=== PATIENT | male | born 1935 | race Caucasian/White ===

== ENCOUNTER 2021-08-24 14:19 | Outpatient (CLI) | payer MEDICARE, BC, SELFPAY | END 2021-08-24 14:20 | disposition home or self-care (01) | PROVIDERS: PCP Surgery; Visit Provider Surgery | DX: L59.8 Other specified disorders of the skin and subcutaneous tissue related to radiation (principal); I87.2 Venous insufficiency (chronic) (peripheral); I89.0 Lymphedema, not elsewhere classified; I83.012 Varicose veins of right lower extremity with ulcer of calf; L97.222 Non-pressure chronic ulcer of left calf with fat layer exposed | CPT/HCPCS: 15271; C5271; Q4121 ==

== ENCOUNTER 2021-08-30 14:19 | Outpatient (CLI) | payer MEDICARE, BC, SELFPAY | END 2021-08-30 14:20 | disposition home or self-care (01) | LOC: WOUND 14:20 | PROVIDERS: PCP Surgery; Visit Provider Nurse Practitioner Family | DX: L59.8 Other specified disorders of the skin and subcutaneous tissue related to radiation (principal); L97.222 Non-pressure chronic ulcer of left calf with fat layer exposed; I87.2 Venous insufficiency (chronic) (peripheral); I89.0 Lymphedema, not elsewhere classified | CPT/HCPCS: 11042 ==

== ENCOUNTER 2021-09-13 14:22 | Outpatient (CLI) | payer MEDICARE, BC, SELFPAY | END 2021-09-13 14:23 | disposition home or self-care (01) | LOC: WOUND 14:22 | PROVIDERS: PCP Surgery; Visit Provider Nurse Practitioner Family | DX: L59.8 Other specified disorders of the skin and subcutaneous tissue related to radiation (principal); T81.31XA Disruption of external operation (surgical) wound, not elsewhere classified, initial encounter; I89.0 Lymphedema, not elsewhere classified; I87.2 Venous insufficiency (chronic) (peripheral) | CPT/HCPCS: 11042; 15271; Q4121 ==

== ENCOUNTER 2021-09-20 13:38 | Outpatient (CLI) | payer MEDICARE, BC, SELFPAY | END 2021-09-20 13:39 | disposition home or self-care (01) | LOC: WOUND 13:38 | PROVIDERS: PCP Surgery; Visit Provider Nurse Practitioner Family | DX: L59.8 Other specified disorders of the skin and subcutaneous tissue related to radiation (principal) | CPT/HCPCS: 99213 ==

== ENCOUNTER 2021-09-27 14:21 | Outpatient (CLI) | payer MEDICARE, BC, SELFPAY | END 2021-09-27 14:22 | disposition home or self-care (01) | LOC: WOUND 14:22 | PROVIDERS: PCP Surgery; Visit Provider Nurse Practitioner Family | DX: L59.8 Other specified disorders of the skin and subcutaneous tissue related to radiation (principal) | CPT/HCPCS: 97597 ==

== ENCOUNTER 2021-09-28 07:26 | Day surgery (SDC) | payer MEDICARE, BC, SELFPAY ==
[2021-09-28] MEDS: KETOROLAC OPHTH 0.5% 1 DROP EYE-RIGHT ×3 (07:45→08:18)
[2021-09-28] MEDS: TETRACAINE 0.5% OPHTH 1 DROP EYE-RIGHT ×2 (07:45→07:58)
[2021-09-28 07:50] VITALS: BP 133/69; PULSE 63; RESP 16; TEMP 36.5; O2SAT 97; BMI 25.1
[2021-09-28] MEDS: SODIUM CHLORIDE 0.9 % (FLUSH) 10 ML SYRINGE IVF (08:05)
--- NOTE | 2021-09-28 08:08 | SUR.PREOP ---
The eye drops brought by the patient (Ketorolac and Prednisolone) are examined and I have determined they are labeled by the patient's pharmacy for this patient as prescribed by the surgeon. The bottles are intact, recently obtained and appear to be correct.
[2021-09-28] MEDS: TETRACAINE 0.5% OPHTH 2 DROP EYE-RIGHT (08:47)
[2021-09-28] MEDS: BALANCED SALT IRRIG SOLN 15 ML EYE-RIGHT (08:51)
--- NOTE | 2021-09-28 08:57 | W.ANESCHARGE ---
Anesthesia Charges Start Date/Time Anesthesia Start Date: 09/28/21 Anesthesia Start Time: 08:44 Stop Date/Time Anesthesia Stop Date: 09/28/21 Anesthesia Stop Time: 09:17 Summary Emergency: No Extremes of Age: Over 71-CPT 76019
--- NOTE | 2021-09-28 09:08 | W.ANESCHARGE ---
Anesthesia Charges Start Date/Time Anesthesia Start Date: 09/28/21 Anesthesia Start Time: 08:44 Stop Date/Time Anesthesia Stop Date: 09/28/21 Summary Emergency: No Extremes of Age: Over 71-CPT 20811
[2021-09-28 09:20] VITALS: BP 140/69; PULSE 54; RESP 16; TEMP 36.5; O2SAT 98
--- NOTE | 2021-09-28 09:27 | W.ANESCHARGE ---
Anesthesia Charges Start Date/Time Anesthesia Start Date: 09/28/21 Anesthesia Start Time: 08:44 Stop Date/Time Anesthesia Stop Date: 09/28/21 Anesthesia Stop Time: 09:17 Summary Emergency: No Extremes of Age: Over 71-CPT 68370
--- NOTE | 2021-09-28 10:03 | PM.PROC ---
Procedure Note Date Seen: 09/28/21 Will [facility] bill your pro fee for this procedure?: Yes Procedure Description: SURGEON: Catrina Ramos MD PREOPERATIVE DIAGNOSIS: Nuclear sclerotic cataract, right eye. POSTOPERATIVE DIAGNOSIS: Nuclear sclerotic cataract, right eye. NAME OF OPERATION: Phacoemulsification of cataract with posterior chamber intraocular lens implantation in the right eye. ANESTHESIA: Topical. ESTIMATED BLOOD LOSS: Less than 2 cc. COMPLICATIONS: None. PATHOLOGY SPECIMEN: None. INDICATIONS: See consult note for details. The risks, benefits and alternatives of the procedure were explained to the patient, who elected to proceed and signed informed consent to do so. PROCEDURE: The patient was brought to the pre-holding area where the right eye was identified as the operative eye. I placed my initials above this eye. The patient received eye drops consisting of 0.5% tetracaine, 1% tropicamide, 10% phenylephrine, and 0.5% ketorolac. The patient was then brought to the operating room where the right eye was again identified as the operative eye. The eye was prepped with Betadine and draped in the usual sterile ophthalmic fashion. A #15 super-sharp blade was used to create a paracentesis site. 1% non-preserved intracameral lidocaine was injected into the anterior chamber. Endocoat was injected into the anterior chamber. A 2.4 mm keratome was used to create a three-plane self-sealing incision 1 mm anterior to the temporal limbus. A cystotome was used to create an anterior capsular leaflet. The Utrata forceps were used to extend this to form a continuous curvilinear capsulorrhexis. Hydrodissection was performed. The cataract was removed with phacoemulsification using the [id number] technique. The irrigation and aspiration tip was used to remove the remaining cortex. Healon was injected into the capsular bag. An MARSHALL ZCB00 intraocular lens of 20.5 diopters was injected into the capsular bag. The irrigation and aspiration tip was used to remove the remaining viscoelastic. Balanced salt solution on a cannula was used to hydrate the wound, and the wound was found to be watertight. The pupil was noted to be round. DISPOSITION: The patient was taken to the recovery room and discharged to home in stable condition. The patient was instructed to call me or go to the emergency department with any sudden change, including dramatic loss of vision, severe pain in the eye or eyebrow region, nausea, or vomiting. The patient will follow up in the clinic tomorrow morning. Surgeon: Catrina Ramos MD
== END 2021-09-28 09:46 | disposition home or self-care (01) ==
PROVIDERS: PCP Surgery; Visit Provider Ophthalmology
PROC: (CPT 66984; principal; 2021-09-28 07:30)
DX: H25.11 Age-related nuclear cataract, right eye (principal)
CPT/HCPCS: 66984; 00142; 99100; A9270; J2250; J3010; V2632

== ENCOUNTER 2021-10-11 14:22 | Outpatient (CLI) | payer MEDICARE, BC, SELFPAY | END 2021-10-11 14:23 | disposition home or self-care (01) | LOC: WOUND 14:23 | PROVIDERS: PCP Surgery; Visit Provider Nurse Practitioner Family | DX: L59.8 Other specified disorders of the skin and subcutaneous tissue related to radiation (principal); I89.0 Lymphedema, not elsewhere classified | CPT/HCPCS: 15271; Q4121 ==

== ENCOUNTER 2021-10-14 08:11 | Day surgery (SDC) | payer MEDICARE, BC, SELFPAY ==
[2021-10-14] MEDS: KETOROLAC OPHTH 0.5% 1 DROP EYE-LEFT ×3 (08:20→08:30)
[2021-10-14] MEDS: TETRACAINE 0.5% OPHTH 1 DROP EYE-LEFT ×2 (08:20→08:25)
[2021-10-14 08:40] VITALS: BP 152/65; PULSE 62; RESP 18; TEMP 37.3; O2SAT 100; BMI 24.7
[2021-10-14] MEDS: TETRACAINE 0.5% OPHTH 2 DROP EYE-LEFT (08:42)
[2021-10-14] MEDS: BALANCED SALT IRRIG SOLN 15 ML EYE-LEFT (08:42)
[2021-10-14] MEDS: SODIUM CHLORIDE 0.9 % (FLUSH) 10 ML SYRINGE IVF (08:45)
--- NOTE | 2021-10-14 08:51 | SUR.PREOP ---
The eye drops brought by the patient (Ketorolac and Prednisolone) are examined and I have determined they are labeled by the patient's pharmacy for this patient as prescribed by the surgeon. The bottles are intact, recently obtained and appear to be correct.[id number]
[2021-10-14 09:55] VITALS: BP 146/65; PULSE 55; RESP 16; TEMP 36.5; O2SAT 98
--- NOTE | 2021-10-14 09:56 | W.ANESCHARGE ---
Anesthesia Charges Start Date/Time Anesthesia Start Date: 10/14/21 Anesthesia Start Time: 09: Stop Date/Time Anesthesia Stop Date: 10/14/21 Anesthesia Stop Time: 09:55 Summary Emergency: No Extremes of Age: Over 71-CPT 37904
--- NOTE | 2021-10-14 11:00 | P.PCN_ITS ---
Procedure Note Date Seen: 10/14/21 Will [facility] bill your pro fee for this procedure?: Yes Procedure Description: SURGEON: Catrina Ramos MD PREOPERATIVE DIAGNOSIS: Nuclear sclerotic cataract, left eye. POSTOPERATIVE DIAGNOSIS: Nuclear sclerotic cataract, left eye. NAME OF OPERATION: Phacoemulsification of cataract with posterior chamber intraocular lens implantation in the left eye. ANESTHESIA: Topical. ESTIMATED BLOOD LOSS: Less than 2 cc. COMPLICATIONS: None. PATHOLOGY SPECIMEN: None. INDICATIONS: See consult note for details. The risks, benefits and alternatives of the procedure were explained to the patient, who elected to proceed and signed informed consent to do so. PROCEDURE: The patient was brought to the pre-holding area where the left eye was identified as the operative eye. I placed my initials above this eye. The patient received eye drops consisting of 0.5% tetracaine, 1% tropicamide, 10% phenylephrine, and 0.5% ketorolac. The patient was then brought to the operating room where the left eye was again identified as the operative eye. The eye was prepped with Betadine and draped in the usual sterile ophthalmic fashion. A #15 super-sharp blade was used to create a paracentesis site. 1% non-preserved intracameral lidocaine was injected into the anterior chamber. Endocoat was injected into the anterior chamber. A 2.4 mm keratome was used to create a three-plane self-sealing incision 1 mm anterior to the temporal limbus. A cystotome was used to create an anterior capsular leaflet. The Utrata forceps were used to extend this to form a continuous curvilinear capsulorrhexis. Hydrodissection was performed. The cataract was removed with phacoemulsification using the [id number] technique. The irrigation and aspiration tip was used to remove the remaining cortex. Healon was injected into the capsular bag. An MARSHALL ZCB00 intraocular lens of 20.5 diopters was injected into the capsular bag. The irrigation and aspiration tip was used to remove the remaining viscoelastic. Balanced salt solution on a cannula was used to hydrate the wound, and the wound was found to be watertight. The pupil was noted to be round. DISPOSITION: The patient was taken to the recovery room and discharged to home in stable condition. The patient was instructed to call me or go to the emergency department with any sudden change, including dramatic loss of vision, severe pain in the eye or eyebrow region, nausea, or vomiting. The patient will follow up in the clinic tomorrow morning. Surgeon: Catrina Ramos MD
== END 2021-10-14 10:31 | disposition home or self-care (01) ==
PROVIDERS: PCP Surgery; Visit Provider Ophthalmology
PROC: (CPT 66984; principal; 2021-10-14 08:15)
DX: H25.12 Age-related nuclear cataract, left eye (principal)
CPT/HCPCS: 66984; 00142; 99100; A9270; J2250; J3010; V2632

== ENCOUNTER 2021-10-18 12:48 | Outpatient (CLI) | payer MEDICARE, BC, SELFPAY | END 2021-10-18 12:49 | disposition home or self-care (01) | LOC: WOUND 12:48 | PROVIDERS: PCP Surgery; Visit Provider Nurse Practitioner Family | DX: L59.8 Other specified disorders of the skin and subcutaneous tissue related to radiation (principal); L97.222 Non-pressure chronic ulcer of left calf with fat layer exposed; I89.0 Lymphedema, not elsewhere classified; I87.2 Venous insufficiency (chronic) (peripheral) | CPT/HCPCS: 11042 ==

== ENCOUNTER 2021-10-25 14:22 | Outpatient (CLI) | payer MEDICARE, BC, SELFPAY | END 2021-10-25 14:23 | disposition home or self-care (01) | LOC: WOUND 14:22 | PROVIDERS: PCP Surgery; Visit Provider Nurse Practitioner Family | DX: L59.8 Other specified disorders of the skin and subcutaneous tissue related to radiation (principal); T81.31XA Disruption of external operation (surgical) wound, not elsewhere classified, initial encounter | CPT/HCPCS: 11042; 97597 ==

== ENCOUNTER 2021-11-01 14:18 | Outpatient (CLI) | payer MEDICARE, BC, SELFPAY | END 2021-11-01 14:19 | disposition home or self-care (01) | LOC: WOUND 14:19 | PROVIDERS: PCP Surgery; Visit Provider Nurse Practitioner Family | DX: L59.8 Other specified disorders of the skin and subcutaneous tissue related to radiation (principal); L97.222 Non-pressure chronic ulcer of left calf with fat layer exposed; I89.0 Lymphedema, not elsewhere classified | CPT/HCPCS: 15271; Q4121 ==

== ENCOUNTER 2021-11-03 23:13 | Outpatient (CLI) | payer MEDICARE, BC, SELFPAY | END 2021-11-03 23:14 | disposition home or self-care (01) | LOC: AMB 04-07 05:32 | PROVIDERS: PCP Surgery; Visit Provider Student in an Organized Health Care Education/Training Program | DX: R06.09 Other forms of dyspnea (principal) | CPT/HCPCS: A0425; A0427 ==

== ENCOUNTER 2021-11-03 23:50 | Observation (INO) | payer MEDICARE, BC, SELFPAY ==
[2021-11-03 23:52] VITALS: BP 150/80; PULSE 66; RESP 22; TEMP 36.5; O2SAT 100; BMI 26.2
[2021-11-04] VITALS (13 sets, daily range): BP systolic 110–157; BP diastolic 56–81; PULSE 49–57; RESP 15–20; TEMP 36.5–36.6; O2SAT 95–100; BMI 25.1
--- NOTE | 2021-11-04 00:08 | CRLHL7_ITS ---
For Patients: As a result of the Century Cures Act, medical imaging exams and procedure reports are released immediately into your electronic medical record. You may view this report before your referring provider. If you have questions, please contact your health care provider. INDICATION: Dyspnea, weakness. TECHNIQUE: Chest 1 views. COMPARISON: None. FINDINGS: Lungs: Low lung volumes. No consolidation. The tracheobronchial tree and hilar structures are unremarkable. Pleura: No pleural effusion or pneumothorax. Heart and Mediastinum: Normal heart size. Atherosclerotic aorta. Bones: Left humeral arthroplasty. IMPRESSION: No consolidation. Dictated by Darrel Silva MD @ 11/04/2021 1:58:28 AM (Electronically Signed)
[2021-11-04] MEDS: 0.9 % SODIUM CHLORIDE 250 ml 250 ML IV (00:24)
[2021-11-04 00:38] LABS: Lactate* 2.3 mmol/L (0.5-1.9)
[2021-11-04 00:41] LABS: Basophils Absolute Auto 0.04 K/uL (0.00-0.30); Basophils Percent Auto 0.7 % (0.0-3.0); Eosinophils Absolute Auto 0.15 K/uL (0.00-0.50); Eosinophils Percent Auto 2.7 % (0.0-7.0); Hematocrit 36.4 % (37.0-53.0); Hemoglobin* 12.6 gm/dL (13.5-17.5); Immature Granulocytes Abs Auto 0.05 K/uL (0.00-0.30); Lymphocytes Percent Auto 16.9 % (20-44); Mean Corpuscular HGB Conc 35 gm/dL (32-36); Mean Corpuscular Hemoglobin 32 pg (26-34); Mean Corpuscular Volume 93 fL (80-100); Monocytes Percent Auto 10.3 % (0.0-11.0); Neutrophils Absolute Auto 3.86 K/uL (1.7-7.0); Neutrophils Percent Auto 68.5 % (42.0-72.0); Platelet Count* 185 K/uL (140-440); RDW Coefficient of Variation % 13.1 % (11.5-15.5); White Blood Count* 5.63 K/uL (4.50-11.00)
[2021-11-04 00:45] LABS: Slide Review Reflex No
[2021-11-04 00:52] LABS: Troponin, Point-of-Care* 0.01 ng/ml (0.01-0.04)
[2021-11-04 00:59] LABS: Chloride* 103 mmol/L (96-114); Potassium* 3.4 mmol/L (3.6-5.1); Sodium* 137 mmol/L (135-149)
[2021-11-04 01:01] LABS: Est. Creatinine Clearance* 52.25; Estimated Glomerular Filt Rate 74 ml/min
[2021-11-04 01:02] LABS: Alanine Aminotransferase* 16 U/L (4-50); Alkaline Phosphatase* 93 U/L (40-150); Aspartate Amino Transferase* 23 U/L (12-35); Bilirubin Total* 0.8 mg/dL (0.1-1.5); Blood Urea Nitrogen* 29 mg/dL (7-30); Carbon Dioxide* 24 mmol/L (20-32); Glucose* 133 mg/dL (60-115); Total Protein* 6.6 g/dL (6.0-8.3)
[2021-11-04 01:08] LABS: Appearance Urine Clear (Clear); Bilirubin Urine Negative (Negative); Blood Urine Negative (Negative); Color Urine Yellow (Yellow); Glucose Urine Negative (Negative); Ketones Urine Negative (Negative); Leukocyte Esterase Urine Negative (Negative); Nitrite Urine Negative (Negative); Protein Urine Negative (Negative); Specific Gravity Urine 1.015 (1.000-1.030); Urobilinogen Urine 0.2 (0.2-1.0)
[2021-11-04 01:11] LABS: NT Pro B Type NatriureticPept* 132 PG/mL (0-450)
[2021-11-04 01:15] LABS: Troponin I* < 0.01 ng/mL (0.01-0.04)
[2021-11-04 02:03] LABS: SARS PCR* Negative SARS-CoV-2 (Negative)
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
[2021-11-04 02:16] LABS: Lactate* 1.6 mmol/L (0.5-1.9)
[2021-11-04 02:23] LABS: Troponin, Point-of-Care* 0.02 ng/ml (0.01-0.04)
--- NOTE | 2021-11-04 09:38 | ED.NURSE ---
has good appetite. ate brfst. has been resting. is on his phone. awaiting bed for admission.
[2021-11-04] MEDS: APIXABAN 5 MG TABLET PO ×2 (10:40→21:02)
[2021-11-04] MEDS: OMEPRAZOLE 20 MG CAPSULE DR 40 MG PO (10:40)
[2021-11-04] MEDS: CLOPIDOGREL 75 MG TABLET PO (10:40)
[2021-11-04] MEDS: hydroCHLOROthiazide 25 MG TABLET PO (10:42)
[2021-11-04] MEDS: METOPROLOL SUCCINATE (XL) 25 MG TAB PO (10:43)
[2021-11-04] MEDS: LOSARTAN POTASSIUM 50 MG TABLET PO ×2 (10:43→21:02)
[2021-11-04] MEDS: FUROSEMIDE 20 MG TABLET PO (10:44)
--- NOTE | 2021-11-04 15:29 | P.IMHP_ITS ---
Hospitalist- H&P: HPI History of Present Illness Date Seen: 11/04/21 Chief complaint: Chest pain, weakness of breath Narrative: Cristian Stevens is a 86 year old male who had a long day yesterday as his daughter had surgery and pt was at his daughter's side. He began feeling weak as the day went on and developed lightheadedness and worsening weakness last night at home. Pt states that he pushed he Medicallert and was brought to the [facility] ED. Workup was largely unremarkable with a negative troponin, stable CBC and electrolytes with the exception of a potassium of 3.4. Troponin was negative. Pt has paroxysmal a fib but EKG showed sinus rhythm with PACs. UA and COVID testing were negative. Lactate was initially 2.3 but fell to 1.6. Pt did not fall or harm himself. Pt had the persistance of generalized weakness with no focal complaints and was unable to safely ambulate in the ED. Chest x ray shows no acute abnormalities. Pt was subsequently admitted for further evaluation and safety. Review of Systems Status of ROS: Reports: 10 or more systems reviewed and unremarkable except as noted in History and below 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) Hx of appendectomy Hx of colonoscopy Hx of hernia repair Hx of inguinal hernia repair Social History Smoking Status: Never smoker Do you use any of these nicotine containing products: None How often do you have a drink containing alcohol: never How often do you have six or more drinks on one occasion: Never AUDIT-C Alcohol total score: 0 Non-prescribed substance use: denies use Caffeine: No service: Yes Meds Home Medications and Allergies Home Medications Medication Instructions Recorded Confirmed Type acetaminophen 500 mg tablet 500 mg PO Q6H PRN 09/28/21 11/04/21 History (Tylenol Extra Strength) apixaban 5 mg tablet 5 mg PO BID 09/28/21 11/04/21 History atorvastatin 20 mg tablet 10 mg PO HS 09/28/21 11/04/21 History clopidogrel 75 mg tablet 75 mg PO DAILY 09/28/21 11/04/21 History furosemide 20 mg tablet 20 mg PO DAILY 09/28/21 11/04/21 History gabapentin 300 mg capsule 300 mg PO HS 09/28/21 11/04/21 History hydrochlorothiazide 25 mg tablet 25 mg PO DAILY 09/28/21 11/04/21 History losartan 50 mg tablet (Cozaar) 50 mg PO BID 09/28/21 11/04/21 History omeprazole 40 mg capsule,delayed 40 mg PO DAILY 09/28/21 11/04/21 History release metoprolol succinate 25 mg 25 mg PO DAILY 11/04/21 11/04/21 History tablet,extended release 24 hr multivitamin with minerals-ferrous 1 tab PO DAILY 11/04/21 11/04/21 History sulfate 4.5 mg iron tablet (One Daily Multivitamins with Minerals) nitroglycerin 0.4 mg sublingual 0.4 mg sublingual Q5M PRN 11/04/21 11/04/21 History tablet Allergies Allergy/AdvReac Type Severity Reaction Status Date / Time atenolol AdvReac Verified 11/01/21 10:18 lisinopril AdvReac anemia Verified 11/01/21 10:18 Exam Narrative: Exam Narrative: EXAM GENERAL: Patient appears comfortable and well. EYES: No scleral icterus. THYROID: no thyroid nodules or thyromegaly. LYMPH: No supraclavicular or cervical lymphadenopathy. SKIN: Visible skin seen during exam normal or with benign process only with the exception of previous skin cancer sites on left lower extremity with mild chronic ulcerations. EXT: No dependent lower extremity pedal edema. HEART: Regular rate and rhythm with no murmurs, rubs, or gallops. LUNGS: Clear to auscultation bilaterally with no crackles or wheezes. ABD: Soft, non tender, non distended. PSYCH: Good eye contact, speech is not pressured. Neurological: CN 2-12 grossly intact no focal defects. Good strength and reflexes in all extremities. Cognitively pt is oriented times three and understands why he is here. Const: Vital Signs, click to edit/add: Vital Signs - 24 hr 11/03/21 23:52 11/04/21 00:30 11/04/21 01:36 Temperature 97.7 F Pulse Rate [Pulse Oximeter] 66 56 L 55 L Pulse Rate [Right Pulse Oximeter] Respiratory Rate 22 Blood Pressure [Le ft Arm] Blood Pressure [Le ft Upper Arm] 150/80 H 122/68 137/68 Pulse Oximetry 100 99 99 Oxygen Delivery Va thod Room Air Room Air Room Air 11/04/21 04:11 11/04/21 06:00 11/04/21 07:08 Temperature 97.7 F Pulse Rate [Pulse Oximeter] 54 L 56 L 55 L Pulse Rate [Right Pulse Oximeter] Respiratory Rate 18 Blood Pressure [Le ft Arm] Blood Pressure [Le ft Upper Arm] 114/56 L 130/59 L 144/69 H Pulse Oximetry 98 95 97 Oxygen Delivery Va thod Room Air Room Air 11/04/21 08:00 11/04/21 10:46 11/04/21 12:56 Temperature 97.7 F Pulse Rate [Pulse Oximeter] 54 L 55 L Pulse Rate [Right Pulse Oximeter] 57 L Respiratory Rate 18 18 20 Blood Pressure [Le ft Arm] 150/81 H Blood Pressure [Le ft Upper Arm] 132/62 129/64 Pulse Oximetry 98 99 97 Oxygen Delivery Va thod Room Air Room Air Room Air Hospitalist - H&P: Result Labs Labs: Short CBC 11/04/21 Range/Units 00:30 WBC 5.63 (4.50-11.00) K/uL Hgb 12.6 L (13.5-17.5) gm/dL Hct 36.4 L (37.0-53.0) % Plt Count 185 (140-440) K/uL BMP 11/04/21 00:30 Sodium 137 Potassium 3.4 L Chloride 103 Carbon Dioxide 24 BUN 29 Creatinine 1.0 Glucose 133 H Calcium 9.0 Cardiac Enzymes 11/04/21 Range/Units 00:30 Troponin I < 0.01 L (0.01-0.04) ng/mL Liver Function 11/04/21 Range/Units 00:30 Total Bilirubin 0.8 (0.1-1.5) mg/dL AST 23 (12-35) U/L ALT 16 (4-50) U/L Alkaline Phosphatase 93 (40-150) U/L Albumin 4.0 (3.3-5.0) g/dL Urine 11/04/21 Range/Units 01:00 Urine Color Yellow (Yellow) Urine Appearance Clear (Clear) Urine pH 7.0 (5.0-8.5) Ur Specific [place] 1.015 (1.000-1.030) Urine Protein Negative (Negative) Urine Glucose (UA) Negative (Negative) Imaging Chest x-ray: Radiologist's impression: No acute abnormalities Assessment and Plan Assessment and plan (1) Weakness: Status: Acute Assessment and Plan: Pt appears very stable. However, will repeat Troponin, CMP, CBC. If results negative will hold on am labs. Pt placed on Tele with oxymetry. CT of head without contrast ordered. PT/OT to see in am. (2) Hypokalemia: Status: Acute Assessment and Plan: Repeating labs now. (3) Paroxysmal A-fib: Status: Chronic Assessment and Plan: Continue anticoagulation. Rate is controlled. Will place on tele. (4) Coronary artery disease: Status: Chronic Assessment and Plan: Echo showed no major abnormalities. Repeat troponin pending. Will place on Tele. (5) GERD (gastroesophageal reflux disease): Status: Chronic Assessment and Plan: Continue omeprazole (6) Hypertension: Status: Chronic Assessment and Plan: Continue outpt regiment (7) DANIAL (obstructive sleep apnea): Status: Chronic Assessment and Plan: Pt does not use CPAP or dental appliance. Will watch on tele/oxymetry Plan Pt to be a full code.
--- NOTE | 2021-11-04 15:51 | CRLHL7_ITS ---
For Patients: As a result of the Century Cures Act, medical imaging exams and procedure reports are released immediately into your electronic medical record. You may view this report before your referring provider. If you have questions, please contact your health care provider. INDICATION: Weakness. COMPARISON: None. TECHNIQUE: Noncontrast CT head. FINDINGS: Mild generalized volume loss. Patchy low-attenuation change within the white matter consistent with chronic small vessel ischemic changes. No intracranial hemorrhage. No abnormal ventricular dilatation. Normal calvarium and skull base. Visualized paranasal sinuses and mastoid air cells are clear. Normal orbits bilaterally. IMPRESSION: 1. No acute intracranial abnormality. 2. Mild generalized cerebral volume loss. Chronic deep white matter small vessel ischemic changes Please note that all CT scans at this facility use dose modulation, iterative reconstruction, and/or weight-based dosing when appropriate to reduce radiation dose to as low as reasonably achievable. Dictated by Amor Patrick MD @ 11/04/2021 5:33:26 PM (Electronically Signed)
--- NOTE | 2021-11-04 17:45 | PC.NURSE ---
Shift Summary: patient pleasant and cooperative. Up with SBA and gait belt due to weakness and unstable gait. Vitals stable, tele shows bradycardic, o2 >90% on RA. Denies chest pain or SOB. Using call light appropriately.
[2021-11-04 18:10] LABS: Basophils Absolute Auto 0.04 K/uL (0.00-0.30); Basophils Percent Auto 0.5 % (0.0-3.0); Eosinophils Absolute Auto 0.19 K/uL (0.00-0.50); Eosinophils Percent Auto 2.5 % (0.0-7.0); Hematocrit 41.5 % (37.0-53.0); Immature Granulocytes Abs Auto 0.05 K/uL (0.00-0.30); Lymphocytes Percent Auto 18.5 % (20-44); Mean Corpuscular HGB Conc 34 gm/dL (32-36); Mean Corpuscular Hemoglobin 32 pg (26-34); Mean Corpuscular Volume 94 fL (80-100); Monocytes Percent Auto 10.4 % (0.0-11.0); Neutrophils Absolute Auto 5.21 K/uL (1.7-7.0); Neutrophils Percent Auto 67.5 % (42.0-72.0); Platelet Count* 196 K/uL (140-440); RDW Coefficient of Variation % 13.3 % (11.5-15.5); Slide Review Reflex No; White Blood Count* 7.72 K/uL (4.50-11.00)
[2021-11-04 18:21] LABS: Chloride* 100 mmol/L (96-114)
[2021-11-04 18:22] LABS: Sodium* 136 mmol/L (135-149)
[2021-11-04 18:24] LABS: Carbon Dioxide* 29 mmol/L (20-32); Creatinine* 0.8 mg/dL (0.5-1.5); Est. Creatinine Clearance* 52.25; Estimated Glomerular Filt Rate 87 ml/min
[2021-11-04 18:25] LABS: Blood Urea Nitrogen* 21 mg/dL (7-30); Calcium* 9.1 mg/dL (8.4-10.6); Glucose* 104 mg/dL (60-115)
[2021-11-04 18:45] LABS: Troponin I* < 0.01 ng/mL (0.01-0.04)
[2021-11-04] MEDS: ATORVASTATIN 10 MG TABLET PO (21:02)
[2021-11-04] MEDS: GABAPENTIN 300 MG CAPSULE PO (21:03)
[2021-11-05 03:00] VITALS: BP 117/60; PULSE 50; RESP 12; O2SAT 97
--- NOTE | 2021-11-05 05:48 | PC.NURSE ---
shift [id number] Pt this shift calm and cooperative with cares. Pleasant, independent in room. HS self-care done at sink, tolerated well. No c/o pain, SOB, or dizziness. Tele shows regular sinus-cher start of shift but every few minutes a PVC will be seen. P wave so small, looks non-existent and almost appears to be junctional rhythm. Mepilex to L anterior dotson x3, CDI. Compliant with fluid restriction 1500cc. Slept through majority of night, easily woken up during vital readings.
[2021-11-05 07:35] VITALS: BP 119/59; PULSE 56; RESP 18; TEMP 36.8; O2SAT 98
[2021-11-05 07:45] VITALS: PULSE 50
[2021-11-05] MEDS: APIXABAN 5 MG TABLET PO (09:18)
[2021-11-05] MEDS: FUROSEMIDE 20 MG TABLET PO (09:18)
[2021-11-05] MEDS: LOSARTAN POTASSIUM 50 MG TABLET PO (09:18)
[2021-11-05] MEDS: MULTIVITAMIN/MINERALS 1 TABLET 1 TAB PO (09:18)
[2021-11-05] MEDS: METOPROLOL SUCCINATE (XL) 25 MG TAB PO (09:19)
[2021-11-05] MEDS: hydroCHLOROthiazide 25 MG TABLET PO (09:19)
[2021-11-05] MEDS: CLOPIDOGREL 75 MG TABLET PO (09:19)
--- NOTE | 2021-11-05 10:23 | P.DS_ITS ---
DS: Providers Provider Date Seen: 11/05/21 Date of admission: 11/04/21 12:45 Primary care physician: Art Robbins MD Admitting Clinician: Katarzyna Echevarria MD Consults: 11/04/21 03:26 Consult to Physical Therapy [CONS] Urgent Comment: Reason(s) for PT Consult:: Weakness Any Restrictions?:: No Restrictions 11/04/21 13:13 Consult to Physical Therapy [CONS] Routine Comment: Reason(s) for PT Consult:: Weakness Any Restrictions?:: No Restrictions 11/04/21 15:49 Consult to Physical Therapy [CONS] Routine Comment: Reason(s) for PT Consult:: Evaluate Ambulation Any Restrictions?:: No Restrictions 11/04/21 15:50 Consult to Occupational Therapy [CONS] Routine Comment: Reason(s) for OT Consult:: Evaluate and Treat Any Restrictions?:: No Restrictions Attending Physician on discharge: Sukhwinder Mahoney MD Date of Discharge: 11/05/21 DS: Diagnosis Discharge Diagnosis (1) Dizziness: Status: Acute (2) Weakness: Status: Acute DS: Summary Hospital Course Hospital Course: CT HEAD IMPRESSION: 1. No acute intracranial abnormality. 2. Mild generalized cerebral volume loss. Chronic deep white matter small vessel ischemic changes Echo TTE 1. EF 71% 2. Mild to moderate aortic regurgitation 3. mild MR 4. 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 ascending aorta dilated maximal diamter 4.1 cm RODRÍGUEZ Stevens is a 86 year old male? who had a long day yesterday as his daughter had surgery and pt was at his daughter's side. He began feeling weak as the day went on and developed lightheadedness and worsening weakness last night at home. Pt states that he pushed he Medicallert and was brought to the [facility] ED. Workup was largely unremarkable with a negative troponin, stable CBC and electrolytes with the exception of a potassium of 3.4. Troponin was negative. Pt has paroxysmal a fib but EKG showed sinus rhythm with PACs. UA and COVID testing were negative. Lactate was initially 2.3 but fell to 1.6. Pt did not fall or harm himself. Pt had the persistance of generalized weakness with no focal complaints and was unable to safely ambulate in the ED. Chest x ray shows no acute abnormalities. Pt was subsequently admitted for further evaluation and safety. Hospital Course CT head with no acute finding, Echo with results noted above including normal Ef. Troponin WNL X2. He was noted to be Bradycardic this morning on telemetry which may have contributed to his dizziness. His metoprolol was decreased to 12.5 mg daily from 25 mg daily. This will need to be continued to be monitored by outpatient provider. Recommend follow up with PCP 3-5 days post discharge and follow up with Cardiology 1-2 weeks. He was able to ambulate independently. He denies chest pain, pressure, sob, dizziness, headache. Reviewed red flag symptoms with patient which should require return to ED (chest pain/tightness/pressure/dizziness, etc). Time Spent with Patient Time attestation: Total time spent providing and/or coordinating discharge services: Exam Narrative: Exam Narrative: Gen: No acute distress HEENT: NCAT EOMI MMM CV: Bradycardic normal s1 s2 Lungs: CTAB Abd: Soft, nt,nd Neuro: Alert, oriented, nonfocal screening exam MSK: age appropriate muscle mass Const: Vital Signs, click to edit/add: Vital Signs - 24 hr 11/04/21 10:46 11/04/21 12:56 11/04/21 16:32 Temperature 97.7 F 97.7 F Pulse Rate Pulse Rate [Pulse Oximeter] 55 L Pulse Rate [Right Pulse Oximeter] 57 L 52 L Respiratory Rate 18 20 18 Blood Pressure [Le ft Arm] 150/81 H 157/67 H Blood Pressure [Le ft Upper Arm] 129/64 Pulse Oximetry 99 97 100 Oxygen Delivery Me thod Room Air Room Air Room Air 11/04/21 16:51 11/04/21 16:51 11/04/21 19:00 Temperature 97.9 F Pulse Rate 51 L Pulse Rate [Pulse Oximeter] Pulse Rate [Right Pulse Oximeter] 57 L Respiratory Rate 15 Blood Pressure [Le ft Arm] 118/59 L Blood Pressure [Le ft Upper Arm] Pulse Oximetry 98 97 Oxygen Delivery Me thod Room Air 11/04/21 21:52 11/04/21 23:00 11/04/21 23:00 Temperature Pulse Rate 49 L Pulse Rate [Pulse Oximeter] Pulse Rate [Right Pulse Oximeter] 51 L Respiratory Rate 15 Blood Pressure [Le ft Arm] Blood Pressure [Le ft Upper Arm] Pulse Oximetry 97 Oxygen Delivery Me thod 11/04/21 23:00 11/05/21 03:00 11/05/21 07:45 Temperature Pulse Rate 50 L Pulse Rate [Pulse Oximeter] Pulse Rate [Right Pulse Oximeter] 51 L 50 L Respiratory Rate 15 12 Blood Pressure [Le ft Arm] 110/61 117/60 Blood Pressure [Le ft Upper Arm] Pulse Oximetry 97 97 Oxygen Delivery Az thod Room Air Room Air DS: Data Data Completed and Pending Labs on day of discharge: Labs from last 24 hours 11/04/21 11/04/21 17:55 17:55 WBC 7.72 RBC 4.40 Hgb 14.0 Hct 41.5 MCV 94 MCH 32 MCHC 34 RDW Coeff of Corine 13.3 Plt Count 196 Neut % (Auto) 67.5 Lymph % (Auto) 18.5 L Collin % (Auto) 10.4 Eos % (Auto) 2.5 Baso % (Auto) 0.5 Neut # (Auto) 5.21 Lymph # (Auto) 1.40 Collin # (Auto) 0.80 Eos # (Auto) 0.19 Baso # (Auto) 0.04 Abs Immat Gran (auto) 0.05 Sodium 136 Potassium 4.0 Chloride 100 Carbon Dioxide 29 BUN 21 Creatinine 0.8 Estimated Creat Clear 52.25 Estimated GFR 87 Glucose 104 Calcium 9.1 Troponin I < 0.01 L Preliminary micro results at discharge 11/04/21 00:30 Blood Culture - Preliminary Blood NO GROWTH AFTER 24 HOURS Discharge Plan Discharge Disposition: Home, Self-Care Date of Admission: 11/04/21 12:45 Attending Provider on Discharge: Sukhwinder Mahoney Primary Care Provider: Art Robbins Condition: Stable Anticipated Discharge Date/Time: 11/05/21 10:15 Discharge Medications: New metoprolol succinate 25 mg capsule,sprinkle,ER 24hr 25 mg PO DAILY Qty: 30 0RF Rx Instructions: Take half a tablet (12.5mg) daily with breakfast Continued acetaminophen [Tylenol Extra Strength] 500 mg tablet 500 mg PO Q6H PRN apixaban 5 mg tablet 5 mg PO BID atorvastatin 20 mg tablet 10 mg PO HS clopidogrel 75 mg tablet 75 mg PO DAILY furosemide 20 mg tablet 20 mg PO DAILY gabapentin 300 mg capsule 300 mg PO HS hydrochlorothiazide 25 mg tablet 25 mg PO DAILY losartan [Cozaar] 50 mg tablet 50 mg PO BID omeprazole 40 mg capsule,delayed release(DR/EC) 40 mg PO DAILY nitroglycerin 0.4 mg tablet, sublingual 0.4 mg sublingual Q5M PRN Rx Instructions: PRN CHEST PAIN One Daily Multi-Vit w-Mineral 4.5 mg iron tablet 1 tab PO DAILY Discontinued metoprolol succinate 25 mg tablet extended release 24 hr 25 mg PO DAILY Discharge Orders: Discharge Order (Routine); Ordered 11/05/21 Ordered By: Sukhwinder Mahoney Patient Education: Dizziness (GEN) Activity Level: Activity as Tolerated and Up with assist Discharge Diet: Other Diet Detail: Resume previous home diet Follow Up Appointments: Art Robbins MD [Primary Care Provider] - None (Please follow up with PCP 3-5 days for follow up for post hospital discharge. Please call your clinic to make appointment ) Forms: [email or web address] Info Instructions Discharge Comments: addendum: spoke with pharmacy; metoprolol XL dosing changed from capsule to tablet; 12.5 mg daily by mouth (will dispense 25 mg tablet, take 1/2 tablet 12.5mg daily with breakfast)
[2021-11-05 10:51] VITALS: PULSE 50; RESP 18; TEMP 36.8
--- NOTE | 2021-11-05 10:52 | REH.OT ---
Orders received for OT eval and treat. Patient up ad bruce in his room and I in self care. No OT intervention required. agrees. Patient will discharge home today.
--- NOTE | 2021-11-05 11:40 | PC.NURSE ---
Tele indicates sinus bradycardia w/BBB. No dysphagia with am meds. UAL in room and hallway. Pt evaluated by Dr. Sukhwinder Valadez. Pt verbalized understanding of d/c diagnosis, home meds, change in metoprolol dose, f/up appt and symptoms to report urgently to physician. Ambulatory d/c to home with his black wallet containing 31 dollars in [place] (amt verified with Alecia quiles RN)& all his personal belongings. Transportation provided by Katarzyna Yi friend of pt @ 11:30 am.
== END 2021-11-05 11:30 | disposition home or self-care (01) ==
LOC: ED 11-04 09:41 → MEDSURG 11-04 12:50
PROVIDERS: Internal Medicine; Admitting Provider Family Medicine; Emergency Provider Family Medicine; PCP Surgery; Visit Provider Family Medicine
DX: E87.6 Hypokalemia (principal); R00.1 Bradycardia, unspecified; I48.0 Paroxysmal atrial fibrillation; I25.10 Atherosclerotic heart disease of native coronary artery without angina pectoris; E86.0 Dehydration; G47.33 Obstructive sleep apnea (adult) (pediatric); K21.9 Gastro-esophageal reflux disease without esophagitis; R42 Dizziness and giddiness; I10 Essential (primary) hypertension; Z20.822 Contact with and (suspected) exposure to COVID-19; M62.81 Muscle weakness (generalized); Z79.84 Long term (current) use of oral hypoglycemic drugs; R07.9 Chest pain, unspecified; Z79.01 Long term (current) use of anticoagulants; Z90.49 Acquired absence of other specified parts of digestive tract; Z98.890 Other specified postprocedural states; E78.2 Mixed hyperlipidemia; I51.7 Cardiomegaly; Z72.0 Tobacco use
CPT/HCPCS: 36415; 70450; 71045; 80048; 80053; 81003; 83605; 83880; 84484; 85025; 87040; 87635; 93005; 93306; 94761; 97116; 97161; 99284; 99285; G0378; A9153; A9270; G0379; J7050

== ENCOUNTER 2021-11-15 14:24 | Outpatient (CLI) | payer MEDICARE, BC, SELFPAY | END 2021-11-15 14:25 | disposition home or self-care (01) | LOC: WOUND 14:24 | PROVIDERS: PCP Surgery; Visit Provider Nurse Practitioner Family | DX: L59.8 Other specified disorders of the skin and subcutaneous tissue related to radiation (principal); T81.31XA Disruption of external operation (surgical) wound, not elsewhere classified, initial encounter | CPT/HCPCS: 11042; 97597 ==

== ENCOUNTER 2021-11-22 14:20 | Outpatient (CLI) | payer MEDICARE, BC, SELFPAY | END 2021-11-22 14:21 | disposition home or self-care (01) | PROVIDERS: PCP Surgery; Visit Provider Nurse Practitioner Family | DX: L59.8 Other specified disorders of the skin and subcutaneous tissue related to radiation (principal); T81.31XA Disruption of external operation (surgical) wound, not elsewhere classified, initial encounter | CPT/HCPCS: 15271; Q4121 ==

== ENCOUNTER 2021-11-29 14:17 | Outpatient (CLI) | payer MEDICARE, BC, SELFPAY | END 2021-11-29 14:18 | disposition home or self-care (01) | LOC: WOUND 14:18 | PROVIDERS: PCP Surgery; Visit Provider Nurse Practitioner Family | DX: L59.8 Other specified disorders of the skin and subcutaneous tissue related to radiation (principal) | CPT/HCPCS: 97597 ==

== ENCOUNTER 2021-12-06 13:20 | Outpatient (CLI) | payer MEDICARE, BC, SELFPAY | END 2021-12-06 13:21 | disposition home or self-care (01) | LOC: WOUND 13:21 | PROVIDERS: PCP Surgery; Visit Provider Nurse Practitioner Family | DX: L59.8 Other specified disorders of the skin and subcutaneous tissue related to radiation (principal) | CPT/HCPCS: 97597 ==

== ENCOUNTER 2021-12-20 14:17 | Outpatient (CLI) | payer MEDICARE, BC, SELFPAY ==
--- OUTSIDE RECORDS SUMMARY | 2021-12-20 14:19 | XMS_ITS | Clinical Summary ---
:1935 Author Organization [facility] [place] [address] Care Team Providers Name Role Phone Catrina Ramos MD Unavailable Gail Jenkins MD Unavailable Art Robbins MD Primary Care Provider Allergies Active Allergy Reactions Severity Noted Date Comments Atenolol Intolerance-Can't Take 07/19/2006 decre ase in heart rate and near syncope Lisinopril Anemia 02/06/2011 Anemia responde d to discontinuation Lisinopril! Medications Medication Sig Dispensed Refills Start End Status Date Date GLUCOSAMINE-CHONDROITI 1 tab by mouth 0 11/14/19 Active N 250 MG-200 MG CAP once daily 07 multivitamin capsule Take 1 capsule 0 07/01/19 Active by mouth once 15 daily. apixaban (ELIQUIS) 5 TAKE ONE TABLET 0 03/30/19 Active mg tablet BY MOUTH EVERY 21 12 HOURS TO PREVENT STROKE DUE TO ATRIAL FIBRILLATION omeprazole (PRILOSEC) Take 1 Capsule 90 Capsule 3 03/09/19 Active 40 mg Delayed-Release (40 mg) by 22 capsuleIndications: mouth once Gastric reflux daily before a meal. diclofenac topical Apply topically 0 01/04/20 Active (VOLTAREN) 1 % gel to affected 21 area(s). acetaminophen (TYLENOL Every 6 Hours 0 05/26/19 Active EXTRA STRGTH) 500 mg as needed [address] 1 TABLET 25 Tablet 1 09/19/19 A ctive (NITROSTAT) 0.4 mg UNDER THE 22 sublingual TONGUE EVERY 5 tabletIndications: MINUTES IF Chest pain in adult NEEDED FOR UP TO 3 TIMES, IF NO RELIEF CALL 911 furosemide (LASIX) 20 Take 1 Tablet 90 Tablet 3 09/20/19 Active mg tabletIndications: (20 mg) by 22 Bilateral lower mouth every extremity edema morning. atorvastatin (LIPITOR) Take 0.5 45 Tablet 3 11/01/19 Active 20 mg Tablets (10 mg) 22 tabletIndications: by mouth once Mixed hyperlipidemia daily. clopidogreL (PLAVIX) Take 1 Tablet 90 Tablet 3 11/01/19 Active 75 mg (75 mg) by 22 tabletIndications: mouth once Coronary artery daily. disease involving [place] coronary artery without angina pectoris, unspecified whether [place] or transplanted heart gabapentin (NEURONTIN) Take 1 Capsule 90 Capsule 3 11/01/19 Active 300 mg (300 mg) by 22 capsuleIndications: mouth at Wound of left lower bedtime. extremity, subsequent encounter hydroCHLOROthiazide Take 1 Tablet 90 Tablet 3 11/01/19 Active (HCTZ) 25 mg (25 mg) by 22 tabletIndications: mouth once Essential hypertension daily. metoprolol succinate Take 0.5 90 Tablet 3 11/12/19 Active (Toprol XL) 25 mg Tablets (12.5 22 Sustained-Release mg) by mouth tabletIndications: once daily. Paroxysmal atrial fibrillation (HC) losartan (COZAAR) 50 Take 1 Tablet 90 Tablet 3 12/03/19 Active mg tabletIndications: (50 mg) by 22 Essential hypertension mouth two times daily. losartan (COZAAR) 50 Take 1 Tablet 90 Tablet 3 11/12/19/ / Discontinued mg tabletIndications: (50 mg) by 22 022 (*Medication Essential hypertension mouth once adjustment) daily. Active Problems Problem Noted Date Other ill-defined and unknown causes of morbidity and mortality 08/19/2021 Overview: Jun 04, 2012 Entered By: JOHN YEE [facility] Entered By: FRANCOIS HAMPTON Comment: PCP Dr. Robbins Tinnitus 08/19/2021 Problems of adjustment to life-cycle transitions 08/19 Insomnia 08/19/2021 Hearing loss 08/19/2021 Chronic ischemic heart disease 08/19/2021 Sanchez's cyst of knee 08/19/2021 Adjustment disorder with depressed mood 08/19/2021 Squamous cell carcinoma 08/17/2020 Glenohumeral arthritis, right 05/13/2018 Ascending aorta dilatation 04/29/2018 Lymphocytic colitis 12/25/2017 Overview: Colonoscopy 12/2017 colitis, no follow u p needed DANIAL 09/08/2017 AHI/RDI:8 09/24/2017 Atrial fibrillation 06/29/2017 Asymptomatic varicose veins 06/12/2012 Overview: Very large posterior left knee. Mixed hyperlipidemia 01/24/2012 Hypertension 01/15/2012 CAD (coronary artery disease) 01/15/2012 Overview: - 01/15/12- WILVER x1 to mLCX, diffuse dise ase, moderate, noted in LAD - angio 06/2017: ?? Calcified coronary arteries. ?? The left main artery has mild disease . ?? The LAD has moderate disease, unchang ed. ?? The circumflex artery has mild diseas e, patent stents. ?? The RCA is dominant with mild to mode rate disease, moderate to severe disease in RPLB. ?? No significant interval change in com paris to 2011. INTERVENTION ?? The iFR measured across all lesion in the RCA and RPLB was 0.94, post adenosine FFR was 0.84-0.86 (not hemodynamically significant). - 06/30/2020 NM Stress Test: 1. There is no evidence of significant m yocardial ischemia or infarction. 2. 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 Phonak Au сергей ELENA 09/22/2019 GERD (gastroesophageal reflux disease) 12/02/2009 Overview: Controlled with Ranitidine 12/02/2009 Health care directive on file 11/12/2009 Overview: on file 11/2009 Inguinal hernia 11/13/2006 Overview: Small and asymptomatic 12/02/2009 Right side; same 12/30/2012 Rosacea 07/19/2006 Tobacco user 02/20/1960 Personal history of peptic ulcer disease 02/20/1956 Resolved Problems Problem Noted Date Resolved Date Chest pain & SOB 08/17/2020 02/04/2021 Chest pain 05/24/2018 05/27/2018 Right shoulder pain 05/16/2018 05/27/2018 Pain 05/13/2018 05/27/2018 Tear of right supraspinatus tendon 05/13/201802/04 Arthritis of right acromioclavicular joint 05/13/2018 01/09/2019 Coronary artery disease of [place] artery of [place] heart 12/201802/04/2021 with stable angina pectoris Chest pain 01/15/2012 06/12/2012 Anemia, unspecified 12/12/2010 02/06/2011 Overview: Resolved with discontinuation of Lisinop ril. 02/06/2011 Skin cancer 12/02/2009 02/04/2021 Overview: Left Lower Leg: managed by Dr Shields 12/02 Spondylosis, cervical 12/28/2008 01/08/2017 Gout 11/26/2007 01/06/2016 Overview: Doing well off medications 12/30/2012 SVT (supraventricular tachycardia) 05/30/200706/12 Overview: -Holter monitor 05/30/2007 Routine general medical examination at [facility] 11/13/2006 01/08/2017 Overview: Colonoscopy 12/2006: polyps Recheck in 5 yrs Lumbago 07/19/2006 01/06/2016 Overview: Improved with daily exercises. 3 Unspecified essential hypertension 07/19/200601/14 Benign Neoplasm of Colon 07/19/2006 01/09/2019 Overview: Colonoscopy 12/2011 diverticulosis, no f ollow up needed Encounters Date Type Specialty Care Team Description 12/06/2021 Telephone Yinka Briscoe Lab MD Shanique 12/02/2021 Orders Only Lab, [facility] 12/02/2021 Office Visit Art Robbins Follow Up; MD [place] Immunization/In jection (COVID-19 vacci ne) 12/02/2021 Travel 11/25/2021 Orders Only Yinka Briscoe <No scans att ached> MD Shanique 11/24/2021 Nurse/Clinic Staff Testing ( EKG PER DR. Flakita BRISCOE ) 11/24/2021 Orders Only Lab, [facility] 11/24/2021 Telephone Yinka Briscoe Results (EKG) MD Shanique 11/24/2021 Travel 11/11/2021 Office Visit Art Robbins Follow Up ([facility] MD [facility]) 11/10/2021 Ancillary Procedure 11/10/2021 Travel 11/04/2021 Orders Only <No scans attac hed> 11/04/2021 Orders Only Scanner <No scans attac hed> 10/31/2021 Office Visit Art Robbins Follow Up (Nec k is MD Harley better and righ t and left shoulder b othering him.) 10/31/2021 Telephone Yinka Briscoe MD 10/31/2021 Travel 10/27/2021 Orders Only Scanner <No scans attac hed> 10/21/2021 Orders Only Lab, [facility] 10/20/2021 Travel 10/18/2021 Telephone Yinka Briscoe Need Meds; Re fill MD Shanique Request 10/11/2021 Refill Paulina Krishnan Refill Requ ROSELYN Galindo (Amiodarone) 10/10/2021 Nurse/Clinic Staff Testing ( Pre-procedure Only COVID test) 10/10/2021 Travel 09/26/2021 Nurse/Clinic Staff Testing ( Preop COVID-19) Only 09/26/2021 Travel 09/23/2021 Preop Visit Art Robbins Preoperative E josh Souza MD (Cataract surge ry on 09/28/[address] Ramos at [facility] 09/23/2021 Travel 09/20/2021 Telephone Art Robbins Appointment Re mekhi Souza MD (Pre-Op Exam & COVID-19 test) 09/19/2021 Office Visit Art Robbins Weight (Losing weight MD Harley for about the l ast month. ); Dizzi ness (Happens off an d on and been going on f or a while. ); eatin g disorder (Loss of appetite been g oing on for a couple mo nths/); Neck Pain/probl em (A month or more); Shoulder Pain/problem (S tarts at the left should er and goes up into th e neck and it's not co nstant. Been going on f or about a month) 09/19/2021 Travel from Last 3 Months Immunizations Name Administration Dates Next Due COVID-19 vaccine (EnWave 12/02/2021 30mcg/0.3mL) 12YO+ BIVALENT BOOSTER PF, MDV COVID-19 vaccine ([employer] 07/11/2021 30mcg/0.3mL) 12YO+ XANDER-SUCROSE PF, MDV COVID-19 vaccine (EnWave 11/18/2020, 04/24/2020, 30mcg/0.3mL) PF, MDV Influenza A (H1N1), Inactivated 02/11/2009 Influenza A (H1N1), Inactivated (Age 1202/11/2009 >=3 Years) Influenza Virus, Unspecified 11/08/2018, 11/05/2018, 018, 11/07/2016, 11/26/2015, 11/25/2014, 10/30/2013, 11/23/2012, 11/19/2011, 12/11/2010, 11/14/2008, 11/26/2007, 12/13/2004, 12/10/2003, 12/08/2002 Influenza, High-dose Inactivated 11/07/2016, 11/27/2015, 09/2014, 10/30/2013 Influenza, IIV3 (Age 6-35 mos) 12/11/2010, 11/14/2008 Influenza, IIV3 (Age >=3 years) 11/24/2012, 11/19/2011, 11/20, 11/19/2009, 11/13/2008, 11/26/2007, 10/25/2005, 12/13/2004, 12/10/2003, 12/08/2002, 12/06/2001, 12/05/2000, 12/14/1999, 01/04/1998, 12/17/1996, 12/31/1995, 01/03/1995 Influenza, Inactivated AIIV4 (Age 65+ 10/31/2021, 11/23/2020 , 12/03/2019 Years) Preserv Free Influenza, Inactivated IIV3 (Age 65+ 11/05/2018, 11/16/2017, 11/07/2016 Years) Preserv Free Pneumococcal Poly,23-Valent 02/06/2011, 12/08/1998, 12/08/18 98 (Pneumovax) Pneumococcal conj 13-Valent (Prevnar 01/04/2015 13) Pneumococcal, Unspecified 12/21/2011 Td (Age >=7 Years) 10/20/2004, 10/20/2004, 05/11/1994 Td, Preservative Free (age >= 7 10/20/2004 Years) Tdap 05/07/2012 Zoster (Shingrix-RZV, recombinant) 03/09/2021, 01/03/2021, 0 05/02/2018, 01/14/2018 Zoster (Zostavax-ZVL, live) 11/13/2006, 02/19/2002 Family History Medical History Relation Name Comments Other Brother 1 Darrel Probable has Emp hysema: smokes Cancer Father Santos Lung Heart Disease Mother Shantal Hypertension Mother Shantal Cancer Sister 1 Estrella Bone Diabetes Sister 2 Gabriella Anesthesia Problem No Family History Blood Disease No Family History Relation Name Status Comments Brother 1 Darrel Alive Brother 2 Irfelecia Alive Father Santos (Age 85) Right lobectom y secondary to CA, post-op complications Mother Shantal (Age 90) Old age?, hx o f heart problems Sister 1 Estrella (Age 76) Sister 2 Gabriella Alive Social History Tobacco Use Types Packs/Day Years Used Date Former Smoker Cigarettes 0.5 15 Quit: 02/19/18 62 Smokeless Tobacco: Never Used Tobacco Cessation: Counseling Given: Yes Alcohol Use Standard Drinks/Week Comments Not Currently 0 (1 standard drink = 0.6 oz pure alcoho l) Alcohol Habits Answer Date Recorded How often do you have a drink containing alcohol? Monthly or less 08/18/2019 How many drinks containing alcohol do you have on a 1 or 2 05/27/2018 typical day when you are drinking? How often do you have six or more drinks on one Never 05/27/2018 occasion? Comment: Not asked Sex Assigned at Date Recorded Not on file COVID-19 Exposure Response Date Recorded In the last 10 days, have you been in contact No / Unsure 12/02/2021 11:17 AM CDT with someone who was confirmed or suspected to have Coronavirus/COVID-19? Obstetrics History Last Filed Vital Signs Vital Sign Reading Time Taken Comments Blood Pressure 158/68 12/02/2021 11:32 AM CDT Pulse 52 12/02/2021 11:29 AM CDT Temperature 37.2 ??C (99 ??F) 09/14/2020 12:10 PM CDT Respiratory Rate 16 07/06/2021 2:40 PM CDT Oxygen Saturation 100% 12/02/2021 11:29 AM CDT Inhaled Oxygen Concentration - - Weight 78.9 kg (174 lb) 12/02/2021 11:29 AM CDT Height 175 cm (5' 8.9) 06/27/2021 2:04 PM CDT Body Mass Index 25.77 06/27/2021 2:04 PM CDT Plan of Treatment Upcoming Encounters Date Type Specialty Care Team Description 12/22/2021 Office Visit Yinka Briscoe MD [address] [facility] [address] [place] [address] (Wo rk) 02/06/2022 Office Visit Art Robbins MD [address] [facility] [place], [place] [address] (Wo rk) Health Maintenance Due Date Last Done Comments Depression screening for age 12+ 02/04/2022 02/04/2021, 12/2020, 08/27/2020, Additional history exists Medicare Wellness for age 65+ 02/04/2022 02/04/2021, 2019, 01/21/2019, Additional history exists Tetanus booster 05/07/2022 05/07/2012, 10/20/2004, 10/20/2004, Additional history exists BMI (ht and wt on same day) for 06/27/2022 06/27/2021, 05/2021, age 18+ 04/11/2021, Additional history exists Tdap Completed 05/07/2012 Pneumococcal series for age 65+ Completed 01/04/2015, 02/2011, 02/06/2011, Additional history exists Zoster (shingles) series for age Completed 03/09/2021, , 50+ 05/02/2018, Additional history exists Influenza for age 65+ Completed 10/31/2021, 11/23/2020, 12/03/2019, Additional history exists COVID-19 vaccine series Completed 12/02/2021, 07/11/2021, 11/18/2020, Additional history exists Procedures Procedure Name Priority Date/Time Associated Diagnosis Comme nts T4,FREE Routine 12/02/2021 12:17 Atrial fibrillation, Res ults for this PM CDT unspecified type procedure a re in (HC) the results section. TSH Routine 12/02/2021 12:17 Atrial fibrillation, Res ults for this PM CDT unspecified type procedure a re in (HC) the results section. EKG 12 LEAD Routine 11/25/2021 4:31 Paroxysmal atrial PM CDT fibrillation (HC) AMIODARONE (CORDARONE) Routine 11/24/2021 1:09 Paroxysmal atri al Results for this PM CDT fibrillation (HC) procedure are in the results section. MR SHOULDER RIGHT WO Routine 11/10/2021 10:06 Chronic right Re sults for this AM CDT shoulder pain procedure are in the results section. ECHO COMPLETE WO Routine 11/04/2021 2:36 Dizziness Results for this CONTRAST PM CDT Chest pain procedure are i n the results section. SCAN-CT INTERPRETATION 11/04/2021 12:00 AM CDT SCAN-OPERATIVE/PROCEDU 10/27/2021 12:00 R esults for this RE REPORT AM CDT procedure are i n the results section. T4,FREE Routine 10/21/2021 10:29 Paroxysmal atrial Result s for this AM CDT fibrillation (HC) procedure are in the results section. TSH Routine 10/21/2021 10:29 Paroxysmal atrial Result s for this AM CDT fibrillation (HC) procedure are in the results section. COVID 19 Routine 10/10/2021 2:25 Encounter for Results for this PM CDT pre-operative procedure are in laboratory testing the resul ts section. COVID 19 COLLECTION Routine 10/10/2021 2:25 Encounter for Resu lts for this PM CDT pre-operative procedure are in laboratory testing the resul ts section. COVID 19 Routine 09/26/2021 3:03 Encounter for Results for this PM CDT screening for procedure are in COVID-19 the results section. COVID 19 COLLECTION Routine 09/26/2021 3:03 Encounter for Resu lts for this PM CDT screening for procedure are in COVID-19 the results section. from Last 3 Months Results (ABNORMAL) TSH (12/02/2021 12:17 PM CDT)Only the most recent of2 resultswithin the time period is included. P athologist Signature TSH 5.26 (H) 0.35 - 4.94 12/03/2021 [facility] Bizible uIU/mL 9:21 PM CDT LABORATORY-[facility] Specimen Anatomical Collection Method / Collection Time Recei burton Time (Source) Location / Volume Laterality Blood BLOOD SPECIMEN / Venipuncture / 12/02/2021 12:17 12/02 Unknown Unknown PM CDT 12:21 PM CDT Narrative [facility] - 12/03/2021 9:21 PM CDT In Adults, TSH values between 5.00 and 10.00 uIU/ml do not necessarily indicate the presence of Hyp othyroidism. Correlation with clinical findings such as presence of goiter and/or Thyroperoxidase (TPO) Antibody ma y be helpful. For more information please refer to CATHERINE 20 ; 291: [phone]. Yinka Briscoe MD CHEMISTRY Performing Organization Address City/State/ZIP Code Phon e Number [facility] [id number] [place] [address] LABORATORY-[facility] LABORATORY T4,FREE (12/02/2021 12:17 PM CDT)Only the most recent of2 resultswithin the time period is included. P athologist Signature T4,FREE 0.93 0.70 - 1.80 12/03/2021 [facility] ng/dL 9:20 PM CDT LABORATORY[facility] Specimen Anatomical Collection Method / Collection Time Recei burton Time (Source) Location / Volume Laterality Blood BLOOD SPECIMEN / Venipuncture / 12/02/2021 12:17 12/02 Unknown Unknown PM CDT 12:21 PM CDT Yinka Briscoe MD CHEMISTRY Performing Organization Address City/State/ZIP Code Phon e Number [facility] [id number] [place] [address] LABORATORY-[facility] LABORATORY EKG 12 LEAD (11/25/2021 4:31 PM CDT) Narrative This result has an attachment that is no t available. Yinka Briscoe MD EKG ORD (ABNORMAL) AMIODARONE (CORDARONE) (11/24/2021 1:09 PM CDT) Patholo gist Method Time Signature AMIODARONE 414 (L) 1000 - 12/02/2021 [facility] 2500 4:27 PM CDT ng/mL DESETHYLAMIODARONE 462 ng/mL 12/02/2021 [facility] 4:27 PM CDT Comment: Note: ??To convert from ng/ml to ug/ml, divide the result by ? 1000. Reference range (amiodar one): 1.00-2.50 ug/mL. This test was developed and its performa nce characteristics determined by [facility]. It has not been c leared or approved by the Food and Drug Administration. Specimen Anatomical Collection Method / Collection Time Recei burton Time (Source) Location / Volume Laterality Blood BLOOD SPECIMEN / Venipuncture / 11/24/2021 1:09 2021 1:09 Unknown Unknown PM CDT PM CDT Yinka Briscoe MD SEND OUTS Performing Organization Address City/State/ZIP Code Phon e Number [facility] [address] [place] [address] MR SHOULDER RIGHT WO (11/10/2021 10:06 AM CDT) Anatomical Region Laterality Modality SHOULDER R Magnetic Resonance Specimen (Source) Anatomical Collection Method Collection Time Re ceived Time Location / / Volume Laterality 11/10/2021 2:58 PM CDT Impressions 11/10/2021 2:58 PM CDT 1. Progressively abnormal supraspinatus tendon with full-thickness tendon tearing and now severe muscle atrophy. 2. Infraspinatus tendinosis with partial thickness undersurface tendon tearing and fraying. No infraspinatus muscle atrophy. 3. Moderate distal subscapularis tendino sis with fraying and mild muscle atrophy. 4. 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 5. Advanced AC joint degenerative arthro sis. 6. Subacromial-subdeltoid and subcoracoi d bursal fluid is nonspecific in the setting of full-thickness rotator cuff tendon tearing. Dictated by Librado Macias MD @ 022 1:44:47 PM (Electronically Signed) Narrative 11/10/2021 2:58 PM CDT For Patients: ??As a result of the Cures Act, medical imaging exams and procedure report s are released immediately into your [facility] medical record. ??You may view this report before your referring provider. ??If you have questions, please contact your health care provider. HISTORY: Right shoulder pain. TECHNIQUE: Noncontrast MRI of the right shoulder. COMPARISON: MRI 05/06/2018. Radiographs 08/03/2021. FINDINGS: Rotator cuff: The supraspinatus tendon i s progressively abnormal with full- thickness tendon tearing which extends to junction with anterior infraspinatus tendon. At the superior humeral head level, the tear measures up to approximately 2.8 cm anterior/posterior extent as seen on sagittal oblique T2 image #12 of series #5. The medial/lateral extent of the tear is up to 5.7 cm. Note that the tearing inv olves the tendon both proximal to the fo otplate and also with propagation to the footplate. For example, on sagittal oblique T2 image #6 of series #5 there is both a tendon stump at the footplate anteri selin and a full-thickness tear that exte nds to the footplate. Progressive now severe supraspinatus muscle atrophy. There is distal infraspinatus tendinosis with partial thickness undersurface tendon tea ring. No full-thickness infraspinatus te ndon tear over its mid to more posterior aspect nor significant infraspinatus muscle atrophy. The distal teres minor tendon is intact. Teres minor muscle mass is maintained. Moderate tend inosis of the distal subscapularis tendon with fraying. Mild subscapularis muscle atrophy. - AC joint and coracoacromial arch: Severe AC joint degenerative arthrosis. The coracoclavicular ligament is intact. Type 2 acromial morphology. There is spurring of the anterior lateral acromion. No os a cromiale. The acromiohumeral interval me asures approximately 7 mm. Subacromial- subdeltoid bursal fluid is nonspecific in the setting of full-thickness rotator cuff tearing. The subcoracoid interval is p atent. There is fluid within the subcora coid bursa which is nonspecific in the setting of full-thickness rotator cuff tearing. - Biceps-labral complex: Extensive degener ative labral tearing and labral fraying both above and below level the equator. Degenerative labral changes extend to the biceps anchor. There is tendinosis of th e proximal long head of the biceps tendo n. No dislocation of tendon from bicipital groove. - Glenohumeral joint: Mild marginal osteop hyte formation. Mild humeral head cartilage wear (grade 1/2). Limited high-grade chondromalacia of the glenoid (grade 3). Mild synovitis. Quantity of joint fluid within normal limits. - Bones and soft tissues: No fracture or a vascular necrosis. No abnormality within the suprascapular or spinoglenoid notches nor within the quadrilateral space. Procedure Note Librado Macias MD - 2 For Patients: As a result of the ntury Cures Act, medical imaging exams and procedure reports are released immediately into your electronic medical record. You may view this report before your referring provider. If you have questions, please contact [facility] health care provider. HISTORY: Right shoulder pain. TECHNIQUE: Noncontrast MRI of the right shoulder. COMPARISON: MRI 05/06/2018. Radiographs 08/03/2021. FINDINGS: Rotator cuff: The supraspinatus tendon i s progressively abnormal with full- thickness tendon tearing which extends to junction with anterior infraspinatus tendon. At the superior humeral head level, the tear measures up to approximately 2.8 cm ante rior/posterior extent as seen on sagittal oblique T2 image #12 of series #5. The medial/lateral extent of the tear is up to 5.7 cm. Note that the tearing involves the tendon both proximal to the footplate and also with propagation to the footplate. For example, on sagittal oblique T2 image #6 of series #5 there is both a tendon stump at the footplate anteriorly and a full-thickness tear that extends to the footplate. Progressive no w severe supraspinatus muscle atrophy. There is distal infraspinatus tendinosis with partial thickness undersurface tendon tearing. No full-thickness infraspinatus tendon tear over its mid to more posterior aspect no r significant infraspinatus muscle atrophy. The distal teres minor tendon is intact. Teres minor muscle mass is maintained. Moderate tend inosis of the distal subscapularis tendon with fraying. Mild subscapularis muscle atrophy. - AC joint and coracoacromial arch: Severe AC joint degenerative arthrosis. The coracoclavicular ligament is intact. Type 2 acromial morphology. There is spurring of the anterior lateral acromion. No os acromiale. The acromiohumeral interval measures approxi mately 7 mm. Subacromial-subdeltoid bursal fluid is nonspecific in the setting of full-thickness rotator cuff tearing. The subcoracoid interval is patent. There is fluid within the subcoracoid bu rsa which is nonspecific in the setting of full-thickness rotator cuff tearing. - Biceps-labral complex: Extensive degener ative labral tearing and labral fraying both above and below level the equator. Degenerative labral changes extend to the biceps anchor. There is tendinosis of the proximal long head of the biceps tendon. No dislo cation of tendon from bicipital groove. - Glenohumeral joint: Mild marginal osteop hyte formation. Mild humeral head cartilage wear (grade 1/2). Limited high-grade chondromalacia of the glenoid (grade 3). Mild synovitis. Quantity of joint fluid within normal limits. - Bones and soft tissues: No fracture or a vascular necrosis. No abnormality within the suprascapular or spinoglenoid notches nor within the quadrilateral space. IMPRESSION: 1. Progressively abnormal supraspinatus tendon with full-thickness tendon tearing and now severe muscle atrophy. 2. Infraspinatus tendinosis with partial thickness undersurface tendon tearing and fraying. No infraspinatus muscle atrophy. 3. Moderate distal subscapularis tendino sis with fraying and mild muscle atrophy. 4. 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 5. Advanced AC joint degenerative arthro sis. 6. Subacromial-subdeltoid and subcoracoi d bursal fluid is nonspecific in the setting of full-thickness rotator cuff tendon tearing. Dictated by Librado Macias MD @ 022 1:44:47 PM (Electronically Signed) Art Robbins MD MR ECHO COMPLETE WO CONTRAST (11/04/2021 2:36 PM CDT) P athologist Signature AORTIC VALVE 3 mmHg MEAN PG EJECTION 71 % FRACTION PEAK TR 2.3 m/s VELOCITY LVEDD 4.9 cm Anatomical Region Laterality Modality HEART Ultrasound Specimen (Source) Anatomical Collection Method Collection Time Re ceived Time Location / / Volume Laterality 11/04/2021 1:39 PM CDT Narrative 11/04/2021 4:13 PM CDT ECHOCARDIOGRAM CRISTIAN STEVENS ? Accessi on#: ?? [id number] : ?1935 86 years Study Date: ?? 11/04/2021 1:39:43 PM Gender: M ?BP: ? 129/64 mmHg Height: 175.00 cm ?BSA: ?1.94 m? ?? Weight: 78.00 kg ? Tech: ? MJJ ? Referring MD: IRAM VILLARREAL Site: ? [facility] Reading Location: MOBILE=-[facility] Procedure: 2D, Color Doppler and Spectra l Doppler. Indication for study: Dizziness, Chest p ain Cardiac Rhythm: Regular.Study quality: F air. Final Impressions: 1. Normal left ventricular size, modera tely increased wall thickness, normal global systolic function, calculated EF of 71 %. 2. The aortic valve is sclerotic, no st enosis and mild to moderate regurgitation. 3. The mitral valve is normal, mild champ ral regurgitation. 4. 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 5. 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 6. Normal estimated pulmonary pressures by tricuspid regurgitation velocity and right atrial pressure (20 mmHg plus RAP). Comparison Compared to prior exam of 08/09/2021, the re has been no significant change. Chamber Sizes and Function Normal left ventricular size, moderately increased wall thickness, normal global systolic function, calculated EF of 71 %. Left atrial size is normal. Right ventricular cavity size is normal, global sys tolic RV function is normal. RV wall thi ckness is normal. The right atrium is normal. Right atrial volume index is 24 ml/m? ??. Right atrial area is 17 cm? ??. The pulmonary artery is of normal size and origin. The sinus of Valsalva is dilate d. The ascending aorta is dilated. Valves, RV Pressures and Diastolic Funct ion The aortic valve is sclerotic, no stenos is and mild to moderate regurgitation. The mitral valve is normal in structure, mild mitral regurgitation. Mitral annular calcification is present. Spectral Doppl er shows Grade 1 pattern of LV diastolic filling. The tricuspid valve is normal in structure. Tricuspid regurgitation is mild regurgitation. The tricuspid regurgitant velocity is 2.3 m/s, the estimated right ventricular systolic pressure is 2 0 mmHg plus right atrial pressure. There is normal estimated pulmonary pressure by tricuspid regurgitation velocity and right atrial pressure. The pulmonic valve is normal. Trace pulmonary regurgitation. Masses, Effusion, Shunts There is no pericardial effusion. The in ferior vena cava is normal sized, respiratory size variation greater than 50%. No left to right shunting was detected by limited color flow Doppler interrogation of the interatrial septum. MEASUREMENTS AND CALCULATIONS 2-D Measurements and LV Function: LVID (d) 4.9 cm Planimetered EF 71 % LVID (s) 2.8 cm LV FS% (2D) ? 42 % IVS (d) ??1.4 cm LVOT diameter ?? 2.0 cm LVPW (d) 1.4 cm HR ?4 7 bpm Ao Sinus 3.7 cm LA Vol index ?22 ml/ m2 Asc Ao ?? 4.1 cm RA Vol index ?24 ml /m2 LA ? 3.2 cm RA area ? 1 7 cm?RV Max 4C (d) ?? 3.0 cm Diastology: Mitral ?Tissue Doppler ?Pulmonary veins E Peak 0.5 m/s ??e', Septum ? 0.05 m /s Pulm s ?51.0 cm/s A Peak 0.7 m/s ??e', Lateral ?0.07 m /s Pulm d ?31.5 cm/s E/A ?0.7 ?E/e' Average ?? 8.5 0 ? Pulm s/d ratio ??1.62 DT ? 306 msec IVRT ?? 99 msec Aortic Valve: Vmax ? 1.2 m/s ??ASTER (V) ?? 3.23 cm? AI P 1/2 702 msec VTI ?0.28 m ?? ASTER (I) ?? 3.57 cm? AI Vol ?? 112 ml LVOT V max 1.2 m/s ??Max PG ?6 mmHg LVOT VTI ?? 0.31 m ?? Mean PG ?? 3 mmHg SV ? 99 ml ?Dim Index 1.12 SV index ?? 51 ml/m? ?? CO ?4.7 l/min ?CI ?2.4 l/min/m? ?? Mitral Valve: MVA ?2.5 cm? ?? MV P 1/2 89 msec Tricuspid Valve and estimated PA pressur es: TR Vmax 2.3 m/s TAPSE 2.5 cm TR maxG 20 mmHg Pulmonic Valve: PIEDV 0.9 m/s . This study was interpreted by an [facility] redited facility. CC: [facility], Med/ Surg - IP [facility]. ??Final ?? Procedure Note Drake Tucker MD - 11/04/2021Form atting of this note might be different from the original. ECHOCARDIOGRAM CRISTIAN STEVENS : 1935 86 years Study Date: 11/04 1:39:43 PM Gender: M BP: 129/64 mmHg Height: 175.00 cm BSA: 1.94 m? ?? Weight: 78.00 kg Tech: SOTO Referring MD: IRAM VILLARREAL Site: [facility] Reading Location: MOBILE=[facility] Procedure: 2D, Color Doppler and Spectra l Doppler. Indication for study: Dizziness, Chest p ain Cardiac Rhythm: Regular.Study quality: F air. Final Impressions: 1. Normal left ventricular size, modera tely increased wall thickness, normal global systolic function, calculated EF of 71 %. 2. The aortic valve is sclerotic, no st enosis and mild to moderate regurgitation. 3. The mitral valve is normal, mild champ ral regurgitation. 4. 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 5. 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 6. Normal estimated pulmonary pressures by tricuspid regurgitation velocity and right atrial pressure (20 mmHg plus RAP). Comparison Compared to prior exam of 08/09/2021, the re has been no significant change. Chamber Sizes and Function Normal left ventricular size, moderately increased wall thickness, normal global systolic function, calculated EF of 71 %. Left atrial size is normal. Right ventricular cavity size is normal, global systolic RV function is normal. RV wall thickness is normal. The right atrium is normal. Right atrial volume index is 24 ml/m? ??. Right atrial area is 17 cm? ??. The pulmonary artery is of normal size and origin. The sinus of Valsalva is dilated. The ascending aorta is dilated. Valves, RV Pressures and Diastolic Funct ion The aortic valve is sclerotic, no stenos is and mild to moderate regurgitation. The mitral valve is normal in structure, mild mitral regurgitation. Mitral annular calcification is present. Spectral Doppler shows Grade 1 pattern of LV diastolic fi lling. The tricuspid valve is normal in structure. Tricuspid regurgitation is mild regurgitation. The tricuspid regurgitant velocity is 2.3 m/s, the estimated right ventricular systolic pressure is 20 mmHg plus right atrial pressure. There is normal estimated pulmonary pressure by tricuspid regurgitation velocity and right atrial pressure. The pulmonic valve is normal. Trace pulmonary regurgitation. Masses, Effusion, Shunts There is no pericardial effusion. The in ferior vena cava is normal sized, respiratory size variation greater than 50%. No left to right shunting was detected by limited color flow Doppler interrogation of the interatrial septum. MEASUREMENTS AND CALCULATIONS 2-D Measurements and LV Function: LVID (d) 4.9 cm Planimetered EF 71 % LVID (s) 2.8 cm LV FS% (2D) 42 % IVS (d) 1.4 cm LVOT diameter 2.0 cm LVPW (d) 1.4 cm HR 47 bpm Ao Sinus 3.7 cm LA Vol index 22 ml/m2 Asc Ao 4.1 cm RA Vol index 24 ml/m2 LA 3.2 cm RA area 17 cm? ?? RV Max 4C (d) 3.0 cm Diastology: Mitral Tissue Doppler Pulmonary veins E Peak 0.5 m/s e', Septum 0.05 m/s Pulm s 51.0 cm/s A Peak 0.7 m/s e', Lateral 0.07 m/s Pulm d 31.5 cm/s E/A 0.7 E/e' Average 8.50 Pulm s/d ratio 1.62 DT 306 msec IVRT 99 msec Aortic Valve: Vmax 1.2 m/s ASTER (V) 3.23 cm? ?? AI P 1/2 702 msec VTI 0.28 m ASTER (I) 3.57 cm? ?? AI Vol 112 ml LVOT V max 1.2 m/s Max PG 6 mmHg LVOT VTI 0.31 m Mean PG 3 mmHg SV 99 ml Dim Index 1.12 SV index 51 ml/m? ?? CO 4.7 l/min CI 2.4 l/min/m? ?? Mitral Valve: MVA 2.5 cm? ?? MV P 1/2 89 msec Tricuspid Valve and estimated PA pressur es: TR Vmax 2.3 m/s TAPSE 2.5 cm TR maxG 20 mmHg Pulmonic Valve: PIEDV 0.9 m/s . This study was interpreted by an [facility] CC: [facility], Med/ Surg - IP [facility]. Final Iram Villarreal MD ECHO ORD SCAN-CT INTERPRETATION (11/04/2021 12:00 AM CDT) Narrative This result has an attachment that is no t available. Scanner OTHER SCAN-OPERATIVE/PROCEDURE REPORT (10/27/2021 12:00 AM CDT) Narrative This result has an attachment that is no t available. Scanner OTHER COVID 19 (10/10/2021 2:25 PM CDT) Analysis Performed At [facility] logist Time Signature COVID 19 Negative Negative 10/12/2021 [facility] 12:42 PM CDT LABORATORY-[facility] Comment: All PCR tests are subject to fa lse negative result due to variability in viral load and collection technique. A n egative result does not rule out a SARS-CoV-2 infection. Clinical correlation required . Specimen Anatomical Location / Collection Method Collection Roland e Received Time (Source) Laterality / Volume Other SPECIMEN FROM Non-Blood / 10/10/2021 2:25 10/11/2021 6:33 NASOPHARYNGEAL Unknown PM CDT AM CDT STRUCTURE / Unknown Narrative [facility] LABORATORY-CENTRAL LABORAT ORY - 10/12/2021 12:42 PM CDT This test has been authorized by FDA und er an Emergency Use Authorization (EUA). This test is only authorized for the duration of time the declaration that circumstances exist justifying the authorization of th e emergency use of in vitro diagnostic tests for detection of SARS-CoV-2 virus and/or diagnosis of COVID-19 infection under section 564(b)(1) of the Act, 21 U.S.C. 360bbb-3(b)(1), unless the authorization is terminated or revoked sooner. Art Robbins MD MICROBIOLOGY Performing Organization Address [facility] Phon e Number [facility] [address] [place] [address] [place] [address] LABORATORY-CENTRAL 2000 LABORATORY COVID 19 COLLECTION (10/10/2021 2:25 PM CDT)Only the most recent of2 results within the time period is included. [facility] gist Method Time Signature TESTING [facility] 10/11/2021 [facility] LABORATORY Laboratory 6:33 AM CDT LABORATORY-CE NTRAL LABORATORY Comment: Specimen submitted to [facility] Laboratory for testing. Specimen Anatomical Location / Collection Method Collection Roland e Received Time (Source) Laterality / Volume Other SPECIMEN FROM Non-Blood / 10/10/2021 2:25 10/10/2021 3:30 NASOPHARYNGEAL Unknown PM CDT PM CDT STRUCTURE / Unknown Art Robbins MD SEND OUTS Performing Organization Address [facility] e Number [facility] [address] [place] [address] [place] [address] LABORATORY-CENTRAL 2000 LABORATORY COVID 19 (09/26/2021 3:03 PM CDT) Analysis Performed At [facility] logist Time Signature COVID 19 Negative Negative 09/27/2021 [facility] 12:44 PM CDT LAB[facility]ATORY[facility] Specimen Anatomical Location / Collection Method Collection Roland e Received Time (Source) Laterality / Volume Other SPECIMEN FROM Non-Blood / 09/26/2021 3:03 09/26/2021 9:31 NASOPHARYNGEAL Unknown PM CDT PM CDT STRUCTURE / Unknown Narrative [facility] LABORATORY-CENTRAL LABORAT ORY - 09/27/2021 12:44 PM CDT All PCR tests are subject to false negative result due to variability in viral load and collection te chnique. A negative result does not rule out a SARS-CoV-2 infection. Clinical correlation required. This test has been authorized by FDA und er an Emergency Use Authorization (EUA). This test is only authorized for the duration of time the declaration that circumstances exist justifying the authorizati on of the emergency use of in vitro diag nostic tests for detection of SARS-CoV-2 virus and/or diagnosis of COVID-19 infection under section 564(b)(1) of the Act, 21 U.S.C. 360bbb-3(b) (1), unless the authorization is terminated or revoked sooner. Art Robbins MD MICROBIOLOGY Performing Organization Address City/State/ZIP Code Phon e Number [facility] [address] [place] [address] LABORATORY-CENTRAL 2000 LABORATORY from Last 3 Months Insurance Payer Benefit Plan / Subscriber ID Effective Phone Address T ype Group Dates WC WORKERS WC WORKERS [id number] Effective for [phone] COMP all dates 00 [id number] [place] [address] MEDICARE PART MEDICARE PART [id number] 2001-Prese ATT N: CLAIMS A - HB USE A HB ONLY nt [address] [place] [address] MEDICARE PART MEDICARE PART [id number] 2001-Prese ATT N: CLAIMS B - HB USE B HB ONLY nt [address] [place] [address] BLUE CROSS BLUE CROSS [id number] 2016-Prese [address] [place] [id number] BLUE CROSS MR BLUE CROSS [id number] 2016-Prese [address] [address] [place], [place] [id number] Cristian Stevens Workers Comp Self 1935 [address] [facility] (Home) [place] [phone] [place], [place] (Work) [phone] Advance Directives Documents on File Type Date Recorded Patient Residential Support Worker Explanati on Healthcare Directive 02/04/2021 INCOMPLETE AND RECEIVED, 02/04/2021 Healthcare Directive 11/12/2009 HEALTH CARE DIRECTIVE, 11/12/2009 Latest Code Status on File Code Status Date Activated Date Inactivated Comments Full Code 08/17/2020 11:17 AM 08/18/2020 5:17 PM Code Status Discussion: Discussed Full Code 05/24/2018 4:26 PM 05/25/2018 6:39 PM Code Status Discussion: Discussed Full Code 06/27/2017 7:48 AM 06/27/2017 5:34 PM Code Status Discussion: Discussed Full Code 01/15/2012 7:22 AM 01/16/2012 2:23 PM Care Teams Cash Office Worker Relationship Specialty Start Date End Date Art Robbins MD PCP - General Family Practice 09/06/13 [address] [place] [address] Catrina Ramos MD Ophthalmology Surgery 12/25/11 Gail Jenkins MD Cardiovascular Disease 12/30/[address] [place] [address] [facility] Physician 12/30/12
--- OUTSIDE RECORDS SUMMARY | 2021-12-20 14:20 | XMS_ITS | Encounter Summary ---
:1935 Author Organization Department [facility] Address [address] [place] [address] Support Name Relationship Address Phone AMBROSIO SLOAN Unavailable [address] [place] [address] [place] [address] LEEANN SLOAN Unavailable [address] [place], [place] Insurance Providers: All historical and current Section Date Range: From patient's date of to the date document was created.This section includes the names of all active insurance providers for the patient. Insurance Type of Plan Start of End of Group Member Insurance Policy P shaka's Provider Coverage Name Policy Policy Number ID Provider's Patel's Relationship Coverage Coverage Telephone Name to Policy Number Patel [place] MEDICARE MCR Feb 19, [id number] TATY SLOAN SHAKA [facility] (WNR) [facility] (WNR) 2016 [id number] [phone] 1 Selected Encounter This section includes the information on record at [place] for the Encounter. Date/Time Encounter Type Encounter Reason Provider Source Description Mar 08, 2021 PSYTX W PT 30 TELEPHONE ICD-10-CM TAMI ROBINS 11:00 AM MINUTES Z63.79 Other stressful life events affecting family and household with Provider Comments: Other Stressful Life Events Affecting Family and Household IHE Encounter Template Text not used by [facility] Assessments - Encounter Diagnoses This section includes the primary and secondary diagnoses documented for the Encounter. Date/Time Primary/Secondary Diagnosis Name Provider Source Diagnosis Mar 08, 2021 PRIMARY Other stressful TAMI ROBINS [place] 11:00 AM life events HCS affecting family and household Plan of Treatment: Future Appointments (+ 6 months) and Future Tests (+/- 45 days) The Plan of Treatment section includes future care activities for the patient from all [facility] treatmentfacilities. This section includes future appointments and future orders which are active, pending orscheduled.Future Appointments This section includes appointments that were scheduled to occur 6 months from the date of the Encounter, up to a maximum of 20 appointments. The data comes from all [place] treatment facilities. Appointment Date/Time Appointment Type Appointment Facili ty Name Mar 09, 2021 01:45 PM AMBULATORY - MEDICINE [facility] Apr 08, 2021 09:00 AM AMBULATORY - PSYCHIATRY [facility] May 06, 2021 09:00 AM AMBULATORY - PSYCHIATRY [facility] Jun 06, 2021 11:00 AM AMBULATORY - MEDICINE [facility] Jun 17, 2021 09:00 AM AMBULATORY - PSYCHIATRY [facility] July 13, 2021 11:00 AM AMBULATORY - NONE [facility] Social History: Smoking Status (Most current) and Tobacco Use (All prior to encounter date) This section includes the most current, and the historical, smoking and tobacco-related health factors from the [place] facility where the Encounter took place.Current Smoking Status This section includes the most current smoking, or tobacco-related health factor, from the [place] facility where the Encounter took place. Date/Time Current Smoking Status Comment Facility Jan 03, 2021 11:30 AM VA-TOBACCO FORMER USER [facility] Tobacco Use History This section includes a history of the smoking, or tobacco- related health factors, that were collected on or before the date of the Encounter. The data comes from the [place] facility where the Encounter took place. Date/Time Smoking Status/Tobacco Use Comment [facility] Jan 03, 2021 11:30 AM [place]-TOBACCO QUIT 15 YRS OR MORE [facility] June 20, 2018 11:30 AM VA-TOBACCO FORMER USER [facility] June 20, 2018 11:30 AM VA-TOBACCO QUIT 15 YRS OR MORE [facility] July 09, 2017 10:39 AM FORMER TOBACCO USER 7Y OR GREATER [facility] July 07, 2016 01:14 PM FORMER TOBACCO USER 7Y OR GREATER [facility] June 21, 2015 02:23 PM FORMER TOBACCO USER 7Y OR GREATER [facility] Jun 08, 2014 01:51 PM FORMER TOBACCO USER 7Y OR GREATER [facility] Jun 10, 2013 01:11 PM LIFETIME NON-TOBACCO USER [facility] Aug 03, 2011 07:59 AM FORMER TOBACCO USER 7Y OR GREATER [facility] Advance Directives: All historical and current Section Date Range: From patient's date of to the date document was created. This section includes ALL of a patient's completed or amended [place] Advance and Rescinded Directives. The entries below indicate that a directive exists for the patient, but an actual copy is not included with this document. The data comes from all [place] facilities. Date Advance Directives Provider Source June 19, 2013 ADVANCE DIRECTIVE DISCUSSION KENDALL SERRANO [facility] June 19, 2013 ADVANCE DIRECTIVE KENDALL SERRANO [facility] Encounter Notes: All associated encounter notes This section contains the clinical notes associated to the Encounter. Date/Time Encounter Note(s) Provider Source Mar 08, 2021 11:00 AM MENTAL HEALTH E & M INTERDISCIPLINARY NOTE: TAMI ROBINS [facility] LOCAL TITLE: PRIMARY CARE-MH INTEGRATION PROGRE SS NOTE STANDARD TITLE: MENTAL HEALTH E & M INTERDISCIPL INARY NOTE DATE OF NOTE: MAR 08, 2021@11:00 ENTRY DATE: MAR 08, 2021@11:26:37 AUTHOR: TAMI ROBINS EXP COSIGNER: URGENCY: STATUS: COMPLETED PRIMARY CARE-MENTAL HEALTH INTEGRATION (PCMHI) P ROGRESS NOTE This encounter was completed by telephone due to COVID-19 social distancing recommendations. The patient verbally consented to using telephone for their care. PROCEDURES: 30-minute behavioral health provider evaluation and treatment for grief and loss. PLAN: 1. He will continue to practice self-care, beha vioral activation, and use of supports. 2. RTC; four weeks, phone, or earlier if needed . SUBJECTIVE: This 85-year-old, , male lost his of 63-years in September 2020. He is grieving with much support. We continue to focus on self-care. We reviewed the materials I sent on grief and loss. He shared feeling like he has been addressing most of them and that he can see some improvement. He reported some improvement w ith sleep. He's continued to activate (volunteering, taking care of health, p hysical activity) and use supports. He shared benefit from our visits, but concern about using my time. Assured him that I have time for him in his grie f. MSE: Mood was fair with a normal range of congru ent affect. No evidence of SI/HI, intent, or plan. Otherwise, MSE was WNL. DIAGNOSTIC IMPRESSIONS: Bereavement RISK ASSESSMENT: low acute and chronic risk. Risk factors: of spouse, age (old age:65+) , race (Euro Lithuanian), gender (male), Protective factors: Strong social support system, No alcohol or substance abuse/ dependency issues, Compliance with treatment recommendations and m akin appointments, No history of suicide attempts or self-injurious b ehavior, No history of violence or aggression, No history of psychiatr ic hospitalizations, Goal oriented, Financially stable, /es/ BERET Anderson ROBINS Psy.D., MARIA ELENA CLINICAL PSYCHOLOGIST Signed: 03/08/2021 11:33
--- OUTSIDE RECORDS SUMMARY | 2021-12-20 14:20 | XMS_ITS | Encounter Summary ---
:1935 Author Organization [facility] Address [address] [place] [id number] Support Name Relationship Address Phone AMBROSIO SLOAN Unavailable [address] [place] [address] [place] [address] LEEANN SLOAN Unavailable [address] [place], [place] Insurance Providers: All historical and current [...] Patel [place] MEDICARE MCR Feb 19, [id number] [facility] (WNR) [facility] (WNR) 2016 [id number] [phone] Selected Encounter This section includes the information on record at [facility] for the Encounter. Date/Time Encounter Type Encounter Reason Provider Source Description Jan 24, 2021 PSYTX W PT 30 TELEPHONE ICD-10-CM Z71.1 TAMI ROBINS 10:00 AM MINUTES Person w feared hlth complaint in whom no diagnosis is made with Provider Comments: Person with Feared Health Complaint in whom no Diagnosis is Made IHE Encounter Template Text not used by [facility] Assessments - Encounter Diagnoses This section includes the primary and secondary diagnoses documented for the Encounter. Date/Time Primary/Secondary Diagnosis Name Provider Source Diagnosis Jan 24, 2021 PRIMARY Person w feared TAMI ROBINS [facility] 10:00 AM hlth complaint [facility] in whom no diagnosis is made Plan of Treatment: Future Appointments (+ 6 months) and Future Tests (+/- 45 days) The Plan of Treatment section includes future care activities for the patient from all [facility] treatmentfacilities. This section includes future appointments and future orders which are active, pending orscheduled.Future Appointments This section includes appointments that were scheduled to occur 6 months from the date of the Encounter, up to a maximum of 20 appointments. The data comes from all [facility] treatment facilities. Appointment Date/Time Appointment Type Appointment Facili ty Name Feb 07, 2021 09:00 AM AMBULATORY - PSYCHIATRY [facility] Mar 08, 2021 11:00 AM AMBULATORY PSYCHIATRY [facility] Mar 09, 2021 01:45 PM AMBULATORY - MEDICINE [facility] Apr 08, 2021 09:00 AM AMBULATORY PSYCHIATRY [facility] May 06, 2021 09:00 AM AMBULATORY PSYCHIATRY [facility] Jun 06, 2021 11:00 AM AMBULATORY - MEDICINE [facility] Jun 17, 2021 09:00 AM AMBULATORY PSYCHIATRY [facility] July 13, 2021 11:00 AM AMBULATORY - NONE [facility] Lab Results: +/- 30 days of the encounter This section includes the Chemistry and Hematology Lab Results on record with [facility] for the patient. Radiology Reports and Pathology Reports are provided separately, in subsequent sections.Lab Results This section contains the Chemistry/Hematology Results that were resulted 30 days before or 30 daysafter the date of the Encounter. Date/Time Source Result Type Result - Unit Interpretation Reference Range Comment Jan 03, 2021 10:54 [facility] BASIC METABOLIC Specimen Type: PLASMA AM PANEL+MG No comment enter ed. Ordering Provid er: DERRICK GEORGE Report Released Date/Time: Dec 24, 2019 02:11 PM Reporting Lab: [facility] [address] [facility] [id number] Performing Lab: [facility] [address] [facility] [id number] CREATININE 0.9 0.7-1.2 UREA NITROGEN 21 8-26 GLUCOSE 101 H 74-100 SODIUM 140 136-145 POTASSIUM 3.7 3.5-5.1 CHLORIDE 107 98-107 CO2 26 22-29 CALCIUM 9.4 8.4-10.2 MAGNESIUM 2.0 1.6-2.6 ANION GAP 7 5-15 ESTIMATED GFR(eGFR) 80 >60 Jan 03, 2021 10:54 AM [facility] CBC Specim en Type: BLOOD No comment enter ed. Ordering Provid er: DERRICK GEORGE Report Released Date/Time: Dec 24, 2019 02:11 PM Reporting Lab: [facility] [address] [facility] [id number] Performing Lab: [facility] [address] [facility] [id number] WBC 8.11 4.0-11.0 RBC 4.21 L 4.6-6.2 HGB 13.6 13.5-17.9 HCT 41.5 41-54 MCV 98.6 80-100 MCH 32.3 27-33 MCHC 32.8 32.0-37.5 PLT 204 150-400 MPV 9.3 7.4-10.4 RDW 13.1 11.5-14.5 Jan 03, 2021 [facility] LIPID PANEL,NON-FASTING Spec imen Type: PLASMA 10:54 AM No comment enter ed. Ordering Provid er: DERRICK GEORGE Report Released Date/Time: Dec 24, 2019 02:11 PM Reporting Lab: [facility] [address] [facility] [phone] Performing Lab: [facility] [address] [id number] CHOLESTEROL 121 <199 .HDL 46 >40 LDL CALCULATION 58 <99 VLDL CALCULATION 17 <29 NON HDL CHOLESTEROL 75 <129 TRIG(NON FASTING) 87 <149 Social History: Smoking Status (Most current) and Tobacco Use (All prior to encounter date) This section includes the most current, and the historical, smoking and tobacco-related health factors from the [facility] facility where the Encounter took place.Current Smoking Status This section includes the most current smoking, or tobacco-related health factor, from the [facility] facility where the Encounter took place. Date/Time Current Smoking Status Comment Facility Jan 03, 2021 11:30 AM VA-TOBACCO FORMER USER [facility] Tobacco Use History This section includes a history of the smoking, or tobacco- related health factors, that were collected on or before the date of the Encounter. The data comes from the [facility] facility where the Encounter took place. Date/Time Smoking Status/Tobacco Use Comment [facility] Jan 03, 2021 11:30 AM VA-TOBACCO QUIT 15 YRS OR MORE [facility] June 20, 2018 11:30 AM VA-TOBACCO FORMER USER [facility] June 20, 2018 11:30 AM UT-TOBACCO QUIT 15 YRS OR MORE [facility] July 09, 2017 10:39 AM FORMER TOBACCO USER 7Y OR GREATER [facility] July 07, 2016 01:14 PM FORMER TOBACCO USER 7Y OR GREATER [facility] June 21, 2015 02:23 PM FORMER TOBACCO USER 7Y OR GREATER [facility] Jun 08, 2014 01:51 PM FORMER TOBACCO USER 7Y OR GREATER [facility] Jun 10, 2013 01:11 PM LIFETIME NON-TOBACCO USER [facility] Aug 03, 2011 07:59 AM FORMER TOBACCO USER 7Y OR GREATER [facility] Advance Directives: All historical and current Section Date Range: From patient's date of to the date document was created. This section includes ALL of a patient's completed or amended [facility] Advance and Rescinded Directives. The entries below indicate that a directive exists for the patient, but an actual copy is not included with this document. The data comes from all [facility] facilities. Date Advance Directives Provider Source June 19, 2013 ADVANCE DIRECTIVE DISCUSSION KENDALL SERRANO [facility] June 19, 2013 ADVANCE DIRECTIVE KENDALL SERRAON [facility] Encounter Notes: All associated encounter notes This section contains the clinical notes associated to the Encounter. Date/Time Encounter Note(s) Provider Source Jan 24, 2021 10:00 AM MENTAL HEALTH [facility] INTERDISCIPLINARY NOTE: TAMI ROBINS [facility] LOCAL TITLE: PRIMARY CARE-MH INTEGRATION EVALUA TION STANDARD TITLE: MENTAL HEALTH E & M INTERDISCIPL INARY NOTE DATE OF NOTE: JAN 24, 2021@10:00 ENTRY DATE: JAN 24, 2021@10:00:22 AUTHOR: TAMI ROBINS EXP COSIGNER: URGENCY: STATUS: COMPLETED PRIMARY CARE-MENTAL HEALTH INTEGRATION (PCMHI) P ROGRESS NOTE This encounter was completed by telephone due to COVID-19 social distancing recommendations. The patient verbally consented to using telephone for their care. PROCEDURES: 30-minute behavioral health provider evaluation and treatment for grief and loss. SELF-REPORT/REASON FOR REFERRAL: o f TREATMENT PLAN: Brief behavioral/supportive kiran tment of grief and loss Treatment goals negotiated with patient include: 1. He will continue to practice self-care, beha vioral activation, and use of supports. 2. RTC; two weeks, phone, or earlier if needed. INTEGRATED SUMMARY: This 85-year-old, , C aucasian male lost his of 63-years in September 2020. He is grieving with much support. He is functioning well in all areas of his life, but he anne s a hard time being emotional in front of other people. He is motivated to work with th is provider on the emotional parts of his grief. DIAGNOSTIC IMPRESSIONS: Bereavement Presenting Problem History (Duration/Frequency/I ntensity): He lost his in September after 63-years years of marriage. The nights are the most difficult because it's quiet and he anne s time to think. He is very active during the days. He denied symptoms of depression, anxiety, SI/HI , intent, or plan. He allows himself to grieve and he accepts help from other s, but he doesn't like to be emotional in front of people. Treatment History of Presenting Problem: None IMPACT OF PRESENTING PROBLEM ON FUNCTIONING/LEON Y LIFE Sleep: 5-7 hours with naps, feels rested Physical/Nutrition/Exercise: exercises regularly , eats well Work: He lives independently and get his daily t asks done. Relationships/Social Functionin years, new each other since elementary school. They did everything together. He has two adult kids who are very supportive. He lives in a condo and the people a re amazing. He also has support from protestant. Recreation: He exercises regularly and is active with his [facility] and his protestant. He volunteers. Alcohol: none Tobacco: none Drugs: none Caffeine: one soda/daily RISK ASSESSMENT: Risk factors: of spouse, age (old age:65+), race (Euro [place]riot), gender (male), Protective factors: Strong social support system, No alcohol or substance abuse/ dependency issues, Compliance with treatment recommendations and m akin appointments, No history of suicide attempts or self-injurious b ehavior, No history of violence or aggression, No history of psychiatr ic hospitalizations, Goal oriented, Financially stable, Low acute risk: no current suicidal intent, no s pecific and current suicidal plan, no preparatory behavior, and high confiden ce in the patient's ability to independently maintain safety. Low chronic risk: absence of self-directed viole nce, absence of chronic suicidal ideation, absence of impulsivity or ris ky behaviors, good psychosocial functioning. Informed Consent: Information was reviewed with the patient regarding the role and services of the behavioral health provi michael, documentation procedures, and confidentiality and limits to co nfidentiality of patient data. Patient willingly agreed to evaluation. In addition to the assessors' contact informatio n, the following emergent mental health resources were discussed. Mental h [facility] [place] [facility] [phone] or extension [phone] during business ho urs and [facility] emergency department [phone] after business hours and weekends. National suicide prevention hotline: . [facility] emergency: 911. /es/ TAMI ROBINS Psy.D., CLINICAL PSYCHOLOGIST Signed: 01/24/2021 11:53
--- OUTSIDE RECORDS SUMMARY | 2021-12-20 14:20 | XMS_ITS ---
:1935 Author Organization Department of [facility] rs Address [address] [place] [id number] Support Name Relationship Address Phone AMBROSIO SLOAN Unavailable [address] [place] [address] [place] [address] LAW SLOAN Unavailable [address] [place], [place] Insurance Providers: All historical and current Section Date Range: From patient's date of to the date document was created.This section includes the names of all active insurance providers for the patient. Insurance Type of Plan Start of End of Group Member Insurance Policy P atient's Provider Coverage Name Policy Policy Number ID Provider's Patel's Relationship Coverage Coverage Telephone Name to Policy Number Patel [place] MEDICARE MCR Feb 19, [id number] TATY SLOANMANNY [facility] (WNR) ADVANTAGE (WNR) 2016 [id number] [phone] CE 1 Selected Encounter This section includes the information on record at [place] for the Encounter. Date/Time Encounter Type Encounter Reason Provider Source Description Jan 03, 2021 OFFICE O/P EST PRIMARY ICD-10-CM I10 DERRICK GEORGE 11:30 AM MOD 30-39 MIN CARE/MEDICINE Essential L (primary) hypertension with Provider Comments: Hypertension (SCT [id number]) IHE Encounter Template Text not used by [place] Assessments - Encounter Diagnoses This section includes the primary and secondary diagnoses documented for the Encounter. Date/Time Primary/Secondary Diagnosis Name Provider Source Diagnosis Jan 06, 2021 PRIMARY Essential (primary) DORISDERRICK LEGER [place] 11:32 AM hypertension L [facility] Jan 06, 2021 SECONDARY Encounter for ROMANAADRIANABLAS BABBITT [place] 11:32 AM immunization M [facility] Jan 06, 2021 SECONDARY Gastro-esophageal TRADERRICK ERNST [place] 11:32 AM reflux disease L [facility] without esophagitis Jan 06, 2021 SECONDARY Mixed TRAUT,DERRICK [place]LE [place] 11:32 AM hyperlipidemia L [facility] Jan 06, 2021 SECONDARY Pain in left TRAUT,DERRICK [place]LE [place] 11:32 AM shoulder L [facility] Jan 06, 2021 SECONDARY Unspecified atrial TRAUT,DERRICK [place] 11:32 AM fibrillation L [facility] Plan of Treatment: Future Appointments (+ 6 months) and Future Tests (+/- 45 days) The Plan of Treatment section includes future care activities for the patient [facility] [place] [facility] This section includes future appointments and future orders which are active, pending orscheduled.Future Appointments This section includes appointments that were scheduled to occur 6 months from the date of the Encounter, up to a maximum of 20 appointments. The data comes from all [place] treatment facilities. Appointment Date/Time Appointment Type Appointment Facili ty Name Jan 24, 2021 10:00 AM [facility] Feb 07, 2021 09:00 AM [facility] Mar 08, 2021 11:00 AM [facility] Mar 09, 2021 01:45 PM [facility] [place] Apr 08, 2021 09:00 AM [facility] May 06, 2021 09:00 AM [facility] Jun 06, 2021 11:[address] [facility] Jun 17, 2021 09:00 AM [facility] Lab Results: +/- 30 days of the encounter This section includes the Chemistry and Hematology Lab Results on record with [place] for the patient. Radiology Reports and Pathology Reports are provided separately, in subsequent sections.Lab Results This section contains the Chemistry/Hematology Results that were resulted 30 days before or 30 daysafter the date of the Encounter. Date/Time Source Result Type Result - Unit Interpretation Reference Range Comment Jan 03, 2021 10:54 [facility] BASIC METABOLIC Specimen Type: PLASMA AM PANEL+MG No comment enter ed. Ordering Provid er: DERRICK GEORGE Report Released Date/Time: Dec 24, 2019 02:11 PM Reporting Lab: [facility] [id number] Performing Lab: [facility] [id number] CREATININE 0.9 0.7-1.2 UREA NITROGEN 21 8-26 GLUCOSE 101 H 74-100 SODIUM 140 136-145 POTASSIUM 3.7 3.5-5.1 CHLORIDE 107 98-107 CO2 26 22-29 CALCIUM 9.4 8.4-10.2 MAGNESIUM 2.0 1.6-2.6 ANION GAP 7 5-15 ESTIMATED GFR(eGFR) 80 >60 Jan 03, 2021 [facility] LIPID PANEL,NON-FASTING Spec imen Type: PLASMA 10:54 AM No comment enter ed. Ordering Provid er: DERRICK GEORGE Report Released Date/Time: Dec 24, 2019 02:11 PM Reporting Lab: [facility] [address] [facility] [address] Performing Lab: [facility] [id number] CHOLESTEROL 121 <199 .HDL 46 >40 LDL CALCULATION 58 <99 VLDL CALCULATION 17 <29 NON HDL CHOLESTEROL 75 <129 TRIG(NON FASTING) 87 <149 Jan 03, 2021 10:54 AM [facility] CBC Specim en Type: BLOOD No comment enter ed. Ordering Provid er: DERRICK GEORGE Report Released Date/Time: Dec 24, 2019 02:11 PM Reporting Lab: [facility] [address] [facility] [address] Performing Lab: [facility] [id number] WBC 8.11 4.0-11.0 RBC 4.21 L 4.6-6.2 HGB 13.6 13.5-17.9 HCT 41.5 41-54 MCV 98.6 80-100 MCH 32.3 27-33 MCHC 32.8 32.0-37.5 PLT 204 150-400 MPV 9.3 7.4-10.4 RDW 13.1 11.5-14.5 Vital Signs: All taken on the encounter date This section contains inpatient and outpatient Vital Signs collected on the date of the Encounter. Date/Time Temperature Pulse Blood Respiratory SP02 Pain Height Weight Keegan dy Source Pressure Rate Mass Index Jan 03, 97.2 F 63 168/69 18 /min 97 % 4 175.8 26 [place] 2020 10:34 /min mm[Hg] lb [place] AM [facility] Immunizations: All administered on the encounter date This section contains immunizations associated to the Encounter. Immunization Series Date Issued Reaction Comments ZOSTER RECOMBINANT 1 Jan 03, 2021 Social History: Smoking Status (Most current) and Tobacco Use (All prior to encounter date) This section includes the most current, and the historical, smoking and tobacco-related health factors from the [place] facility where the Encounter took place.Current Smoking Status This section includes the most current smoking, or tobacco-related health factor, from the [facility] where the Encounter took place. Date/Time Current Smoking Status Comment Facility Jan 03, 2021 11:30 AM [place]-TOBACCO FORMER USER [facility] Tobacco Use History This section includes a history of the smoking, or tobacco- related health factors, that were collected on or before the date of the Encounter. The data comes from the [facility] where the Encounter took place. Date/Time Smoking Status/Tobacco Use Comment [facility] it Jan 03, 2021 11:30 AM [place]-TOBAC[place] QUIT 15 YRS OR MORE [facility] June 20, 2018 11:30 AM [place]-TOBACCO FORMER USER [place] [facility] June 20, 2018 11:30 AM [place]-TO[place]AC[place] QUIT 15 YRS OR MORE [facility] July 09, 2017 10:39 AM FORMER TOBACCO USER 7Y OR GREATER [facility] July 07, 2016 01:14 PM FORMER TOBACCO USER 7Y OR GREATER [facility] June 21, 2015 02:23 PM FORMER TOBACCO USER 7Y OR GREATER [facility] Jun 08, 2014 01:51 PM FORMER TOBACCO USER 7Y OR GREATER [facility] Jun 10, 2013 01:11 PM LIFETIME NON-TOBACCO USER [facility] Aug 03, 2011 07:59 AM FORMER TOBACCO USER 7Y OR GREATER [facility] Advance Directives: All historical and current Section Date Range: From patient's date of to the date document was created. This section includes ALL of a patient's completed or amended [place] Advance and Rescinded Directives. The entries below indicate that a directive exists for the patient, but an actual copy is not included with this document. The data comes from all [facility]. Date Advance Directives Provider Source June 19, 2013 ADVANCE DIRECTIVE DISCUSSION KENDALL SERRANO [facility] June 19, 2013 ADVANCE DIRECTIVE KENDALL SERRANO [facility] Encounter Notes: All associated encounter notes This section contains the clinical notes associated to the Encounter. Date/Time Encounter Note(s) Provider Source Jan 03, 2021 01:58 REPORT OF CONTACT: CHATO MARTIN [facility] PM LOCAL TITLE: APPOINTMENT SCHEDULING NOTE STANDARD TITLE: REPORT OF CONTACT DATE OF NOTE: JAN 03, 2021@13:58 ENTRY DATE: JAN 03, 2021@13:58:33 AUTHOR: CHATO MARTIN EXP COSIGNER: URGENCY: STATUS: COMPLETED Attempt to schedule return to clinic 1st Contact: Called [place] at: No v Left message Phone number left for to call back: [phone] 2nd Contact: Sent letter by regular [place] mail to address on [place] [address] [place] [address] If [place] calls back, schedule appointment for: Return to [facility] PACT 4F IMMUNIZATION on or around ( Mar 09, 2021 ) for a total of 1 appointment(s) Schedule shingrix x 2 / 2 months from 01/03/21 Is the RTC marked as no later than? Jade /hari/ CHATO MARTIN [facility] Signed: 01/03/2021 14:11 Jan 03, 2021 12:31 INTERNAL MEDICINE NOTE: DERRICK GEORGE [facility] LOCAL TITLE: MEDICINE CLINIC NOTE STANDARD TITLE: INTERNAL MEDICINE NOTE DATE OF NOTE: JAN 03, 2021@12:31 ENTRY DATE: JAN 03, 2021@12:31:44 AUTHOR: DERRICK GEORGE EXP COSIGNER: URGENCY: STATUS: COMPLETED MEDICINE CLINIC NOTE Has ADDENDA The patient is a 85 year old MALE Presents routine care. Comanaged. #Left shoulder: engaged with PT via outside [facility]. #Cardiology/Stents: New stent in September, placed at [facility] Promus stent (WILVER). Has a-fib and has been on Amiodarone. #HTN: checks at home and it is fine. Up today in clinic. Walks a couple miles/day. Free weights, squats, and stretches a t home. #HLD: using statin, tolerating well. #GERD: ok with just omeprazole #Loss: in September. He endorses g ood support from family and friends. #Derm: skin cancer spots on the left leg. Treate d with outside derm. Had to get IV meds and hyperbaric treatment; now with a wound clinic in [place]. Currently wrapped. --- PMHx: Active problems - Computerized Problem List is t he source for the followin. Hypertension (SNOMED CT 64352675) 2. Gastroesophageal reflux disease (SNOMED CT 2 04519027) 3. Hearing Loss, Partial * 4. Tinnitus * 5. 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 Personal History of Peptic Ulcer Disease 8. CO-MANAGE - Dr. Law Lawson, [facility] [place] - PCP Dr. Robbins 9. Tobacco Use Disorder, Remission 10. Hyperlipidemia (SNOMED CT 18470982) 11. Atrial fibrillation 12. Insomnia Active Outpatient Medications (including Supplie s): Active Outpatient Medications Status 1) APIXABAN 5MG TAB TAKE ONE TABLET BY MOUTH DESTINEE RY 12 ACTIVE HOURS TO PREVENT STROKE DUE TO ATRIAL FIBRILLAT ION Active Non-VA Medications Status 1) Non-VA AMIODARONE HCL (PACERONE) 200MG TAB 20 0MG ACTIVE MOUTH EVERY DAY 2) Non-VA AMLODIPINE BESYLATE 10MG TAB 5MG MOUTH EVERY ACTIVE DAY 3) Non-VA ATORVASTATIN CALCIUM 20MG TAB 10MG OLINDA TH AT ACTIVE BEDTIME 4) Non-VA CHONDROITIN/GLUCOSAMINE CAP/TAB MOUTH EVERY ACTIVE DAY 5) Non-VA HYDROCHLOROTHIAZIDE 25MG TAB 25MG MOUT H EVERY ACTIVE DAY 6) Non-VA IBUPROFEN 400MG TAB 400MG MOUTH THREE TIMES A ACTIVE DAY NEEDED 7) Non-VA LOSARTAN 50MG TAB 50MG MOUTH EVERY DAY ACTIVE 8) Non-VA MULTIVITAMIN CAP/TAB 1 TABLET MOUTH EV JIAN DAY ACTIVE 9) Non-VA NITROGLYCERIN 0.4MG SL TAB 0.4 MG UNDE R THE ACTIVE TONGUE NEEDED 10) Non-VA OMEPRAZOLE 20MG EC CAP 40MG MOUTH DESTINEE RY DAY ACTIVE 11 Total Medications Vitals: Temperature: 97.2 F [36.2 C] (01/03/2021 10:34) Blood Pressure: 168/69 (01/03/2021 10:34) Pulse: 63 (01/03/2021 10:34) Respiration: 18 (01/03/2021 10:34) Pain: 4 (01/03/2021 10:34) Height: 68.5 in [174.0 cm] (07/09/2017 10:38) Weight: 175.8 lb [79.9 kg] (01/03/2021 10:34) BMI: 26.4 EXAM: Left leg has a wrap dressing from outside derm. Alert and oriented, pleasant. Heart: Regular rate and rhythym. No mumurs, gall ops, or rubs. Lungs: Clear to auscultation in all robins bilat erally. Labs: WBC: 8.11 RBC: 4.21 L HGB: 13.6 HCT: 41.5 MCV: 98.6 MCH: 32.3 MCHC: 32.8 RDW: 13.1 PLT: 204 MPV: 9.3 GLUCOSE: 101 H UREA NITROGEN: 21 CREATININE: 0.9 SODIUM: 140 POTASSIUM: 3.7 CHLORIDE: 107 CO2: 26 CALCIUM: 9.4 CHOLESTEROL: 121 MAGNESIUM: 2.0 HDL: 46 ANION GAP: 7 LDL CHOL: 58 VLDL CHOL: 17 NON HDL CHOLESTEROL: 75 EGFR (09/22): 80 TRIG(NON FASTING): 87 A/P: Reconciled outside care with what we are provid ing. Happy with current care overall, but wo uld like to offer him a chance to talk with [facility] about support for the loss of his spo use. NOTE: All resulted lab, imaging, and other studi es ordered by me today (or recently) were communicated to patient john soares this visit MEDICATION RECONCILIATION Outpatient At this visit I have reviewed the medication li st, and discussed relevant medications with the patient/surrogate . Return to clinic: yearly and as needed /hari/ DERRICK GEORGE APRN, MANDY Nurse Practitioner Signed: 01/06/2021 11:32 01/06/2021 ADDENDUM STATUS: COMPLETED Open to discussing [facility] supports; lost in September. /hari/ DERRICK GEORGE APRN, CNP Nurse Practitioner Signed: 01/06/2021 11:33 Receipt Acknowledged By: 01/06/2021 14:50 /hari/ Alecia Jimenez, PhD, L P Staff Psychologist [facility] 01/06/2021 ADDENDUM STATUS: COMPLETED First available [facility] provider will reach out to Vet to schedule. /adan Jimenez, PhD, LP Staff Psychologist [facility] Signed: 01/06/2021 14:50 01/18/2021 ADDENDUM STATUS: COMPLETED Contacted and scheduled appt for 01/24/21. No urgency. Provided contact information and answered questions. /hari/ TAMI ROBINS Psy.D., LP CLINICAL PSYCHOLOGIST Signed: 01/18/2021 16:27 Jan 03, 2021 10:38 INTERNAL MEDICINE OUTPATIENT NOTE: [facility] LOCAL TITLE: MEDICINE CLINIC NURSING NOTE STANDARD TITLE: INTERNAL MEDICINE OUTPATIENT NOT E DATE OF NOTE: JAN 03, 2021@10:38 ENTRY DATE: JAN 03, 2021@10:38:18 AUTHOR: BLAS JOHNSON EXP COSIGNER: URGENCY: STATUS: COMPLETED TYPE OF VISIT: Appointment Check In Type of appointment: In-person appointment REASON FOR VISIT: Annual ALLERGIES: ATENOLOL (Jan 03, 2021) LISINOPRIL (Jan 03, 2021) VITAL SIGNS: Blood Pressure: 168/69 (01/03/2021 10:34) Pulse: 63 (01/03/2021 10:34) Respiration: 18 (01/03/2021 10:34) Temperature: 97.2 F [36.2 C] (01/03/2021 10:34) Weight: 175.8 lb [79.9 kg] (01/03/2021 10:34) Height: 68.5 in [174.0 cm] (07/09/2017 10:38) BMI: 26.4 O2 Sat: 97 (01/03/2021 10:34) Pain: 4 (01/03/2021 10:34) PAIN SCREEN: Patient is not having significant pain that the y wish to discuss with their provider today. MEDICATION Over the Counter/Herbal Medications: The patient denies taking any outside medicatio ns or herbals. Suicide Screen: C-SSRS Screening [place] Suicide Severity Rating Scale (C-SSRS) screener 1. Over the past month, have you wished you wer e or wished you could go to sleep and not wake up? No 2. Over the past month, have you had any actual thoughts of killing yourself? No 3. Over the past month, have you been thinking about how you might do this? Response not required due to responses to other questions. 4. Over the past month, have you had these thou ghts and had some intention of acting on them? Response not required due to responses to other questions. 5. Over the past month, have you started to wor k out or worked out the details of how to kill yourself? Response not required due to responses to other questions. 6. If yes, at any time in the past month did yo u intend to carry out this plan? Response not required due to responses to other questions. 7. In your lifetime, have you ever done anythin g, started to do anything, or prepared to do anything to end you r life (for example, collected pills, obtained a gun, gave away valu irma, went to the roof but didn't jump)? No 8. If YES, was this within the past 3 months? Response not required due to responses to other questions. Depression Screening: Perform PHQ-2 A PHQ-2 screen was performed. The score was 2 w hich is a negative screen for depression. Over the past two weeks, how often have you bee n bothered by the following problems? 1. Little interest or pleasure in doing things Several days 2. Feeling down, depressed, or hopeless Several days Alcohol Use Screen (AUDIT-C): Alcohol Screen: SCREEN FOR ALCOHOL (AUDIT-C) An alcohol screening test (AUDIT-C) was negativ e (score=0). 1. How often did you have a drink containing al cohol in the past year? Never 2. How many drinks containing alcohol did you h ave on a typical day when you were drinking in the past year? Response not required due to responses to other questions. 3. How often did you have six or more drinks on one occasion in the past year? Response not required due to responses to other questions. Nursing Annual Screening: Fall History Screen During the past 12 months, have you had any fal ls? Patient does not report any falls in the past 1 2 months. MEDICATIONS: Patient is on one of the following medication c lasses: Antihypertensives, Antidepressants, Antipsychot ics, Diuretics, or Controlled substance medication used for pain. FALL RISK ADVICE: Fall Risk Advice provided. Handout entitled Fa ll Prevention At Home reviewed and given to patient and/or significan t other. Script Talk Screen Are you able to read your prescription bottles with your glasses, magnifiers or other aids? Yes or patient not taking any prescriptions. Skin Screen Patient reports any current pressure ulcers, a history of pressure ulcers, or a wound from a medical technologist microbiology or Patient is bed-confined or a wheelchair-user or Patient requires assistance to transfer/change position No, Skin Screen is Negative Home Abuse/Violence Screen Is your home free of abuse and violence? Yes Outpatient Nutrition Screen Body Mass Index (BMI)= 26.4 [place]: Collection DT Specimen Test Name Result Units R ef Range 06/04/2012 18:09 BLOOD HEMOGLOBIN A1C 5.3 % 4.0 - 6.0 [place] Hgb A1C: No data available [place] Hgb A1C: No data available Point of Care Hgb A1C: POC HGB A1C____ Is patient's BMI less than 18.5? No Does patient have swallowing, coughing, or chew ing problems affecting oral intake? No Has patient experienced unplanned weight loss o r gain greater than 10 pounds over the last 2 months? No Is patient's Hgb A1C (Glycosylated Hemoglobin) greater than 9.5? No Is patient receiving Total Parenteral Nutrition (TPN) or Tube Feedings? No Patient Health Education Screen BARRIERS/SPECIAL NEEDS: Physical limitations Hearing limitations Visual limitations PREFERRED STYLE OF LEARNING: Watching something Listening Client Assistive Service (SLIM) Screen Does the patient require assistance with outpat ient visit? No Tobacco Use Screening: The patient is a former tobacco user. The patient quit fifteen or more years ago. Homelessness/Food Insecurity Screen: In the past 2 months, have you been living in s table housing that you own, rent, or stay in as part of a household? Y es - Living in stable housing. Are you worried or concerned that in the next 2 months you may NOT have stable housing that you own, rent, or stay in a s part of a household? No - Not worried about housing near future The reports the following: Within the past 12 months, you worried whether your food would run out before you got money to buy more. Never true Within the past 12 months, the food you bought just didn't last and you didn't have money to get more. Never true Influenza Immunization: The patient has received the seasonal influenza vaccine for the current season at another location. Date: November 23, 2020 Location: [facility] Herpes Zoster (Shingles) Vaccine: The patient received recombinant zoster vaccine (RZV) 0.5 ml IM in Left deltoid. Paper [employer] Grader: [employer] Lot#s and Expiration Date: [id number] Exp. 03/24/22 [id number] Exp. 03/24/22 Administered by protocol/policy Complications: None The VIS for the recombinant zoster vaccine (RZV ) dated Nov was given to the patient. /hari/ BLAS JOHNSON LPN LPN Signed: 01/03/2021 10:52
--- OUTSIDE RECORDS SUMMARY | 2021-12-20 14:20 | XMS_ITS | Encounter Summary ---
:1935 Author Organization Department [facility] Address [address] [place] [address] Support Name Relationship Address Phone AMBROSIO SLOAN Unavailable [address] [place] [address] [place] [address] LEEANN SLOAN Unavailable [address] [place], [place] Insurance Providers: All historical and current [...] Patel [place] MEDICARE MCR Feb 19, [id number] TATY SLOAN SHAKA MCR (WNR) ADVANTAGE (WNR) 2016 8 [id number] [phone] CE 1 Selected Encounter This section includes the information on record at ID for the Encounter. Date/Time Encounter Type Encounter Reason Provider Source Description Mar 09, 2021 IMMUNIZATION PRIMARY ICD-10-CM Z23 CINDA MCCORMICK 01:45 PM ADMIN CARE/MEDICINE Encounter for ARTHUR L immunization with Provider Comments: Encounter for any immunization IHE Encounter Template Text not used by ID Assessments - Encounter Diagnoses This section includes the primary and secondary diagnoses documented for the Encounter. Date/Time Primary/Secondary Diagnosis Name Provider Source Diagnosis Mar 09, 2021 PRIMARY Encounter for CINDA MCCORMICK [facility] 01:39 PM immunization ARTHUR L [facility] Plan of Treatment: Future Appointments (+ [...] 20 appointments. The data comes from all ID treatment facilities. Appointment Date/Time Appointment Type Appointment Facili ty Name Apr 08, 2021 09:00 AM AMBULATORY - PSYCHIATRY [facility] May 06, 2021 09:00 AM AMBULATORY - PSYCHIATRY [facility] Jun 06, 2021 11:00 AM AM[facility]ULATORY - MEDICINE [facility] Jun 17, 2021 09:00 AM AMBULATORY - PSYCHIATRY [facility] July 13, 2021 11:00 AM AMBULATORY - NONE [facility] Immunizations: All administered on the encounter date This section contains immunizations associated to the Encounter. Immunization Series Date Issued Reaction Comments ZOSTER RECOMBINANT 2 Mar 09, 2021 Social History: Smoking Status (Most current) and Tobacco Use (All prior to encounter date) This section includes the most current, and the historical, smoking and tobacco-related health factors from the ID facility where the Encounter took place.Current Smoking Status This section includes the most current smoking, or tobacco-related health factor, from the ID facility where the Encounter took place. Date/Time Current Smoking Status Comment Facility Jan 03, 2021 11:30 AM VA-TOBACCO FORMER USER [facility] Tobacco Use History This section includes a history of the smoking, or tobacco- related health factors, that were collected on or before the date of the Encounter. The data comes from the ID facility where the Encounter took place. Date/Time Smoking Status/Tobacco Use Comment [facility] Jan 03, 2021 11:30 AM VA-TOBACCO QUIT 15 YRS OR MORE [facility] June 20, 2018 11:30 AM VA-TOBACCO FORMER USER [facility] June 20, 2018 11:30 AM VA-TOBACCO QUIT 15 YRS OR MORE [facility] July 09, 2017 10:39 AM FORMER TOBACCO USER 7Y OR GREATER [facility] July 07, 2016 01:14 PM FORMER TOBACCO USER 7Y OR GREATER [facility] June 21, 2015 02:23 PM FORMER TOBACCO USER 7Y OR GREATER [facility] Jun 08, 2014 01:51 PM FORMER TOBACCO USER 7Y OR GREATER [facility] Jun 10, 2013 01:11 PM LIFETIME NON-TOBACCO USER [facility] Aug 03, 2011 07:59 AM FORMER TOBACCO USER 7Y OR GREATER [facility] Advance Directives: All historical and current Section Date Range: From patient's date of to the date document was created. This section includes ALL of a patient's completed or amended ID Advance and Rescinded Directives. The entries below indicate that a directive exists for the patient, but an actual copy is not included with this document. The data comes from all [facility]. Date Advance Directives Provider Source June 19, 2013 ADVANCE DIRECTIVE DISCUSSION KENDALL SERRANO [facility] June 19, 2013 ADVANCE DIRECTIVE KENDALL SERRANO [facility] Encounter Notes: All associated encounter notes This section contains the clinical notes associated to the Encounter. Date/Time Encounter Note(s) Provider Source Mar 09, 2021 01:35 PM INTERNAL MEDICINE OUTPATIENT NOTE: CINDA MCCORMICK [facility] LOCAL TITLE: MEDICINE CLINIC NURSING NOTE STANDARD TITLE: INTERNAL MEDICINE OUTPATIENT NOT E DATE OF NOTE: MAR 09, 2021@13:35 ENTRY DATE: MAR 09, 2021@13:35:35 AUTHOR: CINDA MCCORMICK EXP COSIGNER: URGENCY: STATUS: COMPLETED TYPE OF VISIT: Nurse Clinic REASON FOR VISIT: 2nd shingle shot ALLERGIES: FACILITY ALLERGY/ADR -------- No Remote Allergy/ADR Data available for this pa tient [facility] ATENOLOL [facility] LISINOPRIL Herpes Zoster (Shingles) Vaccine: The patient received recombinant zoster vaccine (RZV) 0.5 ml IM in Left deltoid. Environmental Safety Specialist: [email or web address] Lot#s and Expiration Date: [id number] 06/08/22, [id number] 06/08/22 Administered by protocol/policy Complications: None /es/ CINDA MCCORMICK LPN LICENSED PRACTICAL NURSE Signed: 03/09/2021 13:39
--- OUTSIDE RECORDS SUMMARY | 2021-12-20 14:20 | XMS_ITS | Encounter Summary ---
:1935 Author Organization [facility] Address [address] [place] [id number] Support Name Relationship Address Phone AMBROSIO SLOAN Unavailable [address] [place] [address] [place] [address] LEEANN SLOAN Unavailable [address] [place], [place] Insurance Providers: All historical and current Section Date Range: From patient's date of to the date document was created.This section includes the names of all active insurance providers for the patient. Insurance Type of Plan Start of End of Group Member Insurance Policy P tito's Provider Coverage Name Policy Policy Number ID Provider's Patel's Relationship Coverage Coverage Telephone Name to Policy Number Patel [place] MEDICARE MCR Feb 19, [id number] TATY SLOAN [facility] ([facility]NR) 2016 8 [id number] [phone] CE 1 Selected Encounter This section includes the information on record at NH for the Encounter. Date/Time Encounter Type Encounter Reason Provider Source Description Feb 07, 2021 PSYTX W PT 30 TELEPHONE ICD-10-CM Z60.0 TAMI ROBINS 09:00 AM MINUTES Problems of adjustment to life-cycle transitions with Provider Comments: Problems of Adjustment to Life-Cycle Transitions IHE Encounter Template Text not used by [place] Assessments - Encounter Diagnoses This section includes the primary and secondary diagnoses documented for the Encounter. Date/Time Primary/Secondary Diagnosis Name Provider Source Diagnosis Feb 07, 2021 PRIMARY Problems of TAMI ROBINS A 09:00 AM adjustment to [facility] life-cycle transitions Plan of Treatment: Future Appointments (+ 6 [...] 20 appointments. The data comes from all [place] treatment facilities. Appointment Date/Time Appointment Type Appointment Facili ty Name Mar 08, 2021 11:00 AM AMBULATORY - PSYCHIATRY [facility] Mar 09, 2021 01:45 PM AMBULATORY - MEDICINE [facility] Apr 08, 2021 09:00 AM AMBULATORY - PSYCHIATRY [facility] May 06, 2021 09:00 AM AMBULATORY - PSYCHIATRY [facility] Jun 06, 2021 11:00 AM AMBULATORY - MEDICINE [facility] Jun 17, 2021 09:00 AM AMBULATORY - PSYCHIATRY [facility] July 13, 2021 11:00 AM AMBULATORY - NONE [facility] Social History: Smoking Status (Most current) and Tobacco Use (All prior to encounter date) This section includes the most current, and the historical, smoking and tobacco-related health factors from the NH facility where the Encounter took place.Current Smoking Status This section includes the most current smoking, or tobacco-related health factor, from the NH facility where the Encounter took place. Date/Time Current Smoking Status Comment Facility Jan 03, 2021 11:30 AM NH-TOBACCO QUIT 15 YRS OR MORE [facility] Tobacco Use History This section includes a history of the smoking, or tobacco- related health factors, that were collected on or before the date of the Encounter. The data comes from the NH facility where the Encounter took place. Date/Time Smoking Status/Tobacco Use Comment [facility] Jan 03, 2021 11:30 AM VA-TOBACCO QUIT 15 YRS OR MORE [facility] June 20, 2018 11:30 AM VA-TOBACCO FORMER USER [facility] June 20, 2018 11:30 AM NH-TOBACCO QUIT 15 YRS OR MORE [facility] July 09, 2017 10:39 AM FORMER TOBACCO USER 7Y OR GREATER [facility] July 07, 2016 01:14 PM FORMER TOBACCO USER 7Y OR GREATER [facility] June 21, 2015 02:23 PM FORMER TOBACCO USER 7Y OR GREATER [facility] Jun 08, 2014 01:51 PM FORMER TOBACCO USER 7Y OR GREATER [facility] Jun 10, 2013 01:11 PM LIFETIME NON-TOBACCO USER [facility] Aug 03, 2011 07:59 AM FORMER TOBACCO USER 7Y OR GREATER [facility] Advance Directives: All historical and current Section Date Range: From patient's date of to the date document was created. This section includes ALL of a patient's completed or amended [place] Advance and Rescinded Directives. The entries below indicate that a directive exists for the patient, but an actual copy is not included with this document. The data comes from all [place] facilities. Date Advance Directives Provider Source June 19, 2013 ADVANCE DIRECTIVE DISCUSSION [facility] June 19, 2013 ADVANCE DIRECTIVE KENDALL SERRANO [facility] Encounter Notes: All associated encounter notes This section contains the clinical notes associated to the Encounter. Date/Time Encounter Note(s) Provider Source Feb 07, 2021 09:00 AM [facility] NOTE: TAMI ROBINS [facility] LOCAL TITLE: PRIMARY CARE-[facility] INTEGRATION PROGRE SS NOTE STANDARD TITLE: MENTAL HEALTH [facility] INTERDISCIPL INARY NOTE DATE OF NOTE: FEB 07, 2021@09:00 ENTRY DATE: FEB 07, 2021@09:34:47 AUTHOR: TAMI ROBINS EXP COSIGNER: URGENCY: STATUS: [...] activation, and use of supports. 2. RTC; three weeks, phone, or earlier if neede d. SUBJECTIVE: This 85-year-old, , male lost his of 63-years in September 2020. He is grieving with much support. We focused on self-care around sleep (creating a comforting en vironment, managing the anxious mind, relaxation), behavioral activation (volunteering, taking care of health, physical activity), and use of suppor ts. He indicated that he feels like he is okay. MSE: Mood was fair with a normal range of congru ent affect. No evidence of SI/HI, intent, or plan. Otherwise, MSE was WNL. DIAGNOSTIC IMPRESSIONS: Bereavement RISK ASSESSMENT: low acute and chronic risk. Risk factors: of spouse, age (old age:65+) , race (Euro [place]), gender (male), Protective factors: Strong social support system, No alcohol or substance abuse/ dependency issues, Compliance with treatment recommendations and m aking appointments, No history of suicide attempts or self-injurious b ehavior, No history of violence or aggression, No history of psychiatr ic hospitalizations, Goal oriented, Financially stable, /hari/ TAMI ROBINS Psy.D., LP CLINICAL PSYCHOLOGIST Signed: 02/07/2021 09:41
--- OUTSIDE RECORDS SUMMARY | 2021-12-20 14:20 | XMS_ITS | Continuity of Care Document ---
:1935 Author Organization [facility] Care Team Providers Name Role Phone [facility] Unavailable Unavailable Problems Combined list of problems from Department of Defense and [facility] Affairs facilities. It does not include entries that were removed or entered in error. 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 Law Lawson, [facility] Jun 10, 2013 Entered By: FRANCOIS HAMPTON Comment: PCP Dr. Robbins Coronary Artery Active Condition [place] Disease [facility] Gastroesophageal Active Condition [place] reflux disease [facility] S (SNOMED CT 182439274) Hearing Loss, Active Condition [place] Partial * (ICD-9-CM [facility] 389.9) Hyperlipidemia Active Condition [place] (SNOMED CT [facility] [id number]) Hypertension Active Condition [place] (SNOMED CT [facility] [id number]) Insomnia Active [place] [facility] Tinnitus * Active Condition [place] IS (ICD-9-CM 388.30) [facility] Diagnosis: Active Diagnosis [place] ICD-10-CM I48.91 [facility] Unspecified atrial fibrillationwith Provider Comments: Atrial fibrillation (SCT [id number]) Diagnosis: Active Diagnosis [place] ICD-10-CM F43.20 [facility] Adjustment disorder, unspecifiedwith Provider Comments: Adjustment Disorder, unspecified Diagnosis: Active Diagnosis [place] ICD-10-CM F43.21 [facility] Adjustment disorder with depressed moodwith Provider Comments: Adjustment Disorder with depressed mood Diagnosis: Active Diagnosis [place] ICD-10-CM F51.01 [facility] Primary insomniawith Provider Comments: Insomnia (SCT [id number]) Diagnosis: Active Diagnosis [place] ICD-10-CM Z23 [facility] Encounter for immunizationwith Provider Comments: Encounter for any immunization Diagnosis: Active Diagnosis [place] IS ICD-10-CM Z63.79 [facility] Other stressful life events affecting family and householdwith Provider Comments: Other Stressful Life Events Affecting Family and Household Diagnosis: Active Diagnosis [place] [facility] ICD-10[facility] Z60.0 [facility] Problems of adjustment to life-cycle transitionswith Provider Comments: Problems of Adjustment to Life-Cycle Transitions Diagnosis: Active Diagnosis [place] ICD-10-CM Z71.1 [facility] Person w feared hlth complaint in whom no diagnosis is madewith Provider Comments: Person with Feared Health Complaint in whom no Diagnosis is Made Diagnosis: Active Diagnosis [place] IS ICD-10-CM I10 [facility] Essential (primary) hypertensionwith Provider Comments: Hypertension ([facility] [id number]) Medications Combined list of outpatient medications from Department of 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 Medications provided include 1) outpatient medications from the last 15 months, and 2) patient-reported medications. Medication Details Route Status Patient Prescription Prescription Last Ordering Order Source Instructions Expires Number Dispense Provider Date Date APIXABAN TAKE ONE ORALLY ACTIVE 05/07/2022 [id number] RID GEWELL 05/09/ [place] 5MG TAB TABLET 2 ,LEYDA L 2021 [facility] [facility] EVERY 12 HOURS TO PREVENT STROKE DUE TO ATRIAL FIBRILLA TION APIXABAN TAKE ONE ORALLY DISCONT 03/31/2021 [id number] RI DGEWELL 03/30/ [place] 5MG TAB TABLET INUED 1 ,LEYDA L 2020 [place] [facility] EVERY 12 HOURS TO PREVENT STROKE DUE TO ATRIAL FIBRILLA TION ATORVASTATI TAKE ORALLY ACTIVE DJIBOUTIAN,FRANCOIS 06/08/ M [place] 20MG ONE-HALF C 2014 [place] [facility] TAB TABLET [facility]CS BY MOUTH AT BEDTIME CHONDROITIN TAKE BY ORALLY ACTIVE ELLA YEE 06/04/ [place] /GLUCOSAMIN MOUTH C J 2012 [place] [facility] E CAP/TAB EVERY HCS DAY CLOPIDOGREL TAKE ONE ORALLY ACTIVE TRAUT,ELENA 01/03 / [place] BISULFATE TABLET HARD L 2020 [place] [facility] 75MG TAB BY MOUTH HCS DICLOFENAC APPLY 2 TOPICA ACTIVE TRAUT,ELENA 01/03/ [place] NA 1% GRAMS LLY HARD L 2020 [place] [facility] GEL,TOP TOPICALL HCS Y PRN DRONEDARONE TAKE ONE ORALLY DISCONT 06/07/2022 [id number] GLAUSER,N 06/08/ [place] 400MG TAB TABLET INUED 2 ORA N 2021 [place] [facility] TWICE A DAY FUROSEMIDE TAKE ONE ORALLY ACTIVE GLAUSER,N 12/05/ [place] 20MG TAB TABLET ORA N 2021 [place] [facility] EVERY DAY GABAPENTIN TAKE 1 ORALLY ACTIVE GLAUSER,N [place] 300MG CAP CAPSULE ORA N 2021 [place] [facility] EVERY DAY HYDROCHLORO TAKE ONE ORALLY ACTIVE DJIBOUTIAN,FRANCOIS 06/08 / [place] THIAZIDE TABLET C 2014 [place] [facility] 25MG TAB BY MOUTH HCS EVERY DAY IBUPROFEN TAKE ONE ORALLY ACTIVE YEE,ELLA 06/04/ [place] 400MG TAB TABLET C J 2012 [facility] THREE TIMES A DAY NEEDED LOSARTAN TAKE ONE ORALLY ACTIVE GLAUSER,N [place] 50MG TAB TABLET ORA N 2021 [place] [facility] TWICE A DAY METOPROLOL TAKE ORALLY ACTIVE GLAUSER,N 12/05/ [place] SUCCINATE ONE-HALF ORA N 2021 [place] [facility] 25MG TAB,SA TABLET HCS BY MOUTH EVERY DAY MULTIVITAMI TAKE ONE ORALLY ACTIVE YEE,ELLA 06/04 / [place] NS CAP/TAB TABLET C J 2012 [facility] EVERY DAY NITROGLYCER DISSOLVE SUBLIN ACTIVE YEE,ELLA 06/04 / [place] IN 0.4MG ONE GUAL C J 2012 [place] [facility] TAB,SUBLING TABLET HCS UAL UNDER THE TONGUE PRN OMEPRAZOLE TAKE 2 ORALLY ACTIVE DJIBOUTIAN,FRANCOIS M [place] 20MG CAP,EC CAPSULES C 2017 [place] [facility] EVERY DAY TRIAMCINOLO APPLY TOPICA ACTIVE TRAUT,ELENA [place] 0.5% TOPICALL LLY HARD L 2020 [place] [facility] CREAM,TOP Y HCS Allergies, Adverse Reactions, Alerts Combined list of allergies from Department of 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 It does not include entries that were removed or entered in error. Substance Category Reaction Severity Reaction Status Date Comments S ource type Reported ATENOLOL Propensity Abdominal Propensity active [place] to adverse pain to adverse 1 [facility] reactions reactions [facility] to drug to drug (finding) (finding) LISINOPRIL Propensity Dizziness Propensity active [place] to adverse to adverse 1 [facility] reactions reactions [facility] to drug to drug (finding) (finding) Immunizations Combined list of available immunizations from the Department of 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 Immunization Series Date Administered Site Reaction Lot CVX Drug St atus Comments Source Given By Number Code Sports Medicine Specialist ZOSTER 2 complet [place] RECOMBINANT 2021 [facility] 1 complet [place] RECOMBINANT 2020 [facility] INFLUENZA, complet [place] UNSPECIFIED 2020 ed [facility] FORMULATION [facility] COVID-19 2 complet [place] (Bioapter), 2020 ed [place] [facility] MRNA, LNP-S, H CS PF, 30 MCG/0.3 ML DOSE COVID-19 1 complet [place] (Bioapter), 2020 ed [place] [facility] MRNA, LNP-S, H CS PF, 30 MCG/0.3 ML DOSE INFLUENZA, complet [place] SEASONAL, 2018 ed [facility] [facility] INJECTABLE [facility] INFLUENZA, complet [place] HIGH DOSE 2016 ed [facility] [facility] SE[facility]ON[facility] INFLUENZA, complet [place] SEASONAL, 2014 ed [place] [facility] INJECT[facility] PNEUMOCOCCAL complet [facility] 2013 ed HEALTH 13 INFLUENZA, complet privat e [place] UNSPECIFIED 2012 ed [facility] TDAP complet [place] 2012 ed [facility] [facility] PNEUMOCOCCAL, complet saenz ster [place] UNSPECIFIED 2011 ed [facility] INFLUENZA, complet [place] UNSPECIFIED 2011 ed [facility] ZOSTER LIVE complet [place] 2002 ed [place] [facility] Results Combined list of recent chemistry, hematology and other laboratory results from Department of Defense and Veterans Affairs, ranging from 15 months to all on record, depending upon the facility. Order Results Value Reference Date Interpretation Specimen Commen ts Source Name Range CREATININ CREATININE 0.9 0.7 - 1.2 07/13 Specimen Type: PLASMA [place] E(INCLUDE [ No comment entered. IS [facility] S EGFR) E] IN SERUM Ordering Pr ovider: LEYDA COHEN OR PLASMA Report Releas ed Date/Time: July 06, 2021 09:39 AM Reporting Lab: [facility] [place] [address] Performing Lab: [facility] [place] [address] CREATININ CREAT 84 60 07/13 Specimen Type: PLASMA [place] E(INCLUDE EGFR(CKD-EP /2021 No comment entered. IS [facility] S EGFR) I) Ordering Provid er: LEYDA COHEN Report Released Date/Time: July 06, 2021 09:39 AM Reporting Lab: [facility] [address] [facility] [address] Performing Lab: [facility] [address] [facility] [address] AST/SGOT ASPARTATE 16 <34 - 34 07/13 Specimen Typ e: PLASMA [place] AMINOTRANSF /2021 No comment e ntered. IS [facility] ERASE Ordering Provid er: LEYDA COHEN [ENZYMATIC Report Relea sed Date/Time: July 06, 2021 09:39 AM ACTIVITY/VO Reporting L ab: [facility] LUME] IN [address] [place] [address] SERUM OR Performing Lab : [facility] PLASMA [address] [facility] [address] CBC LEUKOCYTES 6.21 4.0 - 11.0 07/13 Specimen T ype: BLOOD [place] [#/VOLUME] /2021 No comment en tered. IS [facility] IN BLOOD BY Ordering Pr ovider: LEYDA COHEN AUTOMATED Report Releas ed Date/Time: July 06, 2021 09:39 AM COUNT Reporting Lab: [facility] [address] [facility] [address] Performing Lab: [facility] [address] [facility] [address] CBC ERYTHROCYTE 4.06 4.6 - 6.2 07/13 L Specimen T ype: BLOOD [place] S /2021 No comment enter ed. IS [facility] [#/VOLUME] Ordering Pro vider: LEYDA COHEN IN BLOOD BY Report Rele ased Date/Time: July 06, 2021 09:39 AM AUTOMATED Reporting Lab : [facility] COUNT [address] [place] [facility] [address] Performing Lab: [facility] [address] [facility] [address] CBC HEMOGLOBIN 12.9 13.5 - 0525 L Specimen Type : BLOOD [place] [MASS/VOLUM 17.9 /2021 No comment e ntered. IS [facility] E] IN BLOOD Ordering Pr ovider: LEYDA COHEN Report Released Date/Time: July 06, 2021 09:39 AM Reporting Lab: [facility] [address] [facility] [address] Performing Lab: [facility] [address] [facility] [address] CBC HEMATOCRIT 39.0 41 - 54 / L Specimen Type : BLOOD [place] [VOLUME /2021 No comment enter ed. [place] [facility] FRACTION] Ordering Prov ider: LEYDA COHEN OF BLOOD BY Report Rele ased Date/Time: July 06, 2021 09:39 AM AUTOMATED Reporting Lab : [facility] COUNT [address] [facility] [address] Performing Lab: [facility] [address] [facility] [address] CBC MCV 96.1 80 - 100 07/13 Specimen Type: BLOOD [place] [ENTITIC /2021 No comment ente red. IS [facility] VOLUME] BY Ordering Pro vider: LEYDA COHEN AUTOMATED Report Releas ed Date/Time: July 06, 2021 09:39 AM COUNT Reporting Lab: [facility] [address] [facility] [address] Performing Lab: [facility] [place] [address] CBC MCH 31.8 27 - 33 07/13 Specimen Type: B LOOD [place] [ENTITIC /2021 No comment ente red. [place] [facility] MASS] BY Ordering Provi michael: LEYDA COHEN AUTOMATED Report Releas ed Date/Time: July 06, 2021 09:39 AM COUNT Reporting Lab: [facility] [address] [facility] [address] Performing Lab: [facility] [address] [facility] [address] CBC MCHC 33.1 32.0 - 07/13 Specimen Type: B LOOD [place] [MASS/VOLUM 37.5 /2021 No comment e ntered. IS [facility] E] BY Ordering Provid er: LEYDA COHEN AUTOMATED Report Releas ed Date/Time: July 06, 2021 09:39 AM COUNT Reporting Lab: [facility] [place] [address] Performing Lab: [facility] [address] [place] [address] CBC PLATELETS 238 150 - 400 07/13 Specimen Typ e: BLOOD [place] [#/VOLUME] /2021 No comment en tered. IS [facility] IN BLOOD BY Ordering Pr ovider: LEYDA COHNE AUTOMATED Report Releas ed Date/Time: July 06, 2021 09:39 AM COUNT Reporting Lab: [facility] [place] [address] Performing Lab: [facility] [place] [address] CBC PLATELET 9.2 7.4 - 10.4 07/13 Specimen Typ e: BLOOD [place] MEAN VOLUME /2021 No comment e ntered. IS [facility] [ENTITIC Ordering Provi michael: LEYDA COHEN VOLUME] IN Report Relea sed Date/Time: July 06, 2021 09:39 AM BLOOD BY Reporting Lab: [facility] AUTOMATED [address] [facility] [address] COUNT Performing Lab: [facility] [place] [address] CBC ERYTHROCYTE 12.9 11.5 - 07/13 Specimen Typ e: BLOOD [place] DISTRIBUTIO 14.5 /2021 No comment e ntered. IS [facility] N WIDTH Ordering Provid er: LEYDA COHEN [RATIO] BY Report Relea sed Date/Time: July 06, 2021 09:39 AM AUTOMATED Reporting Lab : [facility] [place] [address] Performing Lab: [facility] [address] [facility] [address] ALT/SGPT ALANINE 12 <55 - 55 07/13 Specimen Type: PLASMA [place] AMINOTRANSF /2021 No comment e ntered. IS [facility] ERASE Ordering Provid er: LEYDA COHEN [ENZYMATIC Report Relea sed Date/Time: July 06, 2021 09:39 AM ACTIVITY/VO Reporting L ab: [facility] LUME] IN [address] [place] [facility] [address] SERUM OR Performing Lab : [facility] PLASMA [place] [address] BASIC CREATININE 0.9 0.7 - 1.2 01/03 Specimen Ty pe: PLASMA [place] METABOLIC [MASS/VOLUM /2020 No comment entered. IS [facility] PANEL+MG E] IN SERUM Ordering P rovider: DERRICK GEORGE OR PLASMA Report Releas ed Date/Time: Dec 24, 2019 02:11 PM Reporting Lab: [facility] [address] [place] [address] Performing Lab: [facility] [address] [place] [address] BASIC UREA 21 8 - 26 01/03 Specimen Type: P LASMA [place] METABOLIC NITROGEN /2020 No comment en tered. IS [facility] PANEL+MG [MASS/VOLUM Ordering P rovider: DERRICK GEORGE E] IN SERUM Report Rele ased Date/Time: Dec 24, 2019 02:11 PM OR PLASMA Reporting Lab : [facility] [place] [address] Performing Lab: [facility] [address] BASIC GLUCOSE 101 74 - 100 01/03 H Specimen Type: PLASMA [place] METABOLIC [MASS/VOLUM /2020 No comment entered. IS [facility] PANEL+MG E] IN SERUM Ordering P rovider: DERRICK GEORGE OR PLASMA Report Releas ed Date/Time: Dec 24, 2019 02:11 PM Reporting Lab: [facility] [address] Performing Lab: [facility] [address] BASIC SODIUM 140 136 - 145 01/03 Specimen Type: PLASMA [place] METABOLIC [MOLES/VOLU /2020 No comment entered. IS [facility] PANEL+MG ME] IN Ordering Provi michael: DERRICK GEORGE SERUM OR Report Release d Date/Time: Dec 24, 2019 02:11 PM PLASMA Reporting Lab: [facility] [place] [address] Performing Lab: [facility] [address] BASIC POTASSIUM 3.7 3.5 - 5.1 01/03 Specimen Typ e: PLASMA [place] METABOLIC [MOLES/VOLU /2020 No comment entered. IS [facility] PANEL+MG ME] IN Ordering Provi michael: DERRICK GEORGE SERUM OR Report Release d Date/Time: Dec 24, 2019 02:11 PM PLASMA Reporting Lab: [facility] [address] [place] [address] Performing Lab: [facility] [address] [place] [address] BASIC CHLORIDE 107 98 - 107 01/03 Specimen Type: PLASMA [place] METABOLIC [MOLES/VOLU /2020 No comment entered. IS [facility] PANEL+MG ME] IN Ordering Provi michael: DERRICK GEORGE SERUM OR Report Release d Date/Time: Dec 24, 2019 02:11 PM PLASMA Reporting Lab: [facility] [address] [place] [address] Performing Lab: [facility] [address] [place] [address] BASIC CARBON 26 22 - 29 01/03 Specimen Type: P LASMA [place] METABOLIC DIOXIDE, No comment en tered. IS [facility] PANEL+MG TOTAL Ordering Provi michael: DERRICK GEORGE [MOLES/VOLU Report Rele ased Date/Time: Dec 24, 2019 02:11 PM ME] IN Reporting Lab: [facility] SERUM OR [address] [facility] [address] PLASMA Performing Lab: [facility] [place] [address] BASIC CALCIUM 9.4 8.4 - 10.2 01/03 Specimen Type : PLASMA [place] METABOLIC [MASS/VOLUM No comment entered. IS [facility] PANEL+MG E] IN SERUM Ordering P rovider: DERRICK GEORGE OR PLASMA Report Releas ed Date/Time: Dec 24, 2019 02:11 PM Reporting Lab: [facility] [place] [address] Performing Lab: [facility] [place] [address] BASIC MAGNESIUM 2.0 1.6 - 2.6 01/03 Specimen Typ e: PLASMA [place] METABOLIC [MASS/VOLUM No comment entered. IS [facility] PANEL+MG E] IN SERUM Ordering P rovider: DERRICK GEORGE OR PLASMA Report Releas ed Date/Time: Dec 24, 2019 02:11 PM Reporting Lab: [facility] [place] [address] Performing Lab: [facility] [address] [place] [address] BASIC ANION GAP 7 5 - 15 01/03 Specimen Type: PLASMA [place] METABOLIC IN SERUM OR No comment entered. IS [facility] PANEL+MG PLASMA Ordering Provi michael: TRAUT,DERRICK L Report Released Date/Time: Dec 24, 2019 02:11 PM Reporting Lab: [facility] [place] [address] Performing Lab: [facility] [address] [place] [address] BASIC GLOMERULAR 80 60 01/03 Specimen Type : PLASMA [place] METABOLIC FILTRATION /2020 No comment entered. IS [facility] PANEL+MG RATE/1.73 Ordering Pro vider: DERRICK GEORGE SQ Report Released Date/Time: Dec 24, 2019 02:11 PM M.PREDICTED Reporting L ab: [facility] [VOLUME [place] [address] RATE/AREA] Performing L ab: [facility] IN SERUM, [address] [facility] [address] PLASMA OR BLOOD BY CREATININE- BASED FORMULA (CKD-EPI) CBC LEUKOCYTES 8.11 4.0 - 11.0 01/03 Specimen T ype: BLOOD [place] [#/VOLUME] /2020 No comment en tered. IS [facility] IN BLOOD BY Ordering Pr ovider: DERRICK GEORGE AUTOMATED Report Releas ed Date/Time: Dec 24, 2019 02:11 PM COUNT Reporting Lab: [facility] [place] [address] Performing Lab: [facility] [place] [address] CBC ERYTHROCYTE 4.21 4.6 - 6.2 01/03 L Specimen T ype: BLOOD [place] S /2020 No comment enter ed. [place] [facility] [#/VOLUME] Ordering Pro vider: DERRICK GEORGE IN BLOOD BY Report Rele ased Date/Time: Dec 24, 2019 02:11 PM AUTOMATED Reporting Lab : [facility] COUNT [place] [address] Performing Lab: [facility] [place] [address] CBC HEMOGLOBIN 13.6 13.5 - 01/03 Specimen Type : BLOOD [place] [MASS/VOLUM 17.9 /2020 No comment e ntered. [place] [facility] E] IN BLOOD Ordering Pr ovider: DERRICK GEORGE Report Released Date/Time: Dec 24, 2019 02:11 PM Reporting Lab: [facility] [place] [address] Performing Lab: [facility] [address] [place] [facility] [address] CBC HEMATOCRIT 41.5 41 - 54 01/03 Specimen Type : BLOOD [place] [VOLUME /2020 No comment enter ed. [facility] FRACTION] Ordering Prov ider: DERRICK GEORGE OF BLOOD BY Report Rele ased Date/Time: Dec 24, 2019 02:11 PM AUTOMATED Reporting Lab : [facility] [place] [address] Performing Lab: [facility] [place] [address] CBC MCV 98.6 80 - 100 01/03 Specimen Type: BLOOD [place] [ENTITIC /2020 No comment ente red. [facility] VOLUME] BY Ordering Pro vider: DERRICK GEORGE AUTOMATED Report Releas ed Date/Time: Dec 24, 2019 02:11 PM COUNT Reporting Lab: [facility] [place] [address] Performing Lab: [facility] [place] [address] CBC MCH 32.3 27 - 33 01/03 Specimen Type: B LOOD [place] [ENTITIC /2020 No comment ente red. [facility] MASS] BY Ordering Provi michael: DERRICK GEORGE AUTOMATED Report Releas ed Date/Time: Dec 24, 2019 02:11 PM COUNT Reporting Lab: [facility] [place] [address] Performing Lab: [facility] [place] [address] CBC MCHC 32.8 32.0 - 01/03 Specimen Type: B LOOD [place] [MASS/VOLUM 37.5 /2020 No comment e ntered. [facility] E] BY Ordering Provid er: DERRICK GEORGE AUTOMATED Report Releas ed Date/Time: Dec 24, 2019 02:11 PM COUNT Reporting Lab: [facility] [place] [address] Performing Lab: [facility] [address] [facility] [address] CBC PLATELETS 204 150 - 400 01/03 Specimen Typ e: BLOOD [place] [#/VOLUME] /2020 No comment en tered. [place] [facility] IN BLOOD BY Ordering Pr ovider: DERRICK GEORGE AUTOMATED Report Releas ed Date/Time: Dec 24, 2019 02:11 PM COUNT Reporting Lab: [facility] [address] [facility] [address] Performing Lab: [facility] [place] [address] CBC PLATELET 9.3 7.4 - 10.4 01/03 Specimen Typ e: BLOOD [place] MEAN VOLUME /2020 No comment e ntered. IS [facility] [ENTITIC Ordering Provi michael: DERRICK GEORGE L VOLUME] IN Report Relea sed Date/Time: Dec 24, 2019 02:11 PM BLOOD BY Reporting Lab: [facility] AUTOMATED [address] [facility] [address] COUNT Performing Lab: [facility] [address] [facility] [address] CBC ERYTHROCYTE 13.1 11.5 - 01/03 Specimen Typ e: BLOOD [place] DISTRIBUTIO 14.5 No comment e ntered. IS [facility] N WIDTH Ordering Provid er: DERRICK GEORGE L [RATIO] BY Report Relea sed Date/Time: Dec 24, 2019 02:11 PM AUTOMATED Reporting Lab : [facility] COUNT [address] [facility] [address] Performing Lab: [facility] [address] [facility] [address] LIPID CHOLESTEROL 121 <199 - 199 01/03 Specimen Type: PLASMA [place] PANEL,NON [MASS/VOLUM /2020 No comment entered. IS [facility]] IN SERUM Ordering P rovider: DORISDERRICK L OR PLASMA Report Releas ed Date/Time: Dec 24, 2019 02:11 PM Reporting Lab: [facility] [place] [address] Performing Lab: [facility] [place] [address] LIPID CHOLESTEROL 46 40 01/03 Specimen Typ e: PLASMA [place] PANEL,NON IN HDL /2020 No comment ent ered. IS [facility] [MASS/VOLUM Ordering P rovider: DORISDERRICK L E] IN SERUM Report Rele ased Date/Time: Dec 24, 2019 02:11 PM OR PLASMA Reporting Lab : [facility] [facility] [address] [facility] [address] Performing Lab: [facility] [address] [facility] [address] LIPID CHOLESTEROL 58 <99 - 99 01/03 Specimen Ty pe: PLASMA [place] PANEL,NON IN LDL /2020 No comment ent ered. IS [facility] [MASS/VOLUM Ordering P rovider: TRAUTDERRICK L E] IN SERUM Report Rele ased Date/Time: Dec 24, 2019 02:11 PM OR PLASMA Reporting Lab : [facility] BY [address] [place] [address] CALCULATION Performing Lab: [facility] [address] [place] [address] LIPID CHOLESTEROL 17 <29 - 29 01/03 Specimen Ty pe: PLASMA [place] PANEL,NON IN VLDL /2020 No comment ent ered. IS [facility] [MASS/VOLUM Ordering P rovider: DERRICK GEORGE] IN SERUM Report Rele ased Date/Time: Dec 24, 2019 02:11 PM OR PLASMA Reporting Lab : [facility] [address] [place] [address] CALCULATION Performing Lab: [facility] [address] [place] [address] LIPID CHOLESTEROL 75 <129 - 129 01/03 Specimen Type: PLASMA [place] PANEL,NON NON HDL /2020 No comment ent ered. IS [facility] [MASS/VOLUM Ordering P rovider: DERRICK GEORGE E] IN SERUM Report Rele ased Date/Time: Dec 24, 2019 02:11 PM OR PLASMA Reporting Lab : [facility] [address] [place] [address] Performing Lab: [facility] [address] [place] [address] LIPID TRIGLYCERID 87 <149 - 149 01/03 Specimen Type: PLASMA [place] PANEL,NON E /2020 No comment ent ered. IS [facility] [MASS/VOLUM Ordering P rovider: DERRICK GEORGE E] IN SERUM Report Rele ased Date/Time: Dec 24, 2019 02:11 PM OR PLASMA Reporting Lab : [facility] [address] [place] [address] Performing Lab: [facility] [address] [place] [address] Vital Signs Combined list of inpatient and outpatient Vital Signs from Department of Defense and Veterans Affairs, ranging from 12 months to all on record, depending upon the facility. Vital Sign Value Date Comments Source SYSTOLIC BLOOD PRESSURE 168 01/03/2021 10:34:11 [facility] DIASTOLIC BLOOD PRESSURE 69 01/03/2021 10:34:11 [facility] PULSE OXIMETRY 97% 01/03/2021 10:34:11 [facility] WEIGHT 175.8 01/03/2021 10:34:11 [facility] BMI 26kg/m2 01/03/2021 10:34:11 [facility] PAIN 4 01/03/2021 10:34:11 [facility] TEMPERATURE 97.2 01/03/2021 10:34:11 [facility] PULSE 63 01/03/2021 10:34:11 [facility] RESPIRATION 18 01/03/2021 10:34:11 [place] [facility] Encounters Combined list of: 1) Encounters from Department of Veterans Affairs facilities going back up to the last 18 months. 2) Encounters from the Department of Defense facilities going back up to 280 months. Location Location Encounter Encounter Reason Attending ADM [place] Stat us Disposition Source Details Type Number For Provider Date Date Visit Outpatient [id number] 06/ [place] En[place] [id number] /2020 [facility] Outpatient 80081-4.61 08/18 [place] Encounter [id number] /2020 [facility] Outpatient 98765-2.61 09/14 [place] Encounter [id number] /2020 [facility] Outpatient 04991-5.61 10/ [place] Encounter [id number] /2020 [facility] Outpatient 24856-9.61 10/ [place] Encounter [id number] /2020 [facility] OFFICE O/P 34320-9.61 Diagnos TRAKLEVERRICH 01/03 [place] EST MOD [id number] is: DEMETRIO L /2020 [facility] [place] 30-39 MIN ICD-10- HCS CM I10 Essenti al (primar y) hyperte nsion<b r/>with Provide r Comment s: Hyperte nsion (SCT 8916953 3) [place] [address]-2.61 Diagnos SKROCH,ALLISON 01/24 [place] 30 MINUTES [id number] is: ET A /2020 [facility] [place] ICD-10- HCS CM Z71.1 Person w feared hlth complai nt in whom no diagnos is is made
with Provide r Comment s: Person with Feared Health Complai nt in whom [place] [address]-0.61 Diagnos SKROCH,ALLISON 02/07 [place] 30 MINUTES [id number] is: ET A [facility] ICD-10- HCS CM Z60.0 Problem s of adjustm ent to life-cy radha transit ions
with Provide r Comment s: Problem s of Adjustm ent to Life-[place] [address]-0.61 Diagnos [facility],03/08 [place] 30 MINUTES [id number] is: ET A [facility] ICD-10- HCS CM Z63.79 Other stressf ul life events affecti ng family and househo ld
with Provide r Comment s: Other Stressf ul Life Events Affecti ng Family and Househo ld IMMUNIZATI 23153-2.61 Zenobia MCCORMICK MA 03/09 [place] ADMIN [id number] is: RY ARTHUR L NIKOLAY S [place] ICD-10- HCS CM Z23 Encount er for immuniz ation<b r/>with Provide r Comment s: [place]count [place] [address]-4.61 Diagnos [facility],04/08 [place] 30 MINUTES [id number] is: ET A [facility] ICD-10- HCS CM F51.01 Primary insomni a
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
with Provide r Comment s: Adjustm ent Disorde r with depress ed mood Outpatient 85152-205/13 [place] Encounter [id number] /2022 [facility] 20585-9.05/16 [place] En[place] [id number] /2022 [facility] 24021-805/19 [place] Encounter [id number] /2022 [facility] 05889-3 Diagnos ALEXANDRIA JAMIL 06/06 [place] Encounter [id number] is: RA N /2021 [facility] ICD-10- HCS CM I48.91 Unspeci fied atrial fibrill ation<b r/>with Provide r Comment s: Atrial fibrill ation (SCT 0715276 4) Outpatient [id number] 06/06 [place] Encounter [id number] /2021 [facility] [place] [address]-0.61 Diagnos EVA, 06/06 [place] DIG [id number] is: SABINE K /2021 [facility] ASSMT&MGMT ICD-10- HCS 5-10 CM I48.91 Unspeci fied atrial fibrill ation<b r/>with Provide r Comment s: Atrial fibrill ation (SCT 0227012 4) [place] [address]-5.61 Diagnos SKROCH,ALLISON 06/17 [place] 30 MINUTES [id number] is: ET A /2021 [facility] ICD-10- HCS CM F43.20 Adjustm ent disorde r, unspeci fied
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 Social History Type Response Date Comment Source Tobacco smoking status VA-TOBACCO FORMER USER 01/03/2021 [facility] History of tobacco use VA-TOBACCO QUIT 15 YRS 01/03/2021 [facility] OR MORE History of tobacco use VA-TOBACCO QUIT 15 YRS 06/20/2018 [facility] OR MORE History of tobacco use FORMER TOBACCO USER 7Y 07/09/2017 [facility] OR GREATER History of tobacco use FORMER TOBACCO USER 7Y 07/07/2016 [facility] OR GREATER History of tobacco use FORMER TOBACCO USER 7Y 06/21/2015 [facility] OR GREATER History of tobacco use FORMER TOBACCO USER 7Y 06/08/2014 [facility] OR GREATER History of tobacco use LIFETIME NON-TOBACCO 06/10/2013 [facility] USER History of tobacco use FORMER TOBACCO USER 7Y 08/03/2011 [facility] OR GREATER Plan of Care List of future care activities from Department [facility] facilities. Additional future care activities may be listed in the Assessment and Plan section. Date/Time Care Activity Care Activity Detail Facility 01/05/2022 AMBULATORY - MEDICINE [facility] Advance Directives List of completed, amended, or rescinded Advance Directives on record at Department [facility] facilities. An actual copy of the Directive is not included. Date Advance Directive Provider Source 06/19/2013 ADVANCE DIRECTIVE DISCUSSION KENDALL SERRANO [facility]
--- OUTSIDE RECORDS SUMMARY | 2021-12-20 14:21 | XMS_ITS | Encounter Summary ---
:1935 Author Organization [facility] Address [address] [place] [address] Support Name Relationship Address Phone AMBROSIO SLOAN Unavailable [address] [place] [address] [place] [address] LEEANN SLOAN Unavailable [address] [place], [place] Insurance Providers: All historical and current [...] Patel [place] MEDICARE MCR Feb 19, [id number] SLOAN [facility] (WNR) 2016 8 [id number] [phone] 1 Selected Encounter This section includes the information on record at [place] for the Encounter. Date/Time Encounter Type Encounter Description Reason Provider Source Jun 06, 2021 01:27 Outpatient Encounter TELEPHONE/MEDICINE PM IHE Encounter Template Text not used by [place] Plan of Treatment: Future Appointments (+ 6 months) and Future Tests (+/- 45 days) The Plan of Treatment section includes future care activities for the patient from all [place] treatmentfacilities. This section includes future appointments and future orders which are active, pending orscheduled.Future Appointments This section includes appointments that were scheduled to occur 6 months from the date of the Encounter, up to a maximum of 20 appointments. The data comes from all [place] treatment facilities. Appointment Date/Time Appointment Type Appointment Facili ty Name Jun 17, 2021 09:00 AM AMBULATORY - PSYCHIATRY [facility] July 13, 2021 11:00 AM AMBULATORY - NONE [facility] Dec 05, 2021 09:30 AM AMBULATORY - MEDICINE [facility] CS Social History: Smoking Status (Most current) and Tobacco Use (All prior to encounter date) This section includes the most current, and the historical, smoking and tobacco-related health factors from the [facility] where the Encounter took place.Current Smoking Status This section includes the most current smoking, or tobacco-related health factor, from the [place] facility where the Encounter took place. Date/Time Current Smoking Status Comment Facility Jan 03, 2021 11:30 AM VA-TOBACCO FORMER USER [facility] Tobacco Use History This section includes a history of the smoking, or tobacco- related health factors, that were collected on or before the date of the Encounter. The data comes from the [facility] where the Encounter took place. Date/Time Smoking Status/Tobacco Use Comment Facil it Jan 03, 2021 11:30 AM [place]-TOBACCO QUIT 15 YRS OR MORE [facility] June 20, 2018 11:30 AM [place]-TOBACCO FORMER USER [facility] June 20, 2018 11:30 AM [place]-TOBACCO QUIT 15 YRS OR MORE [facility] July 09, 2017 10:39 AM FORMER TOBACCO USER 7Y OR GREATER [facility] July 07, 2016 01:14 PM FORMER TOBACCO USER 7Y OR GREATER [facility] June 21, 2015 02:23 PM FORMER TOBACCO USER 7Y OR GREATER [facility] Jun 08, 2014 01:51 PM FORMER TOBACCO USER 7Y OR GREATER [facility] Jun 10, 2013 01:11 PM LIFETIME NON-TOBACCO USER [facility] Aug 03, 2011 07:59 AM FORMER TOBACCO USER 7Y OR GREATER [facility] Advance Directives: All historical and current Section Date Range: From patient's date of to the date document was created. This section includes ALL of a patient's completed or amended [place] Advance and Rescinded Directives. The entries below indicate that a directive exists for the patient, but an actual copy is not included with this document. The data comes from all [facility]. Date Advance Directives Provider Source June 19, 2013 ADVANCE DIRECTIVE DISCUSSION KENDALL SERRANO [facility] June 19, 2013 ADVANCE DIRECTIVE KENDALL SERRANO [facility] Encounter Notes: All associated encounter notes This section contains the clinical notes associated to the Encounter. Date/Time Encounter Note(s) Provider Source Jun 06, 2021 01:27 PM [facility] LOC[facility] TITLE: PATIENT CONTACT NOTE STANDARD TITLE: REPORT OF CONTACT DATE OF NOTE: JUN 06, 2021@13:27 ENTRY DATE: JUN 06, 2021@13:27:53 AUTHOR: ASTRID BUSH EXP COSIGNER: URGENCY: STATUS: COMPLETED Patient contact Name of Redford: ASIA SLOAN Name/Relationship of Contact if other than Veter an: Date & Time of Contact: May@13:28 Type of Contact: Reason for Contact: Redford called and stated that he wanted to leave a message for provider about medication change. Please reach out to . /hari/ ASTRID BUSH [facility] Signed: 06/06/2021 13:29 Receipt Acknowledged By: * AWAITING SIGNATURE * COURTNEY JAMIL
--- OUTSIDE RECORDS SUMMARY | 2021-12-20 14:21 | XMS_ITS | Encounter Summary ---
:1935 Author Organization [facility] Address [address] [place] [address] Support Name Relationship Address Phone AMBROSIO SLOAN Unavailable [address] [place] [address] [place] [address] LEEANN SLOAN Unavailable [address] [place], [place] Insurance Providers: All historical and current [...] Patel [place] MCR Feb 19, [id number] [facility] (WNR) 2016 [id number] [phone] 1 Selected Encounter This section includes the information on record at [place] for the Encounter. Date/Time Encounter Type Encounter Reason Provider Source Description Apr 08, 2021 PSYTX W PT 30 TELEPHONE ICD-10-CM TAMI ROBINS 09:00 AM MINUTES F51.01 Primary insomnia with Provider Comments: Insomnia (SCT [id number]) IHE Encounter Template Text not used by [place] Assessments - Encounter Diagnoses This section includes the primary and secondary diagnoses documented for the Encounter. 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. This section includes future appointments and future orders which are active, pending orscheduled.Future Appointments This section includes appointments that were scheduled to occur 6 months from the date of the Encounter, up to a maximum of 20 appointments. The data comes from all [place] treatment facilities. Appointment Date/Time Appointment Type Appointment Facili ty Name May 06, 2021 09:00 AM AMBULATORY - PSYCHIATRY [facility] Jun 06, 2021 11:00 AM AMBULATORY - MEDICINE [facility] Jun 17, 2021 09:00 AM AMBULATORY - PSYCHIATRY [facility] July 13, 2021 11:00 AM AMBULATORY - NONE [facility] Social History: Smoking Status (Most current) and Tobacco Use (All prior to encounter date) This section includes the most current, and the historical, smoking and tobacco-related health factors from the [place] facility where the Encounter took place.Current Smoking Status This section includes the most current smoking, or tobacco-related health factor, from the [place] facility where the Encounter took place. Date/Time Current Smoking Status Comment Facility Jan 03, 2021 11:30 AM VA-TOBACCO FORMER USER [place] [facility] Tobacco Use History This section includes a history of the smoking, or tobacco- related health factors, that were collected on or before the date of the Encounter. The data comes from the [place] facility where the Encounter took place. Date/Time Smoking Status/Tobacco Use Comment [facility] Jan 03, 2021 11:30 AM VA-TOBACCO QUIT 15 YRS OR MORE [facility] June 20, 2018 11:30 AM VA-TOBACCO FORMER USER [place] [facility] June 20, 2018 11:30 AM VA-TOBACCO QUIT 15 YRS OR MORE [facility] July 09, 2017 10:39 AM FORMER TOBACCO USER 7Y OR GREATER [facility] July 07, 2016 01:14 PM FORMER TOBACCO USER 7Y OR GREATER [facility] June 21, 2015 02:23 PM FORMER TOBACCO USER 7Y OR GREATER [facility] Jun 08, 2014 01:51 PM FORMER TOBACCO USER 7Y OR GREATER [facility] Jun 10, 2013 01:11 PM LIFETIME NON-TOBACCO USER [facility] Aug 03, 2011 07:59 AM FORMER TOBACCO USER 7Y OR GREATER [facility] Advance Directives: All historical and current Section Date Range: From patient's date of to the date document was created. This section includes ALL of a patient's completed or amended [place] Advance and Rescinded Directives. The entries below indicate that a directive exists for the patient, but an actual copy is not included with this document. The data comes from all [place] facilities. Date Advance Directives Provider Source June 19, 2013 ADVANCE DIRECTIVE DISCUSSION KENDALL SERRANO [facility] June 19, 2013 ADVANCE DIRECTIVE KENDALL SERRANO [facility] Encounter Notes: All associated encounter notes This section contains the clinical notes associated to the Encounter. Date/Time Encounter Note(s) Provider Source Apr 08, 2021 09:00 AM MENTAL HEALTH E [facility] M INTERDISCIPLINARY NOTE: TAMI ROBINS [facility] LOCAL TITLE: PRIMARY CARE-MH INTEGRATION PROGRE SS NOTE STANDARD TITLE: MENTAL HEALTH E & M INTERDISCIPL INARY NOTE DATE OF NOTE: APR 08, 2021@09:00 ENTRY DATE: APR 08, 2021@09:03:40 AUTHOR: TAMI ROBINS EXP COSIGNER: URGENCY: STATUS: COMPLETED PRIMARY CARE-MENTAL HEALTH INTEGRATION (PCMHI) P ROGRESS NOTE The patient is located in their home at the time of service as described at 410.78 (b)(3)(xiv); The distant site [facility] has the technical capability at the time of the service t o use an interactive telecommunications system that includes video. The patient is not capable of or does not consent to the use of video technology for the ser vice. The patient verbally consented to using phone for their care. Location/emergency number confir med. PROCEDURES: 25-minute behavioral health provider evaluation and treatment for grief and loss. PLAN: 1. He will continue to practice self-care, beha vioral activation, and use of supports. 2. RTC; four weeks, phone, or earlier if needed . SUBJECTIVE: This 85-year-old, , male lost his of 63-years in September 2020. He is grieving with much support. We continue to focus on self-care. He share d feeling better overall (mood and sleep). He's been active daily, engaging with his community. He's also been caring for his own health. He finds these visits helpful. Focused o n grief, self-care, and behavioral activation toward values. MSE: Mood was fair with a normal range of congru ent affect. No evidence of SI/HI, intent, or plan. Otherwise, MSE was WNL. DIAGNOSTIC IMPRESSIONS: Bereavement, improving RISK ASSESSMENT: low acute and chronic risk. Risk factors: of spouse, age (old age:65+) , race (Euro Belgian), gender (male), Protective factors: Strong social support system, No alcohol or substance abuse/ dependency issues, Compliance with treatment recommendations and m aking appointments, No history of suicide attempts or self-injurious b ehavior, No history of violence or aggression, No history of psychiatr ic hospitalizations, Goal oriented, Financially stable, [facility] Treatment Plan Update: Patient had [facility] Treatment Plan updated at this encounter. /hari/ TAMI ROBINS Psy.D., MARIA ELENA CLINICAL PSYCHOLOGIST Signed: 04/08/2021 09:32
--- OUTSIDE RECORDS SUMMARY | 2021-12-20 14:21 | XMS_ITS | Encounter Summary ---
:1935 Author Organization [facility] Address [address] [place] [address] Support Name Relationship Address Phone AMBROSIO SLOAN Unavailable [address] [place] [address] [place] [address] LAW SLOAN Unavailable [address] [place], [place] Insurance Providers: All historical and current [...] Patel [place] MED[place] MCR Feb 19, [id number] TATY SLOAN SH[facility] (WNR) [facility] (WNR) 2016 8 [id number] [phone] CE 1 Selected Encounter This section includes the information on record at OR for the Encounter. Date/Time Encounter Type Encounter Reason Provider Source Description Jun 06, 2021 Outpatient TELEPHONE/MEDICIN ICD-10-CM I48.91 GLAUSER,NO RA 11:00 AM Encounter E Unspecified N atrial fibrillation with Provider Comments: Atrial fibrillation ([facility] [id number]) IHE Encounter Template Text not used by OR Assessments - Encounter Diagnoses This section includes the primary and secondary diagnoses documented for the Encounter. Date/Time Primary/Secondary Diagnosis Name Provider Source Diagnosis Jun 06, 2021 PRIMARY Unspecified atrial COURTNEY JAMIL [facility] 11:00 AM fibrillation N [facility] Plan of Treatment: Future Appointments (+ 6 [...] 20 appointments. The data comes from all OR treatment facilities. Appointment Date/Time Appointment Type Appointment Facili ty Name Jun 17, 2021 09:00 AM AMBULATORY - PSYCHIATRY [facility] July 13, 2021 11:00 AM AMBULATORY - NONE [facility] Dec 05, 2021 09:30 AM AMBULATORY - MEDICINE [facility] CS Social History: Smoking Status (Most current) and Tobacco Use (All prior to encounter date) This section includes the most current, and the historical, smoking and tobacco-related health factors from the OR facility where the Encounter took place.Current Smoking Status This section includes the most current smoking, or tobacco-related health factor, from the OR facility where the Encounter took place. Date/Time Current Smoking Status Comment Facility Jan 03, 2021 11:30 AM OR-TOBACCO FORMER USER [facility] Tobacco Use History This section includes a history of the smoking, or tobacco- related health factors, that were collected on or before the date of the Encounter. The data comes from the [facility] where the Encounter took place. Date/Time Smoking Status/Tobacco Use Comment [facility] it Jan 03, 2021 11:30 AM OR-TOBACCO QUIT 15 YRS OR MORE [facility] June 20, 2018 11:30 AM VA-TOBACCO FORMER USER [facility] June 20, 2018 11:30 AM OR-TOBACCO QUIT 15 YRS OR MORE [facility] July 09, 2017 10:39 AM FORMER TOBACCO USER 7Y OR GREATER [facility] July 07, 2016 01:14 PM FORMER TOBACCO USER 7Y OR GREATER [facility] June 21, 2015 02:23 PM FORMER TOBACCO USER 7Y OR GREATER [facility] Jun 08, 2014 01:51 PM FORMER TOBACCO USER 7Y OR GREATER [facility] Jun 10, 2013 01:11 PM LIFETIME NON-TOBACCO USER [facility] Aug 03, 2011 07:59 AM FORMER TOBACCO USER 7Y OR GREATER [facility] Advance Directives: All historical and current Section Date Range: From patient's date of to the date document was created. This section includes ALL of a patient's completed or amended [place] Advance and Rescinded Directives. The entries below indicate that a directive exists for the patient, but an actual copy is not included with this document. The data comes from all [facility] facilities. Date Advance Directives Provider Source June 19, 2013 ADVANCE DIRECTIVE DISCUSSION KENDALL SERRANO [facility] June 19, 2013 ADVANCE DIRECTIVE KENDALL SERRANO [facility] Encounter Notes: All associated encounter notes This section contains the clinical notes associated to the Encounter. Date/Time Encounter Note(s) Provider Source Jun 06, 2021 10:25 AM CARDIOLOGY DIAGNOSTIC STUDY CONSULT: COURTNEY DAWKINS [facility] LOCAL TITLE: CARDIAC ELECTROPHYSIOLOGY CONSULT STANDARD TITLE: CARDIOLOGY DIAGNOSTIC STUDY CONS ULT DATE OF NOTE: JUN 06, 2021@10:25 ENTRY DATE: JUN 06, 2021@10:25:25 AUTHOR: COURTNEY JAMIL EXP COSIGNER: URGENCY: STATUS: COMPLETED CARDIAC ELECTROPHYSIOLOGY TELEPHONE CONSULT NOTE This is a phone consult. Information obtained via chart review +/- phone conversation with patient. Requesting Provider: DERRICK GEORGE Reason for Request: Outside providers have suggested that he start Dronedarone and have a cardiology referral. HPI: 85 year old male with a history of CAD (s/p PCI LCx 2011), A.fib, HTN, HLD, and GERD. He has been on ami odarone for rhythm control since 05/2018 when he was hospitalized for atrial fib. He has been on this ever since with no known recurrence of atrial fibrillation. He sees an el ectrophysiologist through [facility] (Dr Briscoe) a nd they have discussed the possibility of switching to dronedarone for fewer potential side effects. There was EP consultation completed on February 14 (see please consult note from this date for further details) an d long discussion was had with patient about options including switching to dronedarone, dropping dos e to 100 mg daily, or washing out amiodarone for 3 months and starting class I II agent. Patient opted to continue amiodarone as reviewing the options. I discussed this again with patient in December 2019, but he preferred greg nuing amiodarone. EP reconsulted to discuss this again, as his outside EP continues to recommend he switch to dronedarone. I called the t o discuss further and again reviewed the options previously discussed with bandar im in detail. At first he reported he would like to continue amiodarone, b ut later decided he is interested in a trial of switching to dronedaron e after discussing with Dr. Briscoe further. He denies current palpitations, d yspnea on exertion, chest pain/pressure, lightheadedne ss, dizziness, presyncope, syncope, orthopnea, PND, or LE edema. ROS: 12 point review of systems negative for acu te issues except as noted in HPI. PAST MEDICAL HISTORY: Active problems - Computerized Problem List is t he source for the followin. Hypertension (SNOMED CT 34032510) 2. Gastroesophageal reflux disease (SNOMED CT 2 [id number]) 3. Hearing Loss, Partial * 4. Tinnitus * 5. 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 Personal History of Peptic Ulcer Disease 8. CO-MANAGE - Dr. Law Lawson, [facility] - PCP Dr. Robbins 9. Tobacco Use Disorder, Remission 10. Hyperlipidemia (SNOMED CT [id number]) 11. Atrial fibrillation 12. Insomnia PAST SOCIAL HISTORY: *Tobacco: former smoker *ETOH: denies *Illicits: denies FAMILY HISTORY: non-contributory -----PRIOR CARDIAC TESTING----- -Echo (01/2019): Summary: 1. Normal left ventricular size with hyperdynami c systolic function (visual EF 65-70%). 2. Mild concentric left ventricular hypertrophy. 3. Mild aortic valve sclerosis without stenosis. 4. Normal right ventricular size and function. 5. The estimated systolic pulmonary artery press ure is 24.4 mmHg above right atrial pressure. -Latest EKG (2018): Sinus cher 58 with single PVC ALLERGIES ATENOLOL (Jan 03, 2021) LISINOPRIL (Jan 03, 2021) FACILITY ALLERGY/ADR -------- No Remote Allergy/ADR Data available for this marycarmen willson [facility] ATENOLOL [facility] LISINOPRIL MEDICATIONS Active and Recently Outpatient Medicatio ns (excluding Supplies): Active Outpatient Medications Status 1) APIXABAN 5MG TAB TAKE ONE TABLET BY MOUTH DESTINEE RY 12 ACTIVE HOURS TO PREVENT STROKE DUE TO ATRIAL FIBRILLAT ION Active Non-VA Medications Status 1) Non-VA AMLODIPINE BESYLATE 10MG TAB 5MG MOUTH EVERY ACTIVE DAY 2) Non-VA ATORVASTATIN CALCIUM 20MG TAB 10MG OLINDA TH AT ACTIVE BEDTIME 3) Non-VA CHONDROITIN/GLUCOSAMINE CAP/TAB MOUTH EVERY ACTIVE DAY 4) Non-VA CLOPIDOGREL BISULFATE 75MG TAB 75MG MO UTH ACTIVE 5) Non-VA DICLOFENAC NA 1% TOP GEL 2 GRAMS TOPIC ALLY ACTIVE NEEDED 6) Non-VA HYDROCHLOROTHIAZIDE 25MG TAB 25MG MOUT H EVERY ACTIVE DAY 7) Non-VA IBUPROFEN 400MG TAB 400MG MOUTH THREE TIMES A ACTIVE DAY NEEDED 8) Non-VA LOSARTAN 50MG TAB 50MG MOUTH EVERY DAY ACTIVE 9) Non-VA MULTIVITAMIN CAP/TAB 1 TABLET MOUTH EV JIAN DAY ACTIVE 10) Non-VA NITROGLYCERIN 0.4MG SL TAB 0.4 MG UND ER THE ACTIVE TONGUE NEEDED 11) Non-VA OMEPRAZOLE 20MG EC CAP 40MG MOUTH DESTINEE RY DAY ACTIVE 12) Non-VA TRIAMCINOLONE 0.5% CREAM,TOP TOPICALL Y ACTIVE 13 Total Medications No Active Remote Medications for this patient LABS SODIUM 140 (01/03/21) POTASSIUM 3.7 (01/03/21) MAGNESIUM 2.0 (01/03/21) UREA NITROGEN 21 (01/03/21) CREATININE 0.9 (01/03/21) GLUCOSE 101 H (01/03/21) WBC 8.11 (01/03/21) HGB 13.6 (01/03/21) PLT 204 (01/03/21) Collection DT Specimen Test Name Result Units Re f Range 06/04/2012 18:09 PLASMA TSH 1.56 uIU/mL 0.30 - 5 .00 Collection DT Specimen Test Name Result Units Re f Range 07/02/2019 09:42 PLASMA BILIRUBIN, TOTAL 1.5 H m g/dL 0.2 - 1.2 07/02/2019 09:42 PLASMA ALKALINE PHOSPHAT 90 U/L 40 - 150 07/02/2019 09:42 PLASMA AST/SGOT 19 U/L 5 - 34 07/02/2019 09:42 PLASMA ALT/SGPT 20 U/L Ref: <=5 5 ASSESSMENT & PLAN: 1. H/O paroxysmal atrial fibrillation: 4% burden on Holter monitoring 2017. Started on amiodarone in May when hospitalized for AFib w/ RVR. Converted to SR on amiodarone and has had no further known recurrences since then, has been maintained on 200 mg daily, with no identif ied side effects from amiodarone. He follows with Dr. Briscoe, J[facility] at [facility] , and has been recommended to make a switch from amiodaron e to dronedarone for better side effect profile. 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 We will be happy to prescribe this for h im through the OR for cost reasons. He is working with Dr. Briscoe's office and she has instructed him to stop amiodarone for several days, then begin dronedarone and get an EKG a few days later, and monitor LFTs q 6 months. I h flaquitoe given him our fax number to fax these results to as well. -He is on apixaban for anticoagulation and denie s any bleeding concerns. CHADSVASC score is at least 4 (age++, CAD, HTN) -We discussed risk factor modification for AFib including weight management, regular exercise, moderation of alcohol intake, control of blood pressure and treatment of any underlying DANIAL. Plan: -Rx for dronedarone 400 mg bid written -Transition off amiodarone to dronedarone as ins tructed per OSH EP -F/U 6 months or sooner as needed Time spent: 60 minutes /hari/ COURTNEY JAMIL PA-C PHYSICIAN BINDERY MACHINE FEEDER OFFBEARER Signed: 06/06/2021 15:55
--- OUTSIDE RECORDS SUMMARY | 2021-12-20 14:21 | XMS_ITS | Encounter Summary ---
:1935 Author Organization [facility] Address [address] [place] [address] Support Name Relationship Address Phone AMBROSIO SLOAN Unavailable [address] [place] [address] [place] [address] LEEANN SLOAN Unavailable [address] [place], [place] Insurance Providers: All historical and current [...] Patel [place] M[place] Feb 19, [id number] TATY SLOAN [facility] (WNR[facility] 2016 8 [id number] [phone] CE 1 Selected Encounter This section includes the information on record at [place] for the Encounter. Date/Time Encounter Type Encounter Description Reason Provider Source May 13, 2021 04:45 Outpatient Encounter TELEPHONE TRIAGE PM IHE Encounter Template Text not used by [place] Plan of Treatment: Future Appointments (+ 6 months) and Future Tests (+/- 45 days) The Plan of Treatment section includes future care activities for the patient from all [place] treatmentfacilities. This section includes future appointments and future orders which are active, pending orscheduled.Future Appointments This section includes appointments that were scheduled to occur 6 months from the date of the Encounter, up to a maximum of 20 appointments. The data comes from all [place] treatment facilities. Appointment Date/Time Appointment Type Appointment Facili ty Name Jun 06, 2021 11:00 AM AMBULATORY - MEDICINE [facility] Jun 17, 2021 09:00 AM AMBULATORY - PSYCHIATRY [facility] July 13, 2021 11:00 AM AMBULATORY - NONE [facility] Social History: Smoking Status (Most current) and Tobacco Use (All prior to encounter date) This section includes the most current, and the historical, smoking and tobacco-related health factors from the [facility] where the Encounter took place.Current Smoking Status This section includes the most current smoking, or tobacco-related health factor, from the [place] facility where the Encounter took place. Date/Time Current Smoking Status Comment Facility Jan 03, 2021 11:30 AM VA-TOBACCO FORMER USER [facility] Tobacco Use History This section includes a history of the smoking, or tobacco- related health factors, that were collected on or before the date of the Encounter. The data comes from the [facility] where the Encounter took place. Date/Time Smoking Status/Tobacco Use Comment [facility] it Jan 03, 2021 11:30 AM [place]-TOBACCO QUIT [address] [facility] June 20, 2018 11:30 AM VA-TOBACCO FORMER USER [facility] June 20, 2018 11:30 AM [place]-TOBACCO QUIT [address] [facility] July 09, 2017 10:39 AM FORMER TOBACCO USER 7Y OR GREATER [facility] July 07, 2016 01:14 PM FORMER TOBACCO USER 7Y OR GRE[address] [facility] June 21, 2015 02:23 PM FORMER TOBACCO USER 7Y OR GRE[address] [facility] Jun 08, 2014 01:51 PM FORMER TOBACCO USER 7Y OR GRE[address] [facility] Jun 10, 2013 01:11 PM LIFETIME NON-TOBACCO USER [facility] Aug 03, 2011 07:59 AM FORMER TOBACCO USER 7Y OR [facility] [facility] Advance Directives: All historical and current Section Date Range: From patient's date of to the date document was created. This section includes ALL of a patient's completed or amended [place] Advance and Rescinded Directives. The entries below indicate that a directive exists for the patient, but an actual copy is not included with this document. The data comes from all [facility]. Date Advance Directives Provider Source June 19, 2013 ADVANCE DIRECTIVE DISCUSSION KENDALL SERRANO [facility] June 19, 2013 ADVANCE DIRECTIVE KENDALL SERRANO [facility] Encounter Notes: All associated encounter notes This section contains the clinical notes associated to the Encounter. Date/Time Encounter Note(s) Provider Source May 13, 2021 04:45 REPORT OF CONTACT: [facility] PM LOCAL TITLE: PATIENT CONTACT NOTE NEW SAWYER STANDARD TITLE: REPORT OF CONTACT DATE OF NOTE: MAY 13, 2021@16:45 ENTRY DATE: MAY 13, 2021@16:45:54 AUTHOR: ARMAND HAYWARD COSIGNER: URGENCY: STATUS: COMPLETED PATIENT CONTACT NOTE Has [facility] Call [facility] Phone number verified as correct. [phone] Eliane from the [facility] faxed over the requested office visit notes, Prescription and the reason why they want ed to start prescribing the medication, Sunday05/13/2021. Eliane requested a return call, Please ask for e electrophysiology nurses. /hari/ AFTAB SAWYER [id number] [facility] Signed: 05/13/2021 16:54 Receipt Acknowledged By: 05/16/2021 09:49 /hari/ GEORGIE MERCEDES RN RN Pact Tablet Machine Operator 05/16/2021 ADDENDUM STATUS: COMPLETED Request clinic OMID mobley in locating fax from [facility] and alert Provider. Thank you. /hari/ GEORGIE MERCEDES RN RN Pact Tablet Machine Operator Signed: 05/16/2021 09:51 Receipt Acknowledged By: * AWAITING SIGNATURE * CHATO MARTIN
--- OUTSIDE RECORDS SUMMARY | 2021-12-20 14:21 | XMS_ITS | Encounter Summary ---
:1935 Author Organization [facility] Address [address] [place] [address] Support Name Relationship Address Phone AMBROSIO SLOAN Unavailable [address] [place] [address] [place] [address] LEEANN SLOAN Unavailable [address] [place], [place] Insurance Providers: All historical and current [...] Patel [place] M[place] Feb 19, [id number] [facility] (WNR) 2016 8 [id number] [phone] 1 Selected Encounter This section includes the information on record at CT for the Encounter. Date/Time Encounter Type Encounter Reason Provider Source Description May 06, 2021 PSYTX W PT 30 TELEPHONE ICD-10-CM F43.21 TAMI ROBINS 09:00 AM MINUTES Adjustment disorder with depressed mood with Provider Comments: Adjustment Disorder with depressed mood IHE Encounter Template Text not used by CT Assessments - Encounter Diagnoses This section includes the primary and secondary diagnoses documented for the Encounter. Date/Time Primary/Secondary Diagnosis Name Provider Source Diagnosis May 06, 2021 PRIMARY Adjustment TAMI ROBINS A 09:00 AM disorder with HCS depressed mood Plan of Treatment: Future Appointments (+ 6 months) and Future Tests (+/- 45 days) The Plan of Treatment section includes future care activities for the patient from all [place] treatmentfacilities. This section includes future appointments and future orders which are active, pending orscheduled.Future Appointments This section includes appointments that were scheduled to occur 6 months from the date of the Encounter, up to a maximum of 20 appointments. The data comes from all [place] treatment facilities. Appointment Date/Time Appointment Type Appointment Facili ty Name Jun 06, 2021 11:00 AM AMBULATORY - MEDICINE [facility] Jun 17, 2021 09:00 AM AMBULATORY - PSYCHIATRY [facility] July 13, 2021 11:00 AM AMBULATORY - NONE [facility] Social History: Smoking Status (Most current) and Tobacco Use (All prior to encounter date) This section includes the most current, and the historical, smoking and tobacco-related health factors from the CT facility where the Encounter took place.Current Smoking Status This section includes the most current smoking, or tobacco-related health factor, from the [place] facility where the Encounter took place. Date/Time Current Smoking Status Comment Facility Jan 03, 2021 11:30 AM VA-TOBACCO FORMER USER [facility] Tobacco Use History This section includes a history of the smoking, or tobacco- related health factors, that were collected on or before the date of the Encounter. The data comes from the CT facility where the Encounter took place. Date/Time Smoking Status/Tobacco Use Comment Facil it Jan 03, 2021 11:[address]-TOBACCO QUIT 15 YRS OR MORE [facility] June 20, 2018 11:30 AM VA-TOBACCO FORMER USER [facility] June 20, 2018 11:[address]-TOBACCO QUIT 15 YRS OR MORE [facility] [...] ALL of a patient's completed or amended CT Advance and Rescinded Directives. The entries below indicate that a directive exists for the patient, but an actual copy is not included with this document. The data comes from all [facility] facilities. Date Advance Directives Provider Source June 19, 2013 ADVANCE DIRECTIVE DISCUSSION KENDALL SERRANO [facility] June 19, 2013 ADVANCE DIRECTIVE KENDALL SERRANO [facility] Encounter Notes: All associated encounter notes This section contains the clinical notes associated to the Encounter. Date/Time Encounter Note(s) Provider Source May 06, 2021 09:00 AM MENTAL HEALTH E & M INTERDISCIPLINARY NOTE: TAMI ROBINS [facility] LOCAL TITLE: PRIMARY CARE-MH INTEGRATION PROGRE SS NOTE STANDARD TITLE: MENTAL HEALTH E & M INTERDISCIPL INARY NOTE DATE OF NOTE: MAY 06, 2021@09:00 ENTRY DATE: MAY 06, 2021@09:03:39 AUTHOR: TAMI ROBINS EXP COSIGNER: URGENCY: STATUS: COMPLETED PRIMARY CARE-MENTAL HEALTH INTEGRATION (PCMHI) P ROGRESS NOTE The patient is located in their home at the time of service as described at 410.78 (b)(3)(xiv); The distant site [facility] has the technical capability at the time [...] beha vioral activation, and use of supports. He will plan and engage in enjo yable activities. 2. RTC; six weeks, phone, or earlier if needed. SUBJECTIVE: This 85-year-old, , male lost his of 63-years in September 2020. He is grieving with much support. He is preparing for shoulder surgery in early May 2021. He's h opeful that it will help with pain management and sleep. He's been practicing good self care (exercise, nutrition, sleep) and behavioral activat ion toward values. We talked about the grieving process and building relationships, erika ing, and communication about needs. He has some enjoyable activities planned. MSE: Mood was fair with a normal range of congru ent affect. No evidence of SI/HI, intent, or plan. Otherwise, MSE was WNL. DIAGNOSTIC IMPRESSIONS: Bereavement, improving RISK ASSESSMENT: low acute and chronic risk. Risk factors: of spouse, age (old age:65+) , race (Euro Gabonese), gender (male), Protective factors: Strong social support system, No alcohol or substance abuse/ dependency issues, Compliance with treatment recommendations and m akin appointments, No history of suicide attempts or self-injurious b ehavior, No history of violence or aggression, No history of psychiatr ic hospitalizations, Goal oriented, Financially stable, /es/ BERET Anderson ROBINS Psy.D., CLINICAL PSYCHOLOGIST Signed: 05/06/2021 09:35
--- OUTSIDE RECORDS SUMMARY | 2021-12-20 14:21 | XMS_ITS | Encounter Summary ---
:1935 Author Organization [facility] Address [address] [place] [address] Support Name Relationship Address Phone AMBROSIO SLOAN Unavailable [address] [place] [address] [place] [address] LEEANN SLOAN Unavailable [address] [place], [place] Insurance Providers: All historical and current [...] Coverage Telephone Name to Policy Number Patel [facility] Feb 19, [id number] T[address] SLOAN [facility] ([facility]NR[facility] 2016 8 [id number] [phone] 1 Selected Encounter This section includes the information on record at [place] for the Encounter. Date/Time Encounter Type Encounter Description Reason Provider Source May 19, 2021 11:33 Outpatient Encounter TELEPHONE TRIAGE AM IHE Encounter Template Text not used by [place] Plan of Treatment: Future Appointments (+ 6 months) and Future Tests (+/- 45 days) The Plan of Treatment section includes future care activities for the patient from all [place] treatmentfacilities. This section includes future appointments and future orders which are active, pending orscheduled.Future Appointments This section includes appointments that were scheduled to occur 6 months from the date of the Encounter, up to a maximum of 20 appointments. The data comes from all [place] treatment facilities. Appointment Date/Time Appointment Type Appointment Facili ty Name Jun 06, 2021 11:00 AM AMBULATORY - MEDICINE [facility] Jun 17, 2021 09:00 AM AMBULATORY - PSYCHIATRY [facility] July 13, 2021 11:00 AM AMBULATORY - NONE [facility] Social History: Smoking Status (Most current) and Tobacco Use (All prior to encounter date) This section includes the most current, and the historical, smoking and tobacco-related health factors from the [facility] where the Encounter took place.Current Smoking Status This section includes the most current smoking, or tobacco-related health factor, from the [place] facility where the Encounter took place. Date/Time Current Smoking Status Comment Facility Jan 03, 2021 11:30 AM VA-TOBACCO FORMER USER [facility] Tobacco Use History This section includes a history of the smoking, or tobacco- related health factors, that were collected on or before the date of the Encounter. The data comes from the [facility] where the Encounter took place. Date/Time Smoking Status/Tobacco Use Comment [facility] it Jan 03, 2021 11:30 AM [place]-TOBACCO QUIT 15 YRS OR MORE [facility] June 20, 2018 11:30 AM VA-TOBACCO FORMER USER [facility] June 20, 2018 11:30 AM [place]-TOBACCO QUIT 15 YRS OR MORE [facility] July 09, 2017 10:39 AM FORMER TOBACCO USER 7Y OR GREATER [facility] July 07, 2016 01:14 PM FORMER TOBACCO USER 7Y OR GREATER [facility] June 21, 2015 02:23 PM FORMER TOBACCO USER 7Y OR GREATER [facility] Jun 08, 2014 01:51 PM FORMER TOBACCO USER 7Y OR GREATER [facility] Jun 10, 2013 01:11 PM LIFETIME NON-TOBACCO USER [facility] Aug 03, 2011 07:59 AM FORMER TOBACCO USER 7Y OR GREATER [facility] Advance Directives: All historical and current Section Date Range: From patient's date of to the date document was created. This section includes ALL of a patient's completed or amended [place] Advance and Rescinded Directives. The entries below indicate that a directive exists for the patient, but an actual copy is not included with this document. The data comes from all [facility]. Date Advance Directives Provider Source June 19, 2013 ADVANCE DIRECTIVE DISCUSSION KENDALL SERARNO [facility] June 19, 2013 ADVANCE DIRECTIVE KENDALL SERRANO [facility] Encounter Notes: All associated encounter notes This section contains the clinical notes associated to the Encounter. Date/Time Encounter Note(s) Provider Source May 19, 2021 11:34 AM REPORT OF CONTACT: RICARDO ALAN [facility] LOCAL TITLE: PATIENT CONTACT NOTE STANDARD TITLE: REPORT OF CONTACT DATE OF NOTE: MAY 19, 2021@11:34 ENTRY DATE: MAY 19, 2021@11:34:12 AUTHOR: RICARDO ALAN COSIGNER: URGENCY: STATUS: COMPLETED PATIENT CONTACT NOTE Has ADDENDA Patient contact Name of Wilson: ASIA SLOAN Name/Relationship of Contact if other than Veter an: (Eliane) Heart inst Date & Time of Contact: Apr@11:34 Type of Contact: Reason for Contact: (Eliane) is requesting a call back today from pact team in regards to C0-Manged care medication. (Eliane) states I sent a fax o n 04/18/2021 and 04/27/2021 and 05/16/2021 and Pt still hasn't recieved medi cation can a nurse call me. /adan ALAN Advanced Medical Support Assistance Signed: 05/19/2021 11:36 Receipt Acknowledged By: 05/20/2021 15:27 /hari/ GEORGIE MERCEDES RN RN Pact Ticket Printer 05/27/2021 16:35 /hari/ DERRICK GEORGE APRN, CNP Nurse Practitioner 05/20/2021 ADDENDUM STATUS: COMPLETED Returned phone call to Dahiana sotelo, , and message was taken to pass on to SHE[place]ON [place] to fax requested information/orders to clinic fax [phone] identifying assigned Provider's name on cover sh eet. Provided display card writer's direct phone number. /adan MERCEDES RN RN Pact Ticket Printer Signed: 05/20/2021 15:32 05/27/2021 ADDENDUM STATUS: COMPLETED I placed an EP consult to help with this. /hari/ DERRICK GEORGE APRN, DIRECTOR BUSINESS DEVELOPMENT Nurse Practitioner Signed: 05/27/2021 16:36
--- OUTSIDE RECORDS SUMMARY | 2021-12-20 14:21 | XMS_ITS | Encounter Summary ---
:1935 Author Organization [facility] Address [address] [place] [address] Support Name Relationship Address Phone AMBROSIO SLOAN Unavailable [address] [place] [address] [place] [address] LEEANN SLOAN Unavailable [address] [place], [place] Insurance Providers: All historical and current [...] Patel [place] MED[place]ARE MCR Feb 19, [id number] [facility] [facility] (WNR) 2016 8 [id number] [phone] CE 1 Selected Encounter This section includes the information on record at [place] for the Encounter. Date/Time Encounter Type Encounter Description Reason Provider Source May 16, 2021 11:23 Outpatient Encounter TELEPHONE PRIMARY CARE IHE Encounter Template Text not used by [place] Plan of Treatment: Future Appointments (+ 6 months) and Future Tests (+/- 45 days) The Plan of Treatment section includes future care activities for the patient from all [place] treatmentfacilities. This section includes future appointments and future orders which are active, pending orscheduled.Future Appointments This section includes appointments that were scheduled to occur 6 months from the date of the Encounter, up to a maximum of 20 appointments. The data comes from all [place] treatment facilities. Appointment Date/Time Appointment Type Appointment Facili ty Name Jun 06, 2021 11:00 AM AMBULATORY - MEDICINE [facility] Jun 17, 2021 09:00 AM AMBULATORY - PSYCHIATRY [facility] July 13, 2021 11:00 AM AMBULATORY - NONE [facility] Social History: Smoking Status (Most current) and Tobacco Use (All prior to encounter date) This section includes the most current, and the historical, smoking and tobacco-related health factors from the [facility] where the Encounter took place.Current Smoking Status This section includes the most current smoking, or tobacco-related health factor, from the [place] facility where the Encounter took place. Date/Time Current Smoking Status Comment Facility Jan 03, 2021 11:30 AM VA-TOBACCO FORMER USER [facility] Tobacco Use History This section includes a history of the smoking, or tobacco- related health factors, that were collected on or before the date of the Encounter. The data comes from the [facility] where the Encounter took place. Date/Time Smoking Status/Tobacco Use Comment Facil it Jan 03, 2021 11:30 AM NE-TOBACCO QUIT 15 YRS OR MORE [facility] June 20, 2018 11:30 AM NE-TOBACCO FORMER USER [facility] June 20, 2018 11:30 AM NE-TOBACCO QUIT 15 YRS OR MORE [facility] July 09, 2017 10:39 AM FORMER TOBACCO USER 7Y OR GREATER [facility] July 07, 2016 01:14 PM FORMER TOBACCO USER 7Y OR GREATER [facility] June 21, 2015 02:23 PM FORMER TOBACCO USER 7Y OR GREATER [facility] Jun 08, 2014 01:51 PM FORMER TOBACCO USER 7Y OR GREATER [facility] Jun 10, 2013 01:11 PM LIFETIME NON-TOBACCO USER [facility] Aug 03, 2011 07:59 AM FORMER TOBACCO USER 7Y OR GREATER [facility] Advance Directives: All historical and current Section Date Range: From patient's date of to the date document was created. This section includes ALL of a patient's completed or amended [place] Advance and Rescinded Directives. The entries below indicate that a directive exists for the patient, but an actual copy is not included with this document. The data comes from all [facility]. Date Advance Directives Provider Source June 19, 2013 ADVANCE DIRECTIVE DISCUSSION KENDALL SERRANO [facility] June 19, 2013 ADVANCE DIRECTIVE KENDALL SERRANO [facility] Encounter Notes: All associated encounter notes This section contains the clinical notes associated to the Encounter. Date/Time Encounter Note(s) Provider Source May 16, 2021 11:23 AM PRIMARY CARE [facility] TITLE: CO-MANAGED CARE NOTE STANDARD TITLE: PRIMARY CARE NONVA NOTE DATE OF NOTE: MAY 16, 2021@11:23 ENTRY DATE: MAY 16, 2021@11:23:35 AUTHOR: KARMA CERDA EXP COSIGNER: URGENCY: STATUS: COMPLETED Received a request for: 1. Dronedarone 400 mg tablet; Take 1 tablet by mouth Twice a day with meals. 2. Please place [place] Cardiology consult. Med is re stricted to them placing PA. Scanned note indicates local office wants pt to discuss this with [facility]. Records scanned and available for review in [facility]. Rx written by: MD Yinka Mejia Facility:[facility] Local provider phone # Local provider fax #[phone] Please alert me if med isn't approved or additio nal information is requested. If med is denied let me know what alternatives w ould be approved so I can communicate that information back to the local diane yu. /hari/ KARMA CERDA LPN [employer] Signed: 05/16/2021 11:31 Receipt Acknowledged By: * AWAITING SIGNATURE * DERRICK GEORGE * AWAITING SIGNATURE * GEORGIE MERCEDES
--- OUTSIDE RECORDS SUMMARY | 2021-12-20 14:22 | XMS_ITS | Encounter Summary ---
:1935 Author Organization [facility] Address [address] [place] [address] Support Name Relationship Address Phone AMBROSIO SLOAN Unavailable [address] [place] [address] [place] [address] LAW SLOAN Unavailable [address] [place], [place] Insurance Providers: All historical and current [...] Patel [place] Feb 19, [id number] TATY SLOAN [facility] (WNR) [facility] (WNR) 2016 8 [id number] [phone] CE 1 Selected Encounter This section includes the information on record at [place] for the Encounter. Date/Time Encounter Type Encounter Reason Provider Source Description Dec 05, 2021 Outpatient TELEPHONE/MEDICIN ICD-10-CM I48.91 GLAUSER,NO RA 09:30 AM Encounter E Unspecified N atrial fibrillation with Provider Comments: Atrial fibrillation ([facility] [id number]) IHE Encounter Template Text not used by [place] Assessments - Encounter Diagnoses This section includes the primary and secondary diagnoses documented for the Encounter. Date/Time Primary/Secondary Diagnosis Name Provider Source Diagnosis Dec 05, 2021 PRIMARY Unspecified atrial COURTNEY JAMIL IS [place] 09:30 AM fibrillation N [facility] Plan of Treatment: Future Appointments (+ [...] 20 appointments. The data comes from all [facility]. Appointment Date/Time Appointment Type Appointment Facili ty Name Jan 05, 2022 10:30 AM AMBULATORY - MEDICINE [facility] Jan 05, 2022 11:30 AM AMBULATORY - MEDICINE [facility] Active, Pending, and Scheduled Orders This section includes a listing of several types of active, pending, and scheduled orders, including clinic medications orders, diagnostic test orders, procedure orders and consult orders; where the start date of the order is 45 days before the date of the Encounter or 45 days after the date of the Encounter. The data comes from all [facility]. Test Date/Time Test Type Test Details Facility Name Jan 06, 2022 12:00 AM Laboratory - Chemistry BASIC METABOLIC [facility] Order PANEL+MG PLASMA SP Jan 06, 2022 12:00 AM Laboratory - Chemistry CBC BLOOD SP [facility] Order Jan 06, 2022 12:00 AM Laboratory - Chemistry LIPID [facility] Order PANEL,NON-FASTING PLASMA SP Social History: Smoking Status (Most current) and Tobacco Use (All prior to encounter date) This section includes the most current, and the historical, smoking and tobacco-related health factors from the [facility] where the Encounter took place.Current Smoking Status This section includes the most current smoking, or tobacco-related health factor, from the [facility] where the Encounter took place. Date/Time Current Smoking Status Comment Facility Jan 03, 2021 11:30 AM VA-TOBACCO FORMER USER [facility] Tobacco Use History This section includes a history of the smoking, or tobacco- related health factors, that were collected on or before the date of the Encounter. The data comes from the [place] facility where the Encounter took place. Date/Time Smoking Status/Tobacco Use Comment [facility] Jan 03, 2021 11:30 AM VA-TOBACCO QUIT [address] [facility] June 20, 2018 11:30 AM VA-TOBACCO FORMER USER [facility] June 20, 2018 11:30 AM [place]-TOBACCO QUIT [address] [facility] July 09, 2017 10:39 AM FORMER TOBACCO USER 7Y OR GREATER [facility] July 07, 2016 01:14 PM FORMER TOBACCO USER 7Y OR GRE[address] [facility] June 21, 2015 02:23 PM FORMER TOBACCO USER 7Y OR [address] [facility] Jun 08, 2014 01:51 PM FORMER TOBACCO USER 7Y OR GRE[address] [facility] Jun 10, 2013 01:11 PM LIFETIME NON-TOBACCO USER [facility] Aug 03, 2011 07:59 AM FORMER TOBACCO USER 7Y OR [address] [facility] Advance Directives: All historical and current Section Date Range: From patient's date of to the date document was created. This section includes ALL of a patient's completed or amended [place] Advance and Rescinded Directives. The entries below indicate that a directive exists for the patient, but an actual copy is not included with this document. The data comes from all [place] facilities. Date Advance Directives Provider Source June 19, 2013 ADVANCE DIRECTIVE DISCUSSION KENDALL SERRANO [facility] June 19, 2013 ADVANCE DIRECTIVE KENDALL SERRANO [facility] Encounter Notes: All associated encounter notes This section contains the clinical notes associated to the Encounter. Date/Time Encounter Note(s) Provider Source Dec 05, 2021 09:26 AM CARDIOLOGY DIAGNOSTIC STUDY NOTE: COURTNEY JAMIL [facility] LOCAL TITLE: CARDIOLOGY ELECTROPHYSIOLOGY NOTE STANDARD TITLE: CARDIOLOGY DIAGNOSTIC STUDY NOTE DATE OF NOTE: DEC 05, 2021@09:26 ENTRY DATE: DEC 05, 2021@09:26:36 AUTHOR: COURTNEY JAMIL EXP COSIGNER: URGENCY: STATUS: COMPLETED CARDIAC ELECTROPHYSIOLOGY TELEPHONE CLINIC NOTE This visit was completed via telephone CC: F/U dronedarone HPI: Mr. Sloan is an 86 year old male with a history of CAD (s/p PCI LCx 2011), A.fib, HTN, HLD, and GERD. He had been on amioda monet for rhythm control since 05/2018 when he was hospitalized for atrial fibri llation at OSH, with no known recurrences. He is co-managed and sees an electr ophysiologist through [facility] (Dr Briscoe). Due to side effect profile decision was made to switch to dronedarone and this was done in May 2021, after short washout. Patient has requested [facility] as sistance with prescribing dronedarone due to cost, but is managed by Dr. Alen de león. Patient was contacted over t he phone today for routine f/u. He reports he is no longer taking dronedarone. He believes he talked with his doctor about potentially starting a drug called sotalol, but has not yet done so. He had a recent EKG and was told he w as in sinus rhythm. He denies current palpitations, dyspnea on exertion, chest pain/pressure, lighth eadedness, dizziness, presyncope, syncope, orthopnea, PND, or LE edema . PAST MEDICAL HISTORY Active problems - Computerized Problem List is t he source for the followin. Hypertension (SNOMED CT 25282651) 2. Gastroesophageal reflux disease (SNOMED CT 2 25118456) 3. Hearing Loss, Partial * 4. Tinnitus * 5. 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 Personal History of Peptic Ulcer Disease 8. CO-MANAGE - Dr. Law Lawson, [facility] - PCP Dr. Robbins 9. Tobacco Use Disorder, Remission 10. Hyperlipidemia (SNOMED CT 06283342) 11. Atrial fibrillation 12. Insomnia -----PRIOR CARDIAC TESTING----- -- Echo (01/2019): Summary: 1. Normal left ventricular size with hyperdynami c systolic function (visual EF 65-70%). 2. Mild concentric left ventricular hypertrophy. 3. Mild aortic valve sclerosis without stenosis. 4. Normal right ventricular size and function. 5. The estimated systolic pulmonary artery press ure is 24.4 mmHg above right atrial pressure. -- Latest EKG (11/24/21) - OSH: Sinus bradycardia ALLERGIES ATENOLOL (Jan 03, 2021) LISINOPRIL (Jan 03, 2021) FACILITY ALLERGY/ADR -------- No Remote Allergy/ADR Data available for this pa anamika [facility] ATENOLOL [facility] LISINOPRIL MEDICATIONS Active and Recently Outpatient Medicatio ns (excluding Supplies): Active Outpatient Medications Status 1) APIXABAN 5MG TAB TAKE ONE TABLET BY MOUTH DESTINEE RY 12 ACTIVE HOURS TO PREVENT STROKE DUE TO ATRIAL FIBRILLAT ION 2) DRONEDARONE 400MG TAB TAKE ONE TABLET BY MOUT H TWICE ACTIVE A DAY Active Non-VA Medications Status 1) Non-VA AMLODIPINE [...] Non-VA TRIAMCINOLONE 0.5% CREAM,TOP TOPICALL Y ACTIVE 14 Total Medications No Active Remote Medications for this patient LABS SODIUM 140 (01/03/21) POTASSIUM 3.7 (01/03/21) MAGNESIUM 2.0 (01/03/21) UREA NITROGEN 21 (01/03/21) CREATININE 0.9 (07/13/21) GLUCOSE 101 H (01/03/21) WBC 6.21 (07/13/21) HGB 12.9 L (07/13/21) PLT 238 (07/13/21) Collection DT Specimen Test Name Result Units Re f Range 06/04/2012 18:09 PLASMA TSH 1.56 uIU/mL 0.30 - 5 .00 Collection DT Specimen Test Name Result Units Re f Range 07/02/2019 09:42 PLASMA BILIRUBIN, TOTAL 1.5 H m g/dL 0.2 - 1.2 07/02/2019 09:42 PLASMA ALKALINE PHOSPHAT 90 U/L 40 - 150 07/13/2021 10:49 PLASMA AST/SGOT 16 U/L Ref: <=3 4 07/13/2021 10:49 PLASMA ALT/SGPT 12 U/L Ref: <=5 5 07/02/2019 09:42 PLASMA GAMMA GTP 24 U/L 4 - 64 07/02/2019 09:42 PLASMA DIR. BILIRUBIN 0.6 H mg/ dL Ref: <=0.5 ASSESSMENT/PLAN 1. H/O paroxysmal atrial fibrillation: 4% burden on Holter monitoring 2017. Started on amiodarone in May 2018 when hospitalized for AFib w/ RVR. Stopped in May 2021 and switched t o dronedarone d/t concern for amiodarone s/e profile by his EP MD Dr. Briscoe at [facility] itute -- I can not find recent cardiology records in [facility] stating the plan for AADs, but patient confirms he is no longer taking dron edarone - unsure why -- He believes someone talke d with him about trying sotalol but has not yet been started -- I reviewed his entire medication list and upd ated in CPRS -- He is on apixaban for anticoagulation and den ies any bleeding concerns. CHADSVASC score is at least 4 (age++, CAD, HTN) -- We discussed risk factor modification for AFib including weight management, regular exercise, moderation of alcohol intake, control of blood pressure and treatment of any underlying DANIAL. Follow up: Patient was given fax number for our clinic and asked to have his spice blender fax latest saima rds to us. He will contact us when he knows further plans and if he will need alternate [facility]. Patient was given my contact information and encouraged to contact me if he has questions or concerns that arise. Time spent: 35 minutes /hari/ COURTNEY JAMIL PA-C PHYSICIAN REFRESH TECHNICIAN Signed: 12/05/2021 11:54
--- OUTSIDE RECORDS SUMMARY | 2021-12-20 14:22 | XMS_ITS | Encounter Summary ---
:1935 Author Organization [facility] Address [address] [place] [address] Support Name Relationship Address Phone AMBROSIO SLOAN Unavailable [address] [address] [place] [address] LEEANN SLOAN Unavailable [address] [place], [place] Insurance Providers: All historical and current [...] Patel [place] MCR Feb 19, [id number] T[address] SLOAN [facility] (WNR) 2016 8 [id number] [phone] CE 1 Selected Encounter This section includes the information on record at [place] for the Encounter. Date/Time Encounter Type Encounter Description Reason Provider Source Oct 18, 2021 08:10 Outpatient Encounter TELEPHONE TRIAGE AM IHE Encounter [...] Date/Time Appointment Type Appointment Facili ty Name Dec 05, 2021 09:30 AM AMBULATORY - MEDICINE [facility] Jan 05, 2022 10:30 AM AMBULATORY - MEDICINE [facility] Jan 05, 2022 11:30 AM AMBULATORY - MEDICINE [facility] Social History: Smoking Status (Most current) and Tobacco Use (All prior to encounter date) This section includes the most current, and the historical, smoking and tobacco-related health factors from the [facility] where the Encounter took place.Current Smoking Status This section includes the most current smoking, or tobacco-related health factor, from the [place] facility where the Encounter took place. Date/Time Current Smoking Status Comment Facility Jan 03, 2021 11:30 AM VA-TOBACCO FORMER USER [facility] Tobacco Use History This section includes a history of the smoking, or tobacco- related health factors, that were collected on or before the date of the Encounter. The data comes from the [facility] where the Encounter took place. Date/Time Smoking Status/Tobacco Use Comment [facility] it Jan 03, 2021 11:30 AM NE-TOBACCO QUIT 15 YRS OR MORE [facility] June 20, 2018 11:30 AM NE-TOBACCO FORMER USER [facility] June 20, 2018 11:30 AM NE-TOBACCO QUIT 15 YRS OR MORE [facility] July 09, 2017 10:39 AM FORMER TOBACCO USER 7Y OR GREATER [facility] July 07, 2016 01:14 PM FORMER TOBACCO USER 7Y OR GREATER [facility] June 21, 2015 02:23 PM FORMER TOBACCO USER 7Y OR GREATER [facility] Jun 08, 2014 01:51 PM FORMER TOBACCO USER 7Y OR GREATER [facility] Jun 10, 2013 01:11 PM LIFETIME NON-TOBACCO USER [facility] Aug 03, 2011 07:59 AM FORMER TOBACCO USER 7Y OR GREATER [facility] Advance Directives: All historical and current Section Date Range: From patient's date of to the date document was created. This section includes ALL of a patient's completed or amended [place] Advance and Rescinded Directives. The entries below indicate that a directive exists for the patient, but an actual copy is not included with this document. The data comes from all [facility]. Date Advance Directives Provider Source June 19, 2013 ADVANCE DIRECTIVE DISCUSSION KENDALL SERRANO [facility] June 19, 2013 ADVANCE DIRECTIVE KENDALL SERRANO [facility] Encounter Notes: All associated encounter notes This section contains the clinical notes associated to the Encounter. Date/Time Encounter Note(s) Provider Source Oct 18, 2021 08:10 AM [facility] LOCAL TITLE: PATIENT CONTACT NOTE STANDARD TITLE: REPORT OF CONTACT DATE OF NOTE: OCT 18, 2021@08:10 ENTRY DATE: OCT 18, 2021@08:10:49 AUTHOR: RADHA PELAYO COSIGNER: URGENCY: STATUS: COMPLETED PATIENT CONTACT NOTE Has [facility] Phone number verified as correct. [place] called stating that his right he aring aid is not working. Phone number verified. /hari/ RADHA PELAYO VISN23 [facility] Signed: 10/18/2021 08:12 Receipt Acknowledged By: 10/19/2021 11:29 /hari/ [facility] AUDIO VISUAL ARTS DIRECTOR 10/19/2021 ADDENDUM STATUS: COMPLETED MAILING A REPAIR BOX TO THE ADDRESS ON FILE /hari/ [facility] AUDIO VISUAL ARTS DIRECTOR Signed: 10/19/2021 11:29
--- OUTSIDE RECORDS SUMMARY | 2021-12-20 14:22 | XMS_ITS | Encounter Summary ---
:[address] [facility] Address [address] [place] [address] Support Name Relationship Address Phone AMBROSIO SLOAN Unavailable [address] [place] [address] [place] [address] LEEANN SLOAN Unavailable [address] [place], [place] Insurance Providers: All historical and current [...] Patel [place] Feb 19, [id number] SLOAN [facility] (WNR) [facility] (WNR) 2016 8 [id number] [phone] 1 Selected Encounter This section includes the information on record at [place] for the Encounter. Date/Time Encounter Type Encounter Reason Provider Source Description Jun 17, 2021 PSYTX W PT 30 TELEPHONE ICD-10-CM F43.20 TAMI ROBINS 09:00 AM MINUTES Adjustment disorder, unspecified with Provider Comments: Adjustment Disorder, unspecified IHE Encounter Template Text not used by [place] Assessments - Encounter Diagnoses This section includes the primary and secondary diagnoses documented for the Encounter. Date/Time Primary/Secondary Diagnosis Name Provider Source Diagnosis Jun 17, 2021 PRIMARY Adjustment TAMI ROBINS A 09:00 AM disorder, HCS unspecified Plan of Treatment: Future Appointments (+ 6 months) and Future Tests (+/- 45 days) The Plan of Treatment section includes future care activities for the patient from all [place] treatmentfacilities. This section includes future appointments and future orders which are active, pending orscheduled.Future Appointments This section includes appointments that were scheduled to occur 6 months from the date of the Encounter, up to a maximum of 20 appointments. The data comes from all [place] treatment facilities. Appointment Date/Time Appointment Type Appointment Facili ty Name July 13, 2021 11:00 AM AMBULATORY - NONE [facility] Dec 05, 2021 09:30 AM AMBULATORY - MEDICINE [facility] CS Lab Results: +/- 30 days of the encounter This section includes the Chemistry and Hematology Lab Results on record with [place] for the patient. Radiology Reports and Pathology Reports are provided separately, in subsequent sections.Lab Results This section contains the Chemistry/Hematology Results that were resulted 30 days before or 30 daysafter the date of the Encounter. Date/Time Source Result Type Result - Unit Interpretation Reference Range Comment July 13, 2021 [facility] CREATININE(INCLUDES EGFR) Sp ecimen Type: PLASMA 10:49 AM No comment enter ed. Ordering Provid er: LEYDA COHEN Report Released Date/Time: July 06, 2021 09:39 AM Reporting Lab: [facility] [employer] [id number] Performing Lab: [facility] [id number] CREATININE 0.9 0.7-1.2 CREAT EGFR(CKD-EPI) 84 >60 July 13, 2021 10:49 AM [facility] CBC Specim en Type: BLOOD No comment enter ed. Ordering Provid er: LEYDA COHEN Report Released Date/Time: July 06, 2021 09:39 AM Reporting Lab: [facility] [id number] Performing Lab: [facility] [address] WBC 6.21 4.0-11.0 RBC 4.06 L 4.6-6.2 HGB 12.9 L 13.5-17.9 HCT 39.0 L 41-54 MCV 96.1 80-100 MCH 31.8 27-33 MCHC 33.1 32.0-37.5 PLT 238 150-400 MPV 9.2 7.4-10.4 RDW 12.9 11.5-14.5 July 13, 2021 10:49 AM [facility] AST/SGOT Specim en Type: PLASMA No comment enter ed. Ordering Provid er: LEYDA COHEN Report Released Date/Time: July 06, 2021 09:39 AM Reporting Lab: [facility] [address] [facility] [id number] Performing Lab: [facility] [address] [facility] [address] AST/SGOT 16 <34 July 13, 2021 10:49 AM [facility] ALT/SGPT Specim en Type: PLASMA No comment enter ed. Ordering Provid er: LEYDA COHEN Report Released Date/Time: July 06, 2021 09:39 AM Reporting Lab: [facility] [address] [facility] [address] Performing Lab: [facility] [address] [facility] [address] ALT/SGPT 12 <55 Social History: Smoking Status (Most current) and Tobacco Use (All prior to encounter date) This section includes the most current, and the historical, smoking and tobacco-related health factors from the [place] facility where the Encounter took place.Current Smoking Status This section includes the most current smoking, or tobacco-related health factor, from the [place] facility where the Encounter took place. Date/Time Current Smoking Status Comment Facility Jan 03, 2021 11:30 AM VA-TOBACCO FORMER USER [facility] Tobacco Use History This section includes a history of the smoking, or tobacco- related health factors, that were collected on or before the date of the Encounter. The data comes from the [place] facility where the Encounter took place. Date/Time Smoking Status/Tobacco Use Comment [facility] Jan 03, 2021 11:30 AM VA-TOBACCO QUIT 15 YRS OR MORE [facility] June 20, 2018 11:30 AM VA-TOBACCO FORMER USER [facility] June 20, 2018 11:30 AM VA-TOBACCO QUIT 15 YRS OR MORE [facility] July 09, 2017 10:39 AM FORMER TOBACCO USER 7Y OR GREATER [facility] July 07, 2016 01:14 PM FORMER TOBACCO USER 7Y OR GREATER [facility] June 21, 2015 02:23 PM FORMER TOBACCO USER 7Y OR GREATER [facility] Jun 08, 2014 01:51 PM FORMER TOBACCO USER 7Y OR GREATER [facility] Jun 10, 2013 01:11 PM LIFETIME NON-TOBACCO USER [facility] Aug 03, 2011 07:59 AM FORMER TOBACCO USER 7Y OR GREATER [facility] Advance Directives: All historical and current Section Date Range: From patient's date of to the date document was created. This section includes ALL of a patient's completed or amended [place] Advance and Rescinded Directives. The entries below indicate that a directive exists for the patient, but an actual copy is not included with this document. The data comes from all [place] facilities. Date Advance Directives Provider Source June 19, 2013 ADVANCE DIRECTIVE DISCUSSION KENDALL SERRANO [facility] June 19, 2013 ADVANCE DIRECTIVE KENDALL SERRANO [facility] Encounter Notes: All associated encounter notes This section contains the clinical notes associated to the Encounter. Date/Time Encounter Note(s) Provider Source Jun 17, 2021 09:00 AM MENTAL HEALTH E & M INTERDISCIPLINARY NOTE: TAMI ROBINS [facility] LOCAL TITLE: PRIMARY CARE-MH INTEGRATION PROGRE SS NOTE STANDARD TITLE: MENTAL HEALTH E & M INTERDISCIPL INARY NOTE DATE OF NOTE: JUN 17, 2021@09:00 ENTRY DATE: JUN 17, 2021@09:07:54 AUTHOR: TAMI ROBINS EXP COSIGNER: URGENCY: STATUS: COMPLETED PRIMARY CARE-MENTAL HEALTH INTEGRATION (PCMHI) P ROGRESS NOTE The patient is located in their home at the time of service as described at 410.78 (b)(3)(xiv); The distant site [facility] has the technical capability at the time of the service to use an interactive telecommunications system that includes video. T he patient is not capable of or does not consent to the use of video technolo gy for the service. The patient verbally consented to using phone for eir care. Location/emergency number confirmed. PROCEDURES: 20-minute behavioral health provider evaluation and treatment for grief and loss. PLAN: 1. He will continue to practice self-care, beha vioral activation, and use of supports. He will plan and engage in enjo yable activities. 2. RTC; PRN SUBJECTIVE: This 85-year-old, , male lost his of 63-years in September 2020. He is grieving with much support. He had shoulder surgery and is healing with hope. He's been prac ticing good self care, using his supports, and activating toward values. He i s feeling ready to clean out his 's clothing with help and make some puckett ges in his home. Normalized feelings. Provided reinforcement and encouragmen t. He feels ready to follow- up PRN. MSE: Mood was positive with a normal range of co ngruent affect. No evidence of SI/HI, intent, or plan. Otherwise, MSE was WN L. DIAGNOSTIC IMPRESSIONS: Bereavement, improving RISK ASSESSMENT: low acute and chronic risk. Risk factors: of spouse, age (old age:65+) , race (Euro Albanian), gender (male), Protective factors: Strong social support system, No alcohol or substance abuse/ dependency issues, Compliance with treatment recommendations and m aking appointments, No history of suicide attempts or self-injurious b ehavior, No history of violence or aggression, No history of psychiatr ic hospitalizations, Goal oriented, Financially stable, /es/ BERET Anderson ROBINS Psy.D., CLINICAL PSYCHOLOGIST Signed: 06/17/2021 09:28
--- OUTSIDE RECORDS SUMMARY | 2021-12-20 14:22 | XMS_ITS | Encounter Summary ---
:1935 Author Organization [facility] Address [address] [place] [address] Support Name Relationship Address Phone AMBROSIO SLOAN Unavailable [address] [place] [address] [place] [address] LEEANN SLOAN Unavailable [address] [place], [place] Insurance Providers: All historical and current [...] Patel [place] Feb 19, [id number] S[address] [facility] (WNR) 2016 09 [id number] [phone] CE 1 Selected Encounter This section includes the information on record at [place] for the Encounter. Date/Time Encounter Type Encounter Reason Provider Source Description Jun 06, 2021 [facility] ICD-10-CM I48.91 SERGE VELASQUEZ 02:05 PM ASSMT&MGMT 5-10 Unspecified atrial IE K fibrillation with Provider Comments: Atrial [facility] [id number] IHE Encounter Template Text not used by [place] Assessments - Encounter Diagnoses This section includes the primary and secondary diagnoses documented for the Encounter. Date/Time Primary/Secondary Diagnosis Name Provider Source Diagnosis Jun 06, 2021 PRIMARY Unspecified atrial SERGE VELASQUEZ [facility] 02:11 PM fibrillation IE K HCS Plan of Treatment: Future Appointments (+ 6 months) and Future Tests (+/- 45 days) The Plan of Treatment section includes future care activities for the patient from all [place] treatmentfacilities. This section includes future appointments and future orders which are active, pending orscheduled.Future Appointments This section includes appointments that were scheduled to occur 6 months from the date of the Encounter, up to a maximum of 20 appointments. The data comes from all [place] treatment facilities. Appointment Date/Time Appointment Type Appointment Facili ty Name Jun 17, 2021 09:00 AM AMBULATORY - PSYCHIATRY [facility] July 13, 2021 11:00 AM AMBULATORY - NONE [facility] Dec 05, 2021 09:30 AM AMBULATORY - MEDICINE [facility] CS Social History: Smoking Status (Most current) and Tobacco Use (All prior to encounter date) This section includes the most current, and the historical, smoking and tobacco-related health factors from the [place] facility where the Encounter took place.Current Smoking Status This section includes the most current smoking, or tobacco-related health factor, from the [place] facility where the Encounter took place. Date/Time Current Smoking Status Comment Facility Jan 03, 2021 11:30 AM VA-TOBACCO FORMER USER [facility] Tobacco Use History This section includes a history of the smoking, or tobacco- related health factors, that were collected on or before the date of the Encounter. The data comes from the [place] facility where the Encounter took place. Date/Time Smoking Status/Tobacco Use Comment [facility] Jan 03, 2021 11:30 AM VA-TOBACCO QUIT 15 YRS OR MORE [facility] June 20, 2018 11:30 AM VA-TOBACCO FORMER USER [facility] June 20, 2018 11:30 AM MS-TOBACCO QUIT 15 YRS OR MORE [facility] July 09, 2017 10:39 AM FORMER TOBACCO USER 7Y OR GREATER [facility] July 07, 2016 01:14 PM FORMER TOBACCO USER 7Y OR GREATER [facility] June 21, 2015 02:23 PM FORMER TOBACCO USER 7Y OR GREATER [facility] Jun 08, 2014 01:51 PM FORMER TOBACCO USER 7Y OR GREATER [facility] Jun 10, 2013 01:11 PM LIFETIME NON-TOBACCO USER [facility] Aug 03, 2011 07:59 AM FORMER TOBACCO USER 7Y OR GREATER [facility] Advance Directives: All historical and current Section Date Range: From patient's date of to the date document was created. This section includes ALL of a patient's completed or amended [place] Advance and Rescinded Directives. The entries below indicate that a directive exists for the patient, but an actual copy is not included with this document. The data comes from all [place] facilities. Date Advance Directives Provider Source June 19, 2013 ADVANCE DIRECTIVE DISCUSSION KENDALL SERRANO [facility] June 19, 2013 ADVANCE DIRECTIVE KENDALL SERRANO [facility] Encounter Notes: All associated encounter notes This section contains the clinical notes associated to the Encounter. Date/Time Encounter Note(s) Provider Source Jun 06, 2021 02:05 PHARMACY CONSULT: SABINE VELASQUEZ [facility] PM LOCAL TITLE: PHARMACY PRIOR AUTHORIZATION APPRO SHANDA CONSULT STANDARD TITLE: PHARMACY CONSULT DATE OF NOTE: JUN 06, 2021@14:05 ENTRY DATE: JUN 06, 2021@14:05:48 AUTHOR: SABINE VELASQUEZ EXP COSIGNER: URGENCY: STATUS: COMPLETED The medical record has been reviewed with regard to this prior authorization drug request. Medication requested: DRONEDARONE 400MG TAB Medication indication: ATRIAL FIBRILLATION Medical history relevant to this request: Previous: Amiodarone Rationale: better side effect profile Managed by Cardiology The request is approved - A documented therapeutic failure of the prefer red formulary alternative(s) exists Active Outpatient Medications (including Supplie s): APIXABAN 5MG TAB TAKE ONE TABLET BY MOUTH EVERY 12 HOURS ACTIVE TO PREVENT STROKE DUE TO ATRIAL FIBRILLATION DRONEDARONE 400MG TAB TAKE ONE TABLET BY MOUTH T WICE A DAY PENDING Non-VA AMLODIPINE BESYLATE 10MG TAB 5MG MOUTH EV JIAN DAY ACTIVE Non-VA ATORVASTATIN CALCIUM 20MG TAB 10MG MOUTH AT BEDTIME ACTIVE Non-VA CHONDROITIN/GLUCOSAMINE CAP/TAB MOUTH DESTINEE RY DAY ACTIVE Non-VA CLOPIDOGREL BISULFATE 75MG TAB 75MG MOUTH ACTIVE Non-VA DICLOFENAC NA 1% TOP GEL 2 GRAMS TOPICALL Y ACTIVE NEEDED Non-VA HYDROCHLOROTHIAZIDE 25MG TAB 25MG MOUTH E VERY DAY ACTIVE Non-VA IBUPROFEN 400MG TAB 400MG MOUTH THREE VENITA ES A DAY ACTIVE NEEDED Non-VA LOSARTAN 50MG TAB 50MG MOUTH EVERY DAY AC TIVE Non-VA MULTIVITAMIN CAP/TAB 1 TABLET MOUTH EVERY DAY ACTIVE Non-VA NITROGLYCERIN 0.4MG SL TAB 0.4 MG UNDER T HE TONGUE ACTIVE NEEDED Non-VA OMEPRAZOLE 20MG EC CAP 40MG MOUTH EVERY D AY ACTIVE Non-VA TRIAMCINOLONE 0.5% CREAM,TOP TOPICALLY AC TIVE /es/ SABINE VELASQUEZ Pharm.D. Signed: 06/06/2021 14:11
--- OUTSIDE RECORDS SUMMARY | 2021-12-20 14:22 | XMS_ITS | Encounter Summary ---
:1935 Author Organization [facility] Address [address] [place] [id number] Support Name Relationship Address Phone AMBROSIO SLOAN Unavailable [address] [place] [address] [place] [address] LEEANN SLOAN Unavailable [address] [place], [place] Insurance Providers: All historical and current [...] Patel [place] MEDICARE MCR Feb 19, [id number] TATY SLOAN [facility] (WNR) [facility] (WNR) 2016 8 [id number] [phone] Selected Encounter This section includes the information on record at [place] for the Encounter. Date/Time Encounter Type Encounter Description Reason Provider Source July 06, 2021 09:10 Outpatient Encounter CLINICAL PHARMACY AM [facility] Encounter Template Text not used by [place] Plan of Treatment: Future Appointments (+ 6 months) and Future Tests (+/- 45 days) The Plan of Treatment section includes future care activities for the patient from all [place] treatmentfacilities. This section includes future appointments and future orders which are active, pending orscheduled.Future Appointments This section includes appointments that were scheduled to occur 6 months from the date of the Encounter, up to a maximum of 20 appointments. The data comes from all [place] treatment facilities. Appointment Date/Time Appointment Type Appointment Facili ty Name July 13, 2021 11:00 AM AMBULATORY - NONE [facility] Dec 05, 2021 09:30 AM AMBULATORY - MEDICINE [facility] Jan 05, 2022 10:30 AM AMBULATORY - MEDICINE [facility] Jan 05, 2022 11:30 AM AMBULATORY - MEDICINE [facility] Lab Results: +/- 30 days of the encounter This section includes the Chemistry and Hematology Lab Results on record with [place] for the patient. Radiology Reports and Pathology Reports are provided separately, in subsequent sections.Lab Results This section contains the Chemistry/Hematology Results that were resulted 30 days before or 30 daysafter the date of the Encounter. Date/Time Source Result Type Result - Unit Interpretation Reference Range Comment July 13, 2021 [facility] CREATININE(INCLUDES EGFR) Sp ecimen Type: PLASMA 10:49 AM No comment enter ed. Ordering Provid er: LEYDA COHEN Report Released Date/Time: July 06, 2021 09:39 AM Reporting [facility] [id number] Performing Lab: [facility] [id number] CREATININE 0.9 0.7-1.2 CREAT EGFR(CKD-EPI) 84 >60 July 13, 2021 10:49 AM [facility] CBC Specim en Type: BLOOD No comment enter ed. Ordering Provid er: LEYDA COHEN Report Released Date/Time: July 06, 2021 09:39 AM Reporting Lab: [facility] [address] [facility] [id number] Performing Lab: [facility] [id number] WBC 6.21 4.0-11.0 RBC 4.06 L 4.6-6.2 HGB 12.9 L 13.5-17.9 HCT 39.0 L 41-54 MCV 96.1 80-100 MCH 31.8 27-33 MCHC 33.1 32.0-37.5 PLT 238 150-400 MPV 9.2 7.4-10.4 RDW 12.9 11.5-14.5 July 13, 2021 10:49 AM [facility] AST/SGOT Specim en Type: PLASMA No comment enter ed. Ordering Provid er: LEYDA COHEN Report Released Date/Time: July 06, 2021 09:39 AM Reporting Lab: [facility] [address] [facility] [id number] Performing Lab: [facility] [id number] AST/SGOT 16 <34 July 13, 2021 10:49 AM [facility] ALT/SGPT Specim en Type: PLASMA No comment enter ed. Ordering Provid er: LEYDA COHEN Report Released Date/Time: July 06, 2021 09:39 AM Reporting Lab: [facility] [address] [facility] [id number] Performing Lab: [facility] [address] [facility] [id number] ALT/SGPT 12 <55 Social History: Smoking Status (Most current) and Tobacco Use (All prior to encounter date) This section includes the most current, and the historical, smoking and tobacco-related health factors from the [place] facility where the Encounter took place.Current Smoking Status This section includes the most current smoking, or tobacco-related health factor, from the [place] facility where the Encounter took place. Date/Time Current Smoking Status Comment Facility Jan 03, 2021 11:30 AM [place]-TOBACCO FORMER USER [facility] Tobacco Use History This section includes a history of the smoking, or tobacco- related health factors, that were collected on or before the date of the Encounter. The data comes from the [facility] where the Encounter took place. Date/Time Smoking Status/Tobacco Use Comment [facility] it Jan 03, 2021 11:30 AM IA-TOBACCO QUIT 15 YRS OR MORE [facility] June 20, 2018 11:30 AM [place]-TOBACCO FORMER USER [facility] June 20, 2018 11:30 AM [place]-TOBACCO QUIT 15 YRS OR MORE [facility] July 09, 2017 10:39 AM FORMER TOBACCO USER 7Y OR GREATER [facility] July 07, 2016 01:14 PM FORMER TOBACCO USER 7Y OR GREATER [facility] June 21, 2015 02:23 PM FORMER TOBACCO USER 7Y OR GREATER [facility] Jun 08, 2014 01:51 PM FORMER TOBACCO USER 7Y OR GREATER [facility] Jun 10, 2013 01:11 PM LIFETIME NON-TOBACCO USER [facility] Aug 03, 2011 07:59 AM FORMER TOBACCO USER 7Y OR GREATER [facility] Advance Directives: All historical and current Section Date Range: From patient's date of to the date document was created. This section includes ALL of a patient's completed or amended [place] Advance and Rescinded Directives. The entries below indicate that a directive exists for the patient, but an actual copy is not included with this document. The data comes from all [facility] facilities. Date Advance Directives Provider Source June 19, 2013 ADVANCE DIRECTIVE DISCUSSION KENDALL SERRANO [facility] June 19, 2013 ADVANCE DIRECTIVE KENDALL SERRANO [facility] Encounter Notes: All associated encounter notes This section contains the clinical notes associated to the Encounter. Date/Time Encounter Note(s) Provider Source July 06, 2021 09:10 AM LETTERS: SUNDAY CHU [facility] LOCAL TITLE: FOLLOW UP RESULTS LETTER STANDARD TITLE: LETTERS DATE OF NOTE: JULY 06, 2021@09:10 ENTRY DATE: JULY 06, 2021@09:10:28 AUTHOR: SUNDAY CHU EXP COSIGNER: URGENCY: STATUS: COMPLETED SUBJECT: PHARMACY ANTICOAGULATION LETTER [facility] [address] [place] [address] June ASIA SLOAN [address] [facility] [address] Dear : We are writing to follow up with you on your ant icoagulant (blood thinning) medication, Apixaban. Due to the importance of preventing blood clots and stroke, along with the bleeding risk associated with the medica tion, we check in periodically to make sure things are going well for you. We are sendi ng you this letter as a courtesy follow up. We periodically (usually once yearly or every si x months) require [place] lab monitoring to assure your blood thinner medicati on is safe to continue. We check your complete blood count, creatinine and liver function. The complete blood count measures hemoglobin and platelets, w hich can be used to alert us if there may be a potential problem with bleedin g. The creatinine tests kidney function, to verify that your body elimin ates the medication at a good rate. The liver function tests verify that your liver is working well. You are Due for some non-fasting labs. W e had your pharmacist place lab orders for you to [facility] We did NOT schedule a lab appointment yet, so please call our clinic at , option 1 to get those scheduled at your convenience within the N ext Few weeks. If you ever have any questions or problems, incl uding any signs of bleeding, medication changes, or surgeries or procedures c oming up, you can always give our office a call. We hope you are doing well. Thank you for your s ervice. Sincerely, [facility] Team --------- Phone number: [phone] -option 1 to schedule or reschedule an appointm ent -option 2 to refill medications or call the codie ne number on the bottle -option 3 for all other communication Fax number: [phone] Clinic Hours: Sunday-Sunday, 8:00am to 4:00pm (e xcluding holidays) Sunday Chu, Cert. User Experience Architect Cert. User Experience Architect
== END 2021-12-20 14:18 | disposition home or self-care (01) ==
LOC: WOUND 14:17
PROVIDERS: PCP Surgery; Visit Provider Nurse Practitioner Family
DX: L59.8 Other specified disorders of the skin and subcutaneous tissue related to radiation (principal); L97.222 Non-pressure chronic ulcer of left calf with fat layer exposed; I89.0 Lymphedema, not elsewhere classified; I87.2 Venous insufficiency (chronic) (peripheral)
CPT/HCPCS: 97597

== ENCOUNTER 2022-01-02 12:44 | Emergency (ER) | payer MEDICARE, BC, SELFPAY ==
[2022-01-02] VITALS (26 sets, daily range): BP systolic 108–150; BP diastolic 61–87; PULSE 60–74; RESP 14–16; TEMP 36.4–36.6; O2SAT 94–100; BMI 25.5
--- NOTE | 2022-01-02 13:21 | ED_ITS ---
HPI - Chest Pain General Chief Complaint: Chest Pain Stated Complaint: Chest pain, needs imaging Time Seen by Provider: 01/02/22 12:48 History of Present Illness HPI narrative: This 86-year-old male head age dual chamber pacemaker placed 4 days ago. Since then he is reporting some episodes of chest pain that occur with exertion and is relieved with rest. He contacted the [facility] in this regard and was instructed to come here for evaluation. I received a phone call from Valerie stating the importance of ruling out a pericardial effusion after this procedure. He denies having any nausea, vomiting, shortness of breath, or diaphoresis. He did feel some lightheadedness. He states that he has had 2 stents placed in the past in the discomfort he is feeling this time is different. Related Data Home Medications Medication Instructions Recorded Confirmed acetaminophen 500 mg tablet 500 mg PO Q6H PRN 09/28/21 01/02/22 (Tylenol Extra Strength) apixaban 5 mg tablet 5 mg PO BID 09/28/21 01/02/22 atorvastatin 20 mg tablet 10 mg PO HS 09/28/21 01/02/22 clopidogrel 75 mg tablet 75 mg PO DAILY 09/28/21 01/02/22 furosemide 20 mg tablet 20 mg PO DAILY 09/28/21 01/02/22 gabapentin 300 mg capsule 300 mg PO HS 09/28/21 01/02/22 hydrochlorothiazide 25 mg tablet 25 mg PO DAILY 09/28/21 01/02/22 losartan 50 mg tablet (Cozaar) 50 mg PO BID 09/28/21 01/02/22 omeprazole 40 mg capsule,delayed 40 mg PO DAILY 09/28/21 01/02/22 release multivitamin with minerals-ferrous 1 tab PO DAILY 11/04/21 01/02/22 sulfate 4.5 mg iron tablet (One Daily Multivitamins with Minerals) nitroglycerin 0.4 mg sublingual 0.4 mg sublingual Q5M PRN 11/04/21 01/02/22 tablet sotalol .ROUTE 01/02/22 Previous Rx's Medication Instructions Recorded metoprolol succinate 25 mg capsule 25 mg PO DAILY #30 ea 11/05/21 sprinkle, ext. release 24 hr Allergies Allergy/AdvReac Type Severity Reaction Status Date / Time atenolol AdvReac Verified 11/18/21 09:17 lisinopril AdvReac anemia Verified 11/18/21 09:17 Review of Systems Status of ROS Reports: 10 or more systems reviewed and unremarkable except as noted in History and below Narrative Constitutional: No fevers, no weight gain or loss. Eyes: No discharge. No vision changes. HENT: No congestion, no sore throat, no ear pain. Cardiovascular: No palpitations. Chest pain as described above. Respiratory: No shortness of breath, no wheezes, no cough. Gastrointestinal: No abdominal pain, no vomiting, no diarrhea. Genitourinary: No dysuria, no hematuria. Musculoskeletal: Normal range of motion. Skin: No rashes, no pruritis. Neurological: No dizziness, weakness, sensory change, speech change. Endo/Heme/Allergies: No bruising or bleeding. No polydipsia. Pysch: no suicidality, no anxiety, no insomnia. All other systems reviewed and are negative. 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) Hx of appendectomy Hx of colonoscopy Hx of hernia repair Hx of inguinal hernia repair Social History (Updated 11/18/21 @ 09:15 by Kaitlin Scott CMA) Smoking Status: Former smoker What tobacco products do you use: cigarettes Smoking quit date/years: >15 years ago Do you use any of these nicotine containing products: None Second hand tobacco smoke exposure: No How often do you have a drink containing alcohol: never How often do you have six or more drinks on one occasion: Never AUDIT-C Alcohol total score: 0 Non-prescribed substance use: denies use Caffeine: No service: Yes Exam Narrative Exam Narrative: Constitutional: Well-developed, well-nourished, no acute distress. HEENT: Normocephalic, atraumatic. Neck: Normal range of motion. Nontender. Supple. Heart: Regular. No murmurs. Normal rate. Intact distal pulses. Lungs: Clear to auscultation. No chest discomfort. No wheezes, rhonchi, or rales. Abdomen: Normal bowel sounds. Nontender. No rebound tenderness. Genitalia: Deferred. Back: No midline tenderness. Normal range of motion. Extremities: Normal range of motion. No injury. Skin: Intact. No rash. Warm. No erythema or pallor. Neurologic: No altered sensation. No weakness. Alert and oriented. Psychiatric: No suicidality. No anxiety or depression. No insomnia. Nursing notes and vitals signs are reviewed. Const Vital Signs, click to edit/add: Vital Signs - 24 hr 01/02/22 12:56 Temperature 97.5 F L Pulse Rate [Left Pulse Oximeter] 74 Respiratory Rate 14 Blood Pressure [Right Upper Arm] 146/70 H Pulse Oximetry 100 Oxygen Delivery Method Room Air Course Vital Signs Vital signs: Initial Vital Signs Temperature 97.5 F L 01/02/22 12:56 Temperature Source Temporal Artery Scan 01/02/22 12:56 Pulse Rate 74 01/02/22 12:56 Pulse Rhythm 01/02/22 12:56 Pulse Strength 3+ Normal 01/02/22 12:56 Respiratory Rate 14 01/02/22 12:56 Blood Pressure 146/70 H 01/02/22 12:56 Blood Pressure Mean 95 01/02/22 12:56 Blood Pressure Position Sitting 01/02/22 12:56 Pulse Oximetry 100 01/02/22 12:56 Oxygen Delivery Method 01/02/22 12:56 Vital Signs Temperature 97.5 F L 01/02/22 12:56 Pulse Rate 74 01/02/22 12:56 Respiratory Rate 14 01/02/22 12:56 Blood Pressure 146/70 H 01/02/22 12:56 Pulse Oximetry 100 01/02/22 12:56 Oxygen Delivery Method 01/02/22 12:56 Temperature 97.5 F L 01/02/22 12:56 Pulse Rate 74 01/02/22 12:56 Respiratory Rate 14 01/02/22 12:56 Blood Pressure 146/70 H 01/02/22 12:56 Pulse Oximetry 100 01/02/22 12:56 Oxygen Delivery Method 01/02/22 12:56 MDM - Chest Pain MDM Narrative Medical decision making narrative: This patient comes in at the request of [facility][Note 3] because of exertional chest pain over the past couple days. There was a request for me to rule out a pericardial effusion after having a dual-chamber pacemaker placed 4 days ago. I did look with bedside ultrasound and saw no evidence of such pericardial effusion. EKG does show a functional pacemaker a with no specific ST or T-wave abnormalities. Additionally his troponin returns at 0. While at rest the patient is feeling normal but he states that walking into the clinic he began to have chest pain that was relieved after resting. I spoke with Dr. Briscoe, his painter set with [facility][Note 3], who wants to have him admitted to [facility] for angiogram. I did speak with Dr. Daniel, the hospitalist on-call there, who agreed to this transfer. Lab Data Labs: Lab Results 01/02/22 01/02/22 01/02/22 Range/Units 01:30 01:30 13:30 WBC 6.40 (4.50-11.00) K/uL RBC 3.94 L (4.30-5.90) m/uL Hgb 12.9 L (13.5-17.5) gm/dL Hct 38.1 (37.0-53.0) % MCV 97 (80-100) fL MCH 33 (26-34) pg MCHC 34 (32-36) gm/dL RDW Coeff of Corine 13.0 (11.5-15.5) % Plt Count 177 (140-440) K/uL Neut % (Auto) 57.1 (42.0-72.0) % Lymph % (Auto) 21.4 (20-44) % Chase % (Auto) 12.5 H (0.0-11.0) % Eos % (Auto) 7.2 H (0.0-7.0) % Baso % (Auto) 0.9 (0.0-3.0) % Neut # (Auto) 3.65 (1.7-7.0) K/uL Lymph # (Auto) 1.37 (0.90-2.90) K/uL Chase # (Auto) 0.80 (0.00-0.90) K/UL Eos # (Auto) 0.50 (0.00-0.50) K/uL Baso # (Auto) 0.06 (0.00-0.30) K/uL Abs Immat Gran (auto) 0.06 (0.00-0.30) K/uL Imm/Tot Granulo (auto) 0.9 % Sodium 138 (135-149) mmol/L Potassium 4.2 (3.6-5.1) mmol/L Chloride 101 (96-114) mmol/L Carbon Dioxide 28 (20-32) mmol/L BUN 29 (7-30) mg/dL Creatinine 1.0 (0.5-1.5) mg/dL Estimated Creat Clear 54.01 Estimated GFR 74 ml/min Glucose 98 (60-115) mg/dL Calcium 9.1 (8.4-10.6) mg/dL POC Troponin I 0.00 L (0.01-0.04) ng/ml ECG Data Attestation: I personally reviewed and interpreted this ECG as follows: Interpretation: Atrial paced rhythm with prolonged AV conduction. There are no ST or T-wave abnormalities. Heart rate is 70 beats per minute. Discharge Plan Discharge Clinical Impression: Stable angina, ACS (acute coronary syndrome) Patient Disposition: [facility] Condition: Unchanged Prescriptions: No Action acetaminophen [Tylenol Extra Strength] 500 mg tablet 500 mg PO Q6H PRN apixaban 5 mg tablet 5 mg PO BID atorvastatin 20 mg tablet 10 mg PO HS clopidogrel 75 mg tablet 75 mg PO DAILY furosemide 20 mg tablet 20 mg PO DAILY gabapentin 300 mg capsule 300 mg PO HS hydrochlorothiazide 25 mg tablet 25 mg PO DAILY losartan [Cozaar] 50 mg tablet 50 mg PO BID omeprazole 40 mg capsule,delayed release(DR/EC) 40 mg PO DAILY nitroglycerin 0.4 mg tablet, sublingual 0.4 mg sublingual Q5M PRN Rx Instructions: PRN CHEST PAIN One Daily Multi-Vit w-Mineral 4.5 mg iron tablet 1 tab PO DAILY metoprolol succinate 25 mg capsule,sprinkle,ER 24hr 25 mg PO DAILY Qty: 30 0RF Rx Instructions: Take half a tablet (12.5mg) daily with breakfast sotalol .ROUTE Follow Up/Referrals: Art Robbins MD [Primary Care Provider] - Stand Alone Forms: MyHealth Info Instructions Procedures Ultrasound Cardiac exam #1: Anatomical areas examined: parasternal long and parasternal short Indications: chest pain Impression: negative exam
--- OUTSIDE RECORDS SUMMARY | 2022-01-02 13:39 | XMS_ITS | Clinical Summary ---
:1935 Author Organization [facility] [place] [address] Care Team Providers Name Role Phone Catrina Ramos MD Unavailable Gail Jenkins MD Unavailable Helio Hayden MD Primary Care Provider Allergies Active Allergy [...] tabletIndications: by mouth once Mixed hyperlipidemia daily. gabapentin (NEURONTIN) Take 1 Capsule 90 Capsule [...] 22 Essential hypertension mouth two times daily. sotaloL (BETAPACE) 80 Take 1 Tablet 60 Tablet 0 12/31/19 Active mg tabletIndications: (80 mg) by 22 Persistent atrial mouth two times fibrillation (HC) daily before meals. clopidogreL (PLAVIX) Take 1 Tablet 90 Tablet 3 11/01/1912/22 Discontinued 75 mg (75 mg) by 022 (*Med tabletIndications: mouth once complete/Regim Coronary artery daily. en disease involving co mplete/Level [place] coronary artery of care without angina clark e) pectoris, unspecified whether [place] or transplanted heart sotaloL (BETAPACE) 80 Take 1 Tablet 180 Tablet 0 01/01/2012/21 Discontinued mg tabletIndications: (80 mg) by 022 (Reorder Persistent atrial mouth two times (E-cancel not fibrillation (HC) daily before sent)) meals. sotaloL (BETAPACE) 80 Take 1 Tablet 60 Tablet 0 01/01/2012/20 Discontinued mg tabletIndications: (80 mg) by 022 (Reorder Persistent atrial mouth two times (E-cancel not fibrillation (HC) daily before sent)) meals. Active Problems Problem Noted Date Other ill-defined and unknown causes of morbidity and mortality 08/19/2021 Overview: Jun 04, 2012 Entered By: JOHN YEE mment: Dr. Law Lawson, [facility] 2013 Entered By: FRANCOIS HAMPTON Comment: PCP Dr. Hayden Tinnitus 08/19/2021 Problems of adjustment to life-cycle [...] RPLB. ?? No significant interval change in to 2011. INTERVENTION ?? 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 02/06/2011 Skin cancer 12/02/2009 02/04/2021 Overview: Left Lower Leg: managed by Dr Shields 12/02 Spondylosis, cervical 12/28/2008 01/08/2017 Gout 11/26/2007 01/06/2016 Overview: Doing well off medications 12/30/2012 SVT (supraventricular tachycardia) 05/30/200706/12 Overview: -Holter monitor 05/30/2007 Routine general medical examination at [facility] 11/13/2006 01/08/2017 Overview: Colonoscopy 12/2006: polyps Recheck in 5 yrs Lumbago 07/19/2006 01/06/2016 Overview: Improved with daily exercises. 3 Unspecified essential hypertension 07/19/200601/14 Benign Neoplasm of Colon 07/19/2006 01/09/2019 Overview: Colonoscopy 12/2011 diverticulosis, no f ollow up needed Encounters Date Type Specialty Care Team Description 01/02/2022 Nurse/Clinic Staff Cardiovas cular Diagnostic Only Testing (EKG s/ p dual chamber pacemak er placement 12/29/) 01/02/2022 Telephone Yinka Briscoe Device Check (Pacemaker MD Shanique Remote ) 01/02/2022 Travel 12/30/2021 Telephone Yinka Briscoe Medication Ma fernando [place] MD 12/29/2021 Anesthesia Event Zoraida Bowling MD Pickering, Jordan L, CRNA 12/29/2021 Hospital Encounter Yinka Briscoe Persist ent atrial MD Shanique fibrillation (HC) Zoraida Bowling (Primary D x) MD Blanca Yan Jean J, CRNA Discharge Summary - Swati Hackett PA - 12/29/2021 4:01 PM CST [facility] Cardiology Discharge Summary DOA: 12/29/2021 DOD: 12/29/2021 PRIMARY CARE PROVIDER Helio Hayden MD HOSPITAL COURSE Cristian Stevens is a 86 y.o. m amy with a history of sinus node dysfunction, persistent atrial fibrillation, CAD, HTN, HLD, GERD. He has persistent atrial fibrillation and had been controlled on amiodarone from May 2018 to November 2021. Dronedarone was tried in 06/2021 but discontinued due to whole body swelling. Sinus bradycardia was limiting medical therapy for management of atrial fibrillation. He un derwent dual chamber pacemak er placement on 12/29/21 with plan to start sotalol. He denies any incisional reji n, chest discomfort/pressure, or dyspnea. EXAM BP 155/73 Pulse 61 Temp 97.9 ??F (36.6 ??C) Resp 18 Ht 1.753 m (5' 9) Wt 78.5 kg (173 lb) SpO2 99% BMI 25.55 kg/m?? Patient Vitals for the past 72 hrs: Weight 12/29/21 0900 78.5 kg (173 l b) General: Pleasant and well a ppearing male. Alert and interactive. No distress HEENT: NCAT. Sclera clear. Respiratory: Normal work of breathing on room air. Lungs clear to auscultation bilaterally without wheezes, rhonchi, or rales. Cardiovascular: Regular rate and rhythm, normal S1 and S2, no murmurs. Abdomen: flat Skin: Warm and dry to touch. No ecchymoses or lesions. Left infraclavicular incision with pressure dressing and Silverlon dressing. Flat and soft to palpation. No hematomas. Musculoskeletal: Normal musc le mass. Neuro: Alert and oriented x4 . Psych: Mood and affect are a ppropriate. DIAGNOSTICS EKG (personally reviewed): 12/29/21: SB, VR 54, LA 194, QRS 122, QT/QTc 450 Echocardiogram 11/04/21 1. Normal left ventricular size, moderately increased wall thickness, normal global systolic function, calculated EF of 71 %. 2. The aortic valve is scle rotic, no stenosis and mild to moderate regurgitation. 3. The mitral valve is norm al, mild mitral regurgitation. 4. The aortic sinus is dila panda with a maximal diameter of 3.7 cm. 5. The ascending aorta is d ilated with a maximal diameter of 4.1 cm. 6. Normal estimated pulmona ry pressures by tricuspid regurgitation velocity and right atrial pressure (20 mmHg plus RAP). Chest X-ray (personally purnima huynh) 12/29/21 Left-sided dual chamber pace maker with generator and leads in appropriate location. No pneumothorax. Labs: Recent Labs 12/29/21 0939 WBC 6.7 RBC 3.97 L HGB 13.1 L HCT 38.0 MCV 96 MCH 33.0 MCHC 34.5 PLT 204 MPV 9.4 Recent Labs 12/29/21 0939 SODIUM 136 POTASSIUM 3.6 CHLORIDE 102 [id number] 28 BUN 26 H CREATININE 1.04 CALCIUM 9.4 GLUCOSE 99 Recent Labs 12/29/21 0939 PLT 204 DISCHARGE MEDICATIONS Your Home Medicines START taking these medicines Instructions sotaloL 80 mg tablet For diagnoses: Persistent at rial fibrillation (HC) Start taking on: December Commonly known as: BETAPACE Take 1 Tablet (80 mg) by mo ut two times daily before meals. CONTINUE taking these medici gege Instructions acetaminophen 500 mg tablet Commonly known as: TYLENOL E XTRA STRGTH Every 6 Hours as needed apixaban 5 mg tablet Commonly known as: ELIQUIS TAKE ONE TABLET BY MOUTH EV JIAN 12 HOURS TO PREVENT STROKE DUE TO ATRIAL FIBRILLATION atorvastatin 20 mg tablet For diagnoses: Mixed hyperli pidemia Commonly known as: LIPITOR Take 0.5 Tablets (10 mg) by mouth once daily. diclofenac topical 1 % gel Commonly known as: VOLTAREN Apply topically to affected area(s). furosemide 20 mg tablet For diagnoses: Bilateral low er extremity edema Commonly known as: LASIX Take 1 Tablet (20 mg) by mo ut every morning. gabapentin 300 mg capsule For diagnoses: Wound of left lower extremity, subsequent encounter Commonly known as: NEURONTIN Take 1 Capsule (300 mg) by mouth at bedtime. glucosamine-chondroitin (250 -200 mg) 250-200 mg capsule 1 tab by mouth once daily hydroCHLOROthiazide 25 mg ta blet For diagnoses: Essential hyp ertension Commonly known as: HCTZ Take 1 Tablet (25 mg) by mo ut once daily. losartan 50 mg tablet For diagnoses: Essential hyp ertension Commonly known as: COZAAR Take 1 Tablet (50 mg) by mo ut two times daily. metoprolol succinate 25 mg S ustained-Release tablet For diagnoses: Paroxysmal at rial fibrillation (HC) Commonly known as: Toprol XL Take 0.5 Tablets (12.5 mg) by mouth once daily. multivitamin capsule Take 1 capsule by mouth onc e daily. nitroglycerin 0.4 mg subling ual tablet For diagnoses: Chest pain in adult Commonly known as: NITROSTAT PLACE 1 TABLET UNDER THE TO NGUE EVERY 5 MINUTES IF NEEDED FOR UP TO 3 TIMES, IF NO RELIEF CALL 911 omeprazole 40 mg Delayed-Rel ease capsule For diagnoses: Gastric reflu x Commonly known as: PRILOSEC Take 1 Capsule (40 mg) by m outh once daily before a meal. Where to get your medicines These medications were sent to [facility] [address] [facility] [address], [facility] [id number] Hours: Open 24 Hours ?? 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 Persistent atrial fibrillati on - controlled on amiodarone f rom 05/2018-11/2021 - intolerance to dronedarone in 06/2021 with whole body swelling - [id number] VASC score 4 (HTN, age 86, CAD) on Eliquis Coronary artery disease - s/p PCI with WILVER to pRCA i n 2020 Hypertension Hyperlipidemia PLAN - Device interrogation/teach - Medications changes: - start sotalol 80 mg BID o n 12/31/21 - EKG on 01/02/22 - Continue all other prior t o admission medications - Eliquis 5 mg BID for cardi o-embolic prevention -[id number] VASC score 4 (HTN, age 86, CAD) - Follow up with primary car e provider on (or near) 01/05/22 for silverlon dressing removal and incision site check - Follow up with device clin ic in 3-4 months as scheduled. Ph. [phone] - Follow up with general car diology in [place] in 3 months - Follow up with EP as direc panda by general cardiology EL Mcfadden [facility] Cardiac Electrophysiology Future Appointments Date Time [facility] [place] 01/05/2022 12:00 AM [facility] REM OTE TRANSMISSION [facility] 02/06/2022 7:00 AM Helio Hayden MD NFLDFP NF 04/04/2022 10:30 AM [facility] LYLE Martel [facility] PLANT TECHNICIAN 12/29/2021 Travel 12/23/2021 Orders Only Yinka Briscoe <No scans att ached> MD Shanique 12/22/2021 Office Visit Yinka Briscoe CV Electrophy siology Est (F/U MD Shanique with medication transition. States that the y are doing well, no specif ic complaints. ) 12/22/2021 Telephone Yinka Briscoe Concerns (/) MD Shanique 12/22/2021 Travel 12/06/2021 Telephone Yinka Briscoe Lab MD Shanique 12/02/2021 Orders Only Lab, [place] [facility] 12/02/2021 Office Visit Helio Hayden, Follow Up; Immunization/In jection (COVID-19 vacci ne) 12/02/2021 Travel 11/25/2021 Orders Only Yinka Briscoe <No scans att ached> MD Shanique 11/24/2021 Nurse/Clinic Staff Testing ( EKG PER DR. BRISCOE ) Only 11/24/2021 Orders Only Lab, [place] 11/24/2021 Telephone Yinka Briscoe Results (EKG) MD Shanique 11/24/2021 Travel 11/11/2021 Office Visit Helio Hayden, Follow Up ([facility] for dehydration ) 11/10/2021 Ancillary Procedure 11/10/2021 Travel 11/04/2021 Orders Only <No scans attac hed> 11/04/2021 Orders Only Scanner <No scans attac hed> 10/31/2021 Office Visit Helio Hayden, Follow Up (Neck is better and MD right and left shoulder bothering him.) 10/31/2021 Telephone Yinka Briscoe MD 10/31/2021 Travel 10/27/2021 Orders Only Scanner <No scans attac hed> 10/21/2021 Orders Only Lab, [facility] 10/20/2021 Travel 10/18/2021 Telephone Yinka Briscoe Need Meds; Re fill Request MD Shanique 10/11/2021 Refill Paulina Krishnan Refill Requ est (Amiodarone) EL Pena 10/10/2021 Nurse/Clinic Staff Testing ( Pre-procedure COVID Only test) 10/10/2021 Travel from Last 3 Months Immunizations Name Administration Dates Next Due COVID-19 vaccine ([employer] 12/02/2021 30mcg/0.3mL) 12YO+ BIVALENT BOOSTER PF, MDV COVID-19 vaccine ([employer] 07/11/2021 30mcg/0.3mL) 12YO+ XANDER-SUCROSE PF, MDV COVID-19 vaccine ([employer] 11/18/2020, 04/24/2020, 30mcg/0.3mL) PF, MDV Influenza A [...] Comments Brother 1 Darrel Alive Brother 2 Santos Alive Father Santos (Age 85) Right lobectom [...] you been in contact No / Unsure 01/02/2022 10:33 AM GAS PLANT TECHNICIAN with someone who was confirmed or suspected to have Coronavirus/COVID-19? Obstetrics History Last Filed Vital Signs Vital Sign Reading Time Taken Comments Blood Pressure 146/70 01/02/2022 11:25 AM GAS PLANT TECHNICIAN Pulse 62 01/02/2022 11:25 AM GAS PLANT TECHNICIAN Temperature 36.6 ??C (97.9 ??F) 12/29/2021 2:00 PM GAS PLANT TECHNICIAN Respiratory Rate 18 12/29/2021 12:30 PM GAS PLANT TECHNICIAN Oxygen Saturation 100% 01/02/2022 11:25 AM GAS PLANT TECHNICIAN Inhaled Oxygen Concentration - - Weight 78.5 kg (173 lb) 12/29/2021 9:00 AM GAS PLANT TECHNICIAN Height 175.3 cm (5' 9) 12/29/2021 9:00 AM GAS PLANT TECHNICIAN Body Mass Index 25.55 12/29/2021 9:00 AM GAS PLANT TECHNICIAN Plan of Treatment Upcoming Encounters Date Type Specialty Care Team Description 01/04/2022 Office Visit Melina Maza PA [address] [place], [place] [address] (Wo rk) 01/05/2022 Cardiac Device Check 02/06/2022 Office Visit Helio Hayden MD [address] [place], [place] [address] (Wo rk) 04/04/2022 Cardiac Device Check Health Maintenance Due Date Last Done Comments Depression screening for age 12+ 02/04/2022 02/04/2021, 12/2020, 08/27/2020, Additional history exists Medicare Wellness for age 65+ 02/04/2022 02/04/2021, 2019, 01/21/2019, Additional history exists Tetanus booster 05/07/2022 05/07/2012, 10/20/2004, 10/20/2004, Additional history exists BMI (ht and wt on same day) for 12/22/2022 12/22/2021, 10/2021, age 18+ 06/22/2021, Additional history exists Tdap Completed 05/07/2012 Pneumococcal series for age 65+ Completed 01/04/2015, 02/2011, 02/06/2011, Additional history exists Zoster (shingles) series for age Completed 03/09/2021, , 50+ 05/02/2018, Additional history exists Influenza for age 65+ Completed 10/31/2021, 11/23/2020, 12/03/2019, Additional history exists COVID-19 vaccine series Completed 12/02/2021, 07/11/2021, 11/18/2020, Additional history exists Procedures Procedure Name Priority Date/Time Associated Diagnosis Comme nts XR CHEST 2 VIEWS PA Routine 12/29/2021 3:31 Resul ts for this AND LATERAL PM GAS PLANT TECHNICIAN procedure are i n the results section. PACER LICHA DUAL Routine 12/29/2021 3:19 Results for this CHAMBER WO REPROG PM GAS PLANT TECHNICIAN procedure are in the results section. CV PROCEDURE TO BE Routine 12/29/2021 12:07 Resul ts for this PERFORMED PM GAS PLANT TECHNICIAN procedure are i n the results section. EP PPM Routine 12/29/2021 11:04 Results for this AM GAS PLANT TECHNICIAN procedure are i n the results section. EKG 12 LEAD Preop 12/29/2021 9:54 Results for this AM GAS PLANT TECHNICIAN procedure are i n the results section. BASIC METABOLIC PANEL Preop 12/29/2021 9:39 Res ults for this AM GAS PLANT TECHNICIAN procedure are i n the results section. CBC W PLT NO DIFF Preop 12/29/2021 9:39 Results for this AM GAS PLANT TECHNICIAN procedure are i n the results section. EKG 12 LEAD Routine 12/22/2021 10:14 Sinus node Results for this AM CDT dysfunction (HC) procedure a re in the results section. T4,FREE Routine 12/02/2021 12:17 Atrial fibrillation, Res [...] pre-operative procedure are in laboratory testing the [facility] ts section. from Last 3 Months Results XR Chest PA and lateral (12/29/2021 3:31 PM GAS PLANT TECHNICIAN) Anatomical Region Laterality Modality CHEST, THORAX, Lung, HEART Digital Radio graphy Specimen (Source) Anatomical Collection Method Collection Time Re ceived Time Location / / Volume Laterality 12/29/2021 3:51 PM GAS PLANT TECHNICIAN Impressions 12/29/2021 3:51 PM GAS PLANT TECHNICIAN Left pacer body and right heart transvenous wires. No mediastinal widening or pneumothorax. Ectatic aorta. No acute cardiopulmonary disease. Left reversed shoulder arthroplasty. Dictated by Temo Gonzalez MD @ Dec 29 ??3:51PM (Electronically Signed) ?? Narrative 12/29/2021 3:51 PM GAS PLANT TECHNICIAN For Patients: ??As a result of the Cures Act, medical imaging exams and procedure report s are released immediately into your [facility] medical record. ??You may view this report before your referring provider. ??If you have questions, please contact your health care provider. INDICATION: Follow up pacer placement. TECHNIQUE: Two views. Procedure Note Temo Gonzalez MD - 12/29/2021Fo rmatting of this note might be different from the original. For Patients: As a result of the Cures Act, medical imaging exams and procedure reports are released immediately into your electronic medical record. You may view this report before your referring provider. If you have questions, please contact [facility] health care provider. INDICATION: Follow up pacer placement. TECHNIQUE: Two views. IMPRESSION: Left pacer body and right heart transven ous wires. No mediastinal widening or pneumothorax. Ectatic aorta. No acute cardiopulmonary disease. Left reversed shoulder arthroplasty. Dictated by Temo Gonzalez MD @ Dec 29 3:51PM (Electronically Signed) Yinka Briscoe MD GENERAL IMAGING PACER LICHA DUAL CHAMBER WO REPROG (12/29/2021 3:19 PM GAS PLANT TECHNICIAN) Narrative Yinka Briscoe MD - 12/29/2021 3: 19 PM GAS PLANT TECHNICIAN Evon Call RN ? 12/29/2021 ??4:22 PM PACEMAKER EVALUATION REPORT December 29, 2021 Indication for Pacemaker: Sinus Node Dys function Primary MD: Helio Hayden MD Primary Assistant At Surgery: Gabriella Lopez PA Primary EP: Yinka Briscoe MD Implanting MD: Yinka Briscoe MD DEVICE DATA Biometry Teacher Medtronic: Model Libertad XT D R MRI SureScan [id number] Implant Date 12/29/2021 LEAD DATA Atrial Lead: Biometry Teacher Medtronic: Mod el 5076-52 cm Implant Date 12/29/2021 RV Lead: Biometry Teacher Medtronic: Model 3 830-69 cm Implant Date 12/29/2021 Visit location: [place] [address] Reason For Evaluation: Same day discharg e - Pacemaker education Patient education post-device implant co mplete. Discussed incision care, signs and symptoms of inf ection, including redness, drainage, swelling, fever, and chills, & activity restrictions including driving. Also dis cussed indication for implant and device mechanics. Education folder containing device booklet, ID card and incision care sheet was reviewed and given to patient to take home at discharge. El willson verbalized understanding the above and is agreeable with plan of care as described. Patient was given [facility] s card and encouraged to call if he has any concerns or questions in the future. Enrolled in [facility]. Follow up: 1 Week Post-Op [facility] ed for 01/05/2022 then 3 month post-op in [place] on 04/04/2022 Routine follow up: Q 3-4 month [facility] with annual clinic in [place] each Mar. Evon Call RN Nurse Clinician II [facility] Pacemaker/ICD Clinic ?? Yinka Briscoe MD CARDIAC SERVICES ORD EP Procedure to be Performed (12/29/2021 12:07 PM GAS PLANT TECHNICIAN) Narrative Yinka Briscoe MD - 12/29/2021 12 :07 PM GAS PLANT TECHNICIAN Yinka Briscoe MD ? 12/29/2021 12:08 PM Cardiac Electrophysiology Immediate Post Procedure Note Preoperative Diagnosis: ??Sinus node dys function Procedure: ??Dual-chamber pacemaker impl ant Findings/Conclusions: ??Same as above Postoperative Diagnosis: ??Same as preop erative diagnosis Complications: ??NA Personally monitored patient with consci ous sedation during procedure: No Estimated Blood Loss: ??minimal Specimen: ??N/A Plan: 1) CXR and device check later today 2) Incision check in 1-2 weeks with [facility] physician. 3) Device clinic check in 3-4 months. 4) Medication changes: start sotalol 80 mg po bid on Sunday with an EKG on Sunday Surgeon: Yinka Briscoe MD Yinka Briscoe MD SYSTEMS SPEC ORD EP PPM (12/29/2021 11:04 AM GAS PLANT TECHNICIAN) Anatomical Region Laterality Modality X-Ray Angiography, X -Ray Angiography Specimen (Source) Anatomical Collection Method Collection Time Re ceived Time Location / / Volume Laterality 12/29/2021 11:04 AM GAS PLANT TECHNICIAN Narrative This result has an attachment that is no t available. Transcriptions Yinka Briscoe MD - 12/30/2021 5: 03 AM CST [facility] Electrophysiology Implant Report Name: CRISTIAN STEVENS Event Date: 12/30/19 Excellian ID #: [id number] Date: Gender: Male Age: 86 [place] #: [id number] Procedure Performed By: YINKA BRISCOE [facility] Primary Occ Therapist: THIERRY BRISCOE Referring Physician: Primary Care Physician: HELIO HAYDEN Implant Procedure Type Dual Chamber Permanent Pacemaker EP Impl ant Summary / Conclusions PACEMAKER * Dual chamber pacemaker system successf ully implanted. * Procedure completed without incident. * Appropriate device functionality obser burton at end of case. Recommendations / Plan 1) CXR and device check later today 2) Incision check in 1-2 weeks with [facility] physician. 3) Device clinic check in 3-4 months. 4) Medication changes: start sotalol 80 mg po bid on Sunday with an EKG on Sunday Pre-Operative Diagnosis ? Sinus node dysfunction Post-Operative Diagnosis ? Same as Pre-operative diagnosis Indications ? Same as Pre-operative diagnosis Brief Patient History In summary, Mr. Stevens is a truly delight ful 86-year-old gentleman with past medical history of coronary artery disease status post PCI, dilated ascending aorta, hypertension, and persistent atrial fibrillation who has sinus node dysfunction limiting medical therapy. He presents for a dual-chamber pacemaker implant. Consent & Fanrock Protocol Fanrock protocol was followed. TIME OU T conducted just prior to starting procedure confirmed patient identity, site/side, procedure, patient position, and availability of correct equipment and implants (if applicable). The risks, benefits, and alternatives of the procedure were discussed with the patient and written informed consent was obtained. Procedure Description The patient arrived at the Cardiac Elect rophysiology Laboratory in the fasting, non-sedated state. Informed consent was previously obtained from patient, who understood indications, risks, and benefits of the procedure. The patient was prepped and draped in a sterile fashion. After a time out, the left pectoral region was anesthetized. An incision was made in the anesthetized region, and using a combination of blunt and electrocautery dissection, the pocket for the generator was created. Under direct fluoroscopy, the Axillary Vein was punctured and wires were inserted. Ventricular and atr ial leads were implanted using fluoroscopic guidance. A his sheath with a 4F lead was used to place the RV lead in a mid-septal position. After satisfactory sensing and pacing th resholds were confirmed, the sheaths were split and the leads were secured in the pocket using Ethibond sutures. The pocket was rinsed with antibiotic solution and the generator was introduced into the field. The leads were connected to the pacemaker generator. After meticulous attention to hemostasis, the generator was inserted into the pocket. A fluoroscopic system check revealed stable device placement an no retained objects. The incision was closed in 3 layers using Vicryl sutures. Skin closure was reinforced with Steristrips and the entire area was covered with a silverlon dressing. The patient tolerated the procedure well without complications and left the electrophysiology laboratory in stable condition. Implantable Device Specifications Pulse Generator Detail Implanted Status Pocket Location Manufac turer Model Serial Number 12/29/2021 Implanted Left Pectoral Medtr [employer] Libertad XT DR MRI [id number] Lead Detail Implanted Status Chamber Location Lyly hunter Model Serial Number 12/29/2021 Implanted Right Ventricle Sep monica Med[employer]onic[employer] Secure Select 3830- 69 [id number] 12/29/2021 Implanted Right Atrium Right Appendage [employer]onic[employer] CapSureFix Novus 5076-52 [id number] Measurement Research Project Coordinator P/R Wave (mV) Threshold (V) Pulse Width (msec) Resistance (ohms) High Output Stim Result RA 2.9 1.3 0.4 800 No Stimulation @ 10 V RV 7.8 1 0.4 1010 No Stimulation @ 10 V Device Settings Mode Lower Rate (bpm) Upper Rate (bpm) AAIR-DDDR 60 130 JOSE Delay: 150 msec PAV Delay: 180 msec Lead Amplitude (V) Pulse Width (msec) Sensitivity (mV) Configuration Atrial 3.5 0.4 0.3 Bipolar RV 3.5 0.4 0.9 Bipolar Features Magnet Use: Enabled Wireless Telemetry: Active Procedure(s) Performed ? Insertion of new or replacement PPM wi th transvenous electrode (s); Atrial and Ventricular Procedure Detail Estimated Blood Loss: < 50 ml Specimen Collected: None Level of Sedation Achieved: See Anesthes ia Note Total Fluoro Time: 10.9 ORAL SURGERY ASSISTANT Total Fluoro Dose: 18 mGy Staff Name Role Yinka Briscoe Occ Therapist Janae Diaz RN Nurse Sophie Pino PINA Tori Magallanes RCFELICITAS Senior Java Software Developer BuitragoAlberto EPYolanda Senior Java Software Developer Medications Ordered and Administered Start Time Stop Time Medication Dose Uni ts Route Ordered By Given By 11:08 0.5% Bupivicaine 10 mL Subcut MD Yinka Forrest MD 11:08 1% Lidocaine Hydrochloride 10 mL S ubcut MD Yinka Harrington MD 12:00 Cefazolin (Ancef) Irrigation 1 g N one MD Yinka Harrington MD The anesthesia service monitored the pat ient?s conscious sedation during the procedure. The medications listed above were verbal ly ordered by me and read back to me as documented above. Refer to the hemodynamic procedure log r eport for additional case details. electronically signed on 12/30/2021 5:0 3:33 AM with status of Final Yinka Briscoe MD Implanting Assistant At Surgery [facility] [address] [place] [address] (p) [phone](f) Yinka Briscoe MD CV IMAGING 12 Lead EKG (12/29/2021 9:54 AM GAS PLANT TECHNICIAN)Only the most recent of3 resultswithin the time period is included. Component Value Ref Range Test Analysis Performed Pathologis t Method Time At Signature Interpretation Sinus bradycardia BEYOND NOW Left axis deviation Non-specific intra-ventricular conduction delay Abnormal ECG When compared with ECG of 22-DEC-2021 10:14, No significant change was found Ventricular Rate 54 BPM BEYOND NOW Atrial Rate 54 BPM BEYOND NOW P-R Interval 194 ms BEYOND NOW QRS Duration 122 ms BEYOND NOW QT 450 ms BEYOND NOW QTc 426 ms BEYOND NOW P Norco 58 degrees BEYOND NOW R Norco -39 degrees BEYOND NOW T Norco 39 degrees BEYOND NOW Specimen Anatomical Collection Method Collection Time Receive d Time (Source) Location / / Volume Laterality 12/29/2021 9:54 AM 2 GAS PLANT TECHNICIAN 10:38 AM GAS PLANT TECHNICIAN Narrative BEYOND NOW - 12/30/2021 10:38 AM GAS PLANT TECHNICIAN Test Indication: PRE OP Yinka Briscoe MD EKG ORD Performing Organization Address City/State/ZIP Code Phon e Number [place]YOND NOW [place], [place] (ABNORMAL) CBC with Platelets no Differential (12/29/2021 9:39 AM GAS PLANT TECHNICIAN) [facility] gist Method Time [facility] WHITE BLOOD 6.7 4.5 - 11.0 12/29/2021 [facility] COUNT thou/cu mm 9:55 AM GAS PLANT TECHNICIAN LAB[facility]ATORY[facility] RED BLOOD COUNT 3.97 (L) 4.30 - 12/29/2021 [facility] 5.90 9:55 AM GAS PLANT TECHNICIAN LAB[facility]ATORY[facility] mil/cu mm TRAL LABORATORY HEMOGLOBIN 13.1 (L) 13.5 - 12/29/2021 [facility] 17.5 g/dL 9:55 AM GAS PLANT TECHNICIAN LAB[facility]AT[facility] HEMATOCRIT 38.0 37.0 - 12/29/2021 [facility] 53.0 % 9:55 AM GAS PLANT TECHNICIAN [facility] MCV 96 80 - 100 12/29/2021 [facility] fL 9:55 AM GAS PLANT TECHNICIAN [facility] MCH 33.0 26.0 - 12/29/2021 [facility] 34.0 pg 9:55 AM GAS PLANT TECHNICIAN LAB[facility] TRAL [facility] MCHC 34.5 32.0 - 12/29/2021 [facility] 36.0 g/dL 9:55 AM GAS PLANT TECHNICIAN [facility] TR[facility] RDW 13.1 11.5 - 12/29/2021 [facility] 15.5 % 9:55 AM GAS PLANT TECHNICIAN [facility] PLATELET COUNT 204 140 - 440 12/29/2021 [facility] thou/cu mm 9:55 AM GAS PLANT TECHNICIAN [facility] MPV 9.4 6.5 - 11.0 12/29/2021 [facility] fL 9:55 AM GAS PLANT TECHNICIAN [facility] NRBC 0.0 % 12/29/2021 [facility] 9:55 AM GAS PLANT TECHNICIAN [facility] ABS NRBC 0.0 thou /cu 12/29/2021 [facility] mm 9:55 AM GAS PLANT TECHNICIAN [facility] Specimen Anatomical Collection Method Collection Time Receive d Time (Source) Location / / Volume Laterality Blood BLOOD SPECIMEN / [facility] / 12/29/2021 9:39 AM 12/29 9:47 Unknown Unknown GAS PLANT TECHNICIAN AM GAS PLANT TECHNICIAN Yinka Briscoe MD HEMATOLOGY Performing Organization Address City/State/ZIP Code Phon e Number [facility] [address] [place] [place] [address] LABORATORY-CENTRAL 2000 LABORATORY (ABNORMAL) Basic Metabolic Panel (12/29/2021 9:39 AM GAS PLANT TECHNICIAN) P athologist Signature SODIUM 136 135 - 145 12/29/2021 [facility] mmol/L 10:47 AM GAS PLANT TECHNICIAN [facility] POTASSIUM 3.6 3.5 - 5.0 12/29/2021 [facility] mmol/L 10:47 AM GAS PLANT TECHNICIAN [facility] CHLORIDE 102 98 - 110 12/29/2021 [facility] mmol/L 10:47 AM GAS PLANT TECHNICIAN [facility] CO2,TOTAL 28 21 - 31 12/29/2021 [facility] mmol/L 10:47 AM GAS PLANT TECHNICIAN [facility] ANION GAP 6 5 - 18 12/29/2021 [facility] 10:47 AM GAS PLANT TECHNICIAN [facility] GLUCOSE 99 65 - 100 12/29/2021 [facility] mg/dL 10:47 AM GAS PLANT TECHNICIAN [facility] CALCIUM 9.4 8.5 - 10.5 12/29/2021 [facility] mg/dL 10:47 AM GAS PLANT TECHNICIAN [facility] BUN 26 (H) 8 - 25 12/29/2021 [facility] mg/dL 10:47 AM GAS PLANT TECHNICIAN [facility] CREATININE 1.04 0.72 - 12/29/2021 [facility] 1.25 mg/dL 10:47 AM GAS PLANT TECHNICIAN [facility] BUN/CREAT RATIO 25 (H) 10 - 20 12/29/2021 [facility] 10:47 AM GAS PLANT TECHNICIAN [facility] eGFR 70 (L) >90 12/29/2021 [facility] mL/min/1.7 10:47 AM GAS PLANT TECHNICIAN LABORATORY-[facility] 3m2 TRAL LABORATORY Comment: As of 2021, eGFR is calcu lated by the CKD-EPI creatinine equation without race adjustment. eGFR can be inf luenced by muscle mass, exercise, and diet. The reported eGFR is an estimation only and is only applicable if the renal function is stable. Specimen Anatomical Collection Method Collection Time Receive d Time (Source) Location / / Volume Laterality Blood BLOOD SPECIMEN / [facility] / 12/29/2021 9:39 AM 12/29 9:47 Unknown Unknown GAS PLANT TECHNICIAN AM GAS PLANT TECHNICIAN Yinka Briscoe MD CHEMISTRY Performing Organization Address City/State/ZIP Code Phon e Number [facility] [address] [place] [address] LABORATORY-CENTRAL 2000 LABORATORY (ABNORMAL) TSH (12/02/2021 12:17 PM CDT)Only the most recent of2 resultswithin the time period is included. P athologist Signature TSH 5.26 (H) 0.35 - 4.94 12/03/2021 [facility] uIU/mL 9:21 PM CDT LABORATORY-CENT RAL LABORATORY Specimen Anatomical Collection Method / Collection Time Recei burton Time (Source) Location / Volume Laterality Blood BLOOD SPECIMEN / Venipuncture / 12/02/2021 12:17 12/02 Unknown Unknown PM CDT 12:21 PM CDT Narrative [facility] LABORATORY-CENTRAL LABORAT ORY - 12/03/2021 9:21 PM CDT In Adults, TSH values between 5.00 and 10.00 uIU/ml do not necessarily indicate the presence of Hyp othyroidism. Correlation with clinical findings such as presence of goiter and/or Thyroperoxidase (TPO) Antibody ma y be helpful. For more information please refer to CATHERINE 20 ; 291: [phone]. Yinka Briscoe MD CHEMISTRY Performing Organization Address City/[facility]/ZIP Code Phon e Number [facility] [address] [place] [id number] LABORATORY-CENTRAL [facility] LABORATORY T4,FREE (12/02/2021 12:17 PM CDT)Only the most recent of2 resultswithin the time period is included. athologist Signature T4,FREE 0.93 0.70 - 1.80 12/03/2021 [facility] ng/dL 9:20 PM CDT LABORATORY-[facility] LABORATORY Specimen Anatomical Collection Method / Collection Time Recei burton Time (Source) Location / Volume Laterality Blood BLOOD SPECIMEN / Venipuncture / 12/02/2021 12:17 12/02 Unknown Unknown PM CDT 12:21 PM CDT Yinka Briscoe MD CHEMISTRY Performing Organization Address [facility] Phon e Number [facility] [address] [place] [address] LABORATORY-CENTRAL [facility] LABORATORY (ABNORMAL) AMIODARONE (CORDARONE) (11/24/2021 1:09 PM CDT) [facility] Method Time Signature AMIODARONE 414 (L) [...] City/State/ZIP Code Phon e Number [facility] [address] [place] [address] MR SHOULDER RIGHT WO (11/10/2021 10:06 AM [...] For Patients: ??As a result of the Century Cures Act, medical imaging exams and procedure report s are released immediately into your [facility] medical record. ??You may view this report [...] provider. If you have questions, please contact yo health care provider. HISTORY: Right shoulder pain. [...] MD @ 022 1:44:47 PM (Electronically Signed) Helio Hayden MD MR ECHO COMPLETE WO CONTRAST (11/04/2021 [...] ECHOCARDIOGRAM CRISTIAN STEVENS ? Accessi on#: ?? [id number] : ?1935 86 years Study Date: ?? 11/04/2021 1:39:43 PM Gender: M ?BP: ? 129/64 mmHg Height: 175.00 cm ?BSA: ?1.94 m? ?? Weight: 78.00 kg ? Tech: ? MJJ ? Referring MD: IRAM VILLARREAL Site: ? [facility] Reading Location: MOBILE=-[facility] Procedure: 2D, Color Doppler and Spectra l [...] . This study was interpreted by an [facility] redited facility. CC: [facility], Med/ Surg - IP [facility]. ??Final ?? Procedure Note Drake Tucker MD - 11/04/2021Form atting of this note might be different from the original. ECHOCARDIOGRAM CRISTIAN Adams [facility] : 1935 86 years Study Date: 11/04 1:39:43 PM Gender: M BP: 129/64 mmHg Height: 175.00 cm BSA: 1.94 m? ?? Weight: 78.00 kg Tech: SOTO Referring MD: IRAM VILLARREAL Site: [facility] Reading Location: MOBILE=[facility] Procedure: 2D, Color Doppler and [...] Valve: MVA 2.5 cm? ?? MV P 1/ 89 msec Tricuspid Valve and estimated PA pressur es: TR Vmax 2.3 m/s TAPSE 2.5 cm TR maxG 20 mmHg Pulmonic Valve: PIEDV 0.9 m/s . This study was interpreted by an [facility] redited facility. CC: [facility], Med/ Surg - IP [facility]. Final Iram Villarreal MD ECHO ORD SCAN-CT INTERPRETATION (11/04/2021 12:00 AM CDT) Narrative This result has an attachment that is no t available. Scanner OTHER SCAN-OPERATIVE/PROCEDURE REPORT (10/27/2021 12:00 AM CDT) Narrative This result has an attachment that is no t available. Scanner OTHER COVID 19 (10/10/2021 2:25 PM CDT) Analysis Performed At Patho logist Time Signature COVID 19 Negative Negative 10/12/2021 [facility] 12:42 PM CDT LABORATORY-[facility] MOLECULAR TRAL LABORATORY [...] CDT AM CDT STRUCTURE / Unknown Narrative [facility] LABORATORY-CENTRAL LABORAT ORY - 10/12/2021 12:42 [...] the authorization is terminated or revoked sooner. Helio Hayden MD MICROBIOLOGY Performing Organization Address [facility] Phon e Number [facility] [phone] [place] [address] [place] [address] LABORATORY-CENTRAL 2000 LABORATORY COVID 19 COLLECTION (10/10/2021 2:25 PM CDT) [facility] Method Time Signature TESTING [facility] 10/11/2021 [facility] LABORATORY Laboratory 6:33 AM CDT LABORATORY-CE NTRAL LABORATORY Comment: Specimen submitted to [facility] for testing. Specimen Anatomical Location / Collection Method Collection Roland e Received Time (Source) Laterality / Volume Other SPECIMEN FROM Non-Blood / 10/10/2021 2:25 10/10/2021 3:30 NASOPHARYNGEAL Unknown PM CDT PM CDT STRUCTURE / Unknown Helio Hayden MD SEND OUTS Performing Organization Address [facility] Phon e Number [facility] [phone] [place] [address] [place] [address] LABORATORY-CENTRAL 1999 LABORATORY from Last 3 Months Insurance Payer Benefit Plan / Subscriber ID Effective Phone Address T ype Group Dates WC WORKERS WC WORKERS [id number] Effective for [phone] COMP COMP all dates 00 [phone] [place] [address] MEDICARE PART MEDICARE PART [id number] 2001-Prese ATT N: CLAIMS A - HB USE A HB ONLY nt [address] [place] [address] MEDICARE PART MEDICARE PART [id number] 2001-Prese ATT N: CLAIMS B - HB USE B HB ONLY nt [address] [place] [phone] BLUE CROSS BLUE CROSS [id number] 2016-Prese [address] [address] [place], [place] [id number] BLUE CROSS MR BLUE CROSS [id number] 2016-Prese [address] [address] [place], [place] [id number] Cristian Stevens Workers Comp Self 1935 [address] [facility] (Home) [facility] [phone] [place], [place] (Work) [address] Advance Directives Documents on File Type Date Recorded Patient 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 Explanati on Healthcare Directive 02/04/2021 INCOMPLETE AND RECEIVED, 02/04/2021 Healthcare Directive 11/12/2009 HEALTH CARE DIRECTIVE, 11/12/2009 Latest Code Status on File Code Status Date Activated Date Inactivated Comments Full Code 12/29/2021 12:10 PM 12/29/2021 6:52 PM Code Status Discussion: Reviewed Preferences Full Code 08/17/2020 11:17 AM 08/18/2020 5:17 PM Code Status Discussion: Discussed Full Code 05/24/2018 4:26 PM 05/25/2018 6:39 PM Code Status Discussion: Discussed Full Code 06/27/2017 7:48 AM 06/27/2017 5:34 PM Code Status Discussion: Discussed Full Code 01/15/2012 7:22 AM 01/16/2012 2:23 PM Care Teams Reforestation Worker Relationship Specialty Start Date End Date Helio Hayden MD PCP - General Family Practice 09/06/[address] [place] [address] Catrina Ramos MD Ophthalmology Surgery 12/25/11 Gail Jenkins MD Cardiovascular Disease 12/30/12 [address] [address] [place] Physician 12/30/12
--- OUTSIDE RECORDS SUMMARY | 2022-01-02 13:40 | XMS_ITS | Continuity of Care Document ---
:1935 Author Organization [facility] Care Team Providers Name Role Phone [facility] Unavailable Unavailable Problems Combined list of problems from Department of Defense and [facility] Affairs facilities. It does not include entries that were removed or entered in error. 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 Law Lawson, [facility] Jun 10, 2013 Entered By: FRANCOIS HAMPTON Comment: PCP Dr. Robbins Coronary Artery Active Condition [place] Disease [facility] Gastroesophageal Active Condition [place] reflux disease [facility] S (SNOMED CT [id number]) Hearing Loss, Active Condition [place] Partial * (ICD-9-CM [facility] 389.9) Hyperlipidemia Active Condition [place] (SNOMED CT [facility] [id number]) Hypertension Active Condition [place] (SNOMED CT [facility] [id number]) Insomnia Active [place] [facility] Tinnitus * Active Condition [place] (ICD-9-CM 388.30) [facility] Diagnosis: Active Diagnosis [place] ICD-10-CM I48.91 [facility] Unspecified atrial fibrillationwith Provider Comments: Atrial fibrillation (SCT [id number]) Diagnosis: Active Diagnosis [place] ICD-10-CM F43.20 [facility] Adjustment disorder, unspecifiedwith Provider Comments: Adjustment Disorder, unspecified Diagnosis: Active Diagnosis [place] ICD-10-CM F43.21 [facility] Adjustment disorder with depressed moodwith Provider Comments: Adjustment Disorder with depressed mood Diagnosis: Active Diagnosis [place] ICD-10-CM F51.01 [facility] Primary insomniawith Provider Comments: Insomnia (SCT [id number]) Diagnosis: Active Diagnosis [place] ICD-10-CM Z23 [facility] Encounter for immunizationwith Provider Comments: Encounter for any immunization Diagnosis: Active Diagnosis [place] IS ICD-10-CM Z63.79 [facility] Other stressful life events affecting family [...] Diagnosis: Active Diagnosis [place] IS ICD-10-CM I10 [facility] Essential (primary) hypertensionwith Provider Comments: Hypertension ([facility] [id number]) Medications Combined list of outpatient medications from Department of 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 Medications provided include 1) outpatient medications from the last 15 months, and 2) patient-reported medications. Medication Details Route Status Patient Prescription Prescription Last Ordering Order Source Instructions Expires Number Dispense Provider Date Date APIXABAN TAKE ONE ORALLY ACTIVE 05/07/2022 [id number] RID GEWELL 05/09/ [place] 5MG TAB TABLET 2 ,LEYDA L 2021 [facility] [facility] EVERY 12 HOURS TO PREVENT STROKE DUE TO ATRIAL FIBRILLA TION APIXABAN TAKE ONE ORALLY DISCONT 03/31/2021 [id number] RI DGEWELL 03/30/ [place] 5MG TAB TABLET INUED 1 ,LEYDA L 2020 [place] [facility] EVERY 12 HOURS TO PREVENT STROKE DUE TO ATRIAL FIBRILLA TION ATORVASTATI TAKE ORALLY ACTIVE POLISH,FRANCOIS 06/08/ [place] 20MG ONE-HALF [...] PRN DRONEDARONE TAKE ONE ORALLY DISCONT 06/07/2022 [id number] GLAUSER,N 06/08/ [place] 400MG TAB TABLET INUED [...] EVERY DAY HYDROCHLORO TAKE ONE ORALLY ACTIVE POLISH,FRANCOIS 06/08 / [place] THIAZIDE TABLET C 2014 [...] DAY METOPROLOL TAKE ORALLY ACTIVE GLAUSER,N 12/05/ [place] SUCCINATE ONE-HALF ORA N 2021 [place] [...] TONGUE PRN OMEPRAZOLE TAKE 2 ORALLY ACTIVE POLISH,FRANCOIS M [place] 20MG CAP,EC CAPSULES C 2017 [...] atus Comments Source Given By Number Code Code Number Stamper ZOSTER 2 complet [place] RECOMBINANT 2021 [facility] [place] [facility] 1 complet [place] RECOMBINANT 2020 [facility] [place] [facility] INFLUENZA, complet [place] UNSPECIFIED 2020 ed [place] [facility] FORMULATION [facility] S COVID-19 2 complet [place] ([employer]), 2020 ed [place] [facility] MRNA, LNP-S, H CS PF, 30 MCG/0.3 ML DOSE COVID-19 1 complet [place] ([employer]), 2020 ed [place] [facility] M[facility], LNP-S, H [...] LIVE complet [place] 2002 ed [place] [facility] Results Combined list of recent chemistry, hematology and other laboratory results from Department of Defense and Veterans Affairs, ranging from 15 months to all on record, depending upon the facility. Order Results Value Reference Date Interpretation Specimen Commen ts Source Name Range ALT/SGPT ALANINE 12 <55 - 55 07/13 Specimen Type: PLASMA [place] AMINOTRANSF No comment e ntered. IS [facility] ERASE Ordering Provid er: LEYDA COHEN [ENZYMATIC Report Relea sed Date/Time: July 06, 2021 09:39 AM ACTIVITY/VO Reporting L ab: [facility] HCS LU[place]] IN [address] [facility] [address] SERUM [place] Performing Lab : [facility] PLASMA [place] [address] AST/SGOT ASPARTATE 16 <34 - 34 05/25 Specimen Typ e: PLASMA [place] AMINOTRANSF /2021 No comment e [place]tered. [place] [facility] ERASE Ordering Provid er: LEYDA COHEN [ENZYMATIC Report Relea sed Date/Time: July 06, 2021 09:39 AM ACTIVITY/VO Reporting L ab: [facility] HCS [place]] IN [address] [facility] [address] SERUM [place] Performing Lab : [facility] PLASMA [place] [address] CBC LEUKOCYTES 6.21 4.0 - 11.0 05 Specimen T ype: BLOOD [place] [#/VOLUME] /2021 No comment en tered. [place] [facility] IN BLOOD BY Ordering Pr ovider: LEYDA COHEN AUTOMATED Report Releas ed Date/Time: July 06, 2021 09:39 AM COUNT Reporting Lab: [facility] HCS [address] [facility] [address] Performing Lab: [facility] [place] [address] CBC ERYTHROCYTE 4.06 4.6 - 6.2 05/25 L Specimen T ype: BLOOD [place] S /2021 No comment enter ed. [place] [facility] [#/VOLUME] Ordering Pro vider: LEYDA COHEN IN BLOOD BY Report Rele ased Date/Time: July 06, 2021 09:39 AM AUTOMATED Reporting Lab : [facility] COUNT [address] [facility] [address] Performing Lab: [facility] HCS [address] [facility] [address] CBC HEMOGLOBIN 12.9 13.5 - 05/25 L Specimen Type : BLOOD [place] [MASS/VOLUM 17.9 /2021 No comment e ntered. IS [facility] E] IN BLOOD Ordering Pr ovider: LEYDA COHEN Report Released Date/Time: July 06, 2021 09:39 AM Reporting Lab: [facility] HCS [address] [facility] [address] Performing Lab: [facility] [address] [facility] [address] CBC HEMATOCRIT 39.0 41 - 54 07/13 L Specimen Type : BLOOD [place] [VOLUME /2021 No comment enter ed. [facility] FRACTION] Ordering Prov ider: LEYDA COHEN OF BLOOD BY Report Rele ased Date/Time: July 06, 2021 09:39 AM AUTOMATED Reporting Lab : [facility] HCS COUNT [address] [facility] [address] Performing Lab: [facility] HCS [address] [facility] [address] CBC MCV 96.1 80 - 100 07/13 Specimen Type: BLOOD [place] [ENTITIC /2021 No comment ente red. IS [facility] VOLUME] BY Ordering Pro vider: LEYDA COHEN AUTOMATED Report Releas ed Date/Time: July 06, 2021 09:39 AM COUNT Reporting Lab: [facility] HCS [address] [facility] [address] Performing Lab: [facility] HCS [address] [facility] [address] CBC MCH 31.8 27 - 33 07/13 Specimen Type: B LOOD [place] [ENTITIC /2021 No comment ente red. [facility] MASS] BY Ordering Provi michael: LEYDA COHEN AUTOMATED Report Releas ed Date/Time: July 06, 2021 09:39 AM COUNT Reporting Lab: [facility] HCS [address] [facility] [address] Performing Lab: [facility] HCS [address] [facility] [address] CBC MCHC 33.1 32.0 - 07/13 Specimen Type: B LOOD [place] [MASS/VOLUM 37.5 /2021 No comment e [facility]tered. [facility] E] BY Ordering Provid er: LEYDA COHEN AUTOMATED Report Releas ed Date/Time: July 06, 2021 09:39 AM COUNT Reporting Lab: [facility] HCS [address] [facility] [address] Performing Lab: [facility] HCS [address] [facility] [address] CBC PLATELETS 238 150 - 400 07/13 Specimen Typ e: BLOOD [place] [#/VOLUME] /2021 No comment [facility] tered. [facility] [place]LOOD BY Ordering Pr ovider: LEYDA COHEN AUTOMATED Report Releas ed Date/Time: July 06, 2021 09:39 AM COUNT Reporting Lab: [facility] [address] [place] [address] Performing Lab: [facility] [address] [place] [address] CBC PLATELET 9.2 7.4 - 10.4 07/13 Specimen Typ e: BLOOD [place] MEAN VOLUME /2021 No comment e ntered. IS [facility] [ENTITIC Ordering Provi michael: LEYDA COHEN VOLUME] IN Report Relea sed Date/Time: July 06, 2021 09:39 AM BLOOD BY Reporting Lab: [facility] AUTOMATED [address] [place] [address] COUNT Performing Lab: [facility] [address] [place] [address] CBC ERYTHROCYTE 12.9 11.5 - 07/13 Specimen Typ e: BLOOD [place] DISTRIBUTIO 14.5 No comment e ntered. IS [facility] N WIDTH Ordering Provid er: LEYDA COHEN [RATIO] BY Report Relea sed Date/Time: July 06, 2021 09:39 AM AUTOMATED Reporting Lab : [facility] [place] [address] Performing Lab: [facility] [place] [address] CREATININ CREATININE 0.9 0.7 - 1.2 07/13 Specimen Type: PLASMA [place] E(INCLUDE [MASS/VOLUM /2021 No comment entered. IS [facility] S EGFR) E] IN SERUM Ordering Pr ovider: LEYDA COHEN OR PLASMA Report Releas ed Date/Time: July 06, 2021 09:39 AM Reporting Lab: [facility] [address] [place] [address] Performing Lab: [facility] [place] [address] CREATININ CREAT 84 60 07/13 Specimen Type: PLASMA [place] E(INCLUDE EGFR(CKD-EP /2021 No comment entered. IS [facility] S EGFR) I) Ordering Provid er: LEYDA COHEN Report Released Date/Time: July 06, 2021 09:39 AM Reporting Lab: [facility] [address] [place] [address] Performing Lab: [facility] [address] [place] [address] BASIC CREATININE 0.9 0.7 - 1.2 01/03 Specimen Ty pe: PLASMA [place] METABOLIC [MASS/VOLUM /2020 No comment entered. IS [facility] PANEL+MG E] IN SERUM Ordering P rovider: DERRICK GEORGE [place] PLASMA Report Releas ed Date/Time: Dec 24, 2019 02:11 PM Reporting Lab: [facility] [address] [facility] [address] [place] [address] Performing Lab: [facility] [address] [place] [address] BASIC UREA 21 8 - 26 01/03 Specimen Type: P LASMA [place] METABOLIC NITROGEN /2020 No comment en tered. IS [facility] PANEL+MG [MASS/VOLUM Ordering P rovider: DERRICK GEORGE E] IN SERUM Report Rele ased Date/Time: Dec 24, 2019 02:11 PM [place] PLASMA Reporting Lab : [facility] [place] [place] [address] Performing Lab: [facility] [place] [place] [address] BASIC GLUCOSE 101 74 - 100 01/03 H Specimen Type: PLASMA [place] METABOLIC [MASS/VOLUM /2020 No comment entered. IS [facility] PANEL+MG E] IN SERUM Ordering P rovider: DERRICK GEORGE [place] PLASMA Report Releas ed Date/Time: Dec 24, 2019 02:11 PM Reporting Lab: [facility] [place] [place] [address] Performing Lab: [facility] [place] [place] [address] BASIC SODIUM 140 136 - 145 01/03 Specimen Type: PLASMA [place] METABOLIC [MOLES/VOLU /2020 No comment entered. IS [facility] PANEL+MG ME] IN Ordering Provi michael: DERRICK GEORGE SERUM [place] Report Release d Date/Time: Dec 24, 2019 02:11 PM PLASMA Reporting Lab: [facility] [place] [place] [address] Performing Lab: [facility] [place] [place] [address] BASIC POTASSIUM 3.7 3.5 - 5.1 01/03 Specimen Typ e: PLASMA [place] METABOLIC [MOLES/VOLU /2020 No comment entered. IS [facility] PANEL+MG ME] IN Ordering Provi michael: DERRICK GEORGE SERUM [place] Report Release d Date/Time: Dec 24, 2019 02:11 PM PLASMA Reporting Lab: [facility] [address] [place] [address] Performing Lab: [facility] [address] [place] [address] BASIC CHLORIDE 107 98 - 107 01/03 Specimen Type: PLASMA [place] METABOLIC [MOLES/VOLU /2020 No comment entered. IS [facility] PANEL+MG ME] IN Ordering Provi michael: DERRICK GEORGE SERUM [place] Report Release d Date/Time: Dec 24, 2019 02:11 PM PLASMA Reporting Lab: [facility] [address] [place] [address] Performing Lab: [facility] [address] [place] [address] BASIC CARBON 26 22 - 29 01/03 Specimen Type: P LASMA [place] METABOLIC DIOXIDE, No comment en tered. IS [facility] PANEL+MG TOTAL Ordering Provi michael: DERRICK GEORGE [MOLES/VOLU Report Rele ased Date/Time: Dec 24, 2019 02:11 PM ME] IN Reporting Lab: [facility] SERUM [place] [address] [facility] [address] PLASMA Performing Lab: [facility] ONE [facility] [place] [address] BASIC CALCIUM 9.4 8.4 - 10.2 01/03 Specimen Type : PLASMA [place] METABOLIC [MASS/VOLUM No comment entered. IS [facility] PANEL+MG E] IN SERUM Ordering P rovider: DERRICK GEORGE [place] PLASMA Report Releas ed Date/Time: Dec 24, 2019 02:11 PM Reporting Lab: [facility] [address] [facility] [place] [address] Performing Lab: [facility] [place] [address] BASIC MAGNESIUM 2.0 1.6 - 2.6 01/03 Specimen Typ e: PLASMA [place] METABOLIC [MASS/VOLUM No comment entered. IS [facility] PANEL+MG E] IN SERUM Ordering P rovider: DERRICK GEORGE [place] PLASMA Report Releas ed Date/Time: Dec 24, 2019 02:11 PM Reporting Lab: [facility] [place] [address] Performing Lab: [facility] [address] [place] [address] BASIC ANION GAP 7 5 - 15 01/03 Specimen Type: PLASMA [place] METABOLIC IN SERUM OR No comment entered. IS [facility] PANEL+MG PLASMA Ordering Provi michael: TRAUT,DERRICK L Report Released Date/Time: Dec 24, 2019 02:11 PM Reporting Lab: [facility] HCS [place] [address] Performing Lab: [facility] [address] [place] [address] BASIC GLOMERULAR 80 60 01/03 Specimen Type : PLASMA [place] METABOLIC FILTRATION /2020 No comment entered. IS [facility] PANEL+MG RATE/1.73 Ordering Pro vider: DERRICK GEORGE SQ Report Released Date/Time: Dec 24, 2019 02:11 PM M.PREDICTED Reporting L ab: [facility] HCS [VOLUME [place] [address] RATE/AREA] Performing L ab: [facility] HCS IN [place], [address] [facility] [address] PLASMA [place] BLOOD BY CREATININE- BASED FORMULA (CKD-EPI) CBC LEUKOCYTES 8.11 4.0 - 11.0 01/03 Specimen T ype: BLOOD [place] [#/VOLUME] /2020 No comment en tered. IS [facility] IN BLOOD BY Ordering Pr ovider: DERRICK GEORGE AUTOMATED Report Releas ed Date/Time: Dec 24, 2019 02:11 PM COUNT Reporting Lab: [facility] [place] [address] Performing Lab: [facility] [place] [address] CBC ERYTHROCYTE 4.21 4.6 - 6.2 01/03 L Specimen T ype: BLOOD [place] S /2020 No comment enter ed. [place] [facility] [#/VOLUME] Ordering Pro vider: DERRICK GEORGE IN BLOOD BY Report Rele ased Date/Time: Dec 24, 2019 02:11 PM AUTOMATED Reporting Lab : [facility] [place] [address] Performing Lab: [facility] [place] [address] CBC HEMOGLOBIN 13.6 13.5 - 01/03 Specimen Type : BLOOD [place] [MASS/VOLUM 17.9 /2020 No comment e ntered. [place] [facility] E] IN BLOOD Ordering Pr ovider: DERRICK GEORGE Report Released Date/Time: Dec 24, 2019 02:11 PM Reporting Lab: [facility] [place] [address] Performing Lab: [facility] [address] [place] [facility] [address] CBC HEMATOCRIT 41.5 41 - 54 01/03 Specimen Type : BLOOD [place] [VOLUME /2020 No comment enter ed. [facility] FRACTION] Ordering Prov ider: DERRICK GEORGE OF BLOOD BY Report Rele ased Date/Time: Dec 24, 2019 02:11 PM AUTOMATED Reporting Lab : [facility] HCS [place] [address] Performing Lab: [facility]CS [place] [address] CBC MCV 98.6 80 - 100 01/03 Specimen Type: BLOOD [place] [ENTITIC /2020 No comment ente red. [facility] VOLUME] BY Ordering Pro vider: DERRICK GEORGE AUTOMATED Report Releas ed Date/Time: Dec 24, 2019 02:11 PM COUNT Reporting Lab: [facility] HCS [place] [address] Performing Lab: [facility] [place] [address] CBC MCH 32.3 27 - 33 01/03 Specimen Type: B LOOD [place] [ENTITIC /2020 No comment ente red. [facility] MASS] BY Ordering Provi michael: DERRICK GEORGE AUTOMATED Report Releas ed Date/Time: Dec 24, 2019 02:11 PM COUNT Reporting Lab: [facility] HCS [place] [address] Performing Lab: [facility] [place] [address] CBC MCHC 32.8 32.0 - 01/03 Specimen Type: B LOOD [place] [MASS/VOLUM 37.5 /2020 No comment e [facility]tered. [facility] E] BY Ordering Provid er: DERRICK GEORGE AUTOMATED Report Releas ed Date/Time: Dec 24, 2019 02:11 PM COUNT Reporting Lab: [facility] HCS [place] [address] Performing Lab: [facility] HCS [address] [facility] [address] CBC PLATELETS 204 150 - 400 01/03 Specimen Typ e: BLOOD [place] [#/VOLUME] /2020 No comment en tered. [place] [facility] IN BLOOD BY Ordering Pr ovider: DERRICK GEORGE AUTOMATED Report Releas ed Date/Time: Dec 24, 2019 02:11 PM COUNT Reporting Lab: [facility] HCS [address] [facility] [address] Performing Lab: [facility] [place] [address] CBC PLATELET 9.3 7.4 - 10.4 01/03 Specimen Typ e: BLOOD [place] MEAN VOLUME /2020 No comment e ntered. IS [facility] [ENTITIC Ordering Provi michael: DERRICK GEORGE L VOLUME] IN Report Relea sed Date/Time: Dec 24, 2019 02:11 PM BLOOD BY Reporting Lab: [facility] AUTOMATED [address] [facility] [address] COUNT Performing Lab: [facility] [address] [facility] [address] CBC ERYTHROCYTE 13.1 11.5 - 01/03 Specimen Typ e: BLOOD [place] DISTRIBUTIO 14.5 No comment e ntered. IS [facility] N WIDTH Ordering Provid er: DERRICK GEORGE L [RATIO] BY Report Relea sed Date/Time: Dec 24, 2019 02:11 PM AUTOMATED Reporting Lab : [facility] COUNT [address] [facility] [address] Performing Lab: [facility] [address] [facility] [address] LIPID CHOLESTEROL 121 <199 - 199 01/03 Specimen Type: PLASMA [place] PANEL,NON [MASS/VOLUM /2020 No comment entered. IS [facility] E] IN SERUM Ordering P rovider: ODRISDERRICK L OR PLASMA Report Releas ed Date/Time: Dec 24, 2019 02:11 PM Reporting Lab: [facility] [place] [address] Performing Lab: [facility] [place] [address] LIPID CHOLESTEROL 46 40 01/03 Specimen Typ e: PLASMA [place] PANEL,NON IN HDL /2020 No comment ent ered. IS [facility] [MASS/VOLUM Ordering P rovider: DORISDERRICK L E] IN SERUM Report Rele ased Date/Time: Dec 24, 2019 02:11 PM [place] PLASMA Reporting Lab : [facility] [address] [facility] [address] Performing Lab: [facility] [address] [facility] [address] LIPID CHOLESTEROL 58 <99 - 99 01/03 Specimen Ty pe: PLASMA [place] PANEL,NON IN LDL /2020 No comment ent ered. IS [facility] [MASS/VOLUM Ordering P rovider: TRAUTDERRICK L E] IN SERUM Report Rele ased Date/Time: Dec 24, 2019 02:11 PM [place] PLASMA Reporting Lab : [facility] BY [address] [place] [address] CALCULATION Performing Lab: [facility] [address] [place] [address] LIPID CHOLESTEROL 17 <29 - 29 01/03 Specimen Ty pe: PLASMA [place] PANEL,NON IN VLDL /2020 No comment ent ered. IS [facility] [MASS/VOLUM Ordering P rovider: DERRICK GEORGE] IN SERUM Report Rele ased Date/Time: Dec 24, 2019 02:11 PM [place] PLASMA Reporting Lab : [facility] BY [address] [place] [address] CALCULATION Performing Lab: [facility] [address] [place] [address] LIPID CHOLESTEROL 75 <129 - 129 01/03 Specimen Type: PLASMA [place] PANEL,NON NON HDL /2020 No comment ent ered. IS [facility] [MASS/VOLUM Ordering P rovider: DERRICK GEORGE E] IN SERUM Report Rele ased Date/Time: Dec 24, 2019 02:11 PM [place] PLASMA Reporting Lab : [facility] [address] [place] [address] Performing Lab: [facility] [address] [place] [address] LIPID TRIGLYCERID 87 <149 - 149 01/03 Specimen Type: PLASMA [place] PANEL,NON E /2020 No comment ent ered. IS [facility] [MASS/VOLUM Ordering P rovider: DERRICK GEORGE E] IN SERUM Report Rele ased Date/Time: Dec 24, 2019 02:11 PM [place] PLASMA Reporting Lab : [facility] [address] [place] [address] Performing Lab: [facility] [address] [place] [address] Vital Signs Combined list of inpatient and outpatient Vital Signs from Department of Defense and Veterans Affairs, ranging from 12 months to all on record, depending upon the facility. Vital Sign Value Date Comments Source SYSTOLIC BLOOD PRESSURE 168 01/03/2021 10:34:11 [facility] DIASTOLIC BLOOD PRESSURE 69 01/03/2021 10:34:11 [facility] PULSE OXIMETRY 97% 01/03/2021 10:34:11 [facility] WEIGHT 175.8 01/03/2021 10:34:11 [place] [facility] BMI 26kg/m2 01/03/2021 10:34:11 [facility] [facility] PAIN 4 01/03/2021 10:34:11 [place] [facility] TEMPERATURE 97.2 01/03/2021 10:34:11 [place] [facility] PULSE 63 01/03/2021 10:34:11 [place] [facility] RESPIRATION 18 01/03/2021 10:34:11 [place] [facility] Encounters Combined list of: 1) Encounters from Department of Veterans Affairs facilities going back up to the last 18 months. 2) Encounters from the Department of Defense facilities going back up to 280 months. Location Location Encounter Encounter Reason Attending ADM HI Stat us Disposition Source Details Type Number For Provider Date Date Visit Outpatient [id number] 06/ [facility] [facility] En[facility] [id number] /2020 [facility] Outpatient [id number] 08/18 [place] [facility] Encounter [id number] /2020 [facility] Outpatient [id number] 09/14 [place] Encounter [id number] /2020 [facility] Outpatient [id number] 10/ [place] [facility] Encounter [id number] /2020 [facility] Outpatient [id number] 10/ [place] Encounter [id number] /2020 [facility] OFFICE O/P [id number] [facility] [place] [place] MOD [id number] is: DEMETRIO L /2020 [place] 30-39 MIN ICD-10- HCS CM I10 Essenti al (primar y) hyperte nsion<b r/>with Provide r Comment s: Hyperte nsion (SCT 5394307 3) [place] [address]-7.61 Diagnos SKROCH,ALLISON 01/24 [place] 30 MINUTES [id number] is: ET A /2020 [place] ICD-10- HCS CM Z71.1 Person w feared hlth complai nt in whom no diagnos is is made
with Provide r Comment s: Person with Feared Health Complai nt in whom no [place] [address]-1.61 Diagnos SKROCH,ALLISON 02/07 [place] 30 MINUTES [id number] is: ET A [place] ICD-10- HCS CM Z60.0 Problem s of adjustm ent to life-cy radha transit ions
with Provide r Comment s: Problem s of Adjustm ent to Life-[place] [address]-6.61 Diagnos [facility],03/08 [place] 30 MINUTES [id number] is: ET A [place] ICD-10- HCS CM Z63.79 Other stressf ul life events affecti ng family and househo ld
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
w ith Provide r Comment s: Insomni a (SCT 8572040 ) [place] [address]-9.61 Diagnos [facility],05/06 [place] 30 MINUTES [id number] is: ET A [place] ICD-10- HCS CM F43.21 Adjustm ent disorde r with depress ed mood
with Provide r Comment s: Adjustm ent Disorde r with depress ed mood Outpatient 22097-805/13 [place] En[place] [id number] /2022 [facility] 38866-0.05/16 [place] En[place] [id number] /2022 [facility] 33957-005/19 [place] Encounter [id number] /2022 [facility] 51311-3 Diagnos ALEX[place]RIA JAMIL 06/06 [place] Encounter [id number] is: RA N /2021 [facility] ICD-10- HCS CM I48.91 Unspeci fied atrial fibrill ation<b r/>with Provide r Comment s: Atrial fibrill ation (SCT 8997611 4) Outpatient 83641-9.61 06/06 [place] Encounter [id number] /2021 [facility] [place] [address]-1.61 Diagnos EVA, 06/06 [place] DIG [id number] is: SABINE K /2021 [facility] ASSMT&MGMT ICD-10- HCS 5-10 CM I48.91 Unspeci fied atrial fibrill ation<b r/>with Provide r Comment s: Atrial fibrill ation (SCT 7058483 4) [place] [address]-6.61 Diagnos SKROCH,ALLISON 06/17 [place] 30 MINUTES [id number] is: ET A /2021 [facility] ICD-10- HCS CM F43.20 Adjustm ent disorde r, unspeci fied
with Provide r Comment s: Adjustm ent Disorde r, unspeci fied Outpatient 11970-2.61 07/06 [place] Encounter [id number] /2021 [facility] Outpatient 18108-9.61 10/18 [place] En[place] [id number] /2021 [facility] Outpatient 33976-8.61 Diagnos GLAUSER,NO 12/05 [place] Encounter [id number] is: RA N /2021 [facility] ICD-10- HCS CM I48.91 Unspeci fied atrial fibrill ation<b r/>with Provide r Comment s: Atrial fibrill ation (SCT 0192036 4) Social History Combined list of available smoking, tobacco, and other social history 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 Social History Type Response Date Comment Source Tobacco smoking status VA-TOBACCO FORMER USER 01/03/2021 [facility] History of tobacco use VA-TOBACCO QUIT 15 YRS 01/03/2021 [facility] HCS OR MORE History of tobacco use VA-TOBACCO QUIT 15 YRS 06/20/2018 [facility] OR MORE History of tobacco use FORMER TOBACCO USER 7Y 07/09/2017 [facility] OR GREATER History of tobacco use FORMER TOBACCO USER 7Y 07/07/2016 [facility] History of tobacco use FORMER TOBACCO USER 7Y 06/21/2015 [facility] History of tobacco use FORMER TOBACCO USER 7Y 06/08/2014 [facility] History of tobacco use LIFETIME NON-TOBACCO 06/10/2013 [facility] USER History of tobacco use FORMER TOBACCO USER 7Y 08/03/2011 [facility] Plan of Care List of future care activities from [facility] facilities. Additional future care activities may be listed in the Assessment and Plan section. Date/Time Care Activity Care Activity Detail Facility 01/05/2022 [facility] Advance Directives List of completed, amended, or rescinded Advance Directives on record at [facility] facilities. An actual copy of the Directive is not included. Date Advance Directive Provider Source 06/19/2013 ADVANCE DIRECTIVE DISCUSSION KENDALL SERRANO [facility]
[2022-01-02 13:41] LABS: Basophils Absolute Auto 0.06 K/uL (0.00-0.30); Basophils Percent Auto 0.9 % (0.0-3.0); Eosinophils Percent Auto 7.2 % (0.0-7.0); Hematocrit 38.1 % (37.0-53.0); Hemoglobin* 12.9 gm/dL (13.5-17.5); Immature Granulocytes Abs Auto 0.06 K/uL (0.00-0.30); Immature Granulocytes Pct Auto 0.9 %; Lymphocytes Absolute Auto 1.37 K/uL (0.90-2.90); Lymphocytes Percent Auto 21.4 % (20-44); Mean Corpuscular HGB Conc 34 gm/dL (32-36); Mean Corpuscular Hemoglobin 33 pg (26-34); Mean Corpuscular Volume 97 fL (80-100); Monocytes Percent Auto 12.5 % (0.0-11.0); Neutrophils Absolute Auto 3.65 K/uL (1.7-7.0); Neutrophils Percent Auto 57.1 % (42.0-72.0); Platelet Count* 177 K/uL (140-440); Red Blood Count 3.94 m/uL (4.30-5.90)
[2022-01-02 13:44] LABS: Slide Review Reflex No
[2022-01-02 14:03] LABS: Chloride* 101 mmol/L (96-114); Sodium* 138 mmol/L (135-149)
[2022-01-02 14:04] LABS: Potassium* 4.2 mmol/L (3.6-5.1)
[2022-01-02 14:06] LABS: Carbon Dioxide* 28 mmol/L (20-32); Est. Creatinine Clearance* 54.01; Estimated Glomerular Filt Rate 74 ml/min
[2022-01-02 14:07] LABS: Blood Urea Nitrogen* 29 mg/dL (7-30); Calcium* 9.1 mg/dL (8.4-10.6); Glucose* 98 mg/dL (60-115)
--- NOTE | 2022-01-02 16:30 | ED.NURSE ---
Pt requesting food/drink. Okayed with and toni ordered. Pt also requesting night meds (sotalol and eliquist 5 mg). Pt unsure of dosage of sotalol.
[2022-01-02 17:18] LABS: SARS PCR* Negative SARS-CoV-2 (Negative)
[2022-01-02] MEDS: APIXABAN 5 MG TABLET PO (17:51)
[2022-01-02] MEDS: SOTALOL HCL 80 MG TABLET PO (17:51)
--- NOTE | 2022-01-02 19:38 | ED.NURSE ---
Pt accepted at [facility] (Cardiovascular Floor, [address], Room 5214) by Dr. Daniel. Handoff report given to SHELDON Valiente. Call to dispatch for transportation.
== END 2022-01-02 20:16 | disposition short-term general hospital (02) ==
PROVIDERS: Emergency Provider Emergency Medicine Emergency Medical Services; PCP Surgery
DX: I20.8 Other forms of angina pectoris (principal); I10 Essential (primary) hypertension
CPT/HCPCS: 36415; 80048; 85025; 87635; 93005; 93308; 99285; A9270

== ENCOUNTER 2022-01-02 20:14 | Outpatient (CLI) | payer MEDICARE, BC, SELFPAY ==
--- OUTSIDE RECORDS SUMMARY | 2022-01-17 10:46 | XMS_ITS | Continuity of Care Document ---
:1935 Author Organization [facility] Care Team Providers Name Role Phone [facility] Unavailable Unavailable Problems Combined list of problems from Department of Defense and [facility] Affairs facilities. It does not include entries that were removed or entered in error. 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 Law Lawson, [facility] Jun 10, 2013 Entered By: FRANCOIS HAMPTON Comment: PCP Dr. Robbins Coronary Artery Active Condition [place] Disease [facility] Gastroesophageal Active Condition [place] reflux disease [facility] S (SNOMED CT 582454165) Hearing Loss, Active Condition [place] Partial * (ICD-9-CM [facility] 389.9) Hyperlipidemia Active Condition [place] (SNOMED CT [facility] [id number]) Hypertension Active Condition [place] (SNOMED CT [facility] [id number]) Insomnia Active [place] [facility] Tinnitus * Active Condition [place] (ICD-9-CM 388.30) [facility] Diagnosis: Active Diagnosis [place] ICD-10-CM I48.91 [facility] Unspecified atrial fibrillationwith Provider Comments: Atrial fibrillation (SCT [id number]) Diagnosis: Active Diagnosis [place] ICD-10-CM F43.20 [facility] Adjustment disorder, unspecifiedwith Provider Comments: Adjustment Disorder, unspecified Diagnosis: Active Diagnosis [place] ICD-10-CM F43.21 [facility] Adjustment disorder with depressed moodwith Provider Comments: Adjustment Disorder with depressed mood Diagnosis: Active Diagnosis [place] ICD-10-CM F51.01 [facility] Primary insomniawith Provider Comments: Insomnia (SCT 803261841) Diagnosis: Active Diagnosis [place] ICD-10-CM Z23 [facility] Encounter for immunizationwith Provider Comments: Encounter for any immunization Diagnosis: Active Diagnosis [place] IS ICD-10-CM Z63.79 [facility] Other stressful life events affecting [...] Diagnosis: Active Diagnosis [place] IS ICD-10-CM I10 [facility] Essential (primary) hypertensionwith Provider Comments: Hypertension ([facility] [id number]) Medications Combined list of outpatient medications from Department of 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 Medications provided include 1) outpatient medications from the last 15 months, and 2) patient-reported medications. Medication Details Route Status Patient Prescription Prescription Last Ordering Order Source Instructions Expires Number Dispense Provider Date Date APIXABAN TAKE ONE ORALLY ACTIVE 05/07/2022 [id number] RID GEWELL 05/09/ [place] 5MG TAB TABLET 2 ,LEYDA L 2021 [facility] [facility] EVERY 12 HOURS TO PREVENT STROKE DUE TO ATRIAL FIBRILLA TION APIXABAN TAKE ONE ORALLY DISCONT 03/31/2021 [id number] RI DGEWELL 03/30/ [place] 5MG TAB TABLET INUED 1 ,LEYDA L 2020 [place] [facility] EVERY 12 HOURS TO PREVENT STROKE DUE TO ATRIAL FIBRILLA TION ATORVASTATI TAKE ORALLY ACTIVE INDONESIAN,FRANCOIS 06/08/ [place] 20MG ONE-HALF [...] PRN DRONEDARONE TAKE ONE ORALLY DISCONT 06/07/2022 [id number] GLAUSER,N 06/08/ [place] 400MG TAB TABLET INUED [...] EVERY DAY HYDROCHLORO TAKE ONE ORALLY ACTIVE INDONESIAN,FRANCOIS 06/08 / [place] THIAZIDE TABLET C 2014 [...] DAY METOPROLOL TAKE ORALLY ACTIVE GLAUSER,N 12/05/ [place] SUCCINATE ONE-HALF ORA N 2021 [place] [...] TONGUE PRN OMEPRAZOLE TAKE 2 ORALLY ACTIVE INDONESIAN,FRANCOIS M [place] 20MG CAP,EC CAPSULES C 2017 [...] atus Comments Source Given By Number Code Costume Shop Coordinator ZOSTER 2 complet [place] RECOMBINANT 2021 [facility] [place] [facility] 1 complet [place] RECOMBINANT 2020 [place] [facility] INFLUENZA, complet [place] UNSPECIFIED 2020 [place] [facility] FORMULATION [facility] S COVID-19 2 complet [place] (eduFire), 2020 ed [place] [facility] MRNA, LNP-S, H CS PF, 30 MCG/0.3 ML DOSE COVID-19 1 complet [place] (eduFire), 2020 ed [place] [facility] MRNA, LNP-S, H [...] 2021 09:39 AM ACTIVITY/VO Reporting L ab: [facility] LUME] IN [address] [place] [facility] [address] SERUM OR Performing Lab : [facility] [place] [address] AST/SGOT ASPARTATE 16 <34 - 34 05/25 Specimen Typ e: PLASMA [place] AMINOTRANSF /2021 No comment e ntered. [place] [facility] ERASE Ordering Provid er: LEYDA COHEN [ENZYMATIC Report Relea sed Date/Time: July 06, 2021 09:39 AM ACTIVITY/VO Reporting L ab: [facility] LUME] IN [address] [place] [facility] [address] SERUM OR Performing Lab : [facility] [place] [address] CBC LEUKOCYTES 6.21 4.0 - 11.0 05 Specimen T ype: BLOOD [place] [#/VOLUME] /2021 No comment en tered. [place] [facility] IN BLOOD BY Ordering Pr ovider: LEYDA COHEN AUTOMATED Report Releas ed Date/Time: July 06, 2021 09:39 AM COUNT Reporting Lab: [facility] [address] [place] [facility] [address] Performing Lab: [facility] [place] [address] CBC ERYTHROCYTE 4.06 4.6 - 6.2 05/25 L Specimen T ype: BLOOD [place] S /2021 No comment enter ed. [place] [facility] [#/VOLUME] Ordering Pro vider: LEYDA COHEN IN BLOOD BY Report Rele ased Date/Time: July 06, 2021 09:39 AM AUTOMATED Reporting Lab : [facility] COUNT [address] [place] [facility] [address] Performing Lab: [facility] [address] [place] [facility] [address] CBC HEMOGLOBIN 12.9 13.5 - 05/25 L Specimen Type : BLOOD [place] [MASS/VOLUM 17.9 /2021 No comment e ntered. IS [facility] E] IN BLOOD Ordering Pr ovider: LEYDA COHEN Report Released Date/Time: July 06, 2021 09:39 AM Reporting Lab: [facility] [address] [place] [facility] [address] Performing Lab: [facility] [address] [place] [facility] [address] CBC HEMATOCRIT 39.0 41 - 54 07/13 L Specimen Type : BLOOD [place] [VOLUME /2021 No comment enter ed. IS [facility] FRACTION] Ordering Prov ider: LEYDA COHEN OF BLOOD BY Report Rele ased Date/Time: July 06, 2021 09:39 AM AUTOMATED Reporting Lab : [facility] COUNT [address] [place] [facility] [address] Performing Lab: [facility] [address] [place] [facility] [address] CBC MCV 96.1 80 - 100 07/13 Specimen Type: BLOOD [place] [ENTITIC /2021 No comment ente red. IS [facility] VOLUME] BY Ordering Pro vider: LEYDA COHEN AUTOMATED Report Releas ed Date/Time: July 06, 2021 09:39 AM COUNT Reporting Lab: [facility] [address] [place] [facility] [address] Performing Lab: [facility] [address] [place] [facility] [address] CBC MCH 31.8 27 - 33 07/13 Specimen Type: B LOOD [place] [ENTITIC /2021 No comment ente red. IS [facility] MASS] BY Ordering Provi michael: LEYDA COHEN AUTOMATED Report Releas ed Date/Time: July 06, 2021 09:39 AM COUNT Reporting Lab: [facility] [address] [place] [facility] [address] Performing Lab: [facility] [address] [place] [facility] [address] CBC MCHC 33.1 32.0 - 07/13 Specimen Type: B LOOD [place] [MASS/VOLUM 37.5 /2021 No comment e ntered. IS [facility] E] BY Ordering Provid er: LEYDA COHEN AUTOMATED Report Releas ed Date/Time: July 06, 2021 09:39 AM COUNT Reporting Lab: [facility] [address] [place] [facility] [address] Performing Lab: [facility] [address] [place] [facility] [address] CBC PLATELETS 238 150 - 400 07/13 Specimen Typ e: BLOOD [place] [#/VOLUME] /2021 No comment en tered. [facility] IN [facility]LOOD BY Ordering Pr ovider: LEYDA COHEN AUTOMATED Report Releas ed Date/Time: July 06, 2021 09:39 AM COUNT Reporting Lab: [facility] [address] [place] [address] Performing Lab: [facility] [address] [place] [address] CBC PLATELET 9.2 7.4 - 10.4 07/13 Specimen Typ e: BLOOD [place] MEAN VOLUME /2021 No comment e ntered. IS [facility] [ENTITIC Ordering Provi michael: LEYDA COHEN VOLUME] IN Report Relea sed Date/Time: July 06, 2021 09:39 AM BLOOD BY Reporting Lab: [facility] AUTOMATED [address] [place] [facility] [address] COUNT Performing Lab: [facility] [address] [place] [address] CBC ERYTHROCYTE 12.9 11.5 - 07/13 Specimen Typ e: BLOOD [place] DISTRIBUTIO 14.5 No comment e ntered. IS [facility] N WIDTH Ordering Provid er: LEYDA COHEN [RATIO] BY Report Relea sed Date/Time: July 06, 2021 09:39 AM AUTOMATED Reporting Lab : [facility] [place] [address] Performing Lab: [facility] [place] [address] CREATININ CREATININE 0.9 0.7 - 1.2 07/13 Specimen Type: PLASMA [place] E(INCLUDE [MASS/VOLUM /2021 No comment entered. IS [facility] S EGFR) E] IN SERUM Ordering Pr ovider: LEYDA COHEN OR PLASMA Report Releas ed Date/Time: July 06, 2021 09:39 AM Reporting Lab: [facility] [address] [place] [address] Performing Lab: [facility] [place] [address] CREATININ CREAT 84 60 07/13 Specimen Type: PLASMA [place] E(INCLUDE EGFR(CKD-EP /2021 No comment entered. IS [facility] S EGFR) I) Ordering Provid er: LEYDA COHEN Report Released Date/Time: July 06, 2021 09:39 AM Reporting Lab: [facility] [address] [place] [address] Performing Lab: [facility] [address] [place] [address] BASIC CREATININE 0.9 0.7 - 1.2 01/03 Specimen Ty pe: PLASMA [place] METABOLIC [MASS/VOLUM /2020 No comment entered. IS [facility] PANEL+MG E] IN SERUM Ordering P rovider: DERRICK GEORGE OR PLASMA Report Releas ed Date/Time: Dec 24, 2019 02:11 PM Reporting Lab: [facility] [address] [facility] [address] [place] [address] Performing Lab: [facility] [address] [place] [address] BASIC UREA 21 8 - 26 01/03 Specimen Type: P LASMA [place] METABOLIC NITROGEN /2020 No comment en tered. IS [facility] PANEL+MG [MASS/VOLUM Ordering P rovider: DERRICK GEORGE E] IN SERUM Report Rele ased Date/Time: Dec 24, 2019 02:11 PM OR PLASMA Reporting Lab : [facility] [place] [address] Performing Lab: [facility] [place] [address] BASIC GLUCOSE 101 74 - 100 01/03 H Specimen Type: PLASMA [place] METABOLIC [MASS/VOLUM /2020 No comment entered. IS [facility] PANEL+MG E] IN SERUM Ordering P rovider: DERRICK GEORGE OR PLASMA Report Releas ed Date/Time: Dec 24, 2019 02:11 PM Reporting Lab: [facility] [place] [address] Performing Lab: [facility] [place] [address] BASIC SODIUM 140 136 - 145 01/03 Specimen Type: PLASMA [place] METABOLIC [MOLES/VOLU /2020 No comment entered. IS [facility] PANEL+MG ME] IN Ordering Provi michael: DERRICK GEOGRE SERUM OR Report Release d Date/Time: Dec 24, 2019 02:11 PM PLASMA Reporting Lab: [facility] [place] [address] Performing Lab: [facility] [place] [address] BASIC POTASSIUM 3.7 3.5 - 5.1 01/03 Specimen Typ e: PLASMA [place] METABOLIC [MOLES/VOLU /2020 No comment entered. IS [facility] PANEL+MG ME] IN Ordering Provi michael: DERRICK GEORGE SERUM OR Report Release d Date/Time: Dec 24, 2019 02:11 PM PLASMA Reporting Lab: [facility] [address] [place] [address] Performing Lab: [facility] [address] [place] [address] BASIC CHLORIDE 107 98 - 107 01/03 Specimen Type: PLASMA [place] METABOLIC [MOLES/VOLU /2020 No comment entered. IS [facility] PANEL+MG ME] IN Ordering Provi michael: DERRICK GEORGE SERUM OR Report Release d Date/Time: Dec 24, 2019 02:11 PM PLASMA Reporting Lab: [facility] [address] [place] [address] Performing Lab: [facility] [address] [place] [address] BASIC CARBON 26 22 - 29 01/03 Specimen Type: P LASMA [place] METABOLIC DIOXIDE, No comment en tered. IS [facility] PANEL+MG TOTAL Ordering Provi michael: DERRICK GEORGE [MOLES/VOLU Report Rele ased Date/Time: Dec 24, 2019 02:11 PM ME] IN Reporting Lab: [facility] SERUM OR [address] [place] [facility] [address] PLASMA Performing Lab: [facility] [address] [facility] [address] BASIC CALCIUM 9.4 8.4 - 10.2 01/03 Specimen Type : PLASMA [place] METABOLIC [MASS/VOLUM No comment entered. IS [facility] PANEL+MG E] IN SERUM Ordering P rovider: DERRICK GEORGE OR PLASMA Report Releas ed Date/Time: Dec 24, 2019 02:11 PM Reporting Lab: [facility] [address] [facility] [address] Performing Lab: [facility] [place] [address] BASIC MAGNESIUM 2.0 1.6 - 2.6 01/03 Specimen Typ e: PLASMA [place] METABOLIC [MASS/VOLUM No comment entered. IS [facility] PANEL+MG E] IN SERUM Ordering P rovider: DERRICK GEORGE OR PLASMA Report Releas ed Date/Time: Dec 24, 2019 02:11 PM Reporting Lab: [facility] [place] [address] Performing Lab: [facility] [address] [place] [address] BASIC ANION GAP 7 5 - 15 01/03 Specimen Type: PLASMA [place] METABOLIC IN SERUM OR No comment entered. IS [facility] PANEL+MG PLASMA Ordering Provi michael: TRAUT,DERRICK L Report Released Date/Time: Dec 24, 2019 02:11 PM Reporting Lab: [facility] [place] [address] Performing Lab: [facility] [address] [place] [address] BASIC GLOMERULAR 80 60 01/03 Specimen Type : PLASMA [place] METABOLIC FILTRATION /2020 No comment entered. IS [facility] PANEL+MG RATE/1.73 Ordering Pro vider: DERRICK GEORGE SQ Report Released Date/Time: Dec 24, 2019 02:11 PM M.PREDICTED Reporting L ab: [facility] [VOLUME [place] [address] RATE/AREA] Performing L ab: [facility] IN SERUM, [address] [facility] [address] PLASMA OR BLOOD BY CREATININE- BASED FORMULA (CKD-EPI) CBC LEUKOCYTES 8.11 4.0 - 11.0 01/03 Specimen T ype: BLOOD [place] [#/VOLUME] /2020 No comment en tered. IS [facility] IN BLOOD BY Ordering Pr ovider: DERRICK GEORGE AUTOMATED Report Releas ed Date/Time: Dec 24, 2019 02:11 PM COUNT Reporting Lab: [facility] [place] [address] Performing Lab: [facility] [place] [address] CBC ERYTHROCYTE 4.21 4.6 - 6.2 01/03 L Specimen T ype: BLOOD [place] S /2020 No comment enter ed. IS [place] [facility] [#/VOLUME] Ordering Pro vider: DERRICK GEORGE IN BLOOD BY Report Rele ased Date/Time: Dec 24, 2019 02:11 PM AUTOMATED Reporting Lab : [facility] [place] [address] Performing Lab: [facility] [place] [address] CBC HEMOGLOBIN 13.6 13.5 - 01/03 Specimen Type : BLOOD [place] [MASS/VOLUM 17.9 /2020 No comment e ntered. IS [place] [facility] E] IN BLOOD Ordering Pr ovider: DERRICK GEORGE Report Released Date/Time: Dec 24, 2019 02:11 PM Reporting Lab: [facility] [place] [address] Performing Lab: [facility] [address] [place] [facility] [address] CBC HEMATOCRIT 41.5 41 - 54 01/03 Specimen Type : BLOOD [place] [VOLUME /2020 No comment enter ed. IS [facility] FRACTION] Ordering Prov ider: DERRICK GEORGE OF BLOOD BY Report Rele ased Date/Time: Dec 24, 2019 02:11 PM AUTOMATED Reporting Lab : [facility] [place] [address] Performing Lab: [facility] [place] [address] CBC MCV 98.6 80 - 100 01/03 Specimen Type: BLOOD [place] [ENTITIC /2020 No comment ente red. IS [facility] VOLUME] BY Ordering Pro vider: DERRICK GEORGE AUTOMATED Report Releas ed Date/Time: Dec 24, 2019 02:11 PM COUNT Reporting Lab: [facility] [place] [address] Performing Lab: [facility] [place] [address] CBC MCH 32.3 27 - 33 01/03 Specimen Type: B LOOD [place] [ENTITIC /2020 No comment ente red. IS [facility] MASS] BY Ordering Provi michael: DERRICK GEORGE AUTOMATED Report Releas ed Date/Time: Dec 24, 2019 02:11 PM COUNT Reporting Lab: [facility] [place] [address] Performing Lab: [facility] [place] [address] CBC MCHC 32.8 32.0 - 01/03 Specimen Type: B LOOD [place] [MASS/VOLUM 37.5 /2020 No comment e ntered. IS [facility] E] BY Ordering Provid er: DERRICK GEORGE AUTOMATED Report Releas ed Date/Time: Dec 24, 2019 02:11 PM COUNT Reporting Lab: [facility] [place] [address] Performing Lab: [facility] [address] [place] [facility] [address] CBC PLATELETS 204 150 - 400 01/03 Specimen Typ e: BLOOD [place] [#/VOLUME] /2020 No comment en tered. [place] [facility] IN BLOOD BY Ordering Pr ovider: DERRICK GEORGE AUTOMATED Report Releas ed Date/Time: Dec 24, 2019 02:11 PM COUNT Reporting Lab: [facility] [address] [place] [facility] [address] Performing Lab: [facility] [place] [address] CBC PLATELET 9.3 7.4 - 10.4 01/03 Specimen Typ e: BLOOD [place] MEAN VOLUME /2020 No comment e ntered. IS [facility] [ENTITIC Ordering Provi michael: DERRICK GEORGE L VOLUME] IN Report Relea sed Date/Time: Dec 24, 2019 02:11 PM BLOOD BY Reporting Lab: [facility] AUT[facility]ATED [address] [place] [facility] [address] COUNT Performing Lab: [facility] [address] [place] [facility] [address] CBC ERYTHROCYTE 13.1 11.5 - 01/03 Specimen Typ e: BLOOD [place] DISTRIBUTIO 14.5 No comment e ntered. IS [facility] N WIDTH Ordering Provid er: DERRICK GEORGE L [RATIO] BY Report Relea sed Date/Time: Dec 24, 2019 02:11 PM AUTOMATED Reporting Lab : [facility] COUNT [address] [place] [facility] [address] Performing Lab: [facility] [address] [place] [facility] [address] LIPID CHOLESTEROL 121 <199 - 199 01/03 Specimen Type: PLASMA [place] PANEL,NON [MASS/VOLUM /2020 No comment entered. IS [facility] E] IN SERUM Ordering P rovider: DORISDERRICK L OR PLASMA Report Releas ed Date/Time: Dec 24, 2019 02:11 PM Reporting Lab: [facility] [place] [address] Performing Lab: [facility] [place] [address] LIPID CHOLESTEROL 46 40 01/03 Specimen Typ e: PLASMA [place] PANEL,NON IN HDL /2020 No comment ent ered. IS [facility] [MASS/VOLUM Ordering P rovider: DORISDERRICK L E] IN SERUM Report Rele ased Date/Time: Dec 24, 2019 02:11 PM OR PLASMA Reporting Lab : [facility] [address] [place] [facility] [address] Performing Lab: [facility] [address] [place] [facility] [address] LIPID CHOLESTEROL 58 <99 - 99 01/03 Specimen Ty pe: PLASMA [place] PANEL,NON IN LDL /2020 No comment ent ered. IS [facility] [MASS/VOLUM Ordering P rovider: TRAUTDERRICK L E] IN SERUM Report Rele ased Date/Time: Dec 24, 2019 02:11 PM OR PLASMA Reporting Lab : [facility] BY [address] [place] [address] CALCULATION Performing Lab: [facility] [address] [place] [address] LIPID CHOLESTEROL 17 <29 - 29 01/03 Specimen Ty pe: PLASMA [place] PANEL,NON IN VLDL /2020 No comment ent ered. IS [facility] [MASS/VOLUM Ordering P rovider: DERRICK GEORGE E] IN SERUM Report Rele ased Date/Time: Dec 24, 2019 02:11 PM OR PLASMA Reporting Lab : [facility] BY [address] [place] [address] CALCULATION Performing Lab: [facility] [address] [place] [address] LIPID CHOLESTEROL 75 <129 - 129 01/03 Specimen Type: PLASMA [place] PANEL,NON NON HDL /2020 No comment ent ered. IS [facility] [MASS/VOLUM Ordering P rovider: DERRICK GEORGE L E] IN SERUM Report Rele ased Date/Time: Dec 24, 2019 02:11 PM OR PLASMA Reporting Lab : [facility] [address] [place] [address] Performing Lab: [facility] [address] [place] [address] LIPID TRIGLYCERID 87 <149 - 149 01/03 Specimen Type: PLASMA [place] PANEL,NON E /2020 No comment ent ered. IS [facility] [MASS/VOLUM Ordering P rovider: DERRICK GEORGE L E] IN SERUM Report Rele ased Date/Time: Dec 24, 2019 02:11 PM OR PLASMA Reporting Lab : [facility] [address] [place] [address] Performing Lab: [facility] [address] [place] [address] Encounters Combined list of: 1) Encounters from Department of Veterans Affairs facilities going back up to the last 18 months. 2) Encounters from the Department of Defense facilities going back up to 280 months. Location Location Encounter Encounter Reason Attending ADM DC Stat us Disposition Source Details Type Number For Provider Date Date Visit Outpatient [id number] 07/23 [place] Encounter [id number] /2020 [facility] Outpatient 62359-608/18 [place] Encounter [id number] /2021 [facility] Outpatient [id number] 09/14 [place] Encounter [id number] /2021 [facility] Outpatient 72679-9. 10/ [place] Encounter [id number] /2020 [facility] Outpatient [id number] 10/ [place] Encounter [id number] [place] [facility] OFFICE O/P 52958-4 WYATT Blas 01/03 [place] EST MOD [id number] is: DEMETRIO L [place] [facility] 30-39 [place] ICD-10- HCS CM I10 Essenti al (primar y) hyperte nsion<b r/>with Provide r Comment s: Hyperte nsion (SCT [id number] 3) [place] [address]-0 Diagnos SKROCH,ALLISON 01/24 [place] 30 MINUTES [id number] is: [place] ICD-10- HCS CM Z71.1 Person w feared hlth complai nt in whom no diagnos is is made
with Provide r Comment s: Person with Feared Health Complai nt [place] whom [place] [address]-1.61 Diagnos SKROCH,ALLISON 02/07 [place] 30 MINUTES [id number] is: [place] ICD-10- HCS CM Z60.0 Problem s of adjustm ent to life-cy radha transit ions
with Provide r Comment s: Problem s of Adjustm ent to Life-[place] [address]-5.61 Diagnos SKROCH,ALLISON 03/08 [place] 30 MINUTES [id number] is: [place] ICD-10- HCS CM Z63.79 Other stressf ul life events affecti ng family and househo ld
with Provide r Comment s: Other Stressf ul Life Events Affecti ng Family and Househo ld IMMUNIZATI 14365-0.61 Diagnos DALE MCCORMICK 03/09 [place] AD[place] [phone] is: RY ARTHUR L [place] S [place] ICD-10- HCS CM Z23 Encount er for immuniz ation<b r/>with Provide r Comment s: [place]count [place] [address]-1.61 Diagnos SKROCH,ALLISON 04/08 [place] 30 MINUTES [id number] is: ET A [place] ICD-10- HCS CM F51.01 Primary insomni a
w ith Provide r Comment s: Insomni a ([id number] ) [place] [address]-1.61 Diagnos SKROCH,ALLISON 05/06 [place] 30 MINUTES [id number] is: ET A [place] ICD-10- HCS CM F43.21 Adjustm ent disorde r with depress ed mood
with Provide r Comment s: Adjustm ent Disorde r with depress ed mood Outpatient 14305-5.61 05/13 [place] Encounter [id number] /2021 [facility] [id number] 05/16 [place] Encounter [id number] /2021 [facility] [id number] 05/19 [place] Encounter [id number] /2021 [facility] Outpatient [id number] Diagnos GLAUSER,NO 06/06 [place] Encounter [id number] is: RA N [facility] [place] ICD-10- HCS CM I48.91 Unspeci fied atrial fibrill ation<b r/>with Provide r Comment s: Atrial fibrill ation (SCT [id number] 4) Outpatient [id number] 06/06 [place] Encounter [id number] /2021 [place] [id number] Diagnos EVA, 06/06 [place] DIG [id number] is: SABINE K [facility] [place] ASSMT[facility]MG[facility] ICD-10- HCS 5-10 CM I48.91 Unspeci fied atrial fibrill ation<b r/>with Provide r Comment s: Atrial fibrill ation (SCT [id number] 4) [place] [id number] Diagnos SKROCH,ALLISON 06/17 [place] 30 MINUTES [id number] is: ET A [facility] ICD-10- HCS CM F43.20 Adjustm ent disorde r, unspeci fied
with Provide r Comment s: Adjustm ent Disorde r, unspeci fied Outpatient [id number] 07/06 [place] Encounter [id number] [facility] Outpatient [id number] 10/18 [place] Encounter [id number] [facility] Outpatient [id number] Diagnos GLAUSER,NO 12/05 [place] Encounter [id number] is: RA N [facility] ICD10- [facility] CM I48.91 Unspeci fied atrial fibrill ation<b r/>with Provide r Comment s: Atrial fibrill ation ([facility] [id number] 4) Social History Combined list of available smoking, tobacco, and other social [facility]. Social History Type Response Date Comment Source Tobacco smoking status VA-TOBACCO FORMER USER 01/03/2021 [facility] History of tobacco use [place]-TOBACCO QUIT 15 YRS 01/03/2021 [facility] History of tobacco use OK-TOBACCO QUIT 15 YRS 06/20/2018 [facility] History of tobacco use FORMER TOBACCO USER 7Y 07/09/2017 [facility] History of tobacco use FORMER TOBACCO USER 7Y 07/07/2016 [facility] History of tobacco use FORMER TOBACCO USER 7Y 06/21/2015 [facility] History of tobacco use FORMER TOBACCO USER 7Y 06/08/2014 [facility] History of tobacco use LIFETIME NON-TOBACCO 06/10/2013 [facility] History of tobacco use FORMER TOBACCO USER 7Y 08/03/2011 [facility] Plan of Care List of future care activities from [facility] facilities. Additional future care activities may be listed in the Assessment and Plan section. Date/Time Care Activity Care Activity Detail Facility 01/20/2022 AMBULATORY - MEDICINE AMBULATORY - MEDICINE [facility] Advance Directives List of completed, amended, or rescinded Advance Directives on record at [facility] facilities. An actual copy of the Directive is not included. Date Advance Directive Provider Source 06/19/2013 ADVANCE DIRECTIVE DISCUSSION KENDALL SERRANO [facility]
--- OUTSIDE RECORDS SUMMARY | 2022-01-17 10:46 | XMS_ITS | Clinical Summary ---
:1935 Author Organization [employer] [facility] [place] [address] Care Team Providers Name Role Phone Catrina [...] mouth at Coronary artery bedtime. disease involving [place] coronary artery without angina pectoris, unspecified whether [place] or transplanted heart, Mixed hyperlipidemia nitroglycerin Place [...] artery daily. en disease involving co mplete/Level [place] coronary artery of care without angina clark e) pectoris, unspecified whether [place] or transplanted heart metoprolol succinate Take 0.5 90 Tablet 3 11/12/19 Discontinued (Toprol XL) 25 mg Tablets (12.5 022 (*IP Sustained-Release mg) by mouth Discontinued) tabletIndications: once daily. Paroxysmal atrial fibrillation (HC) sotaloL (BETAPACE) 80 Take 1 Tablet 180 Tablet 0 01/01/2012/21 Discontinued mg tabletIndications: (80 mg) by (Reorder Persistent atrial mouth two times (E-cancel [...] By: JOHN YEE mment: Dr. 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 02/06/2011 Skin cancer 12/02/2009 02/04/2021 Overview: Left Lower Leg: managed by Dr Shields 12/02 Spondylosis, cervical 12/28/2008 01/08/2017 Gout 11/26/2007 01/06/2016 Overview: Doing well off medications 12/30/2012 SVT (supraventricular tachycardia) 05/30/200706/12 Overview: -Holter monitor 05/30/2007 Routine general medical examination at [facility] y 11/13/2006 01/08/2017 Overview: Colonoscopy 12/2006: polyps Recheck in 5 yrs Lumbago 07/19/2006 01/06/2016 Overview: Improved with daily exercises. 3 Unspecified essential hypertension 07/19/200601/14 Benign Neoplasm of Colon 07/19/2006 01/09/2019 Overview: Colonoscopy 12/2011 diverticulosis, no f ollow up needed Encounters Date Type Specialty Care Team Description 01/13/2022 Telephone Yinka Briscoe Chest Pain MD 01/10/2022 Office Visit Melina Maza, Post-o p (Discharged PA 01/05- still anne ving shortness of br eath) 01/10/2022 Travel 01/06/2022 Patient Outreach Vicki Rob Prim ary RN Care RN Management; Kodak pineda F/U (Lace=70) 01/02/2022 - [place] [facility] [place] Chest pain, unspecified type (Primary Dx); 01/05/2022 Of Cardiovascular symptoms; Crystal Rajput MD Coronary artery disease involving [place] coronary artery without angina pectoris, unspecified whether [place] or transplanted heart; Megan Sumner MBBS Mixed [...] included. HOSPITALIST DISCHARGE SUMMAR Y ? ? [facility] Admission Date: 01/02/2022 Discharge Date: 01/05/2022 Discharge [...] syndrome Symptoms decision made to transfer to [facility] for further work up. Troponin trend negative. [...] Outpatie nt Provider ? ? PCP: Helio Hayedn MD Recommendations for outpati ent provider Specific [...] s/p hospital discharge - F/U with CV [facility] in 4-6 weeks - Cardiac rehab in [...] Take 1 Tablet (75 mg) by mo [facility] every morning. Take once daily for 1 year without interruption lidocaine 4 % topical patch For diagnoses: Acute pain of left shoulder Start taking on: December Apply topically to intact s kin to cover most painful area for max 12hr per 24hr period. CHANGE how you take these me dicines Instructions atorvastatin 10 mg tablet For diagnoses: Coronary michelle ry disease involving [place] coronary artery without angina pectoris, unspecified whether [place] or transplanted heart, Mixed hyperlipidemia What changed: ?? medication strength ?? when to take this Commonly known as: LIPITOR Take 1 Tablet (10 mg) by mo [facility] at bedtime. nitroglycerin 0.4 mg subling ual [...] Take 1 Tablet (20 mg) by mo [facility] every morning. gabapentin 300 mg capsule For [...] your medicines These medications were sent to [facility] [address] [facility] [address] [place] [address] [place] [address] Hours: Open 24 Hours ?? atorvastatin 10 [...] -- POTASSIUM 3.9 4.0 CHLORIDE 105 -- [id number] 26 -- ANIONGAP 6 -- BUN 22 [...] Node Dysfunction Primary MD:??Helio moreno MD?? Primary Mobile Lab Technician:??Obere kikat, ROSELYN Flor Primary EP:??Yinka Briscoe MD?? Implanting MD:??Nathanael Briscoe MD?? DEVICE DATA Fur Stretcher??[employer]:??[place] XT DR SRINIVAS Pierre [id number]??Implant Date 12/29/2021 LEAD DATA Atrial Lead: Fur Stretcher??M edtronic:??Model [id number]??cm Implant Date 12/29/2021 RV Lead: Fur Stretcher??Medtr onic:??Model 3830-69??cm Implant Date 12/29/2021?? Visit location: [facility] -??[id number] Reason For Evaluation: Same day [...] Cardiac Rehab: C AD with PTCA/Stent Acute [place] Patient Cardiology Follow U p Instructions Please follow up in 4-6 wee ks in cardiology clinic with first available provider, at [facility] (phone: [phone]). Please call to schedule an appoi ntment, otherwise an [facility] coordinator will call you in several days to assist you. When to follow up: 4 to 6 w eeks When is patient being disch arged?: Other/Unknown Primary Care Provider anatoliy w shazia appointment(s) Helio Hayden MD When to follow up: 1 to 5 d ays Primary Care Provider anatoliy w up appointment(s) Please follow up in 3-5 day s after hospital discharge with Helio Hayden MD for routine right groin site, bp evaluation & BMP lab. When to follow up: 1 to 5 d ays When is patient being disch arged?: Today Primary Care Provider narcisao w up appointment(s) You have been scheduled to see ROSELYN Wright, because your primary provider is not available during the recommended time frame. You have an appointment with ROSELYN Wright on January 10 at 11:35 a.m. at [facility]. If you have questions or con cerns please call the clinic at [phone]. When to follow up: 1 to 5 [...] DIAL 911 [facility] You were in the hospital fo r NSTEMI. Clinic Request for Cardiolo gy Follow Up Appointment Please call this patient to schedule a follow up appointment within 4-6 weeks of discharge with first available provider at [facility] (phone: [phone]). Type of cardiology follow u p needed: [...] seen and examined today. HERNANDO Bustos Hospitalist, [facility] ? ? [phone] FILLER 01/02/2022 Nurse/Clinic Staff Only Card iovascular Diagnostic Testing (EKG s/ p dual chamber pacemak er placement 12/29/21/) 01/02/2022 Orders Only Staff, Other Clinical <No sc ans attached> 01/02/2022 Telephone Yinka Briscoe, Device Check (Pacemaker MD Remote ) 01/02/2022 Travel 12/30/2021 Telephone Yinka Briscoe, Medica tion Management MD 12/29/2021 Anesthesia Event Zoraida Bowling, Max Clark CRNA 12/29/2021 Hospital Encounter Yinka Briscoe, Persistent atrial MD fibrillation (HC) (Primary Zoraida Bowling Dx) MD Blanca Yan Jean J, PURLER Discharge Summary - Swati Hackett PA - 12/29/2021 4:01 PM CST [facility] Cardiology Discharge Summary DOA: 12/29/2021 DOD: 12/29/2021 [...] EKG (personally reviewed): 12/29/21: SB, VR 54, VT 194, QRS 122, QT/QTc 450 Echocardiogram 11/04/21 [...] 0939 SODIUM 136 POTASSIUM 3.6 CHLORIDE 102 [id number] 28 BUN 26 H CREATININE 1.04 CALCIUM [...] Take 1 Tablet (25 mg) by mo [facility] once daily. losartan 50 mg tablet For diagnoses: Essential hyp ertension Commonly known as: COZAAR Take 1 Tablet (50 mg) by mo [facility] two times daily. metoprolol succinate 25 mg [...] your medicines These medications were sent to [facility] [address] [place] [id number] [id number] Hours: Open 24 Hours ?? 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 Persistent atrial fibrillati on - controlled on amiodarone f rom 05/2018-11/2021 - intolerance to dronedarone in 06/2021 with whole body swelling - [id number] VASC score 4 (HTN, age 86, CAD) on Eliquis Coronary artery disease - s/p PCI with WILVER to pRCA i n 2020 Hypertension Hyperlipidemia PLAN - Device interrogation/teach - Medications changes: - start sotalol 80 mg BID o n 12/31/21 - EKG on 01/02/22 - Continue all other prior t o admission medications - Eliquis 5 mg BID for cardi o-embolic prevention -ICD3XC9 VASC score 4 (HTN, age 86, CAD) - Follow up with primary car e provider on (or near) 01/05/22 for silverlon dressing removal and incision site check - Follow up with device clin ic in 3-4 months as scheduled. . [phone] - Follow up with general car diology in [place] in 3 months - Follow up with EP as direc panda by general cardiology ROSELYN Mcfadden [facility] Cardiac Electrophysiology Future Appointments Date Time Provider [facility] 01/05/2022 12:00 AM [facility] REM OTE TRANSMISS[facility] 02/06/2022 7:00 AM Helio Hayden MD NFLD NF 04/04/2022 10:30 AM [facility] FILLER 12/29/2021 Travel 12/23/2021 Orders Only Yinka Briscoe [...] 11/11/2021 Office Visit Helio Hayden, Follow Up ([facility] for dehydration ) 11/10/2021 Ancillary Procedure 11/10/2021 [...] Need Meds; Re fill Request MD Shanique from Last 3 Months Immunizations Name Administration Dates Next Due COVID-19 vaccine ([employer] 12/02/2021 30mcg/0.3mL) 12YO+ BIVALENT BOOSTER PF, MDV COVID-19 vaccine ([employer] 07/11/2021 30mcg/0.3mL) 12YO+ XANDER-SUCROSE PF, MDV COVID-19 vaccine ([employer] 11/18/2020, 04/24/2020, 30mcg/0.3mL) PF, MDV Influenza A (H1N1), Inactivated 02/11/2009 Influenza A (H1N1), Inactivated (Age 1202/11/2009 >=3 Years) Influenza Virus, Unspecified 11/08/2018, 11/05/2018, 11/16/ 018, 11/07/2016, 11/26/2015, 11/25/2014, 10/30/2013, 11/23/2012, 11/19/2011, [...] contact No / Unsure 01/10/2022 11:21 AM ROLL FILLER with someone who was confirmed or suspected to have Coronavirus/COVID-19? Obstetrics History Last Filed Vital Signs Vital Sign Reading Time Taken Comments Blood Pressure 106/63 01/10/2022 11:31 AM ROLL FILLER Pulse 65 01/10/2022 11:31 AM ROLL FILLER Temperature 36.3 ??C (97.3 ??F) 01/05/2022 7:35 AM ROLL FILLER Respiratory Rate 16 01/05/2022 7:35 AM ROLL FILLER Oxygen Saturation 99% 01/10/2022 11:31 AM ROLL FILLER Inhaled Oxygen Concentration - - Weight 77.9 kg (171 lb 12.8 oz) 01/10/2022 11:31 AM ROLL FILLER Height 175.3 cm (5' 9) 01/03/2022 8:26 AM ROLL FILLER Body Mass Index 25.37 01/03/2022 8:26 AM ROLL FILLER Plan of Treatment Upcoming Encounters Date Type Specialty Care Team Description 01/17/2022 Appointment 02/06/2022 Office Visit Helio Hayden MD [address] [place] [address] (Wo rk) 04/04/2022 Cardiac Device [...] Name Priority Date/Time Associated Diagnosis Comme nts SCAN CORRESP-EKG 01/13/2022 8:03 Results for this RESULTS AM ROLL FILLER procedure are i n the results section. BASIC METABOLIC PANEL Routine 01/10/2022 11:58 NSTEMI (non-ST Results for this AM ROLL FILLER elevated myocardial procedur e are in infarction) (HC) the results Hypertension section. ECHO LIMITED WO Routine 01/05/2022 3:26 Results f or this CONTRAST PM ROLL FILLER procedure are i n the results section. POTASSIUM Today 01/05/2022 1:39 Results for this PM ROLL FILLER procedure are i n the results section. SCAN-CARDIAC STRIP 01/05/2022 9:17 AM ROLL FILLER LIPID PANEL SHAY 01/05/2022 8:00 Results for this AM ROLL FILLER procedure are i n the results section. MAGNESIUM Early AM 01/05/2022 8:00 Results for this AM ROLL FILLER procedure are i n the results section. BASIC METABOLIC PANEL Early AM 01/05/2022 8:00 Res ults for this AM ROLL FILLER procedure are i n the results section. CBC W PLT NO DIFF Early AM 01/05/2022 8:00 Results for this AM ROLL FILLER procedure are i n the results section. SCAN-CARDIAC STRIP 01/05/2022 2:19 AM ROLL FILLER SCAN-CARDIAC STRIP 01/04/2022 5:23 PM ROLL FILLER EKG 12 LEAD SHAY 01/04/2022 5:20 Results for this PM ROLL FILLER procedure are i n the results section. HCHG ACTIVATED Timed 01/04/2022 3:53 Results fo r this CLOTTING TM CV PM ROLL FILLER procedure are in the results section. HCHG ACTIVATED Timed 01/04/2022 3:33 Results fo r this CLOTTING TM CV PM ROLL FILLER procedure are in the results section. HCHG ACTIVATED Timed 01/04/2022 3:15 Results fo r this CLOTTING TM CV PM ROLL FILLER procedure are in the results section. EKG 12 LEAD Routine 01/04/2022 2:52 Persistent atrial Results for this PM ROLL FILLER fibrillation (HC) procedure are in the results section. CVL CORONARY ANGIOGRAM Routine 01/04/2022 2:35 Cardiovascular Results for this POSS PCI PM ROLL FILLER symptoms procedure are i n the results section. PACER LICHA DUAL Routine 01/04/2022 11:00 Results for this CHAMBER WO REPROG AM ROLL FILLER procedure are in the results section. SCAN-CARDIAC STRIP 01/04/2022 9:59 AM ROLL FILLER SCAN-CARDIAC STRIP 01/04/2022 9:30 AM ROLL FILLER POTASSIUM Early AM 01/04/2022 7:43 Results for this AM ROLL FILLER procedure are i n the results section. SCAN-CARDIAC STRIP 01/04/2022 2:27 AM ROLL FILLER SCAN 01/04/2022 12:00 Results for this CORRESP-LABORATORY AM ROLL FILLER procedure are in RESULTS the results section. SCAN-OPERATIVE/PROCEDU 01/04/2022 12:00 R esults for this RE REPORT AM ROLL FILLER procedure are i n the results section. POTASSIUM Today 01/03/2022 6:37 Results for this PM ROLL FILLER procedure are i n the results section. SCAN-CARDIAC STRIP 01/03/2022 3:42 PM ROLL FILLER EKG 12 LEAD STAT 01/03/2022 11:08 Results for this AM ROLL FILLER procedure are i n the results section. BASIC METABOLIC PANEL Early AM 01/03/2022 7:59 Res ults for this AM ROLL FILLER procedure are i n the results section. SCAN-CARDIAC STRIP 01/03/2022 7:15 AM ROLL FILLER TROPONIN I Timed 01/03/2022 1:07 Results for this AM ROLL FILLER procedure are i n the results section. TROPONIN I Timed 01/03/2022 12:23 Results for this AM ROLL FILLER procedure are i n the results section. SCAN-CARDIAC STRIP 01/02/2022 11:47 PM ROLL FILLER SCAN-CARDIAC STRIP 01/02/2022 9:35 PM ROLL FILLER XR CHEST 2 VIEWS PA Routine 12/29/2021 3:31 Resul ts for this AND LATERAL PM ROLL FILLER procedure are i n the results section. PACER LICHA DUAL Routine 12/29/2021 3:19 Results for this CHAMBER WO REPROG PM ROLL FILLER procedure are in the results section. CV PROCEDURE TO BE Routine 12/29/2021 12:07 Resul ts for this PERFORMED PM ROLL FILLER procedure are i n the results section. EP PPM Routine 12/29/2021 11:04 Results for this AM ROLL FILLER procedure are i n the results section. EKG 12 LEAD Preop 12/29/2021 9:54 Results for this AM ROLL FILLER procedure are i n the results section. BASIC METABOLIC PANEL Preop 12/29/2021 9:39 Res ults for this AM ROLL FILLER procedure are i n the results section. CBC W PLT NO DIFF Preop 12/29/2021 9:39 Results for this AM ROLL FILLER procedure are i n the results section. [...] (HC) procedure are in the results section. from Last 3 Months Results SCAN CORRESP-EKG RESULTS (01/13/2022 8:03 AM ROLL FILLER) Narrative 01/13/2022 8:03 AM ROLL FILLER This result has an attachment that is no t available. Ordered by an unspecified provider. Other Clinical Staff OTHER (ABNORMAL) BASIC METABOLIC PANEL (01/10/2022 11:58 AM ROLL FILLER)Only the most recent of4 resultswithin the time period is included. [facility] Method Time Signature SODIUM 140 135 - 145 01/12/2022 [facility] mmol/L 4:24 AM ROLL FILLER LABORATORY-[facility] TRAL LABORATORY POTASSIUM 4.5 3.5 - 5.0 01/12/2022 [facility] mmol/L 4:24 AM ROLL FILLER LABORATORY[facility] TRAL LABORATORY CHLORIDE 106 98 - 110 01/12/2022 [facility] mmol/L 4:24 AM ROLL FILLER LABORATORY[facility] TRAL LABORATORY CO2,TOTAL 26 21 - 31 01/12/2022 [facility] mmol/L 4:24 AM ROLL FILLER LAB[facility]ATORY[facility] TRAL LABORATORY ANION GAP 8 5 - 18 01/12/2022 [facility] 4:24 AM ROLL FILLER LABORATORY[facility] TRAL LABORATORY GLUCOSE 91 65 - 100 01/12/2022 [facility] mg/dL 4:24 AM ROLL FILLER LABORATORY[facility] TRAL LABORATORY CALCIUM 9.3 8.5 - 10.5 01/12/2022 [facility] mg/dL 4:24 AM ROLL FILLER LABORATORY[facility] TRAL LABORATORY BUN 35 (H) 8 - 25 01/12/2022 [facility] mg/dL 4:24 AM ROLL FILLER LABORATORY[facility] TRAL LABORATORY CREATININE 1.28 (H) 0.72 - 01/12/2022 [facility] 1.25 mg/dL 4:24 AM ROLL FILLER LABORATORY[facility] TRAL LABORATORY BUN/CREAT RATIO 27 (H) 10 - 20 01/12/2022 [facility] 4:24 AM ROLL FILLER LABORATORY[facility] TRAL LABORATORY eGFR 55 (L) >90 01/12/2022 [facility] mL/min/1.7 4:24 AM ROLL FILLER LABORATORY-ITZEL 3m2 TRAL LABORATORY Comment: As of [...] Laterality Blood BLOOD SPECIMEN / Venipuncture / 01/10/2022 11:58 01/10 Unknown Unknown AM ROLL FILLER 11:58 AM ROLL FILLER Melina DEMPSEY CHEMISTRY Performing Organization Address City/State/ZIP Code Phon e Number [facility] [address] [place] [address] LABORATORY-CENTRAL 2000 LABORATORY ECHO LIMITED WO CONTRAST (01/05/2022 3:26 PM ROLL FILLER) P athologist Signature AORTIC VALVE 3 mmHg MEAN PG EJECTION 61 % FRACTION PEAK TR 2.2 m/s VELOCITY LVEDD 4.2 cm Anatomical Region Laterality Modality HEART Ultrasound Specimen (Source) Anatomical Collection Method Collection Time Re ceived Time Location / / Volume Laterality 01/05/2022 2:39 PM ROLL FILLER Narrative 01/05/2022 4:08 PM ROLL FILLER ECHOCARDIOGRAM CRISTIAN STEVENS ? Accessi on#: ?? [id number] : ?1935 86 years Study Date: ?? 01/05/2022 2:39:16 PM Gender: M ?BP: ? 105/52 mmHg Height: 175.00 cm ?BSA: ?1.90 m? ?? Weight: 75.00 kg ? Tech: ? EF ? Referring MD: DONALD HUNTER [facility] Site: ? [facility] Reading Location: [facility] IP Procedure: Color Doppler, [...] 4. Compared with images of the prior [facility] of 11/04/2021, there has been no significant [...] . This study was interpreted by an [facility] redited facility. ??Final ?? Procedure Note Ty Velasquez MD - 01/05/2022 ECHOCARDIOGRAM CRISTIAN STEVENS : 1935 86 years Study Date: 12/20 2:39:16 PM Gender: M BP: 105/52 mmHg Height: 175.00 cm BSA: 1.90 m? ?? Weight: 75.00 kg Tech: EF Referring MD: DONALD HERRING Site: [facility] Reading Location: [facility] IP Procedure: [...] Compared with images of the prior st [facility] of 11/04/2021, there has been no significant [...] . This study was interpreted by an [facility] redited facility. Final Donald Herring PA ECHO ORD POTASSIUM (01/05/2022 1:39 PM ROLL FILLER)Only the most recent of3 resultswithin the time period is included. athologist Signature POTASSIUM 4.2 3.5 - 5.0 01/05/2022 [facility] mmol/L 2:28 PM ROLL FILLER LABORATORY-CENTR AL LABORATORY Specimen Anatomical Collection Method / Collection Time Recei burton Time (Source) Location / Volume Laterality Blood BLOOD SPECIMEN / Venipuncture / 01/05/2022 1:39 2021 1:58 Unknown Unknown PM ROLL FILLER PM ROLL FILLER Ruslan SOOD CHEMISTRY Performing Organization Address City/State/ZIP Code Phon e Number [facility] [address] [place] [address] LABORATORY-CENTRAL 1999 LABORATORY SCAN-CARDIAC STRIP (01/05/2022 9:17 AM ROLL FILLER) Narrative This result has an attachment that is no t available. Scanner OTHER (ABNORMAL) CBC W PLT NO DIFF (01/05/2022 8:00 AM ROLL FILLER)Only the most recent of2 resultswithin the time period is included. [facility] gist Method Time Signature WHITE BLOOD 9.9 4.5 - 11.0 01/05/2022 [facility] COUNT thou/cu mm 9:59 AM ROLL FILLER LABORATORY-[facility] TRAL LABORATORY RED BLOOD COUNT 4.13 (L) 4.30 - 01/05/2022 [facility] 5.90 9:59 AM ROLL FILLER LABORATORY-[facility]ZEL mil/cu mm TRAL LABORATORY HEMOGLOBIN 13.7 13.5 - 01/05/2022 [facility] 17.5 g/dL 9:59 AM ROLL FILLER LABORATORY-[facility] TRAL LABORATORY HEMATOCRIT 39.0 37.0 - 01/05/2022 [facility] 53.0 % 9:59 AM ROLL FILLER LABORATORY[facility] TRAL LABORATORY MCV 94 80 - 100 01/05/2022 [facility] fL 9:59 AM ROLL FILLER LABORATORY-[facility] TRAL LABORATORY MCH 33.2 26.0 - 01/05/2022 [facility] 34.0 pg 9:59 AM ROLL FILLER LABORATORY-[facility] TRAL LABORATORY MCHC 35.1 32.0 - 01/05/2022 [facility] 36.0 g/dL 9:59 AM ROLL FILLER LABORATORY[facility] TRAL LABORATORY RDW 13.0 11.5 - 01/05/2022 [facility] 15.5 % 9:59 AM ROLL FILLER LABORATORY[facility] TRAL LABORATORY PLATELET COUNT 168 140 - 440 01/05/2022 [facility] thou/cu mm 9:59 AM ROLL FILLER LABORATORY[facility] TRAL LABORATORY MPV 9.7 6.5 - 11.0 01/05/2022 [facility] fL 9:59 AM ROLL FILLER LABORATORY[facility] TRAL LABORATORY NRBC 0.0 % 01/05/2022 [facility] 9:59 AM ROLL FILLER LABORATORY-[facility] TRAL LABORATORY ABS NRBC 0.0 thou /cu 01/05/2022 [facility] mm 9:59 AM ROLL FILLER LABORATORY-[facility] TRAL LABORATORY Specimen Anatomical Collection Method / Collection Time Recei burton Time (Source) Location / Volume Laterality Blood BLOOD SPECIMEN / Venipuncture / 01/05/2022 8:00 2021 8:23 Unknown Unknown AM ROLL FILLER AM ROLL FILLER Donald DEMPSEY HEMATOLOGY Performing Organization Address City/State/ZIP Code Phon e Number [facility] [address] [place] [address] LABORATORY-CENTRAL 2000 LABORATORY MAGNESIUM (01/05/2022 8:00 AM ROLL FILLER) P athologist Signature MAGNESIUM 1.9 1.6 - 2.6 01/05/2022 [facility] mg/dL 8:58 AM ROLL FILLER LABORATORY-CENTR AL LABORATORY Specimen Anatomical Collection Method / Collection Time Recei burton Time (Source) Location / Volume Laterality Blood BLOOD SPECIMEN / Venipuncture / 01/05/2022 8:00 2021 8:23 Unknown Unknown AM ROLL FILLER AM ROLL FILLER Ruslan SOODBS CHEMISTRY Performing Organization Address City/State/ZIP Code Phon e Number [facility] [address] [place] [address] LABORATORY-CENTRAL 1999 LABORATORY (ABNORMAL) LIPID PANEL (01/05/2022 8:00 AM ROLL FILLER) Patholo gist Method Time Signature CHOLESTEROL,TOTAL 116 100 - 199 01/05/2022 [facility] mg/dL 11:54 AM ROLL FILLER LABORATORY-[facility] TRAL LABORATORY TRIGLYCERIDES 80 <150 01/05/2022 [facility] mg/dL 11:54 AM ROLL FILLER LABORATORY-[facility] TRAL LABORATORY HDL CHOLESTEROL 31 (L) >40 mg/dL 01/05/2022 [facility] 11:54 AM ROLL FILLER LABORATORY-[facility] TRAL LABORATORY NON-HDL 85 <145 01/05/2022 [facility] CHOLESTEROL mg/dl 11:54 AM ROLL FILLER LABORATORY-[facility] TRAL LABORATORY CHOL/HDL RATIO 3.74 <4.50 01/05/2022 [facility] 11:54 AM ROLL FILLER LABORATORY-[facility]EL TRAL LABORATORY LDL CHOLESTEROL 69 <=130 01/05/2022 [facility] mg/dL 11:54 AM ROLL FILLER LABORATORY-[facility]ZEL TRAL LABORATORY VLDL CHOLESTEROL 16 <=30 01/05/2022 [facility] mg/dL 11:54 AM ROLL FILLER LABORATORY-[facility] TRAL LABORATORY PROVIDER ORDERED RANDOM 01/05/2022 [facility] H STATUS 11:54 AM ROLL FILLER LABORATORY-[facility] TRAL LABORATORY Specimen Anatomical Collection Method / Collection Time Recei burton Time (Source) Location / Volume Laterality Blood BLOOD SPECIMEN / Venipuncture / 01/05/2022 8:00 2021 8:23 Unknown Unknown AM ROLL FILLER AM ROLL FILLER Alecia Pereira NP CHEMISTRY Performing Organization Address City/State/ZIP Code Phon e Number [facility] [address] [place] [address] LABORATORY-CENTRAL 2000 LABORATORY SCAN-CARDIAC STRIP (01/05/2022 2:19 AM ROLL FILLER) Narrative This result has an attachment that is no t available. Scanner OTHER SCAN-CARDIAC STRIP (01/04/2022 5:23 PM ROLL FILLER) Narrative This result has an attachment that is no t available. Scanner OTHER EKG - On Arrival to Floor (01/04/2022 5:20 PM ROLL FILLER)Only the most recent of6 resultswithin the time period is included. Component Value Ref Range Test Analysis Performed Pathologis t Method Time At Signature Interpretation Atrial-paced rhythm with prolonged AV conduction BEYOND NOW Left anterior fascicular block Minimal voltage criteria for LVH, may be normal variant ( [place] product ) Abnormal ECG When compared with ECG of 03-JAN-2022 11:08, No significant change was found Ventricular Rate 60 BPM BEYOND NOW Atrial Rate 60 BPM BEYOND NOW P-R Interval 238 ms BEYOND NOW QRS Duration 118 ms BEYOND NOW QT 444 ms BEYOND NOW QTc 444 ms BEYOND NOW P [place] degrees BEYOND NOW R [place] -51 degrees BEYOND NOW T [place] 47 degrees BEYOND NOW Specimen Anatomical Collection Method Collection Time Receive d Time (Source) Location / / Volume Laterality 01/04/2022 5:20 PM 7:19 ROLL FILLER PM ROLL FILLER Stephanie Guillory MD EKG ORD Performing Organization Address City/State/ZIP Code Phon e Number BEYOND NOW [place], [place] (ABNORMAL) ACTIVATED CLOTTING TIME [id number] ACT (01/04/2022 3:53 PM ROLL FILLER)Only the most recent of3 resultswithin the time period is included. P athologist Signature ACTIVATED 250 (H) 74 - 125 01/04/2022 [employer] CLOTTING TIME, sec 4:26 PM ROLL FILLER LABORATORY-CE N POCT TRAL LABORATORY Specimen Anatomical Collection Method Collection Time Receive d Time (Source) Location / / Volume Laterality Blood BLOOD SPECIMEN / 01/04/2022 3:53 PM 01/04 4:26 Unknown ROLL FILLER PM ROLL FILLER Ruslan VILLAGOMEZ HEMATOLOGY Performing Organization Address City/State/ZIP Code Phon e Number [employer] [address] [place] [address] LABORATORY-CENTRAL 2000 LABORATORY CVL CORONARY ANGIOGRAM POSS PCI (01/04/2022 2:35 PM ROLL FILLER) Anatomical Region Laterality Modality Other Specimen (Source) Anatomical Collection Method Collection Time Re ceived Time Location / / Volume Laterality 01/04/2022 2:35 PM ROLL FILLER Narrative This result has an attachment that is no t available. Transcriptions Cassandra Seaman MD - 01/04/2022 4:35 PM CST [facility] Cardiac Catheterization Report Name: CRISTIAN STEVENS Event Date: 01/05/20 14:35 [employer] ID #: [id number] [place] #: [id number] Diagnostic Physician: CASSANDRA GUAADRRAMA [facility] Interventional Physician: CASSANDRA SEAMAN [facility] Referring Physician: Primary Care Physician: HELIO HAYDEN [...] clinically. Discussed with Dr. Velasquez. Consent & [place] Protocol The risks, benefits, and alternatives of the procedure were discussed with the patient and written informed consent was obtained. [place] protocol was followed. TIME OU T conducted just prior to starting procedure confirmed patient identity, site/side, procedure, patient position, and availability of correct equipment and implants (if applicable). Staff Name Title CASSANDRA SEAMAN Diagnostic Mobile Lab Technician Stephanie Guillory Fellow Fouzia Medina RTR Scrub Jeremías Olivas RT(R) Dry Charge Process Attendant Yoni Jacobs RTR Monitor Ste, Yuridia RN Nurse CASSANDRA SEAMAN Interventional Cardiolog ist Procedures [...] Eluting Stent WILVER KRYS Fr ontier RX 2.92hrT69dj 3 1st RPL Balloon BLLN EUPHORA RX 2.5mmx 12mm Procedure Details Estimated Blood Loss: < 30 ml Specimen Collected: None Level of Sedation Achieved: Moderate Procedure Start: 14:35 Procedure End: 16:12 Procedure Time: 97 min Fluoroscopy Time: 32.5 min Cumulative Air Kerma: 2260 mGy DAP: 49299 uGy/M2 Contrast: Omnipaque (low-osmolar), 120 ml Physiologic [...] and the physician or other qualified health managed care coordinator providing the sedation ends personal continuous [id number] time with the patient. The medications listed above were verbal ly ordered by me and read back to me as documented above. Refer to the procedure log report for ad ditional case details. electronically signed on 01/04/2022 4:3 5:12 PM with status of Final Cassandra Seaman MD [facility] [address] [address] (p) [phone](f) Provider Referring CV IMAGING PACER LICHA DUAL CHAMBER WO REPROG (01/04/2022 11:00 AM ROLL FILLER) Narrative Yinka Briscoe MD - 01/04/2022 11 :00 AM ROLL FILLER Kg Marcial RN ? 01/04/2022 11:07 AM PACEMAKER EVALUATION REPORT December 29, 2021 Indication for Pacemaker: Sinus Node Dys function Primary MD: Helio Hayden MD Primary Mobile Lab Technician: Gabriella Lopez PA Primary EP: Yinka Briscoe MD Implanting MD: Yinka Briscoe MD DEVICE DATA Fur Stretcher Medtronic: Model [place] XT D R MRI SureScan [id number] Implant Date 12/29/2021 LEAD DATA Atrial Lead: Fur Stretcher Medtronic: Mod el 5076-52 cm Implant Date 12/29/2021 RV Lead: Fur Stretcher Medtronic: Model 3 830-69 cm Implant Date 12/29/2021 Advisory: none Location of evaluation: [facility] Reason for evaluation: Request for ch est [...] table lead measurements. No arrhythmias. 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 Silver sarina dressing removed today. Incision is clean, dry, intact. N o s/s of infection. Follow up: [place] as previously sche duled for routine post implant interrogation on 04/04/22. Routine follow up: Q 3-4 month [facility] with annual clinic in [place] each Mar. Kg Marcial RN, CCDS Nurse Clinician II [facility] Pacemaker/ICD Clinic [phone] Yinka Briscoe MD CARDIAC SERVICES ORD SCAN-CARDIAC STRIP (01/04/2022 9:59 AM ROLL FILLER) Narrative This result has an attachment that is no t available. Scanner OTHER SCAN-CARDIAC STRIP (01/04/2022 9:30 AM ROLL FILLER) Narrative This result has an attachment that is no t available. Scanner OTHER SCAN-CARDIAC STRIP (01/04/2022 2:27 AM ROLL FILLER) Narrative This result has an attachment that is no t available. Scanner OTHER SCAN CORRESP-LABORATORY RESULTS (01/04/2022 12:00 AM ROLL FILLER) Narrative 01/04/2022 12:00 AM ROLL FILLER This result has an attachment that is no t available. Ordered by an unspecified provider. Other Clinical Staff OTHER SCAN-OPERATIVE/PROCEDURE REPORT (01/04/2022 12:00 AM ROLL FILLER) Narrative 01/04/2022 12:00 AM ROLL FILLER This result has an attachment that is no t available. Ordered by an unspecified provider. Other Clinical Staff OTHER SCAN-CARDIAC STRIP (01/03/2022 3:42 PM ROLL FILLER) Narrative This result has an attachment that is no t available. Scanner OTHER SCAN-CARDIAC STRIP (01/03/2022 7:15 AM ROLL FILLER) Narrative This result has an attachment that is no t available. Scanner OTHER Troponin I - Initial Draw was done in ED (01/03/2022 1:07 AM ROLL FILLER)Only the most recent of2 resultswithin the time period is included. P athologist Signature TROPONIN I 0.023 <0.034 01/03/2022 [employer] ng/mL 2:22 AM ROLL FILLER LABORATORY-[facility] LABORATORY Specimen Anatomical Collection Method Collection Time Receive d Time (Source) Location / / Volume Laterality Blood BLOOD SPECIMEN / Diversion Device / 01/03/2022 1:07 AM 01/03/2022 1:18 Unknown Unknown ROLL FILLER AM ROLL FILLER Crystal Rajput MD CHEMISTRY Performing Organization Address City/State/ZIP Code Phon e Number [employer] [address] [place] [address] LABORATORY-CENTRAL 2000 LABORATORY SCAN-CARDIAC STRIP (01/02/2022 11:47 PM ROLL FILLER) Narrative This result has an attachment that is no t available. Scanner OTHER SCAN-CARDIAC STRIP (01/02/2022 9:35 PM ROLL FILLER) Narrative This result has an attachment that is no t available. Scanner OTHER XR Chest PA and lateral (12/29/2021 3:31 PM ROLL FILLER) Anatomical Region Laterality Modality CHEST, THORAX, Lung, HEART Digital Radio graphy Specimen (Source) Anatomical Collection Method Collection Time Re ceived Time Location / / Volume Laterality 12/29/2021 3:51 PM ROLL FILLER Impressions 12/29/2021 3:51 PM ROLL FILLER Left pacer body and right heart transvenous wires. No mediastinal widening or pneumothorax. Ectatic aorta. No acute cardiopulmonary disease. Left reversed shoulder arthroplasty. Dictated by Temo Gonzalez MD @ Dec 29 ??3:51PM (Electronically Signed) ?? Narrative 12/29/2021 3:51 PM ROLL FILLER For Patients: ??As a result of the Cures Act, medical imaging exams and procedure report s are released immediately into your [facility] medical record. ??You may view this [...] provider. If you have questions, please contact [facility] health care provider. INDICATION: Follow up pacer placement. TECHNIQUE: Two views. IMPRESSION: Left pacer body and right heart transven ous wires. No mediastinal widening or pneumothorax. Ectatic aorta. No acute cardiopulmonary disease. Left reversed shoulder arthroplasty. Dictated by Temo Gonzalez MD @ Dec 29 3:51PM (Electronically Signed) Yinka Briscoe MD GENERAL IMAGING PACER LICHA DUAL CHAMBER WO REPROG (12/29/2021 3:19 PM ROLL FILLER) Narrative Yinka Briscoe MD - 12/29/2021 3: 19 PM ROLL FILLER Evon Call RN ? 12/29/2021 ??4:22 PM PACEMAKER EVALUATION REPORT December 29, 2021 Indication for Pacemaker: Sinus Node Dys function Primary MD: Helio Hayden MD Primary Mobile Lab Technician: Gabriella Lopez PA Primary EP: Yinka Briscoe MD Implanting MD: Yinka Briscoe MD DEVICE DATA Fur Stretcher Medtronic: Model [place] XT D R MRI SureScan [id number] Implant Date 12/29/2021 LEAD DATA Atrial Lead: Fur Stretcher Medtronic: Mod el 5076-52 cm Implant Date 12/29/2021 RV Lead: Fur Stretcher Medtronic: Model 3 830-69 cm Implant Date 12/29/2021 Visit location: [place] [address] Reason For Evaluation: Same day discharg e [...] of care as described. Patient was given [employer] busines s card and encouraged to call if he has any concerns or questions in the future. Enrolled in [facility] & Monitor Paired. Follow up: 1 Week Post-Op [facility] ed for 01/05/2022 then 3 month post-op in [place] on 04/04/2022 Routine follow up: Q 3-4 month [facility] with annual clinic in [place] each Mar. Evon Call RN Nurse Clinician II [facility] Pacemaker/ICD Clinic ?? Yinka Briscoe MD CARDIAC SERVICES ORD EP Procedure to be Performed (12/29/2021 12:07 PM ROLL FILLER) Narrative Yinka Briscoe MD - 12/29/2021 12 :07 PM ROLL FILLER Yinka Briscoe MD ? 12/29/2021 12:08 PM [...] 2) Incision check in 1-2 weeks with [facility] physician. 3) Device clinic check in 3-4 months. 4) Medication changes: start sotalol 80 mg po bid on Sunday with an EKG on Sunday Surgeon: Yinka Briscoe MD Yinka Briscoe MD FIELD SERVICE TECHNICIAN POULTRY ORD EP PPM (12/29/2021 11:04 AM ROLL FILLER) Anatomical Region Laterality Modality X-Ray Angiography, X -Ray Angiography Specimen (Source) Anatomical Collection Method Collection Time Re ceived Time Location / / Volume Laterality 12/29/2021 11:04 AM ROLL FILLER Narrative This result has an attachment that is no t available. Transcriptions Yinka Briscoe MD - 12/30/2021 5: 03 AM CST [facility] Electrophysiology Implant Report Name: CRISTIAN Adams NATHALIA Event Date: 12/30/19 22 [employer] ID #: [id number] Date: Gender: Male Age: 86 [facility] #: [id number] Procedure Performed By: YINKA BRISCOE [place] [facility] [place] Primary Phlebotomist Prn: THIERRY BRISCOE Referring Physician: Primary Care Physician: HELIO HAYDEN Implant Procedure Type Dual Chamber Permanent Pacemaker EP Impl ant Summary / Conclusions PACEMAKER * Dual chamber pacemaker system successf ully implanted. * Procedure completed without incident. * Appropriate device functionality obser burton at end of case. Recommendations / Plan 1) CXR and device check later today 2) Incision check in 1-2 weeks with [facility] physician. 3) Device clinic check in 3-4 [...] for a dual-chamber pacemaker implant. Consent & [place] Protocol [place] protocol was followed. TIME OU T conducted [...] Serial Number 12/29/2021 Implanted Left Pectoral [employer] Libertad XT DR MRI [id number] Lead Detail Implanted Status [facility] Serial Number 12/29/2021 Implanted Right Ventricle Sep monica Medtronic[employer] Inc. Secure Select 3830- 69 [id number] 12/29/2021 Implanted Right Atrium Right Appendage Medtronic, Inc. CapSureFix Novus 5076-52 [id number] Measurement Fisher Mussel P/R Wave (mV) Threshold (V) Pulse Width [...] Anesthes ia Note Total Fluoro Time: 10.9 HEEL SANDER RUBBER Total Fluoro Dose: 18 mGy Staff Name Role Yinka Briscoe Phlebotomist Prn Janae Diaz RN Nurse Sophie Pino PINA [place] Tori Srivastava RCES Dry Charge Process Attendant BuitragoAlberto EPT Dry Charge Process Attendant Medications Ordered and Administered Start Time Stop [...] status of Final Yinka Briscoe MD Implanting Mobile Lab Technician [facility] [address] [place] [address] [place], [place] [id number] (p) [phone](f) Yinka Briscoe MD CV IMAGING (ABNORMAL) TSH (12/02/2021 12:17 PM CDT)Only the most recent of2 resultswithin the time period is included. P athologist Signature TSH 5.26 (H) 0.35 - 4.94 12/03/2021 [employer] uIU/mL 9:21 PM CDT LAB[facility]ATORY[facility] Specimen Anatomical Collection Method / Collection Time Recei burton Time (Source) Location / Volume Laterality Blood BLOOD SPECIMEN / Venipuncture / 12/02/2021 12:17 12/02 Unknown Unknown PM CDT 12:21 PM CDT Narrative [employer] [facility] - 12/03/2021 9:21 PM CDT In Adults, TSH values between 5.00 and 10.00 uIU/ml do not necessarily indicate the presence of Hyp othyroidism. Correlation with clinical findings such as presence of goiter and/or Thyroperoxidase (TPO) Antibody ma y be helpful. For more information please refer to CATHERINE 20 ; 291: 228-238. Yinka Briscoe MD CHEMISTRY Performing Organization Address City/State/ZIP Code Phon e Number [employer] [address] [place] [address] LABORATORY-CENTRAL 2000 LABORATORY T4,FREE (12/02/2021 12:17 PM CDT)Only the most recent of2 resultswithin the time period is included. P athologist Signature T4,FREE 0.93 0.70 - 1.80 12/03/2021 [place] [employer] ng/dL 9:20 PM CDT LABORATORY-CENTR AL LABORATORY Specimen Anatomical Collection Method / Collection Time Recei burton Time (Source) Location / Volume Laterality Blood BLOOD SPECIMEN / Venipuncture / 12/02/2021 12:17 12/02 Unknown Unknown PM CDT 12:21 PM CDT Yinka Briscoe MD CHEMISTRY Performing Organization Address City/State/ZIP Code Phon e Number [place] [employer] [address] [place] [address] LABORATORY-CENTRAL 2000 LABORATORY (ABNORMAL) AMIODARONE (CORDARONE) (11/24/2021 [...] City/State/ZIP Code Phon e Number [facility] [address] [place] [address] MR SHOULDER RIGHT WO (11/10/2021 10:06 AM [...] report s are released immediately into your [facility] medical record. ??You may view this [...] ECHOCARDIOGRAM CRISTIAN STEVENS ? Accessi on#: ?? [id number] : ?1935 86 years Study Date: ?? 11/04/2021 1:39:43 PM Gender: M ?BP: ? 129/64 mmHg Height: 175.00 cm ?BSA: ?1.94 m? ?? Weight: 78.00 kg ? Tech: ? MJJ ? Referring MD: MARY VILLARREAL Site: ? [facility] Reading Location: MOBILE=-SHAY Procedure: 2D, [...] . This study was interpreted by an [facility] redited facility. CC: [facility] [place], Med/ Surg - IP [facility]. ??Final ?? Procedure Note Drake Tucker MD - 11/04/2021Form atting of this note might be different from the original. ECHOCARDIOGRAM CRISTIAN STEVENS : 1935 86 years Study Date: 11/04 1:39:43 PM Gender: M BP: 129/64 mmHg Height: 175.00 cm BSA: 1.94 m? ?? Weight: 78.00 kg Tech: SOTO Referring MD: MARY VILLARREAL Site: [facility] Reading Location: MOBILE=[facility] Procedure: 2D, Color Doppler and Spectra l [...] . This study was interpreted by an [facility] facility. CC: [facility] [place], Med/ Surg - IP [facility]. Final Mary Villarreal MD ECHO ORD SCAN-CT INTERPRETATION (11/04/2021 12:00 AM CDT) Narrative This result has an attachment that is no t available. Scanner OTHER SCAN-OPERATIVE/PROCEDURE REPORT (10/27/2021 12:00 AM CDT) Narrative This result has an attachment that is no t available. Scanner OTHER from Last 3 Months Insurance Payer Benefit Plan / Subscriber ID Effective Phone Address T ype Group Dates MEDICARE PART MEDICARE PART [id number] 2001-Prese ATT N: CLAIMS A - HB USE A HB ONLY nt [address] [place] [address] MEDICARE PART MEDICARE PART [id number] 2001-Prese ATT N: CLAIMS B - HB USE B HB ONLY nt [address] [place] [address] WC WORKERS WC WORKERS [id number] Effective for 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
== END 2022-01-02 20:15 | disposition home or self-care (01) ==
LOC: AMB 01-17 10:12
PROVIDERS: PCP Surgery; Visit Provider Internal Medicine
DX: I20.8 Other forms of angina pectoris (principal)
CPT/HCPCS: A0425; A0426

== ENCOUNTER 2022-01-10 14:17 | Outpatient (CLI) | payer MEDICARE, BC, SELFPAY ==
--- OUTSIDE RECORDS SUMMARY | 2022-01-10 14:21 | XMS_ITS | Continuity of Care Document ---
:1935 Author Organization [facility] Care Team Providers Name Role Phone [facility] Unavailable Unavailable Problems Combined list of problems from Department of Defense and [facility] Affairs facilities. It does not include entries that were removed or entered in error. Problem Status Onset Problem Type Date of Comments Source Date Resolution Postsurgical Active 12/21/19 Condition [place] Percutaneous 12 [facility] Transluminal Coronary Angioplasty Status Tobacco Use Active 02/19/18 Condition [place] Disorder, Remission 61 [facility] Personal History of Active 02/19/18 Condition [place] Peptic Ulcer 57 [facility] Disease Atrial fibrillation Active Condition [facility] CO-MANAGE Active Condition Jun 04 [place] IS 2012 Entered [facility] By: JOHN YEE Comment: Dr. Law Lawson, [facility] Jun 10, 2013 Entered By: FRANCOIS HAMPTON Comment: PCP Dr. Robbins Coronary Artery Active Condition [place] Disease [facility] Gastroesophageal Active [place] reflux disease [facility] (SNOMED CT 471124425) Hearing Loss, Active Condition [place] Partial * (ICD-9-CM [facility] 389.9) Hyperlipidemia Active Condition [place] (SNOMED CT [facility] 24590753) Hypertension Active Condition [place] (SNOMED CT [facility] [id number]) Insomnia Active [place] [facility] Tinnitus * Active Condition [place] (ICD-9-CM 388.30) [facility] Diagnosis: Active Diagnosis [place] ICD-10-CM I48.91 [facility] Unspecified atrial fibrillationwith Provider Comments: Atrial fibrillation (SCT 62051368) Diagnosis: Active Diagnosis [place] ICD-10-CM F43.20 [facility] Adjustment disorder, unspecifiedwith Provider Comments: Adjustment Disorder, unspecified Diagnosis: Active Diagnosis [place] ICD-10-CM F43.21 [facility] Adjustment disorder with depressed moodwith Provider Comments: Adjustment Disorder with depressed mood Diagnosis: Active Diagnosis [place] ICD-10-CM F51.01 [facility] Primary insomniawith Provider Comments: Insomnia (SCT 707200958) Diagnosis: Active Diagnosis [place] ICD-10-CM Z23 [facility] Encounter for immunizationwith Provider Comments: Encounter for any immunization Diagnosis: Active Diagnosis [place] ICD-10-CM Z63.79 [facility] Other stressful life events affecting family and [...] Diagnosis: Active Diagnosis [place] IS ICD-10-CM I10 [facility] Essential (primary) hypertensionwith Provider Comments: [id number] Medications Combined list of outpatient medications from Department of 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 Medications provided include 1) outpatient medications from the last 15 months, and 2) patient-reported medications. Medication Details Route Status Patient Prescription Prescription Last Ordering Order Source Instructions Expires Number Dispense Provider Date Date APIXABAN TAKE ONE ORALLY ACTIVE 05/07/2022 [id number] RID GEWELL 05/09/ [place] 5MG TAB TABLET 2 ,LEYDA L 2021 [place] [facility] EVERY 12 HOURS TO PREVENT STROKE DUE TO ATRIAL FIBRILLA TION APIXABAN TAKE ONE ORALLY DISCONT 03/31/2021 [id number] RI DGEWELL 03/30/ [place] 5MG TAB TABLET INUED 1 ,LEYDA L 2020 [place] [facility] EVERY 12 HOURS TO PREVENT STROKE DUE TO ATRIAL FIBRILLA TION ATORVASTATI TAKE ORALLY ACTIVE FRENCH,FRANCOIS 06/08/ [place] 20MG ONE-HALF [...] PRN DRONEDARONE TAKE ONE ORALLY DISCONT 06/07/2022 [id number] GLAUSER,N 06/08/ [place] 400MG TAB TABLET INUED [...] EVERY DAY HYDROCHLORO TAKE ONE ORALLY ACTIVE FRENCH,FRANCOIS 06/08 / [place] THIAZIDE TABLET C 2014 [...] DAY METOPROLOL TAKE ORALLY ACTIVE GLAUSER,N 12/05/ [place] SUCCINATE ONE-HALF ORA N 2021 [place] [...] TONGUE PRN OMEPRAZOLE TAKE 2 ORALLY ACTIVE FRENCH,FRANCOIS M [place] 20MG CAP,EC CAPSULES C 2017 [...] atus Comments Source Given By Number Code Lining Sewer ZOSTER 2 complet [place] RECOMBINANT [facility] 1 complet [place] RECOMBINANT 2020 [facility] [place] [facility] INFLUENZA, complet [place] UNSPECIFIED 2020 ed [place] [facility] FORMULATION [facility] S COVID-19 2 complet [place] ([employer]), 2020 ed [place] [facility] MRNA, LNP-S, H CS PF, 30 MCG/0.3 ML DOSE COVID-19 1 complet [place] ([employer]), 2020 ed [place] [facility] M[facility], LNP-S, H [...] 2021 09:39 AM ACTIVITY/VO Reporting L ab: [facility] H[facility] LUME] IN [address] [place] [facility] [address] SERUM OR Performing Lab : [facility] PLASMA [place] [address] AST/SGOT ASPARTATE 16 <34 - 34 05/25 Specimen Typ e: PLASMA [place] AMINOTRANSF /2021 No comment e ntered. [place] [facility] ERASE Ordering Provid er: LEYDA COHEN [ENZYMATIC Report Relea sed Date/Time: July 06, 2021 09:39 AM ACTIVITY/VO Reporting L ab: [facility] HCS LUME] IN [address] [place] [facility] [address] SERUM OR Performing Lab : [facility] PLASMA [place] [address] CBC LEUKOCYTES 6.21 4.0 - 11.0 05 Specimen T ype: BLOOD [place] [#/VOLUME] /2021 No comment en tered. [place] [facility] IN BLOOD BY Ordering Pr ovider: LEYDA COHEN AUTOMATED Report Releas ed Date/Time: July 06, 2021 09:39 AM COUNT Reporting Lab: [facility] HCS [address] [facility] [facility] [address] Performing Lab: [facility] [place] [address] CBC ERYTHROCYTE 4.06 4.6 - 6.2 05/25 L Specimen T ype: BLOOD [place] /2021 No comment enter ed. [place] [facility] [#/[place]UME] Ordering Pro vider: LEYDA COHEN IN BLOOD BY Report Rele ased Date/Time: July 06, 2021 09:39 AM AUTOMATED Reporting Lab : [facility] COUNT [address] [facility] [address] Performing Lab: [facility] HCS [address] [facility] [address] CBC HEMOGLOBIN 12.9 13.5 - 05/25 L Specimen Type : BLOOD [place] [MASS/VOLUM 17.9 /2021 No comment e [facility]tered. [facility] E] IN BLOOD Ordering Pr ovider: LEYDA COHEN Report Released Date/Time: July 06, 2021 09:39 AM Reporting Lab: [facility] HCS [address] [facility] [address] Performing Lab: [facility] [address] [facility] [address] CBC HEMATOCRIT 39.0 41 - 54 07/13 L Specimen Type : BLOOD [place] [VOLUME /2021 No comment enter ed. [facility] FRACTION] Ordering Prov ider: LEYDA COHEN OF BLOOD BY Report Rele ased Date/Time: July 06, 2021 09:39 AM AUTOMATED Reporting Lab : [facility] HCS COUNT [address] [facility] [address] Performing Lab: [facility] HCS [address] [facility] [address] CBC MCV 96.1 80 - 100 07/13 Specimen Type: BLOOD [place] [ENTITIC /2021 No comment ente red. [facility] VOLUME] BY Ordering Pro vider: LEYDA COHEN AUTOMATED Report Releas ed Date/Time: July 06, 2021 09:39 AM COUNT Reporting Lab: [facility] HCS [address] [facility] [address] Performing Lab: [facility] HCS [address] [facility] [address] CBC MCH 31.8 27 - 33 07/13 Specimen Type: B LOOD [place] [ENTITIC /2021 No comment ente red. [facility] MASS] BY Ordering Provi michael: LEYDA COHEN AUTOMATED Report Releas ed Date/Time: July 06, 2021 09:39 AM COUNT Reporting Lab: [facility] HCS [address] [facility] [address] Performing Lab: [facility] HCS [address] [facility] [address] CBC MCHC 33.1 32.0 - 07/13 Specimen Type: B LOOD [place] [MASS/VOLUM 37.5 /2021 No comment e ntered. [facility] E] BY Ordering Provid er: LEYDA COHEN AUTOMATED Report Releas ed Date/Time: July 06, 2021 09:39 AM COUNT Reporting Lab: [facility] HCS [address] [facility] [address] Performing Lab: [facility] HCS [address] [facility] [address] CBC PLATELETS 238 150 - 400 07/13 Specimen Typ e: BLOOD [place] [#/VOLUME] /2021 No comment [facility] tered. [facility]LOOD BY Ordering Pr ovider: LEYDA COHEN AUTOMATED Report Releas ed Date/Time: July 06, 2021 09:39 AM COUNT Reporting Lab: [facility] [address] [place] [address] Performing Lab: [facility] [address] [place] [address] CBC PLATELET 9.2 7.4 - 10.4 07/13 Specimen Typ e: BLOOD [place] MEAN VOLUME /2021 No comment e ntered. IS [facility] [ENTITIC Ordering Provi michael: LEYDA COHEN VOLUME] IN Report Relea sed Date/Time: July 06, 2021 09:39 AM BLOOD BY Reporting Lab: [facility] AUTOMATED [address] [place] [facility] [address] COUNT Performing Lab: [facility] [address] [place] [address] CBC ERYTHROCYTE 12.9 11.5 - 07/13 Specimen Typ e: BLOOD [place] DISTRIBUTIO 14.5 No comment e ntered. IS [facility] N WIDTH Ordering Provid er: LEYDA COHEN [RATIO] BY Report Relea sed Date/Time: July 06, 2021 09:39 AM AUTOMATED Reporting Lab : [facility] [place] [address] Performing Lab: [facility] [place] [address] CREATININ CREATININE 0.9 0.7 - 1.2 07/13 Specimen Type: PLASMA [place] E(INCLUDE [MASS/VOLUM /2021 No comment entered. IS [facility] S EGFR) E] IN SERUM Ordering Pr ovider: LEYDA COHEN OR PLASMA Report Releas ed Date/Time: July 06, 2021 09:39 AM Reporting Lab: [facility] [address] [place] [address] Performing Lab: [facility] [place] [address] CREATININ CREAT 84 60 07/13 Specimen Type: PLASMA [place] E(INCLUDE EGFR(CKD-EP /2021 No comment entered. IS [facility] S EGFR) I) Ordering Provid er: LEYDA COHEN Report Released Date/Time: July 06, 2021 09:39 AM Reporting Lab: [facility] [address] [place] [address] Performing Lab: [facility] [address] [place] [address] BASIC CREATININE 0.9 0.7 - 1.2 01/03 Specimen Ty pe: PLASMA [place] METABOLIC [MASS/VOLUM /2020 No comment entered. IS [facility] PANEL+MG E] IN SERUM Ordering P rovider: DERRICK GEORGE OR PLASMA Report Releas ed Date/Time: Dec 24, 2019 02:11 PM Reporting Lab: [facility] [address] [facility] [address] [place] [address] Performing Lab: [facility] [address] [place] [address] BASIC UREA 21 8 - 26 01/03 Specimen Type: P LASMA [place] METABOLIC NITROGEN /2020 No comment en tered. IS [facility] PANEL+MG [MASS/VOLUM Ordering P rovider: DERRICK GEORGE E] IN SERUM Report Rele ased Date/Time: Dec 24, 2019 02:11 PM OR PLASMA Reporting Lab : [facility] [place] [address] Performing Lab: [facility] [place] [address] BASIC GLUCOSE 101 74 - 100 01/03 H Specimen Type: PLASMA [place] METABOLIC [MASS/VOLUM /2020 No comment entered. IS [facility] PANEL+MG E] IN SERUM Ordering P rovider: DERRICK GEORGE OR PLASMA Report Releas ed Date/Time: Dec 24, 2019 02:11 PM Reporting Lab: [facility] [place] [address] Performing Lab: [facility] [place] [address] BASIC SODIUM 140 136 - 145 01/03 Specimen Type: PLASMA [place] METABOLIC [MOLES/VOLU /2020 No comment entered. IS [facility] PANEL+MG ME] IN Ordering Provi michael: DERRICK GEORGE SERUM OR Report Release d Date/Time: Dec 24, 2019 02:11 PM PLASMA Reporting Lab: [facility] [place] [address] Performing Lab: [facility] [place] [address] BASIC POTASSIUM 3.7 3.5 - 5.1 01/03 Specimen Typ e: PLASMA [place] METABOLIC [MOLES/VOLU /2020 No comment entered. IS [facility] PANEL+MG ME] IN Ordering Provi michael: DERRICK GEORGE SERUM OR Report Release d Date/Time: Dec 24, 2019 02:11 PM PLASMA Reporting Lab: [facility] [address] [place] [address] Performing Lab: [facility] [address] [place] [address] BASIC CHLORIDE 107 98 - 107 01/03 Specimen Type: PLASMA [place] METABOLIC [MOLES/VOLU /2020 No comment entered. IS [facility] PANEL+MG ME] IN Ordering Provi michael: DERRICK GEORGE SERUM OR Report Release d Date/Time: Dec 24, 2019 02:11 PM PLASMA Reporting Lab: [facility] [address] [place] [address] Performing Lab: [facility] [address] [place] [address] BASIC CARBON 26 22 - 29 01/03 Specimen Type: P LASMA [place] METABOLIC DIOXIDE, No comment en tered. IS [facility] PANEL+MG TOTAL Ordering Provi michael: DERRICK GEORGE [MOLES/VOLU Report Rele ased Date/Time: Dec 24, 2019 02:11 PM ME] IN Reporting Lab: [facility] SERUM OR [address] [place] [facility] [address] PLASMA Performing Lab: [facility] ONE [facility] [place] [address] BASIC CALCIUM 9.4 8.4 - 10.2 01/03 Specimen Type : PLASMA [place] METABOLIC [MASS/VOLUM No comment entered. IS [facility] PANEL+MG E] IN SERUM Ordering P rovider: DERRICK GEORGE OR PLASMA Report Releas ed Date/Time: Dec 24, 2019 02:11 PM Reporting Lab: [facility] ONE [facility] [place] [address] Performing Lab: [facility] [place] [address] BASIC MAGNESIUM 2.0 1.6 - 2.6 01/03 Specimen Typ e: PLASMA [place] METABOLIC [MASS/VOLUM No comment entered. IS [facility] PANEL+MG E] IN SERUM Ordering P rovider: DERRICK GEORGE OR PLASMA Report Releas ed Date/Time: Dec 24, 2019 02:11 PM Reporting Lab: [facility] [place] [address] Performing Lab: [facility] [address] [place] [address] BASIC ANION GAP 7 5 - 15 01/03 Specimen Type: PLASMA [place] METABOLIC IN SERUM OR No comment entered. IS [facility] PANEL+MG PLASMA Ordering Provi michael: TRAUT,DERRICK L Report Released Date/Time: Dec 24, 2019 02:11 PM Reporting Lab: [facility] HCS [place] [address] Performing Lab: [facility] [address] [place] [address] BASIC GLOMERULAR 80 60 01/03 Specimen Type : PLASMA [place] METABOLIC FILTRATION /2020 No comment entered. IS [facility] PANEL+MG RATE/1.73 Ordering Pro vider: DERRICK GEORGE SQ Report Released Date/Time: Dec 24, 2019 02:11 PM M.PREDICTED Reporting L ab: [facility] HCS [VOLUME [place] [address] RATE/AREA] Performing L ab: [facility] HCS IN SERUM, [address] [facility] [address] PLASMA OR BLOOD BY CREATININE- BASED FORMULA (CKD-EPI) CBC LEUKOCYTES 8.11 4.0 - 11.0 01/03 Specimen T ype: BLOOD [place] [#/VOLUME] /2020 No comment en tered. IS [facility] IN BLOOD BY Ordering Pr ovider: DERRICK GEORGE AUTOMATED Report Releas ed Date/Time: Dec 24, 2019 02:11 PM COUNT Reporting Lab: [facility] [place] [address] Performing Lab: [facility] [place] [address] CBC ERYTHROCYTE 4.21 4.6 - 6.2 01/03 L Specimen T ype: BLOOD [place] S /2020 No comment enter ed. [place] [facility] [#/[place]UME] Ordering Pro vider: DERRICK GEORGE IN BLOOD BY Report Rele ased Date/Time: Dec 24, 2019 02:11 PM AUTOMATED Reporting Lab : [facility] COUNT [place] [address] Performing Lab: [facility] [place] [address] CBC HEMOGLOBIN 13.6 13.5 - 01/03 Specimen Type : BLOOD [place] [MASS/VOLUM 17.9 /2020 No comment e [place]tered. [place] [facility] E] IN BLOOD Ordering Pr ovider: DERRICK GEORGE Report Released Date/Time: Dec 24, 2019 02:11 PM Reporting Lab: [facility] [place] [address] Performing Lab: [facility] [address] [place] [facility] [address] CBC HEMATOCRIT 41.5 41 - 54 01/03 Specimen Type : BLOOD [place] [VOLUME /2020 No comment enter ed. [facility] FRACTION] Ordering Prov ider: DERRICK GEORGE OF BLOOD BY Report Rele ased Date/Time: Dec 24, 2019 02:11 PM AUTOMATED Reporting Lab : [facility] H[facility] [place] [address] Performing Lab: [facility] [place] [address] CBC MCV 98.6 80 - 100 01/03 Specimen Type: BLOOD [place] [ENTITIC /2020 No comment ente red. [facility] VOLUME] BY Ordering Pro vider: DERRICK GEORGE AUTOMATED Report Releas ed Date/Time: Dec 24, 2019 02:11 PM COUNT Reporting Lab: [facility] [place] [address] Performing Lab: [facility] [place] [address] CBC MCH 32.3 27 - 33 01/03 Specimen Type: B LOOD [place] [ENTITIC /2020 No comment ente red. [facility] MASS] BY Ordering Provi michael: DERRICK GEORGE AUTOMATED Report Releas ed Date/Time: Dec 24, 2019 02:11 PM COUNT Reporting Lab: [facility] [place] [address] Performing Lab: [facility] [place] [address] CBC MCHC 32.8 32.0 - 01/03 Specimen Type: B LOOD [place] [MASS/VOLUM 37.5 /2020 No comment e ntered. [facility] E] BY Ordering Provid er: DERRICK GEORGE AUTOMATED Report Releas ed Date/Time: Dec 24, 2019 02:11 PM COUNT Reporting Lab: [facility] [place] [address] Performing Lab: [facility] [address] [facility] [address] CBC PLATELETS 204 150 - 400 01/03 Specimen Typ e: BLOOD [place] [#/VOLUME] /2020 [place]red. [place] [facility] [place]OD [place] Ordering Pr ovider: DERRICK GEORGE AUTOMATED Report Releas ed Date/Time: Dec 24, 2019 02:11 PM COUNT Reporting Lab: [facility]CS [address] [facility] [address] Performing Lab: [facility] [place] [address] CBC PLATELET 9.3 7.4 - 10.4 01/03 Specimen Typ e: BLOOD [place] MEAN VOLUME /2020 No comment e ntered. IS [facility] [ENTITIC Ordering Provi michael: DERRICK GEORGE L VOLUME] IN Report Relea sed Date/Time: Dec 24, 2019 02:11 PM BLOOD BY Reporting Lab: [facility] AUTOMATED [address] [facility] [address] COUNT Performing Lab: [facility] [address] [facility] [address] CBC ERYTHROCYTE 13.1 11.5 - 01/03 Specimen Typ e: BLOOD [place] DISTRIBUTIO 14.5 No comment e ntered. IS [facility] N WIDTH Ordering Provid er: DERRICK GEORGE L [RATIO] BY Report Relea sed Date/Time: Dec 24, 2019 02:11 PM AUTOMATED Reporting Lab : [facility] COUNT [address] [facility] [address] Performing Lab: [facility] [address] [facility] [address] LIPID CHOLESTEROL 121 <199 - 199 01/03 Specimen Type: PLASMA [place] PANEL,NON [MASS/VOLUM /2020 No comment entered. IS [facility] E] IN SERUM Ordering P rovider: DORISDERRICK L OR PLASMA Report Releas ed Date/Time: Dec 24, 2019 02:11 PM Reporting Lab: [facility] [place] [address] Performing Lab: [facility] [place] [address] LIPID CHOLESTEROL 46 40 01/03 Specimen Typ e: PLASMA [place] PANEL,NON IN HDL /2020 No comment ent ered. IS [facility] [MASS/VOLUM Ordering P rovider: DORISDERRICK L E] IN SERUM Report Rele ased Date/Time: Dec 24, 2019 02:11 PM OR PLASMA Reporting Lab : [facility] [address] [facility] [address] Performing Lab: [facility] [address] [facility] [address] LIPID CHOLESTEROL 58 <99 - 99 01/03 Specimen Ty pe: PLASMA [place] PANEL,NON IN LDL /2020 No comment ent ered. IS [facility] [MASS/VOLUM Ordering P rovider: TRAUTDERRICK L E] IN SERUM Report Rele ased Date/Time: Dec 24, 2019 02:11 PM OR PLASMA Reporting Lab : [facility] BY [address] [place] [address] CALCULATION Performing Lab: [facility] [address] [place] [address] LIPID CHOLESTEROL 17 <29 - 29 01/03 Specimen Ty pe: PLASMA [place] PANEL,NON IN VLDL /2020 No comment ent ered. IS [facility] [MASS/VOLUM Ordering P rovider: DERRICK GEORGE E] IN SERUM Report Rele ased Date/Time: Dec 24, 2019 02:11 PM OR PLASMA Reporting Lab : [facility] BY [address] [place] [address] CALCULATION Performing Lab: [facility] [address] [place] [address] LIPID CHOLESTEROL 75 <129 - 129 01/03 Specimen Type: PLASMA [place] PANEL,NON NON HDL /2020 No comment ent ered. IS [facility] [MASS/VOLUM Ordering P rovider: DERRICK GEORGE L E] IN SERUM Report Rele ased Date/Time: Dec 24, 2019 02:11 PM OR PLASMA Reporting Lab : [facility] [address] [place] [address] Performing Lab: [facility] [address] [place] [address] LIPID TRIGLYCERID 87 <149 - 149 01/03 Specimen Type: PLASMA [place] PANEL,NON E /2020 No comment ent ered. IS [facility] [MASS/VOLUM Ordering P rovider: DERRICK GEORGE L E] IN SERUM Report Rele ased Date/Time: Dec 24, 2019 02:11 PM OR PLASMA Reporting Lab : [facility] [address] [place] [address] Performing Lab: [facility] [address] [place] [address] Encounters Combined list of: 1) Encounters from Department of Veterans Affairs facilities going back up to the last 18 months. 2) Encounters from the Department of Defense facilities going back up to 280 months. Location Location Encounter Encounter Reason Attending ADM DC Stat us Disposition Source Details Type Number For Provider Date Date Visit Outpatient [id number] 07/23 [place] Encounter [id number] /2020 [facility] Outpatient 08912-108/18 [place] Encounter [id number] /2021 [facility] Outpatient 28053-4.61 09/14 [place] Encounter [id number] /2021 [place] [facility] Outpatient 71372-4. 10/ [place] Encounter [id number] /2020 [place] [facility] Outpatient [id number] 10/ [place] Encounter [id number] [place] [facility] OFFICE O/P 32352-4 WYATT Blas 01/03 [place] EST MOD [id number] is: DEMETRIO L [place] [facility] 30-39 [place] ICD-10- HCS CM I10 Essenti al (primar y) hyperte nsion<b r/>with Provide r Comment s: Hyperte nsion (SCT [id number] 3) [place] [address]-4 Diagnos SKROCH,ALLISON 01/24 [place] 30 MINUTES [id number] is: [place] ICD-10- HCS CM Z71.1 Person w feared hlth complai nt in whom no diagnos is is made
with Provide r Comment s: Person with Feared Health Complai nt [place] whom [place] [address]-1.61 Diagnos SKROCH,ALLISON 02/07 [place] 30 MINUTES [id number] is: [place] ICD-10- HCS CM Z60.0 Problem s of adjustm ent to life-cy radha transit ions
with Provide r Comment s: Problem s of Adjustm ent to Life-[place] [address]-4.61 Diagnos SKROCH,ALLISON 03/08 [place] 30 MINUTES [id number] is: ET [place] ICD-10- HCS CM Z63.79 Other stressf ul life events affecti ng family and househo ld
with Provide r Comment s: Other Stressf ul Life Events Affecti ng Family and Househo ld IMMUNIZATI 03921-3.61 Diagnos DALE MCCORMICK 03/09 [place] ADMIN [id number] is: RY ARTHUR L NIKOLAY S [place] ICD-10- HCS CM Z23 Encount er for immuniz ation<b r/>with Provide r Comment s: Encount [place] [address]-3.61 Diagnos SKROCH,ALLISON 04/08 [place] 30 MINUTES [id number] is: ET A [place] ICD-10- HCS CM F51.01 Primary insomni a
w ith Provide r Comment s: Insomni a (SCT [id number] ) [place] [address]-5.61 Diagnos SKROCH,ALLISON 05/06 [place] 30 MINUTES [id number] is: [place] A [place] ICD-10- HCS CM F43.21 Adjustm ent disorde r with depress ed mood
with Provide r Comment s: Adjustm ent Disorde r with depress ed mood Outpatient 05241-4.61 05/13 [place] Encounter [id number] /2021 [facility] [place] [facility] [place] 68557-1.61 05/16 [place] En[place] [id number] /[facility] [place] 98033-4.61 05/19 [place] En[place] [id number] /2021 [facility] Outpatient 86801-8.61 Diagnos GLAUSER,NO 06/06 [place] Encounter [id number] is: RA N [place] ICD-10- HCS CM I48.91 Unspeci fied atrial fibrill ation<b r/>with Provide r Comment s: Atrial fibrill ation (SCT [id number] 4) Outpatient 37904-3.61 06/06 [place] Encounter [id number] /20[place] [address]-7.61 Diagnos EVA, 06/06 [place] DIG [id number] is: SABINE K [place] [facility] ICD-10- HCS 5-10 CM I48.91 Unspeci fied atrial fibrill ation<b r/>with Provide r Comment s: Atrial fibrill ation (SCT [id number] 4) [place] [address]-9.61 Diagnos SKROCH,ALLISON 06/17 [place] 30 MINUTES [id number] is: ET A [facility] ICD-10- HCS CM F43.20 Adjustm ent disorde r, unspeci fied
with Provide r Comment s: Adjustm ent Disorde r, unspeci fied Outpatient 45355-8.61 07/06 [place] Encounter [id number] [facility] Outpatient 51269-3.61 10/18 [place] Encounter [id number] [facility] Outpatient 36639-4.61 Diagnos GLAUSER,NO 12/05 [place] Encounter [id number] is: RA N [facility] ICD10- [facility] CM I48.91 Unspeci fied atrial fibrill ation<b r/>with Provide r Comment s: [facility] at[id number] Social History [facility] list of available [facility], tobacco, and other [facility]. [facility] Type Response Date Comment Source Tobacco smoking status [facility]-TOBACCO FORMER USER 01/03/2021 [facility] History of tobacco use [place] 15 YRS 01/03/2021 [facility] History of tobacco use [place] QU[place] 15 YRS 06/20/2018 [facility] History of tobacco use FORMER TOBACCO USER 7Y 07/09/2017 [facility] History of tobacco use FORMER TOBACCO USER 7Y 07/07/2016 [facility] History of tobacco use FORMER TOBACCO USER 7Y 06/21/2015 [facility] History of tobacco use FORMER TOBACCO USER 7Y 06/08/2014 [facility] History of tobacco use LIFETIME NON-TOBACCO 06/10/2013 [facility] USER History of tobacco use FORMER TOBACCO USER 7Y 08/03/2011 [facility] Plan of Care List of future care activities from [facility] facilities. Additional future care activities may be listed in the Assessment and Plan section. Date/Time Care Activity Care Activity Detail Facility 01/16/2022 AMBULATORY - MEDICINE AMBULATORY - MEDICINE [facility] Advance Directives List of completed, amended, or rescinded Advance Directives on record at [facility] facilities. An actual copy of the Directive is not included. Date Advance Directive Provider Source 06/19/2013 ADVANCE DIRECTIVE DISCUSSION KENDALL [facility]ERRANO [facility]
--- OUTSIDE RECORDS SUMMARY | 2022-01-10 14:21 | XMS_ITS | Clinical Summary ---
:1935 Author Organization [facility] [place] [address] Care Team Providers Name Role Phone Catrina [...] once Gastric reflux daily before a meal. acetaminophen (TYLENOL Every 6 Hours 0 05/26/19 Active EXTRA STRGTH) 500 mg as needed 22 tablet furosemide (LASIX) 20 Take 1 Tablet 90 Tablet 3 09/20/19 Active mg tabletIndications: (20 mg) by 22 Bilateral lower mouth every extremity edema morning. gabapentin (NEURONTIN) Take 1 Capsule 90 Capsule 3 11/01/19 Active 300 mg (300 mg) by 22 capsuleIndications: mouth at Wound of left lower bedtime. extremity, subsequent encounter hydroCHLOROthiazide Take 1 Tablet 90 Tablet 3 11/01/19 Active (HCTZ) 25 mg (25 mg) by 22 tabletIndications: mouth once Essential hypertension daily. losartan (COZAAR) 50 Take 1 Tablet 90 Tablet 3 12/03/19 Active mg tabletIndications: (50 mg) by 22 Essential hypertension mouth two times daily. atorvastatin (LIPITOR) Take 1 Tablet 30 Tablet 1 01/06/20 Active 10 mg (10 mg) by 22 tabletIndications: mouth at Coronary artery bedtime. disease involving nooksack coronary artery without angina pectoris, unspecified whether nooksack or transplanted heart, Mixed hyperlipidemia nitroglycerin Place 1 Tablet 25 Tablet 2 01/06/20 A ctive (NITROSTAT) 0.4 mg (0.4 mg) under 22 sublingual the tongue tabletIndications: every 5 minutes Cardiovascular if needed for symptoms, Chest pain, Chest Pain. unspecified type, Mixed hyperlipidemia sotaloL (BETAPACE) 80 Take 1 Tablet 60 Tablet 1 01/06/20 Active mg tabletIndications: (80 mg) by 22 Atrial fibrillation, mouth two times unspecified type (HC) daily before meals. clopidogreL (PLAVIX) Take 1 Tablet 90 Tablet 3 01/07/20 Active 75 mg (75 mg) by 22 tabletIndications: S/P mouth every drug eluting coronary morning. Take stent placement once daily for 1 year without interruption metoprolol succinate Take one-half 30 Tablet 2 01/07/20 Active (Toprol XL) 25 mg tablet (12.5 22 Sustained-Release mg) by mouth tabletIndications: once daily. Chest pain, unspecified type, S/P drug eluting coronary stent placement, Hypertension lidocaine 4 % topical Apply topically 15 Patch 0 01/07/20 Active patchIndications: to intact skin 22 Acute pain of left to cover most shoulder painful area for max 12hr per 24hr period. diclofenac topical Apply topically 0 01/04/2001/02 Discontinued (VOLTAREN) 1 % gel to affected 21 022 (Pharmacist area(s). change per medication history (E-cancel not sent)) nitroglycerin PLACE 1 TABLET 25 Tablet 1 09/19/19 D iscontinued (NITROSTAT) 0.4 mg UNDER THE 022 ( *IP sublingual TONGUE EVERY 5 Disc ontinued) tabletIndications: MINUTES IF Chest pain in adult NEEDED FOR UP TO 3 TIMES, IF NO RELIEF CALL 911 atorvastatin (LIPITOR) Take 0.5 45 Tablet 3 11/01/19 Discontinued 20 mg Tablets (10 mg) (*IP tabletIndications: by mouth once Discontinued) Mixed hyperlipidemia daily. clopidogreL (PLAVIX) Take 1 Tablet 90 Tablet 3 11/01/1912/22 Discontinued 75 mg (75 mg) by 022 (*Med tabletIndications: mouth once complete/Regim Coronary artery daily. en disease involving co mplete/Level nooksack coronary artery of care without angina clark e) pectoris, unspecified whether nooksack or transplanted heart metoprolol succinate Take 0.5 90 Tablet 3 11/12/19 Discontinued (Toprol XL) 25 mg Tablets (12.5 22 022 (*IP Sustained-Release mg) by mouth Discontinued) tabletIndications: once daily. Paroxysmal atrial fibrillation (HC) sotaloL (BETAPACE) 80 Take 1 Tablet 180 [...] 80 Take 1 Tablet 60 Tablet 0 12/31/1912/20 Discontinued mg tabletIndications: (80 mg) by 022 (*IP Persistent atrial mouth two times Discontinued) fibrillation (HC) daily before meals. clopidogreL (PLAVIX) Take 75 mg by 0 01/03 Discontinued 75 mg tablet mouth once 022 (Pharm acist daily. change per medication history (E-cancel not sent)) aspirin chewable 81 mg Chew 81 mg by 0 07/04 Discontinued chewable tablet mouth once 022 (*I P daily with a Discont inued) meal. Active Problems Problem Noted Date NSTEMI (non-ST elevated myocardial infarction) 022 Chest pain 01/02/2022 Other ill-defined and unknown causes of morbidity and mortality 08/19/2021 Overview: Jun 04, 2012 Entered By: JOHN YEE mment: Dr. 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 02/06/2011 Skin cancer 12/02/2009 02/04/2021 Overview: Left Lower Leg: managed by Dr Shields 12/02 Spondylosis, cervical 12/28/2008 01/08/2017 Gout 11/26/2007 01/06/2016 Overview: Doing well off medications 12/30/2012 SVT (supraventricular tachycardia) 05/30/200706/12 Overview: -Holter monitor 05/30/2007 Routine general medical examination at [facility] y 11/13/2006 01/08/2017 Overview: Colonoscopy 12/2006: polyps Recheck in 5 yrs Lumbago 07/19/2006 01/06/2016 Overview: Improved with daily exercises. 3 Unspecified essential hypertension 07/19/200601/14 Benign Neoplasm of Colon 07/19/2006 01/09/2019 Overview: Colonoscopy 12/2011 diverticulosis, no f ollow up needed Encounters Date Type Specialty Care Team Description 01/10/2022 Office Visit Melina Maza, Post-o p (Discharged PA 01/05- still anne ving shortness of br eath) 01/10/2022 Travel 01/06/2022 Patient Outreach Vicki Rob Prim ary RN Care RN Management; Hos pital F/U (Lace=70) 01/02/2022 - Hospital Encounter [facility] Hospitalists Chest pain, unspecified type (Primary Dx); 01/05/2022 Of Cardiovascular symptoms; Crystal Rajput MD Coronary artery disease involving nooksack coronary artery without angina pectoris, unspecified whether nooksack or transplanted heart; Megan Sumner MBBS Mixed hyperlipidemia; Ruslan Lim Atrial fi brillation, unspecified type (HC); HERNANDO Owens S/P drug elutin g coronary stent placement; Hypertension; NSTEMI (non-ST elevated myocardial infarction) (HC); Acute pain of l eft shoulder Discharge Summary - Ruslan Napoles MBBS - 01/05/2022 1:34 PM CST Images from the original not e were not included. HOSPITALIST DISCHARGE SUMMAR Y ? ? [facility] Admission Date: 01/02/2022 Discharge Date: 01/05/2022 Discharge Plan: Cristian olsen was discharged to home. Principal Diagnosis Unstable angina Obstructive pulmonary diseas e Paroxysmal atrial fibrillati on status post permanent pacemaker placement 12/29/2021 Hypertension Hospital Problem List Principal Problem: Chest pain Active Problems: GERD (gastroesophageal refl ux disease) Hypertension CAD (coronary artery diseas e) Mixed hyperlipidemia Atrial fibrillation (HC) NSTEMI (non-ST elevated mary cardial infarction) (HC) ADDITIONAL COMMENTS REGARDIN G DIAGNOSIS SPECIFICITY Additional Diagnosis Informa tion ?? Hospital Course Mr. Cristian Stevens is a 86 y .o. male with a history of coronary artery disease, atrial fibrillation, s/p pacemaker placement on 12/29/21, HYPERTENSION, dyslipidemia who presents with chest pain . He has persistent atrial fib rillation and had been controlled on amiodarone from May 2018 to November 2021. Dronedarone was tried in 06/2021 but discontinued due to whole body swelling. Sinus bradycardi a was limiting medical thera py for management of atrial fibrillation. He underwent dual chamber pacemaker placement on 12/29/21 and starting sotalol. He did qwell for 2 days but then started with chest/ sternal pain that occurred w ith activity ( walking), without associated dizziness, lightheadedness, diaphoresis, and would lorraine with rest. Continued to occur and asked by his Cardiology providers to pr esent to emergency room to r ule out pericardial effusion given recent procedure. In outside hospital he had unremarkable labs ( including normal troponin) and bedside US showing no pericardial effusion, but due to possibility of a cute coronary syndrome Symptoms decision made to transfer to [facility] for further work up. Troponin trend negative. Car diology consulted. Patient had exertional angin a following permanent pacemaker placement on 12/29/2021. EKG is nonischemic, negative troponin x3. Patient had nonobstructive coronary artery disease including 50% distal LMC A stenosis on angiogram July 2020. ED POCUS without pericardial effusion. Nonpositional chest pain with elevated inflammatory markers concerning for pericarditis. Given known borderline obstr uctive lung disease, cardiology opted for coronary angiogram. It did not reveal significant disease, status post successful drug- eluting stent and balloon to the first RPL,. Proximal RCA stent dilated. Cholesterol panel reveals LDL at goal. Cardiology recommended Plavi x for 1 year, resume apixaban 5 mg twice daily. Aspirin discontinued. Recommendations for Outpatie nt Provider ? ? PCP: Helio Hayden MD Recommendations for outpati ent provider Specific recommendations to be addressed at the follow up visit: - Pt is s/p NSTEMI, WILVER x 1 RPL - Pt to take plavix 75 mg da zachery x 1 year w/o interruptions & ASA 81 mg QD - Pt restarted apixaban 12/20 09/09 in am (was on hold for ca angio) - Please repeat BMP, routine bp/right groin site check 3-5 days s/p hospital discharge - F/U with [facility] [place] in 4-6 weeks - Cardiac rehab in OP nadia soares Medication regimen changes: see Hospital Course above. Follow-up labs/imaging: BMP at post-hospital visit Recommendations for outpati ent provider Specific recommendations to be addressed at the follow up visit: no specific recommendations , routine post-hospital and medical follow-up. Medication regimen changes: see Hospital Course above. Follow-up labs/imaging: none Other specialty follow-up no t included in DC orders: CARDIOLOGY/EP Special considerations: none . Functional evaluations: Fall Risk: Total Score (If 5 or > is High Risk): 2 (01/05/22734) NuDESC (>/=2 abnormal): 0 ( 01/05/22734) MOCA: // SLUMS: Discharge Medications Your Home Medicines START taking these medicines Instructions clopidogreL 75 mg tablet For diagnoses: S/P drug elut ing coronary stent placement Start taking on: December Commonly known as: PLAVIX Take 1 Tablet (75 mg) by mo [facility] every morning. Take once daily for 1 year without interruption lidocaine 4 % topical patch For diagnoses: Acute pain of left shoulder Start taking on: December Apply topically to intact s kin to cover most painful area for max 12hr per 24hr period. CHANGE how you take these me dicines Instructions atorvastatin 10 mg tablet For diagnoses: Coronary michelle ry disease involving nooksack coronary artery without angina pectoris, unspecified whether nooksack or transplanted heart, Mixed hyperlipidemia What changed: ?? medication strength ?? when to take this Commonly known as: LIPITOR Take 1 Tablet (10 mg) by mo ut at bedtime. nitroglycerin 0.4 mg subling ual tablet For diagnoses: Cardiovascula r symptoms, Chest pain, unspecified type, Mixed hyperlipidemia What changed: ?? how much to take ?? how to take this ?? when to take this ?? reasons to take this ?? additional instructions Commonly known as: NITROSTAT Place 1 Tablet (0.4 mg) und er the tongue every 5 minutes if needed for Chest Pain. CONTINUE taking these medici gege Instructions acetaminophen 500 mg tablet Commonly known as: TYLENOL E XTRA STRGTH Every 6 Hours as needed apixaban 5 mg tablet Commonly known as: ELIQUIS TAKE ONE TABLET BY MOUTH EV JIAN 12 HOURS TO PREVENT STROKE DUE TO ATRIAL FIBRILLATION furosemide 20 mg tablet For diagnoses: Bilateral low er extremity edema Commonly known as: LASIX Take 1 Tablet (20 mg) by mo [facility] every morning. gabapentin 300 mg capsule For [...] 25 mg S ustained-Release tablet For diagnoses: Chest pain, u nspecified type, S/P drug eluting coronary stent placement, Hypertension Start taking on: December Commonly known as: Toprol XL Take one-half tablet (12.5 mg) by mouth once daily. multivitamin capsule Take 1 capsule by mouth onc e daily. omeprazole 40 mg Delayed-Rel ease capsule For diagnoses: Gastric reflu x Commonly known as: PRILOSEC Take 1 Capsule (40 mg) by m out once daily before a meal. sotaloL 80 mg tablet For diagnoses: Atrial fibril lation, unspecified type (HC) Commonly known as: BETAPACE Take 1 Tablet (80 mg) by mo ut two times daily before meals. STOP taking these medicines aspirin chewable 81 mg chewa ble tablet Where to get your medicines These medications were sent to [facility] [address] [address] Hours: Open 24 Hours ?? atorvastatin 10 mg tablet ?? clopidogreL 75 mg tablet ?? lidocaine 4 % topical pat ch ?? metoprolol succinate 25 m g Sustained-Release tablet ?? nitroglycerin 0.4 mg subl ingual tablet ?? sotaloL 80 mg tablet Pertinent Findings / Procedu res First weight: 78.5 kg (173 l b 1 oz) (01/03/22 0826) Last weight: 74.8 kg (164 lb 14.5 oz) (01/05/22 0610) Labs Renal Heme GI 01/03/22 0759 01/03/22 1837 SODIUM 137 -- POTASSIUM 3.9 4.0 CHLORIDE 105 -- [id number] 26 -- ANIONGAP 6 -- BUN 22 -- CREATININE 0.84 -- GLUCOSE 97 -- CALCIUM 9.3 -- Cardiopulmonary ID Endo 01/03/22 0023 01/03/22 0107 TROPONINI 0.017 0.023 COVID-19: Not on local file Micro none Imaging CXR 12/29 Left pacer body and right he art transvenous wires. No mediastinal widening or pneumothorax. Ectatic aorta. No acute cardiopulmonary disease. Left reversed shoulder arthroplasty. Imaging: ?? Telemetry: A paced 60s ?? EC01/03/2022: A paced, VR 60 b pm, 01/02/2022: A paced VR 70bpm , isolated Q wave V1 ?? Cardiac imaging/procedures: TTE, 01/05/2022: Final Impressions: Limited Echocardiogram perfo rmed 1. Normal left ventricular size, normal wall thickness, normal global systolic function, calculated EF of 61 %. 2. The aortic valve is scle rotic and trileaflet, no stenosis and mild regurgitation. 3. Right ventricular cavity size is mildly enlarged, global systolic RV function is normal. 4. Compared with images of the prior study of 11/04/2021, there has been no significant interval change ?? Coronary angiogram, 01/05/20 22: PRESENTATION / INDICATIONS * USA * USA Coronary artery disease VASCULAR ACCESS * Using ultrasound guidance and a percutaneous technique, the right common femoral artery was accessed. Ultrasound was used to confirm vessel patency, localizing needle into the lumen of the vessel. An image was saved for the medical record. SPECIAL PROCEDURES * Right femoral arteriotomy ??was successfully closed utilizing a closure device ?? DIAGNOSTIC SUMMARY ?? 50% - 60% stenosis in the distal ??LMCA ?? 60% stenosis in the ostia l Proximal LAD. ??IFR LM to LAD 0.91. ??Borderline. ??Similar to prior angio IFR measurement. ??medical therapy with clinical follow up. ?? The Circumflex is free of significant disease and has mild luminal irregularities. ??IFR LM to LCX 0.99. ??Essentially normal. ??Med rx. ?? Right dominant. ??Patent stent proximal RCA. ??Tortuous RCA. ?? 80% stenosis in the 1st R PL ? INTERVENTION ?? Successful ?2.75mm x 22mm Drug Eluting Stent, and ??3.5mm x 8mm Balloon to 1st RPL, post stenosis 0%. ??Proximal RCA stent ??dilated with 4.0mm balloon to facilitate passage of Guideliner into RCA. ? Plavix x one year Resume Apixaban for afib. Follow clinically. Discussed with Dr. Velasquez. ?? 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 Primary Production Generalist:??Obere mbt, ROSELYN Flor Primary EP:??Yinka Bryson MD?? Implanting MD:??Nathanael Bryson MD?? DEVICE DATA Marketing Technologist??[employer]:??Mo [place] XT DR SRINIVAS Pierre [id number]??Implant Date 12/29/2021 LEAD DATA Atrial Lead: Marketing Technologist??M edtronic:??Model 5076-52??cm Implant Date 12/29/2021 RV Lead: Marketing Technologist??Medtr on[employer]:??Model 3830-69??cm Implant Date 12/29/2021?? Visit location: [facility] -??[id number] Reason For Evaluation: Same day discharge - Pacemaker education ?? TTE complete wo con 2 Final Impressions: ??1. Normal left ventricular size, moderately increased wall thickness, normal global systolic function, calculated EF of 71 %. ??2. The aortic valve is scl erotic, no stenosis and mild to moderate regurgitation. ??3. The mitral valve is nor mal, mild mitral regurgitation. ??4. 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 ??5. 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 ??6. Normal estimated pulmon shelli pressures by tricuspid regurgitation velocity and right atrial pressure (20 mmHg plus RAP). Compared to prior exam of , there has been no significant change. ?? Coronary angio 08/17/2020: PRESENTATION / INDICATIONS * Crescendo angina * Abnormal coronary CTA * CAD DIAGNOSTIC SUMMARY ?? 50% stenosis in the dista l LMCA ?? 50% stenosis in the Proxi mal LAD. ??IFR tandem LM and LAD lesions borderline favorable at 0.91. ??Med rx and clinical follow up. ?? 40% stenosis in the Dista l LAD ?? The Circumflex is free of significant disease and has mild luminal irregularities. ?? The RCA is dominant. ?? 95% stenosis in the Proxi mal RCA. ??Culprit. ?? 70% stenosis in the ostia l 1st RPL LEFT VENTRICULAR FUNCTION ?? LV Pressure = 138/17. INTERVENTION ?? Successful ??2.5mm x 12mm Balloon, ??3mm x 15mm Balloon, and ??3mm x 20mm Drug Eluting Stent to Proximal RCA, post stenosis 0% RECOMMENDATIONS Aspirin x 1 week. Plavix x one year Resume anticoagulation as Consultants Encounter Notes Consults from Dayne Velasquez MD (Cardiovascular Disease) Diet / Activity / Follow-Up After Discharge Orders and I nstructions Caring for your groin wound or incision: - keep wound site clean and dry for the first 24 hours - you may shower after 24 ho urs, use mild soap - do not soak in tub or swim until wound is completely healed - a bruise and or nickel-siz ed lump in your wound area is normal - bruising and discoloration are common and may increase in size - it may take 2-3 weeks for any bruising to disappear - apply firm pressure slight ly above wound site if you laugh, cough or sneeze for 24 hours after discharge - if you have any bleeding a t the wound site, call your health care provider, lie down flat, apply pressure slightly above wound site - if bleeding does not stop with continuous pressure, CALL 911 Discharge instructions afte r receiving anesthesia or sedation: * You have received medicin e (anesthesia, sedation or both) that made you sleepy. This will affect your ability to think clearly and make good decisions. * For your safety, you will need a responsible adult to drive you home and to stay with you for 24 hours. * For 24 hours: - Do not drive or use any ma chinery. - Do not make important deci sions. - Do not drink alcohol. (It is also important to not drink alcohol as long as you are taking prescription pain medicine.) If you are given a prescrip tion for NITROGLYCERIN (NTG) for angina (chest pain): - SIT DOWN when taking Nitr oglycerin - place one tablet under you r tongue Unless you are instructed di fferently by your Health Care Provider, if chest pain is not relieved 5 minutes after taking 1 tablet, CALL 911! Low salt 2gm sodium restric tion diet: - eat a diet that is low in sodium (salt). - remove the salt shaker, do not have it on the table when you are eating, or in the kitchen when you are cooking - do not eat seasoned salts, pickles, olives, salted soups and snacks, regular cold cuts and cheeses, regular TV dinners - learn to read food labels - low sodium is 140 mg or le ss per serving - beware of foods with 400 - 600 mg sodium per serving - eat fresh fruits, vegetabl es, and meats Low salt 2gm sodium restric tion diet: - eat a diet that is low in sodium (salt). - remove the salt shaker, do not have it on the table when you are eating, or in the kitchen when you are cooking - do not eat seasoned salts, pickles, olives, salted soups and snacks, regular cold cuts and cheeses, regular TV dinners - learn to read food labels - low sodium is 140 mg or le ss per serving - beware of foods with 400 - 600 mg sodium per serving - eat fresh fruits, vegetabl es, and meats Monitor your wound site gen ly for: - increased pain or swellin g - signs of infection, includ ing: redness, increased warmth, tenderness, bleeding or oozing - fever greater than 101 deg brian Fahrenheit Moving around after your an gioplasty or stent - in the first 24 hours: be gin low level activities - couch, bed, recliner, to and from bathroom, minimal stairs if necessary - gradually increase your ac tivity. - do not bend or squat - do not do strenuous activi ties, such as vacuuming, biking, bowling, jogging, snow shoveling and mowing - follow your walking progra m as instructed by cardiac rehab - do not lift more than 5 po unds for 5 days - do not drive for 3 days - you may resume your normal sexual activity in 5 days, to allow your groin site to heal - if you have also had a hea rt attack, you should wait 2 weeks, and be able to climb 2 flights of stairs without chest pain or significant shortness of breath, before you resume your normal sexual activity OP Cardiac Rehab Eval and T reat Advance to maintenance prog karol upon completion of Phase II. For heart failure patients, may participate in Heart Failure Bridging Program. Reason For Cardiac Rehab: C AD with PTCA/Stent Acute LA Patient Cardiology Follow U p Instructions Please follow up in 4-6 wee ks in cardiology clinic with first available provider, at [facility] (phone: [phone]). Please call to schedule an appoi ntment, otherwise an [facility] coordinator will call you in several days to assist you. When to follow up: 4 to 6 w eeks When is patient being disch arged?: Other/Unknown Primary Care Provider anatoliy w up appointment(s) Helio Hayden MD When to follow up: 1 to 5 d ays Primary Care Provider anatoliy mccray appointment(s) Please follow up in 3-5 day s after hospital discharge with Helio Hayden MD for routine right groin site, bp evaluation & BMP lab. When to follow up: 1 to 5 d ays When is patient being disch arged?: Today Primary Care Provider anatoliy mccray appointment(s) You have been scheduled to see ROSELYN Wright, because your primary provider is not available during the recommended time frame. You have an appointment with ROSELYN Wright on January 10 at 11:35 a.m. at [facility]. If you have questions or con cerns please call the clinic at [phone]. When to follow up: 1 to 5 d ays Up as tolerated Get regular activity and ex ercise. Save your energy by spreading out activities that make you tired. If you become short of breat h, stop what you are doing and rest until you feel better. Up as tolerated It is important to slowly r eturn to your regular level of activity. Start with 5-10 minutes at one time and slowly build to 30 minutes at one time. Save your energy by spreading out activities that make you tired. Rest as needed. Weigh yourself daily first thing in the mo rning after going to the bathroom and before eating or drinking anything. Write down your weight and compare it to the day before. When should you be concerne d? Helio Hayden MD Call your Health Care Provid er if you have any of the following (identify yourself as a heart failure patient having the following symptoms): - trouble breathing or short ness of breath more than usual - new or worsening shortness of breath or occurring when lying flat - chest discomfort (not reli eved by nitroglycerin) - swollen feet, ankles and l egs more than usual - fatigue, weakness, loss of energy - coughing at night or chron ic cough - nausea with abdominal swel ling, pain and tenderness - weight gain of 3 pounds in one day - weight gain of 5 pounds in one week. As always, if you have ques tions or concerns about your health, please call your regular health care provider or your heart failure clinic. FOR EMERGENCY DIAL 911 When should you be concerne d? Your health care provider i s: Helio Hayden MD Please call your health care provider if: - you feel you are getting w orse or having an increase in problems - fever greater than 101 deg brian - increasing shortness of br eath - any signs of infection (in creasing redness, swelling, tenderness, warmth, change in appearance, or increased drainage) - blood in your urine or sto ol - coughing or vomiting blood - nausea (upset stomach) and vomiting and/or diarrhea that will not stop - severe pain that is not re lieved by medicine, rest or ice Call 911 if you feel you are having a medical emergency. When should you be concerne d? (after an angiogram or procedure) Your health care provider i s Helio Hayden MD Please call your health care provider if you have any of the following: - chest pain or discomfort s imilar to before your angiogram - a tightening, pressure, sq ueezing, or aching in your chest or arms - excessive swelling, extrem e tenderness, pain that will not stop, or signs of bleeding at your wound site - signs of infection (increa sing redness, swelling, tenderness, warmth, change in appearance, or increased drainage) - discolored area at wound s ite becomes hard and painful - numbness, tingling or puckett ge in color of affected leg or arm - swollen feet, ankles and l egs more than usual - lightheadedness, dizziness , sweating, fatigue, weakness, loss of energy - fever greater than 101 deg brian Fahrenheit - trouble breathing, unusual tiredness, decreased ability to exercise - new or worsening shortness of breath - trouble breathing when lyi ng flat - weight gain of 3 pounds in one day - weight gain of 5 pounds in one week If you are not sure about wh at you are feeling or have questions about how you are feeling, stop whatever you are doing and call your clinic, ask to talk to a health care provider Do not try to deny, dismiss or make excuses for early warning signs. Call 911 right away if the signs get worse when you sit down and rest or if you feel you are having a medical emergency FOR EMERGENCY DIAL 911 Why were you at the [facility]? You were in the hospital fo r NSTEMI. Clinic Request for Cardiolo gy Follow Up Appointment Please call this patient to schedule a follow up appointment within 4-6 weeks of discharge with first available provider at [facility] (phone: [phone]). Type of cardiology follow u p needed: Follow Up Recommended next visit type : In person Cardiology Specialty: Gener al Non-Imaging Services Needed : None Imaging tests needed: None Pending Studies Lab results that may not be resulted at time of discharge: (From admission through now) Start Ordered 01/05/22 1330 POTASSIUM ONE TIME, TODAY 01/05/22 0859 Total time spent on discharg e coordination: 34 minutes. Patient was seen and examined today. HERNANDO Bustos Hospitalist, [facility] ? ? [phone] ENT FLOW COORDINATOR 01/02/2022 Nurse/Clinic Staff Only Card iovascular Diagnostic Testing (EKG s/ p dual chamber pacemak er placement 12/29/21/) 01/02/2022 Telephone Yinka Bryson, Device Check (Pacemaker MD Remote ) 01/02/2022 Travel 12/30/2021 Telephone Yinka Bryson, Medica tion Management MD 12/29/2021 Anesthesia Event Zoraida Bowling, Max Clark, SHARITA 12/29/2021 Hospital Encounter Yinka Bryson, Persistent atrial MD fibrillation (HC) (Primary Zoraida Bowling Dx) MD Blanca Yan Jean J, ORTHOTICS PROSTHETICS TECHNICIAN Discharge Summary - Swati Hackett PA - 12/29/2021 4:01 PM CST [facility] Cardiology Discharge Summary DOA: 12/29/2021 DOD: 12/29/2021 [...] EKG (personally reviewed): 12/29/21: SB, VR 54, GA 194, QRS 122, QT/QTc 450 Echocardiogram 11/04/21 [...] 0939 SODIUM 136 POTASSIUM 3.6 CHLORIDE 102 [id number] 28 BUN 26 H CREATININE 1.04 CALCIUM 9.4 GLUCOSE 99 Recent Labs 12/29/21 0939 PLT 204 DISCHARGE MEDICATIONS Your Home Medicines START taking these medicines Instructions sotaloL 80 mg tablet For diagnoses: Persistent at rial fibrillation (HC) Start taking on: December Commonly known as: BETAPACE Take 1 Tablet (80 mg) by [facility] two times daily before meals. CONTINUE taking [...] Take 1 Tablet (20 mg) by mo uth every morning. gabapentin 300 mg capsule For diagnoses: Wound of left lower extremity, subsequent encounter Commonly known as: NEURONTIN Take 1 Capsule (300 mg) by mouth at bedtime. glucosamine-chondroitin (250 -200 mg) 250-200 mg capsule 1 tab by mouth once daily hydroCHLOROthiazide 25 mg ta blet For diagnoses: Essential hyp ertension Commonly known as: HCTZ Take 1 Tablet (25 mg) by mo uth once daily. losartan 50 mg tablet For diagnoses: Essential hyp ertension Commonly known as: COZAAR Take 1 Tablet (50 mg) by mo uth two times daily. metoprolol succinate 25 mg [...] Take 1 Capsule (40 mg) by m out once daily before a meal. Where to get your medicines These medications were sent to [facility] [address] [address] Hours: Open 24 Hours ?? 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 Persistent atrial fibrillati on - controlled on amiodarone f rom 05/2018-11/2021 - intolerance to dronedarone in 06/2021 with whole body swelling - [id number] VASC score 4 (HTN, age 86, CAD) on Eliquis Coronary artery disease - s/p PCI with WILVER to pRCA i n 2020 Hypertension Hyperlipidemia PLAN - Device interrogation/teach - Medications changes: - start sotalol 80 mg BID o n 12/31/21 - EKG on 01/02/22 - Continue all other prior t o admission medications - Eliquis 5 mg BID for cardi o-embolic prevention -[id number] VASC score 4 (HTN, age 86, CAD) - Follow up with primary car e provider on (or near) 01/05/22 for silverlon dressing removal and incision site check - Follow up with device clin ic in 3-4 months as scheduled. . [phone] - Follow up with general car diology in [place] in 3 months - Follow up with EP as direc panda by general cardiology ROSELYN Mcfadden [facility] Cardiac Electrophysiology Future Appointments Date Time Provider [facility] 01/05/2022 12:00 AM [facility] REM OTE TRANSMISSION [facility] 02/06/2022 7:00 AM Helio Hayden MD NFLDFP NFLD 04/04/2022 10:30 AM [facility]ORDIN[facility] 12/29/2021 Travel 12/23/2021 Orders Only Yinka Bryson <No scans att ached> MD Shanique 12/22/2021 Office Visit Yinka Bryson CV Electrophy siology Est (F/U MD Shanique with medication transition. States that the y are doing well, no specif ic complaints. ) 12/22/2021 Telephone Yinka Bryson Concerns (/) MD Shanique 12/22/2021 Travel 12/06/2021 Telephone Yinka Bryson Lab MD Shanique 12/02/2021 Orders Only Lab, [facility] 12/02/2021 Office Visit Helio Hayden, Follow Up; Immunization/In jection (COVID-19 vacci ne) 12/02/2021 Travel 11/25/2021 Orders Only Yinka Bryson <No scans att ached> MD Shanique 11/24/2021 Nurse/Clinic Staff Testing ( EKG PER DR. BRYSON ) Only 11/24/2021 Orders Only Lab, [facility] 11/24/2021 Telephone Yinka Bryson Results (EKG) MD Shanique 11/24/2021 Travel 11/11/2021 Office Visit Helio Hayden, Follow Up ([facility] for dehydration ) 11/10/2021 Ancillary Procedure 11/10/2021 Travel 11/04/2021 Orders Only <No scans attac hed> 11/04/2021 Orders Only Scanner <No scans attac hed> 10/31/2021 Office Visit Helio Hayden, Follow Up (Neck is better and MD right and left shoulder bothering him.) 10/31/2021 Telephone Yinka Bryson MD 10/31/2021 Travel 10/27/2021 Orders Only Scanner <No scans attac hed> 10/21/2021 Orders Only Lab, [facility] 10/20/2021 Travel 10/18/2021 Telephone Yinka Bryson Need Meds; Re fill Request MD Shanique 10/11/2021 Refill Paulina Krishnan Refill Requ est (Amiodarone) ROSELYN Pena 10/10/2021 Nurse/Clinic Staff Testing ( Pre-procedure COVID Only test) 10/10/2021 Travel from Last 3 Months Immunizations Name Administration Dates Next Due COVID-19 vaccine (Pfizer-BioNTech 12/02/2021 30mcg/0.3mL) 12YO+ BIVALENT BOOSTER PF, MDV COVID-19 vaccine (Pfizer-BioNTech 07/11/2021 30mcg/0.3mL) 12YO+ XANDER-SUCROSE PF, MDV COVID-19 vaccine ([employer]-BioNTech 11/18/2020, 04/24/2020, 30mcg/0.3mL) PF, MDV Influenza A [...] Probable has Emp hysema: smokes Cancer Father Iroll Lung Heart Disease Mother Shantal Hypertension Mother [...] you been in contact No / Unsure 01/10/2022 11:21 AM PATIENT FLOW COORDINATOR with someone who was confirmed or suspected to have Coronavirus/COVID-19? Obstetrics History Last Filed Vital Signs Vital Sign Reading Time Taken Comments Blood Pressure 106/63 01/10/2022 11:31 AM PATIENT FLOW COORDINATOR Pulse 65 01/10/2022 11:31 AM PATIENT FLOW COORDINATOR Temperature 36.3 ??C (97.3 ??F) 01/05/2022 7:35 AM PATIENT FLOW COORDINATOR Respiratory Rate 16 01/05/2022 7:35 AM PATIENT FLOW COORDINATOR Oxygen Saturation 99% 01/10/2022 11:31 AM PATIENT FLOW COORDINATOR Inhaled Oxygen Concentration - - Weight 77.9 kg (171 lb 12.8 oz) 01/10/2022 11:31 AM PATIENT FLOW COORDINATOR Height 175.3 cm (5' 9) 01/03/2022 8:26 AM PATIENT FLOW COORDINATOR Body Mass Index 25.37 01/03/2022 8:26 AM PATIENT FLOW COORDINATOR Plan of Treatment Upcoming Encounters Date Type Specialty Care Team Description 01/17/2022 Appointment 02/06/2022 Office Visit Helio Hayden MD [address] [place] [address] (Wo rk) 04/04/2022 Cardiac Device [...] Name Priority Date/Time Associated Diagnosis Comme nts ECHO LIMITED WO Routine 01/05/2022 3:26 Results f or this CONTRAST PM PATIENT FLOW COORDINATOR procedure are i n the results section. POTASSIUM Today 01/05/2022 1:39 Results for this PM PATIENT FLOW COORDINATOR procedure are i n the results section. SCAN-CARDIAC STRIP 01/05/2022 9:17 AM PATIENT FLOW COORDINATOR LIPID PANEL SHAY 01/05/2022 8:00 Results for this AM PATIENT FLOW COORDINATOR procedure are i n the results section. MAGNESIUM Early AM 01/05/2022 8:00 Results for this AM PATIENT FLOW COORDINATOR procedure are i n the results section. BASIC METABOLIC PANEL Early AM 01/05/2022 8:00 Res ults for this AM PATIENT FLOW COORDINATOR procedure are i n the results section. CBC W PLT NO DIFF Early AM 01/05/2022 8:00 Results for this AM PATIENT FLOW COORDINATOR procedure are i n the results section. SCAN-CARDIAC STRIP 01/05/2022 2:19 AM PATIENT FLOW COORDINATOR SCAN-CARDIAC STRIP 01/04/2022 5:23 PM PATIENT FLOW COORDINATOR EKG 12 LEAD SHAY 01/04/2022 5:20 Results for this PM PATIENT FLOW COORDINATOR procedure are i n the results section. HCHG ACTIVATED Timed 01/04/2022 3:53 Results fo r this CLOTTING TM CV PM PATIENT FLOW COORDINATOR procedure are in the results section. HCHG ACTIVATED Timed 01/04/2022 3:33 Results fo r this CLOTTING TM CV PM PATIENT FLOW COORDINATOR procedure are in the results section. HCHG ACTIVATED Timed 01/04/2022 3:15 Results fo r this CLOTTING TM CV PM PATIENT FLOW COORDINATOR procedure are in the results section. EKG 12 LEAD Routine 01/04/2022 2:52 Persistent atrial Results for this PM PATIENT FLOW COORDINATOR fibrillation (HC) procedure are in the results section. CVL CORONARY ANGIOGRAM Routine 01/04/2022 2:35 Cardiovascular Results for this POSS PCI PM PATIENT FLOW COORDINATOR symptoms procedure are i n the results section. PACER LICHA DUAL Routine 01/04/2022 11:00 Results for this CHAMBER WO REPROG AM PATIENT FLOW COORDINATOR procedure are in the results section. SCAN-CARDIAC STRIP 01/04/2022 9:59 AM PATIENT FLOW COORDINATOR SCAN-CARDIAC STRIP 01/04/2022 9:30 AM PATIENT FLOW COORDINATOR POTASSIUM Early AM 01/04/2022 7:43 Results for this AM PATIENT FLOW COORDINATOR procedure are i n the results section. SCAN-CARDIAC STRIP 01/04/2022 2:27 AM PATIENT FLOW COORDINATOR SCAN 01/04/2022 12:00 Results for this CORRESP-LABORATORY AM PATIENT FLOW COORDINATOR procedure are in RESULTS the results section. SCAN-OPERATIVE/PROCEDU 01/04/2022 12:00 R esults for this RE REPORT AM PATIENT FLOW COORDINATOR procedure are i n the results section. POTASSIUM Today 01/03/2022 6:37 Results for this PM PATIENT FLOW COORDINATOR procedure are i n the results section. SCAN-CARDIAC STRIP 01/03/2022 3:42 PM PATIENT FLOW COORDINATOR EKG 12 LEAD STAT 01/03/2022 11:08 Results for this AM PATIENT FLOW COORDINATOR procedure are i n the results section. BASIC METABOLIC PANEL Early AM 01/03/2022 7:59 Res ults for this AM PATIENT FLOW COORDINATOR procedure are i n the results section. SCAN-CARDIAC STRIP 01/03/2022 7:15 AM PATIENT FLOW COORDINATOR TROPONIN I Timed 01/03/2022 1:07 Results for this AM PATIENT FLOW COORDINATOR procedure are i n the results section. TROPONIN I Timed 01/03/2022 12:23 Results for this AM PATIENT FLOW COORDINATOR procedure are i n the results section. SCAN-CARDIAC STRIP 01/02/2022 11:47 PM PATIENT FLOW COORDINATOR SCAN-CARDIAC STRIP 01/02/2022 9:35 PM PATIENT FLOW COORDINATOR XR CHEST 2 VIEWS PA Routine 12/29/2021 3:31 Resul ts for this AND LATERAL PM PATIENT FLOW COORDINATOR procedure are i n the results section. PACER LICHA DUAL Routine 12/29/2021 3:19 Results for this CHAMBER WO REPROG PM PATIENT FLOW COORDINATOR procedure are in the results section. CV PROCEDURE TO BE Routine 12/29/2021 12:07 Resul ts for this PERFORMED PM PATIENT FLOW COORDINATOR procedure are i n the results section. EP PPM Routine 12/29/2021 11:04 Results for this AM PATIENT FLOW COORDINATOR procedure are i n the results section. EKG 12 LEAD Preop 12/29/2021 9:54 Results for this AM PATIENT FLOW COORDINATOR procedure are i n the results section. BASIC METABOLIC PANEL Preop 12/29/2021 9:39 Res ults for this AM PATIENT FLOW COORDINATOR procedure are i n the results section. CBC W PLT NO DIFF Preop 12/29/2021 9:39 Results for this AM PATIENT FLOW COORDINATOR procedure are i n the results section. EKG 12 LEAD Routine 12/22/2021 10:14 Sinus node Results for this AM CDT dysfunction (HC) procedure a re in the results section. T4,FREE Routine 12/02/2021 12:17 Atrial fibrillation, Res ults for this PM CDT unspecified type (HC) proced ure are in the results section. TSH Routine 12/02/2021 12:17 Atrial fibrillation, Res ults for this PM CDT unspecified type (HC) proced ure are in the results section. EKG 12 LEAD Routine [...] in laboratory testing the resul ts section. from Last 3 Months Results ECHO LIMITED WO CONTRAST (01/05/2022 3:26 PM PATIENT FLOW COORDINATOR) P athologist Signature AORTIC VALVE 3 mmHg MEAN PG EJECTION 61 % FRACTION PEAK TR 2.2 m/s VELOCITY LVEDD 4.2 cm Anatomical Region Laterality Modality HEART Ultrasound Specimen (Source) Anatomical Collection Method Collection Time Re ceived Time Location / / Volume Laterality 01/05/2022 2:39 PM PATIENT FLOW COORDINATOR Narrative 01/05/2022 4:08 PM PATIENT FLOW COORDINATOR ECHOCARDIOGRAM CRISTIAN Adams CORRIETahmina ? Accessi on#: ?? [id number] : ?1935 86 years Study Date: ?? 01/05/2022 2:39:16 PM Gender: M ?BP: ? 105/52 mmHg Height: 175.00 cm ?BSA: ?1.90 m? ?? Weight: 75.00 kg ? Tech: ? EF ? Referring MD: [facility] Site: ? [facility] Reading Location: [facility] IP Procedure: Color Doppler, Spectral Doppl er and Limited 2D. Indication for study: Pericardial effusi on Cardiac Rhythm: Regular.Study quality: Final Impressions: Limited Echocardiogram performed 1. Normal left ventricular size, normal wall thickness, normal global systolic function, calculated EF of 61 %. 2. The aortic valve is sclerotic and tr ileaflet, no stenosis and mild regurgitation. 3. Right ventricular cavity size is mil dly enlarged, global systolic RV function is normal. 4. [facility], there has been no significant interval change. Chamber Sizes and Function Normal left ventricular size, normal wal l thickness, normal global systolic function, calculated EF of 61 %. Right ventricular cavity size is mildly enlarged, global systolic RV function is normal. Paci ng wire/catheter visualized in the right ventricle and pacing wire/catheter visualized in the right atrium. The sinus of Valsalva is normal sized. The ascending aorta is normal for age/sex/bsa. Valves, RV Pressures and Diastolic Funct ion The aortic valve is sclerotic and trilea flet, no stenosis and mild regurgitation. The tricuspid valve is normal in structure. Tricuspid regurgitation is not evident. The tricuspid regurgitant velocity i s 2.2 m/s, the estimated right ventricul ar systolic pressure is 20 mmHg plus right atrial pressure. Masses, Effusion, Shunts There is no pericardial effusion. The in ferior vena cava is not well visualized, respiratory size variation not well visualized. MEASUREMENTS AND CALCULATIONS 2-D Measurements and LV Function: LVID (d) 4.2 cm Planimetered EF 61 % LVID (s) 3.1 cm LV FS% (2D) ? 25 % IVS (d) ??0.9 cm LVOT diameter ?? 1.9 cm LVPW (d) 0.8 cm HR ?6 4 bpm Ao Sinus 3.7 cm Asc Ao ?? 4.2 cm LA ? 3.1 cm Diastology: Mitral ?Tissue Doppler E Peak 0.54 m/s e', Septum ? 0.07 m/ s A Peak 0.83 m/s e', Lateral ?0.05 m/ s E/A ?0.6 ?E/e' Average ?? 8.9 9 DT ? 234 msec Aortic Valve: Vmax ? 1.3 m/s ??ASTER (V) ?? 2.75 cm? AI P 1/2 561 msec VTI ?0.29 m ?? ASTER (I) ?? 2.74 cm? ?? LVOT V max 1.2 m/s ??Max PG ?6 mmHg LVOT VTI ?? 0.28 m ?? Mean PG ?? 3 mmHg SV ? 80 ml ?Dim Index 0.94 SV index ?? 42 ml/m? ?? CO ?5.1 l/min ?CI ?2.7 l/min/m? ?? Mitral Valve: MVA ?3.2 cm? ?? MV P 1/2 68 msec Tricuspid Valve and estimated PA pressur es: TR Vmax 2.2 m/s TAPSE 2.5 cm TR maxG 20 mmHg Pulmonic Valve: PV Vmax 0.9 m/s . This study was interpreted by an [facility] redited facility. ??Final ?? Procedure Note Ty Velasquez MD - 01/05/2022 ECHOCARDIOGRAM CRISTIAN DENTONTahmina : 1935 86 years Study Date: 12/20 2:39:16 PM Gender: M BP: 105/52 mmHg Height: 175.00 cm BSA: 1.90 m? ?? Weight: 75.00 kg Tech: EF Referring MD: DONALD HERRING Site: [facility] Reading Location: [facility] Procedure: Color Doppler, Spectral Doppl er and Limited 2D. Indication for study: Pericardial effusi on Cardiac Rhythm: Regular.Study quality: Final Impressions: Limited Echocardiogram performed 1. Normal left ventricular size, normal wall thickness, normal global systolic function, calculated EF of 61 %. 2. The aortic valve is sclerotic and tr ileaflet, no stenosis and mild regurgitation. 3. Right ventricular cavity size is mil dly enlarged, global systolic RV function is normal. 4. Compared with images of the prior st y of 11/04/2021, there has been no significant interval change. Chamber Sizes and Function Normal left ventricular size, normal wal l thickness, normal global systolic function, calculated EF of 61 %. Right ventricular cavity size is mildly enlarged, global systolic RV function is normal. Pacing wire/catheter visualized in the right ve ntricle and pacing wire/catheter visualized in the right atrium. The sinus of Valsalva is normal sized. The ascending aorta is normal for age/sex/bsa. Valves, RV Pressures and Diastolic Funct ion The aortic valve is sclerotic and trilea flet, no stenosis and mild regurgitation. The tricuspid valve is normal in structure. Tricuspid regurgitation is not evident. The tricuspid regurgitant velocity is 2.2 m/s, the estimated right ventricular sys tolic pressure is 20 mmHg plus right atrial pressure. Masses, Effusion, Shunts There is no pericardial effusion. The in ferior vena cava is not well visualized, respiratory size variation not well visualized. MEASUREMENTS AND CALCULATIONS 2-D Measurements and LV Function: LVID (d) 4.2 cm Planimetered EF 61 % LVID (s) 3.1 cm LV FS% (2D) 25 % IVS (d) 0.9 cm LVOT diameter 1.9 cm LVPW (d) 0.8 cm HR 64 bpm Ao Sinus 3.7 cm Asc Ao 4.2 cm LA 3.1 cm Diastology: Mitral Tissue Doppler E Peak 0.54 m/s e', Septum 0.07 m/s A Peak 0.83 m/s e', Lateral 0.05 m/s E/A 0.6 E/e' Average 8.99 DT 234 msec Aortic Valve: Vmax 1.3 m/s ASTER (V) 2.75 cm? ?? AI P 1/2 561 msec VTI 0.29 m ASTER (I) 2.74 cm? ?? LVOT V max 1.2 m/s Max PG 6 mmHg LVOT VTI 0.28 m Mean PG 3 mmHg SV 80 ml Dim Index 0.94 SV index 42 ml/m? ?? CO 5.1 l/min CI 2.7 l/min/m? ?? Mitral Valve: MVA 3.2 cm? ?? MV P 1/2 68 msec Tricuspid Valve and estimated PA pressur es: TR Vmax 2.2 m/s TAPSE 2.5 cm TR maxG 20 mmHg Pulmonic Valve: PV Vmax 0.9 m/s . This study was interpreted by an [facility] redited facility. Final Donald Herring PA ECHO ORD POTASSIUM (01/05/2022 1:39 PM PATIENT FLOW COORDINATOR)Only the most recent of3 resultswithin the time period is included. athologist Signature POTASSIUM 4.2 3.5 - 5.0 01/05/2022 [facility] [place] [facility] mmol/L 2:28 PM PATIENT FLOW COORDINATOR LABORATORY-CENTR AL LABORATORY Specimen Anatomical Collection Method / Collection Time Recei burton Time (Source) Location / Volume Laterality Blood BLOOD SPECIMEN / Venipuncture / 01/05/2022 1:39 2021 1:58 Unknown Unknown PM PATIENT FLOW COORDINATOR PM PATIENT FLOW COORDINATOR Ruslan SOOD CHEMISTRY Performing Organization Address City/State/ZIP Code Phon e Number [facility] [address] [place] [address] LABORATORY-CENTRAL 1999 LABORATORY SCAN-CARDIAC STRIP (01/05/2022 9:17 AM PATIENT FLOW COORDINATOR) Narrative This result has an attachment that is no t available. Scanner OTHER (ABNORMAL) CBC W PLT NO DIFF (01/05/2022 8:00 AM PATIENT FLOW COORDINATOR)Only the most recent of2 resultswithin the time period is included. Patholo gist Method Time Signature WHITE BLOOD 9.9 4.5 - 11.0 01/05/2022 [place] [employer] COUNT thou/cu mm 9:59 AM PATIENT FLOW COORDINATOR LABORATORY-[facility] TRAL LABORATORY RED BLOOD COUNT 4.13 (L) 4.30 - 01/05/2022 [place] [facility] 5.90 9:59 AM PATIENT FLOW COORDINATOR LABORATORY-[facility] mil/cu mm TRAL LABORATORY HEMOGLOBIN 13.7 13.5 - 01/05/2022 [facility] 17.5 g/dL 9:59 AM PATIENT FLOW COORDINATOR LABORATORY-[facility] TRAL LABORATORY HEMATOCRIT 39.0 37.0 - 01/05/2022 [facility] 53.0 % 9:59 AM PATIENT FLOW COORDINATOR LABORATORY-[facility] TRAL LABORATORY MCV 94 80 - 100 01/05/2022 [facility] fL 9:59 AM PATIENT FLOW COORDINATOR LABORATORY-[facility] TRAL LABORATORY MCH 33.2 26.0 - 01/05/2022 [facility] 34.0 pg 9:59 AM PATIENT FLOW COORDINATOR LABORATORY-[facility] TRAL LABORATORY MCHC 35.1 32.0 - 01/05/2022 [facility] 36.0 g/dL 9:59 AM PATIENT FLOW COORDINATOR LAB[facility]ATORY[facility] TRAL LABORATORY RDW 13.0 11.5 - 01/05/2022 [facility] 15.5 % 9:59 AM PATIENT FLOW COORDINATOR LABORATORY[facility] TRAL LABORATORY PLATELET COUNT 168 140 - 440 01/05/2022 [facility] thou/cu mm 9:59 AM PATIENT FLOW COORDINATOR LABORATORY[facility] TRAL LABORATORY MPV 9.7 6.5 - 11.0 01/05/2022 [facility] fL 9:59 AM PATIENT FLOW COORDINATOR LAB[facility]ATORY[facility] TRAL LABORATORY NRBC 0.0 % 01/05/2022 [facility] 9:59 AM PATIENT FLOW COORDINATOR LAB[facility]ATORY[facility] TRAL LABORATORY ABS NRBC 0.0 thou /cu 01/05/2022 [facility] [employer] mm 9:59 AM PATIENT FLOW COORDINATOR LABORATORY-[facility] TRAL LABORATORY Specimen Anatomical Collection Method / Collection Time Recei burton Time (Source) Location / Volume Laterality Blood BLOOD SPECIMEN / Venipuncture / 01/05/2022 8:00 2021 8:23 Unknown Unknown AM PATIENT FLOW COORDINATOR AM PATIENT FLOW COORDINATOR Donald DEMPSEY HEMATOLOGY Performing Organization Address City/State/ZIP Code Phon e Number [facility] [address] [place] [address] LABORATORY-CENTRAL 2000 LABORATORY MAGNESIUM (01/05/2022 8:00 AM PATIENT FLOW COORDINATOR) P athologist Signature MAGNESIUM 1.9 1.6 - 2.6 01/05/2022 [facility] mg/dL 8:58 AM PATIENT FLOW COORDINATOR LABORATORY-CENTR AL LABORATORY Specimen Anatomical Collection Method / Collection Time Recei burton Time (Source) Location / Volume Laterality Blood BLOOD SPECIMEN / Venipuncture / 01/05/2022 8:00 2021 8:23 Unknown Unknown AM PATIENT FLOW COORDINATOR AM PATIENT FLOW COORDINATOR Ruslan VILLAGOMEZ CHEMISTRY Performing Organization Address City/[facility]/ZIP Code Phon e Number [facility] [address] [place] [address] LABORATORY-CENTRAL 1999 LABORATORY (ABNORMAL) LIPID PANEL (01/05/2022 8:00 AM PATIENT FLOW COORDINATOR) [facility] gist Method Time Signature CHOLESTEROL,TOTAL 116 100 - 199 01/05/2022 [facility] mg/dL 11:54 AM PATIENT FLOW COORDINATOR LABORATORY-[facility] TRAL LABORATORY TRIGLYCERIDES 80 <150 01/05/2022 [facility] mg/dL 11:54 AM PATIENT FLOW COORDINATOR LABORATORY[facility] LAB[facility] HDL CHOLESTEROL 31 (L) >40 mg/dL 01/05/2022 [facility] 11:54 AM PATIENT FLOW COORDINATOR LABORATORY[facility] TRAL LABORATORY NON-HDL 85 <145 01/05/2022 [facility] CHOLESTEROL mg/dl 11:54 AM PATIENT FLOW COORDINATOR LAB[facility]AT[facility] TRAL LABOR[facility]ORY CHOL/HDL RATIO 3.74 <4.50 01/05/2022 [facility] 11:54 AM PATIENT FLOW COORDINATOR [facility]AT[facility] TRAL LABORAT[facility] LDL CHOLESTEROL 69 <=130 01/05/2022 [facility] mg/dL 11:54 AM PATIENT FLOW COORDINATOR LAB[facility]AT[facility] TR[facility] LABOR[facility]ORY VLDL CHOLESTEROL 16 <=30 01/05/2022 [facility] mg/dL 11:54 AM PATIENT FLOW COORDINATOR LAB[facility]AT[facility] TRAL LABORATORY PROVIDER ORDERED RANDOM 01/05/2022 [facility] STATUS 11:54 AM PATIENT FLOW COORDINATOR [facility] LABOR[facility]ORY Specimen Anatomical Collection Method / Collection Time Recei burton Time (Source) Location / Volume Laterality Blood BLOOD SPECIMEN / Venipuncture / 01/05/2022 8:00 2021 8:23 Unknown Unknown AM PATIENT FLOW COORDINATOR AM PATIENT FLOW COORDINATOR Alecia Pereira NP CHEMISTRY Performing Organization Address City/State/ZIP Code Phon e Number [facility] [address] [place] [address] LABORATORY-CENTRAL 1999 LABORATORY (ABNORMAL) BASIC METABOLIC PANEL (01/05/2022 8:00 AM PATIENT FLOW COORDINATOR)Only the most recent of 3 resultswithin the time period is included. [facility] Signature SODIUM 138 135 - 145 01/05/2022 [facility] mmol/L 8:57 AM PATIENT FLOW COORDINATOR LAB[facility]ATORY[facility] TRAL LABORATORY POTASSIUM 3.7 3.5 - 5.0 01/05/2022 [facility] mmol/L 8:57 AM PATIENT FLOW COORDINATOR LABORATORY[facility] TR[facility] LABORATORY CHLORIDE 104 98 - 110 01/05/2022 [facility] mmol/L 8:57 AM PATIENT FLOW COORDINATOR LABORATORY[facility] TRAL LABORATORY CO2,TOTAL 25 21 - 31 01/05/2022 [facility] mmol/L 8:57 AM PATIENT FLOW COORDINATOR LABORATORY[facility] TRAL LABORATORY ANION GAP 9 5 - 18 01/05/2022 [facility] 8:57 AM PATIENT FLOW COORDINATOR LABORATORY[facility] TRAL LABORATORY GLUCOSE 140 (H) 65 - 100 01/05/2022 [facility] mg/dL 8:57 AM PATIENT FLOW COORDINATOR LABORATORY-[facility] TRAL LABORATORY CALCIUM 9.0 8.5 - 10.5 01/05/2022 [facility] mg/dL 8:57 AM PATIENT FLOW COORDINATOR LABORATORY[facility] TRAL LABORATORY BUN 27 (H) 8 - 25 01/05/2022 [facility] mg/dL 8:57 AM PATIENT FLOW COORDINATOR LABORATORY[facility] TRAL LABORATORY CREATININE 1.08 0.72 - 01/05/2022 [facility] 1.25 mg/dL 8:57 AM PATIENT FLOW COORDINATOR LABORATORY-[facility] TRAL LABORATORY BUN/CREAT RATIO 25 (H) 10 - 20 01/05/2022 [facility] 8:57 AM PATIENT FLOW COORDINATOR LABORATORY-[facility] TR[facility] LABORATORY eGFR 67 (L) >90 01/05/2022 [facility] mL/min/1.7 8:57 AM PATIENT FLOW COORDINATOR LABORATORY-[facility] 3m2 TRAL LABORATORY Comment: As of 2021, eGFR is calcu lated by the CKD-EPI creatinine equation without race adjustment. eGFR can be inf luenced by muscle mass, exercise, and diet. The reported eGFR is an estimation only and is only applicable if the renal function is stable. Specimen Anatomical Collection Method / Collection Time Recei burton Time (Source) Location / Volume Laterality Blood BLOOD SPECIMEN / Venipuncture / 01/05/2022 8:00 2021 8:23 Unknown Unknown AM PATIENT FLOW COORDINATOR AM PATIENT FLOW COORDINATOR Donald DEMPSEY CHEMISTRY Performing Organization Address City/State/ZIP Code Phon e Number [facility] [address] [place] [address] LABORATORY-CENTRAL 2000 LABORATORY SCAN-CARDIAC STRIP (01/05/2022 2:19 AM PATIENT FLOW COORDINATOR) Narrative This result has an attachment that is no t available. Scanner OTHER SCAN-CARDIAC STRIP (01/04/2022 5:23 PM PATIENT FLOW COORDINATOR) Narrative This result has an attachment that is no t available. Scanner OTHER EKG - On Arrival to Floor (01/04/2022 5:20 PM PATIENT FLOW COORDINATOR)Only the most recent of6 resultswithin the time period is included. Component Value Ref Range Test Analysis Performed Pathologis t Method Time At Signature Interpretation Atrial-paced rhythm with prolonged AV conduction BEYOND NOW Left anterior fascicular block Minimal voltage criteria for LVH, may be normal variant ( [place] product ) Abnormal ECG When compared with ECG of 03-JAN-2022 11:08, No significant change was found Ventricular Rate 60 BPM BEYOND NOW Atrial Rate 60 BPM BEYOND NOW P-R Interval 238 ms BEYOND NOW QRS Duration 118 ms BEYOND NOW QT 444 ms BEYOND NOW QTc 444 ms BEYOND NOW P [place] degrees BEYOND NOW R [place] -51 degrees BEYOND NOW T [place] 47 degrees BEYOND NOW Specimen Anatomical Collection Method Collection Time Receive d Time (Source) Location / / Volume Laterality 01/04/2022 5:20 PM 7:19 PATIENT FLOW COORDINATOR PM PATIENT FLOW COORDINATOR Stephanie Guillory MD EKG ORD Performing Organization Address City/State/ZIP Code Phon e Number BEYOND NOW [place], [place] (ABNORMAL) ACTIVATED CLOTTING TIME [id number] ACT (01/04/2022 3:53 PM PATIENT FLOW COORDINATOR)Only the most recent of3 resultswithin the time period is included. P athologist Signature ACTIVATED 250 (H) 74 - 125 01/04/2022 [facility] CLOTTING TIME, sec 4:26 PM PATIENT FLOW COORDINATOR LABORATORY-CE N POCT TRAL LABORATORY Specimen Anatomical Collection Method Collection Time Receive d Time (Source) Location / / Volume Laterality Blood BLOOD SPECIMEN / 01/04/2022 3:53 PM 01/04 4:26 Unknown PATIENT FLOW COORDINATOR PM PATIENT FLOW COORDINATOR Ruslan VILLAGOMEZ HEMATOLOGY Performing Organization Address City/State/ZIP Code Phon e Number [facility] [address] [place] [address] LABORATORY-CENTRAL 2000 LABORATORY CVL CORONARY ANGIOGRAM POSS PCI (01/04/2022 2:35 PM PATIENT FLOW COORDINATOR) Anatomical Region Laterality Modality Other Specimen (Source) Anatomical Collection Method Collection Time Re ceived Time Location / / Volume Laterality 01/04/2022 2:35 PM PATIENT FLOW COORDINATOR Narrative This result has an attachment that is no t available. Transcriptions Cassandra Seaman MD - 01/04/2022 4:35 PM CST [facility] Cardiac Catheterization Report Name: CRISTIAN STEVENS Event Date: 01/05/20 14:35 Excellian ID #: [id number] [place] #: [id number] Diagnostic Physician: CASSANDRA GUADARRAMA [facility] Interventional Physician: CASSANDRA SEAMAN [facility] Referring Physician: Primary Care Physician: HELIO HAYDEN Date: 1935 Gender: Male Age: 86 Summary/Conclusions PRESENTATION / INDICATIONS * [place] * [place] Coronary artery disease VASCULAR ACCESS * Using ultrasound guidance and a percut aneous technique, the right common femoral artery was accessed. Ultrasound was used to confirm vessel patency, localizing needle into the lumen of the vessel. An image was saved for the medical record. SPECIAL PROCEDURES * Right femoral arteriotomy was successf ully closed utilizing a closure device DIAGNOSTIC SUMMARY ? 50% - 60% stenosis in the distal LMCA ? 60% stenosis in the ostial Proximal LA D. IFR LM to LAD 0.91. Borderline. Similar to prior angio IFR measurement. medical therapy with clinical follow up. ? The Circumflex is free of significant disease and has mild luminal irregularities. IFR LM to LCX 0.99. Essentially normal. Med rx. ? Right dominant. Patent stent proximal RCA. Tortuous RCA. ? 80% stenosis in the 1st RPL INTERVENTION ? Successful 2.75mm x 22mm Drug Eluting Stent, and 3.5mm x 8mm Balloon to 1st RPL, post stenosis 0%. Proximal RCA stent dilated with 4.0mm balloon to facilitate passage of Guideliner into RCA. Plavix x one year Resume Apixaban for afib. Follow clinically. Discussed with Dr. Velasquez. Consent & Huntington Protocol The risks, benefits, and alternatives of the procedure were discussed with the patient and written informed consent was obtained. Huntington protocol was followed. TIME OU T conducted just prior to starting procedure confirmed patient identity, site/side, procedure, patient position, and availability of correct equipment and implants (if applicable). Staff Name Title CASSANDRA SEAMAN Diagnostic Production Generalist Stephanie Guillory Fellow Fouzia Medina RTR Scrub Jeremías Olivas RT(R) Char Belt Operator Yoni Jacobs RTR Monitor [facility], Yuridia CHUNG Nurse CASSANDRA SEAMAN Interventional Cardiolog ist Procedures ? Ultrasound Guided Vascular Access ? Coronary Angiogram ? Coronary Fractional Flow Measurement ? Coronary Fractional Flow Measurement, Addl ? Stent Placement, Drug Eluting [PCI] ? Femoral Closure Device Diagnostic Findings * Left Main Coronary Artery ? 50% stenosis in the LMCA. * Left Anterior Descending ? 60% stenosis in the Proximal LAD. * Circumflex ? The Circumflex is free of significant disease and has mild luminal irregularities. * Right Coronary Artery ? 80% stenosis in the 1st RPL. The lesio n has a DAGO flow of 3. Lesion Information Lesion # Vessel Segment Lesion Length Le declan Details 3 1st RPL 16 Culprit Lesion Proximal LAD LMCA Hemodynamics State: Baseline Pressures (mmHg) Site Systolic Diastolic End Diastolic A Wave V Wave Mean AO 134 56 87 Interventional Results * Right Coronary Artery ? Successful intervention to the 1st RPL 80% lesion with a final stenosis of 0% using a 2.5mm x 12mm Balloon, 4mm x 12mm Balloon, 2.75mm x 15mm Balloon, 2.75mm x 22mm Drug Eluting Stent, and a 3.5mm x 8mm Balloon. The final DAGO flow was 3. Interventional Devices Lesion # Vessel Segment Type Name Max Pr essure 3 1st RPL Balloon BLLN EUPHORA NC RX 3.5 MM X 8MM 3 1st RPL Balloon BLLN EUPHORA NC RX 4MM X 12MM 3 1st RPL Balloon BLLN EUPHORA NC RX 2.7 5MM X 15MM 3 1st RPL Drug Eluting Stent WILVER KRYS Fr ontier RX 2.52tzG49ty 3 1st RPL Balloon BLLN EUPHORA RX 2.5mmx 12mm Procedure Details Estimated Blood Loss: < 30 ml Specimen Collected: None Level of Sedation Achieved: Moderate Procedure Start: 14:35 Procedure End: 16:12 Procedure Time: 97 min Fluoroscopy Time: 32.5 min Cumulative Air Kerma: 2260 mGy DAP: 52612 uGy/M2 Contrast: Omnipaque (low-osmolar), 120 ml Physiologic Data Weight: 78.5 kg Vascular Access Time Access Sheath Size 14:35 Right Femoral Artery, sheath inser panda Complications ? No Complications Medications Ordered and Administered Start Time Stop Time Medication Dose Uni ts Route Ordered By Given By 14:27 Versed 1 mg IV Poulose, Cassandra K Siddharth c, Yuridia RN 14:27 Fentanyl 50 mcg IV Poulose, Cassandra K Stec, Yuridia RN 14:35 1% Lidocaine 7 ml Subcut Poulose, Cassandra K Changal, Khalid Hamid 14:42 Nitroglycerin 200 mcg IC Poulose, Cassandra K Changal, Khalid Hamid 14:47 O2 2 l per min Nasal cannula Poulo se, Cassandra K Stec, Yuridia RN 15:01 Versed 0.5 mg IV Poulose, Cassandra K S maribel, Yuridia RN 15:01 Fentanyl 25 mcg IV Poulose, Cassandra K Stec, Yuridia RN 15:01 Heparin 5000 units IV Poulose, Ani l K Stec, Yuridia RN 15:25 Heparin 3000 units IV Poulose, Ani l K Stec, Yuridia RN 15:25 Plavix 600 mg PO Poulose, Cassandra K S maribel, Yuridia RN 15:31 Versed 0.5 mg IV Poulose, Cassandra K S maribel, Yuridia RN 15:31 Fentanyl 25 mcg IV Poulose, Cassandra K Stec, Yuridia RN 15:52 Versed 0.5 mg IV Poulose, Cassandra K S maribel, Yuridia RN 15:52 Fentanyl 25 mcg IV Poulose, Cassandra K Stec, Yuridia RN 16:04 Fentanyl 25 mcg IV Poulose, Cassandra K Stec, Yuridia RN 16:04 Versed 0.5 mg IV Poulose, Cassandra K S maribel, Yuridia RN 16:09 Nitroglycerin 200 mcg IC Poulose, Cassandra K Changal, Khalid Hamid I personally monitored the patient?s con scious sedation during the procedure. Conscious sedation starts with the first sedation medication dose of Fentanyl or Versed and ends when the procedure is completed, the patient is stable for recovery status, and the physician or other qualified health nanny caregiver providing the sedation ends personal continuous [id number]-[id number] time with the patient. The medications listed above were verbal ly ordered by me and read back to me as documented above. Refer to the procedure log report for ad ditional case details. electronically signed on 01/04/2022 4:3 5:12 PM with status of Final Cassandra Seaman MD [facility] [address] [address] (p) [phone](f) Provider Referring CV IMAGING PACER LICHA DUAL CHAMBER WO REPROG (01/04/2022 11:00 AM PATIENT FLOW COORDINATOR) Narrative Yinka Bryson MD - 01/04/2022 11 :00 AM PATIENT FLOW COORDINATOR Kg Marcial RN ? 01/04/2022 11:07 AM PACEMAKER EVALUATION REPORT December 29, 2021 Indication for Pacemaker: Sinus Node Dys function Primary MD: Helio Hayden MD Primary Production Generalist: Gabriella Lopez PA Primary EP: Yinka Bryson MD Implanting MD: Yinka Bryson MD DEVICE DATA Marketing Technologist Medtronic: Model [place] XT D R MRI SureScan [id number] Implant Date 12/29/2021 LEAD DATA Atrial Lead: Marketing Technologist Medtronic: Mod el 5076-52 cm Implant Date 12/29/2021 RV Lead: Marketing Technologist Medtronic: Model 3 830-69 cm Implant Date 12/29/2021 Advisory: none Location of evaluation: [facility] [id number] Reason for evaluation: Request for ch est pain MEASUREMENTS Atrial Sensing - P wave: 2.4 mV Atrial Capture: 1 V @ 0.4 ms Atrial Lead Impedance: 532 ohms Ventricular Sensing - R wave: >20 mV RV Capture: 1 V @ 0.4 ms Ventricular Lead Impedance: Right - 665 ohms Underlying rhythm: Sinus Bradycardia at 55 bpm with intact AV conduction DIAGNOSTIC DATA - since 12/20/2021 Atrial paced: 87.7%, Ventricular paced: 0.5% Atrial episodes: None Associated symptoms: n/a Ventricular episodes (detects >150 bpm x 4 beats): None Associated symptoms: n/a Last EF: 71% per echo on 11/04/2021 Histogram: appropriate sensor response p er histogram Magnet rate: 85 bpm ??Battery voltage: 3 .22 V ??Estimated battery longevity: 12.4 years FINAL PARAMETERS Mode: AAIR <=> DDDR ??Lower rate: 60 bpm ??Upper rate: 130 bpm ??AV Delay: 180/150 ms ??Mode Switch: 171 bpm ??Rate Response: Low 3/3 Atrial - Amplitude: adaptive 3.5 V ??Pul se width: 0.4 ms ?? Sensitivity: 0.3 mV ??Refractory: auto 2 50 ms ??Polarity: Bipolar Right Ventricular - Amplitude: adaptive 3.5 V ??Pulse width: 0.4 ms ??Sensitivity: 0.9 mV ??Polarity: Bip olar Changes made: Device temporarily reprogr ammed, iterative adjustments made during interrogation/te sting. No permanent changes made. Conclusion: Normal pacemaker function. S table lead measurements. No arrhythmias. AP 87.7% DRIER 0.5%. Silver sarina dressing removed today. Incision is clean, dry, intact. N o s/s of infection. Follow up: [place] as previously sche duled for routine post implant interrogation on 04/04/22. Routine follow up: Q 3-4 month [facility] with annual clinic in [place] each Mar. Kg Marcial RN, CCDS Nurse Clinician II [facility] Pacemaker/ICD Clinic [phone] Yinka Bryson MD CARDIAC SERVICES ORD SCAN-CARDIAC STRIP (01/04/2022 9:59 AM PATIENT FLOW COORDINATOR) Narrative This result has an attachment that is no t available. Scanner OTHER SCAN-CARDIAC STRIP (01/04/2022 9:30 AM PATIENT FLOW COORDINATOR) Narrative This result has an attachment that is no t available. Scanner OTHER SCAN-CARDIAC STRIP (01/04/2022 2:27 AM PATIENT FLOW COORDINATOR) Narrative This result has an attachment that is no t available. Scanner OTHER SCAN CORRESP-LABORATORY RESULTS (01/04/2022 12:00 AM PATIENT FLOW COORDINATOR) Narrative 01/04/2022 12:00 AM PATIENT FLOW COORDINATOR This result has an attachment that is no t available. Ordered by an unspecified provider. Other Clinical Staff OTHER SCAN-OPERATIVE/PROCEDURE REPORT (01/04/2022 12:00 AM PATIENT FLOW COORDINATOR) Narrative 01/04/2022 12:00 AM PATIENT FLOW COORDINATOR This result has an attachment that is no t available. Ordered by an unspecified provider. Other Clinical Staff OTHER SCAN-CARDIAC STRIP (01/03/2022 3:42 PM PATIENT FLOW COORDINATOR) Narrative This result has an attachment that is no t available. Scanner OTHER SCAN-CARDIAC STRIP (01/03/2022 7:15 AM PATIENT FLOW COORDINATOR) Narrative This result has an attachment that is no t available. Scanner OTHER Troponin I - Initial Draw was done in ED (01/03/2022 1:07 AM PATIENT FLOW COORDINATOR)Only the most recent of2 resultswithin the time period is included. P athologist Signature TROPONIN I 0.023 <0.034 01/03/2022 [facility] ng/mL 2:22 AM PATIENT FLOW COORDINATOR LABORATORY-CENT RAL LABORATORY Specimen Anatomical Collection Method Collection Time Receive d Time (Source) Location / / Volume Laterality Blood BLOOD SPECIMEN / Diversion Device / 01/03/2022 1:07 AM 01/03/2022 1:18 Unknown Unknown PATIENT FLOW COORDINATOR AM PATIENT FLOW COORDINATOR Crystal Rajput MD CHEMISTRY Performing Organization Address City/State/ZIP Code Phon e Number [facility] [address] [place] [address] LABORATORY-CENTRAL 2000 LABORATORY SCAN-CARDIAC STRIP (01/02/2022 11:47 PM PATIENT FLOW COORDINATOR) Narrative This result has an attachment that is no t available. Scanner OTHER SCAN-CARDIAC STRIP (01/02/2022 9:35 PM PATIENT FLOW COORDINATOR) Narrative This result has an attachment that is no t available. Scanner OTHER XR Chest PA and lateral (12/29/2021 3:31 PM PATIENT FLOW COORDINATOR) Anatomical Region Laterality Modality CHEST, THORAX, Lung, HEART Digital Radio graphy Specimen (Source) Anatomical Collection Method Collection Time Re ceived Time Location / / Volume Laterality 12/29/2021 3:51 PM PATIENT FLOW COORDINATOR Impressions 12/29/2021 3:51 PM PATIENT FLOW COORDINATOR Left pacer body and right heart transvenous wires. No mediastinal widening or pneumothorax. Ectatic aorta. No acute cardiopulmonary disease. Left reversed shoulder arthroplasty. Dictated by Temo Gonzalez MD @ Dec 29 ??3:51PM (Electronically Signed) ?? Narrative 12/29/2021 3:51 PM PATIENT FLOW COORDINATOR For Patients: ??As a result of the 21st Century Cures Act, medical imaging exams and procedure report s are released immediately into your medical center clinic medical record. ??You may view this report [...] questions, please contact yo health care provider. INDICATION: Follow up pacer placement. TECHNIQUE: Two views. IMPRESSION: Left pacer body and right heart transven ous wires. No mediastinal widening or pneumothorax. Ectatic aorta. No acute cardiopulmonary disease. Left reversed shoulder arthroplasty. Dictated by Temo Gonzalez MD @ Dec 29 3:51PM (Electronically Signed) Yinka Bryson MD GENERAL IMAGING PACER LICHA DUAL CHAMBER WO REPROG (12/29/2021 3:19 PM PATIENT FLOW COORDINATOR) Narrative Yinka Bryson MD - 12/29/2021 3: 19 PM PATIENT FLOW COORDINATOR Evon Call RN ? 12/29/2021 ??4:22 PM PACEMAKER EVALUATION REPORT December 29, 2021 Indication for Pacemaker: Sinus Node Dys function Primary MD: Helio Hayden MD Primary Production Generalist: Gabriella Lopez PA Primary EP: Yinka Bryson MD Implanting MD: Yinka Bryson MD DEVICE DATA Marketing Technologist Medtronic: Model [place] XT D R MRI SureScan [id number] Implant Date 12/29/2021 LEAD DATA Atrial Lead: Marketing Technologist Medtronic: Mod el 5076-52 cm Implant Date 12/29/2021 RV Lead: Marketing Technologist Medtronic: Model 3 830-69 cm Implant Date 12/29/2021 Visit location: [place] [address] Reason For Evaluation: Same day discharg e [...] to patient to take home at discharge. Roselyn willson verbalized understanding the above and is agreeable with plan of care as described. Patient was given [facility] s card and encouraged to call if he has any concerns or questions in the future. Enrolled in [facility]. Follow up: 1 Week Post-Op [facility] ed for 01/05/2022 then 3 month post-op in [place] on 04/04/2022 Routine follow up: Q 3-4 month [facility] with annual clinic in [place] each Mar. Evon Call, RN Nurse Clinician II [facility] Pacemaker/ICD Clinic ?? Yinka Bryson MD CARDIAC SERVICES ORD EP Procedure to be Performed (12/29/2021 12:07 PM PATIENT FLOW COORDINATOR) Narrative Yinka Bryson MD - 12/29/2021 12 :07 PM PATIENT FLOW COORDINATOR Yinka Bryson MD ? 12/29/2021 12:08 PM Cardiac Electrophysiology [...] 2) Incision check in 1-2 weeks with [facility] physician. 3) Device clinic check in 3-4 months. 4) Medication changes: start sotalol 80 mg po bid on Sunday with an EKG on Sunday Surgeon: Yinka Bryson MD Yinka Bryson MD LABOR LAW PROFESSOR ORD EP PPM (12/29/2021 11:04 AM PATIENT FLOW COORDINATOR) Anatomical Region Laterality Modality X-Ray Angiography, X -Ray Angiography Specimen (Source) Anatomical Collection Method Collection Time Re ceived Time Location / / Volume Laterality 12/29/2021 11:04 AM PATIENT FLOW COORDINATOR Narrative This result has an attachment that is no t available. Transcriptions Yinka Bryson MD - 12/30/2021 5: 03 AM CST [facility] Electrophysiology Implant Report Name: CRISTIAN Adams NATHALIA Event Date: 12/30/19 Excellian ID #: [id number] Date: Gender: Male Age: 86 [place] #: [id number] Procedure Performed By: YINKA BRYSON [facility] Primary Director Of Bands: THIERRY BRYSON Referring Physician: Primary Care Physician: HELIO HAYDEN Implant Procedure Type Dual Chamber Permanent Pacemaker EP Impl ant Summary / Conclusions PACEMAKER * Dual chamber pacemaker system successf ully implanted. * Procedure completed without incident. * Appropriate device functionality obser burton at end of case. Recommendations / Plan 1) CXR and device check later today 2) Incision check in 1-2 weeks with [facility] physician. 3) Device clinic check in 3-4 [...] for a dual-chamber pacemaker implant. Consent & Huntington Protocol Huntington protocol was followed. TIME OU T conducted [...] Pulse Generator Detail Implanted Status Pocket Location [employer] turer Model Serial Number 12/29/2021 Implanted Left Pectoral [employer]tr [employer] Libertad XT DR MRI [id number] Lead Detail Implanted Status [facility] Model Serial Number 12/29/2021 Implanted Right Ventricle Sep monica [employer] Secure Select 3830- 69 [id number] 12/29/2021 Implanted Right Atrium Right Appendage [employer]tronic[employer] Inc. CapSureFix Novus 5076-52 [id number] Measurement Dog Warden P/R Wave (mV) Threshold (V) Pulse Width [...] Anesthes ia Note Total Fluoro Time: 10.9 CERTIFIED ART THERAPIST Total Fluoro Dose: 18 mGy Staff Name Role Yinka Bryson Director Of Bands Janae Diaz RN Nurse Sophie Pino PINA [place] Tori Srivastava RCFELICITAS Char Belt Operator BuitragoAlberto EPT Char Belt Operator Medications Ordered and Administered Start Time Stop [...] 3:33 AM with status of Final Yinka Bryson MD Implanting Production Generalist [facility] [address] [place] [address] [place] [address] (p) [phone](f) Yinka Bryson MD CV IMAGING (ABNORMAL) TSH (12/02/2021 12:17 PM CDT)Only the most recent of2 resultswithin the time period is included. athologist Signature TSH 5.26 (H) 0.35 - 4.94 12/03/2021 [facility] uIU/mL 9:21 PM CDT LABORATORY-[facility] Specimen Anatomical Collection Method / Collection Time Recei burton Time (Source) Location / Volume Laterality Blood BLOOD SPECIMEN / Venipuncture / 12/02/2021 12:17 12/02 Unknown Unknown PM CDT 12:21 PM CDT Narrative [facility] LABORATORY-CENTRAL LABORAT ORY - 12/03/2021 9:21 PM CDT In Adults, TSH values between 5.00 and 10.00 uIU/ml do not necessarily indicate the presence of Hyp othyroidism. Correlation with clinical findings such as presence of goiter and/or Thyroperoxidase (TPO) Antibody ma y be helpful. For more information please refer to CATHERINE 20 04; 291: [phone]. Yinka Bryson MD CHEMISTRY Performing Organization Address City/State/ZIP Code Phon e Number [facility] [address] [place] [address] LABORATORY-CENTRAL 2000 LABORATORY T4,FREE (12/02/2021 12:17 PM CDT)Only the most recent of2 resultswithin the time period is included. P athologist Signature T4,FREE 0.93 0.70 - 1.80 12/03/2021 [facility] ng/dL 9:20 PM CDT LABORATORY-CENTR AL LABORATORY Specimen Anatomical Collection Method / Collection Time Recei burton Time (Source) Location / Volume Laterality Blood BLOOD SPECIMEN / Venipuncture / 12/02/2021 12:17 12/02 Unknown Unknown PM CDT 12:21 PM CDT Yinka Bryson MD CHEMISTRY Performing Organization Address City/State/ZIP Code Phon e Number [facility] [address] [place] [address] LABORATORY-CENTRAL 2000 LABORATORY (ABNORMAL) AMIODARONE (CORDARONE) (11/24/2021 1:09 PM [...] Unknown Unknown PM CDT PM CDT Yinka Bryson MD SEND OUTS Performing Organization Address City/State/ZIP Code Phon e Number [facility] [address] [place] [address] MR SHOULDER RIGHT WO (11/10/2021 10:06 AM [...] s are [facility] immediately [facility]. ??You may view this report [...] provider. If you have questions, please contact [facility] care provider. HISTORY: Right shoulder pain. TECHNIQUE: [...] ECHOCARDIOGRAM CRISTIAN STEVENS ? Accessi on#: ?? [id number] : ?1935 86 years Study Date: ?? 11/04/2021 1:39:43 PM Gender: M ?BP: ? 129/64 mmHg Height: 175.00 cm ?BSA: ?1.94 m? ?? Weight: 78.00 kg ? Tech: ? MJJ ? Referring MD: MARY VILLARREAL Site: ? [facility] Reading Location: MOBILE=-SHAY Procedure: 2D, Color Doppler and Spectra l [...] . This study was interpreted by an [facility] facility. CC: [facility], Med/ Surg - IP [facility]. ??Final ?? Procedure Note Drake Tucker MD - 11/04/2021Form atting of this note might be different from the original. ECHOCARDIOGRAM CRISTIAN STEVENS : 1935 86 years Study Date: 11/04 1:39:43 PM Gender: M BP: 129/64 mmHg Height: 175.00 cm BSA: 1.94 m? ?? Weight: 78.00 kg Tech: SOTO Referring MD: MARY VILLARREAL Site: [facility] Reading Location: MOBILE=[facility] Procedure: 2D, Color Doppler and [...] . This study was interpreted by an [facility] facility. CC: [facility], Med/ Surg - IP [facility]. Final Mary Villarreal MD ECHO ORD SCAN-CT INTERPRETATION (11/04/2021 12:00 AM CDT) Narrative This result has an attachment that is no t available. Scanner OTHER SCAN-OPERATIVE/PROCEDURE REPORT (10/27/2021 12:00 AM CDT) Narrative This result has an attachment that is no t available. Scanner OTHER COVID 19 (10/10/2021 2:25 PM CDT) Analysis Performed At Patho logist Time Signature COVID 19 Negative Negative 10/12/2021 [facility] 12:42 PM CDT LABORATORY-[facility] MOLECULAR TRAL LABORATORY [...] CDT AM CDT STRUCTURE / Unknown Narrative [facility] LABORATORY-CENTRAL LABORAT ORY - 10/12/2021 12:42 [...] Helio Hayden MD MICROBIOLOGY Performing Organization Address City/State/ZIP Code Phon e Number [facility] [address] [facility] [place] [address] LABORATORY-CENTRAL 2000 LABORATORY COVID 19 COLLECTION (10/10/2021 2:25 PM CDT) [facility] Method Time Signature TESTING [facility] 10/11/2021 [facility] LABORATORY Laboratory 6:33 AM CDT LABORATORY-CE NTRAL LABORATORY Comment: Specimen submitted to [facility] for testing. Specimen Anatomical Location / Collection Method Collection Roland e Received Time (Source) Laterality / Volume Other SPECIMEN FROM Non-Blood / 10/10/2021 2:25 10/10/2021 3:30 NASOPHARYNGEAL Unknown PM CDT PM CDT STRUCTURE / Unknown Helio Hayden MD SEND OUTS Performing Organization Address City/[facility] Code Phon e Number [facility] [phone] [place] [address] [place] [address] LABORATORY-CENTRAL 2000 LABORATORY from Last 3 Months Insurance Payer Benefit Plan / Subscriber ID Effective Phone Address T ype Group Dates WC WORKERS WC WORKERS [id number] Effective for [phone] COMP all dates [phone] [place] [address] MEDICARE PART MEDICARE PART [id number] 2001-Prese ATT N: CLAIMS A - HB USE A HB ONLY nt [address] [place] [address] MEDICARE PART MEDICARE PART [id number] 2001-Prese ATT N: CLAIMS B - HB USE B HB ONLY nt [address] [place] [address] BLUE CROSS BLUE CROSS [id number] 2016-[place] [address] [address] [place] [address], [place] [phone] BLUE CROSS MR BLUE CROSS [id number] 2016-Prese [address] [address] [place], [place] [id number] Cristian Stevens Workers Comp Self 1935 [address] [phone] [place], [place] (Work) [phone] Advance Directives Documents on File Type Date Recorded 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 on Healthcare Directive 02/04/2021 INCOMPLETE AND RECEIVED, 02/04/2021 Healthcare Directive 11/12/2009 HEALTH CARE DIRECTIVE, 11/12/2009 Latest Code Status on File Code Status Date Activated Date Inactivated Comments Full Code 01/02/2022 10:07 PM 01/05/2022 10:30 PM Code Status Discussion: Reviewed Preferences Full Code 12/29/2021 12:10 PM 12/29/2021 6:52 PM Code Status Discussion: Reviewed Preferences Full Code 08/17/2020 11:17 AM 08/18/2020 5:17 PM Code Status Discussion: Discussed Full Code 05/24/2018 4:26 PM 05/25/2018 6:39 PM Code Status Discussion: Discussed Full Code 06/27/2017 7:48 AM 06/27/2017 5:34 PM Code Status Discussion: Discussed Care Teams [employer]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
== END 2022-01-10 14:18 | disposition home or self-care (01) ==
LOC: WOUND 14:17
PROVIDERS: PCP Surgery; Visit Provider Nurse Practitioner Family
DX: L59.8 Other specified disorders of the skin and subcutaneous tissue related to radiation (principal); L97.222 Non-pressure chronic ulcer of left calf with fat layer exposed; I89.0 Lymphedema, not elsewhere classified; I87.2 Venous insufficiency (chronic) (peripheral)
CPT/HCPCS: 11042

== ENCOUNTER 2022-01-17 12:44 | Outpatient (CLI) | payer MEDICARE, BC, SELFPAY ==
--- OUTSIDE RECORDS SUMMARY | 2022-01-17 12:47 | XMS_ITS | Continuity of Care Document ---
:1935 Author Organization [facility] Care Team Providers Name Role Phone [facility] Unavailable Unavailable Problems Combined list of problems from Department of Defense and [facility] Affairs facilities. It does not include entries that were removed or entered in error. Problem Status Onset Problem Type Date of Comments Source Date Resolution Postsurgical Active 12/21/19 Condition [place] Percutaneous 12 [facility] Transluminal Coronary Angioplasty Status Tobacco Use Active 02/19/18 Condition [place] Disorder, Remission 61 [facility] Personal History of Active 02/19/18 Condition [place] Peptic Ulcer 57 [facility] Disease Atrial fibrillation Active Condition [facility] CO-MANAGE Active Condition Jun 04 [place] IS 2012 Entered [facility] By: JOHN YEE Comment: Dr. Law Lawson, [facility] Jun 10, 2013 Entered By: FRANCOIS HAMPTON Comment: PCP Dr. Robbins Coronary Artery Active Condition [place] Disease [facility] Gastroesophageal Active Condition [place] reflux disease [facility] (SNOMED [place] 977388036) Hearing Loss, Active Condition [place] Partial * (ICD-9-CM [facility] 389.9) Hyperlipidemia Active Condition [place] (SNOMED CT [facility] [id number]) Hypertension Active Condition [place] (SNOMED CT [facility] [id number]) Insomnia Active [place] [facility] Tinnitus * Active Condition [place] (ICD-9-CM 388.30) [facility] Diagnosis: Active Diagnosis [place] ICD-10-CM I48.91 [facility] Unspecified atrial fibrillationwith Provider Comments: Atrial fibrillation (SCT 98966382) Diagnosis: Active Diagnosis [place] ICD-10-CM F43.20 [facility] Adjustment disorder, unspecifiedwith Provider Comments: Adjustment Disorder, unspecified Diagnosis: Active Diagnosis [place] ICD-10-CM F43.21 [facility] Adjustment disorder with depressed moodwith Provider Comments: Adjustment Disorder with depressed mood Diagnosis: Active Diagnosis [place] ICD-10-CM F51.01 [facility] Primary insomniawith Provider Comments: Insomnia (SCT 306904541) Diagnosis: Active Diagnosis [place] ICD-10-CM Z23 [facility] Encounter for immunizationwith Provider Comments: Encounter for any immunization Diagnosis: Active Diagnosis [place] IS ICD-10-CM Z63.79 [facility] Other stressful life events affecting family [...] Diagnosis: Active Diagnosis [place] IS ICD-10-CM I10 [facility] Essential (primary) hypertensionwith Provider Comments: Hypertension ([facility] [id number]) Medications Combined list of outpatient medications from Department of 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 Medications provided include 1) outpatient medications from the last 15 months, and 2) patient-reported medications. Medication Details Route Status Patient Prescription Prescription Last Ordering Order Source Instructions Expires Number Dispense Provider Date Date APIXABAN TAKE ONE ORALLY ACTIVE 05/07/2022 [id number] RID GEWELL 05/09/ [place] 5MG TAB TABLET 2 ,LEYDA L 2021 [place] [facility] EVERY 12 HOURS TO PREVENT STROKE DUE TO ATRIAL FIBRILLA TION APIXABAN TAKE ONE ORALLY DISCONT 03/31/2021 [id number] RI DGEWELL 03/30/ [place] 5MG TAB TABLET [...] PRN DRONEDARONE TAKE ONE ORALLY DISCONT 06/07/2022 [id number] GLAUSER,N 06/08/ [place] 400MG TAB TABLET INUED [...] DAY METOPROLOL TAKE ORALLY ACTIVE GLAUSER,N 12/05/ [place] SUCCINATE ONE-HALF ORA N 2021 [place] [...] atus Comments Source Given By Number [employer] Consultant ZOSTER 2 complet [place] RECOMBINANT [facility] [place] [facility] 1 complet [place] RECOMBINANT 2020 [place] [facility] INFLUENZA, complet [place] UNSPECIFIED 2020 ed [place] [facility] FORMULATION [facility] S COVID-19 2 complet [place] (Hua Kang), 2020 ed [place] [facility] MRNA, LNP-S, H CS PF, 30 MCG/0.3 ML DOSE COVID-19 1 complet [place] (Hua Kang), 2020 ed [place] [facility] MRNA, LNP-S, H [...] 2021 09:39 AM ACTIVITY/VO Reporting L ab: [facility] LUME] IN [address] [facility] [address] SERUM OR Performing Lab : [facility] PLASMA [place] [address] AST/SGOT ASPARTATE 16 <34 - 34 05/25 Specimen Typ e: PLASMA [place] AMINOTRANSF /2021 No comment e [place]tered. [place] [facility] ERASE Ordering Provid er: LEYDA COHEN [ENZYMATIC Report Relea sed Date/Time: July 06, 2021 09:39 AM ACTIVITY/VO Reporting L ab: [facility] LUME] IN [address] [place] [facility] [address] SERUM OR Performing Lab : [facility] PLASMA [place] [address] CBC LEUKOCYTES 6.21 4.0 - 11.0 05 Specimen T ype: BLOOD [place] [#/VOLUME] /2021 No comment en tered. [place] [facility] IN [place]LOOD BY Ordering Pr ovider: LEYDA COHEN AUTOMATED Report Releas ed Date/Time: July 06, 2021 09:39 AM COUNT Reporting Lab: [facility] HCS [address] [place] [facility] [address] Performing Lab: [facility] [place] [address] CBC ERYTHROCYTE 4.06 4.6 - 6.2 05/25 L Specimen T ype: BLOOD [place] /2021 No comment enter ed. [place] [facility] [#/VOLUME] Ordering Pro vider: LEYDA COHEN IN BLOOD BY Report Rele ased Date/Time: July 06, 2021 09:39 AM AUTOMATED Reporting Lab : [facility] COUNT [address] [place] [facility] [address] Performing Lab: [facility] [address] [place] [facility] [address] CBC HEMOGLOBIN 12.9 13.5 - 05/25 L Specimen Type : BLOOD [place] [MASS/VOLUM 17.9 /2021 No comment e ntered. IS [facility] E] IN BLOOD Ordering Pr ovider: LEYDA COHEN Report Released Date/Time: July 06, 2021 09:39 AM Reporting Lab: [facility] H[facility] [address] [place] [facility] [address] Performing Lab: [facility] [address] [place] [facility] [address] CBC HEMATOCRIT 39.0 41 - 54 07/13 L Specimen Type : BLOOD [place] [VOLUME /2021 No comment enter ed. IS [facility] FRACTION] Ordering Prov ider: LEYDA COHEN OF BLOOD BY Report Rele ased Date/Time: July 06, 2021 09:39 AM AUTOMATED Reporting Lab : [facility] H[facility] COUNT [address] [place] [facility] [address] Performing Lab: [facility] [address] [place] [facility] [address] CBC MCV 96.1 80 - 100 07/13 Specimen Type: BLOOD [place] [ENTITIC /2021 No comment ente red. [facility] VOLUME] BY Ordering Pro vider: LEYDA COHEN AUTOMATED Report Releas ed Date/Time: July 06, 2021 09:39 AM COUNT Reporting Lab: [facility] HCS [address] [place] [facility] [address] Performing Lab: [facility] [address] [place] [facility] [address] CBC MCH 31.8 27 - 33 07/13 Specimen Type: B LOOD [place] [ENTITIC /2021 No comment ente red. IS [facility] MASS] BY Ordering Provi michael: LEYDA COHEN AUTOMATED Report Releas ed Date/Time: July 06, 2021 09:39 AM COUNT Reporting Lab: [facility] HCS [address] [place] [facility] [address] Performing Lab: [facility] [address] [place] [facility] [address] CBC MCHC 33.1 32.0 - 07/13 Specimen Type: B LOOD [place] [MASS/VOLUM 37.5 /2021 No comment e ntered. IS [facility] E] BY Ordering Provid er: LEYDA COHEN AUTOMATED Report Releas ed Date/Time: July 06, 2021 09:39 AM COUNT Reporting Lab: [facility] HCS [address] [place] [facility] [address] Performing Lab: [facility] [address] [place] [facility] [address] CBC PLATELETS 238 150 - 400 07/13 Specimen Typ e: BLOOD [place] [#/VOLUME] /2021 No comment en tered. [facility] IN [facility]LOOD BY Ordering Pr ovider: LEYDA COHEN AUTOMATED Report Releas ed Date/Time: July 06, 2021 09:39 AM COUNT Reporting Lab: [facility] [address] [place] [address] Performing Lab: [facility] [address] [place] [address] CBC PLATELET 9.2 7.4 - 10.4 07/13 Specimen Typ e: BLOOD [place] MEAN VOLUME /2021 No comment e ntered. IS [facility] [ENTITIC Ordering Provi michael: LEYDA COHEN VOLUME] IN Report Relea sed Date/Time: July 06, 2021 09:39 AM BLOOD BY Reporting Lab: [facility] AUTOMATED [address] [place] [facility] [address] COUNT Performing Lab: [facility] [address] [place] [address] CBC ERYTHROCYTE 12.9 11.5 - 07/13 Specimen Typ e: BLOOD [place] DISTRIBUTIO 14.5 No comment e ntered. IS [facility] N WIDTH Ordering Provid er: LEYDA COHEN [RATIO] BY Report Relea sed Date/Time: July 06, 2021 09:39 AM AUTOMATED Reporting Lab : [facility] [place] [address] Performing Lab: [facility] [place] [address] CREATININ CREATININE 0.9 0.7 - 1.2 07/13 Specimen Type: PLASMA [place] E(INCLUDE [MASS/VOLUM /2021 No comment entered. IS [facility] S EGFR) E] IN SERUM Ordering Pr ovider: LEYDA COHEN OR PLASMA Report Releas ed Date/Time: July 06, 2021 09:39 AM Reporting Lab: [facility] [address] [place] [address] Performing Lab: [facility] [place] [address] CREATININ CREAT 84 60 07/13 Specimen Type: PLASMA [place] E(INCLUDE EGFR(CKD-EP /2021 No comment entered. IS [facility] S EGFR) I) Ordering Provid er: LEYDA COHEN Report Released Date/Time: July 06, 2021 09:39 AM Reporting Lab: [facility] [address] [place] [address] Performing Lab: [facility] [address] [place] [address] BASIC CREATININE 0.9 0.7 - 1.2 01/03 Specimen Ty pe: PLASMA [place] METABOLIC [MASS/VOLUM /2020 No comment entered. IS [facility] PANEL+MG E] IN SERUM Ordering P rovider: DERRICK GEORGE OR PLASMA Report Releas ed Date/Time: Dec 24, 2019 02:11 PM Reporting Lab: [facility] [address] [place] [address] Performing Lab: [facility] [address] [place] [address] BASIC UREA 21 8 - 26 01/03 Specimen Type: P LASMA [place] METABOLIC NITROGEN /2020 No comment en tered. IS [facility] PANEL+MG [MASS/VOLUM Ordering P rovider: DERRICK GEORGE E] IN SERUM Report Rele ased Date/Time: Dec 24, 2019 02:11 PM OR PLASMA Reporting Lab : [place] [address] Performing Lab: [place] [address] BASIC GLUCOSE 101 74 - 100 01/03 H Specimen Type: PLASMA [place] METABOLIC [MASS/VOLUM /2020 No comment entered. IS [facility] PANEL+MG E] IN SERUM Ordering P rovider: DERRICK GEORGE OR PLASMA Report Releas ed Date/Time: Dec 24, 2019 02:11 PM Reporting Lab: [place] [address] Performing Lab: [place] [address] BASIC SODIUM 140 136 - 145 01/03 Specimen Type: PLASMA [place] METABOLIC [MOLES/VOLU /2020 No comment entered. IS [facility] PANEL+MG ME] IN Ordering Provi michael: DERRICK GEORGE SERUM OR Report Release d Date/Time: Dec 24, 2019 02:11 PM PLASMA Reporting Lab: [place] [address] Performing Lab: [place] [address] BASIC POTASSIUM 3.7 3.5 - 5.1 01/03 Specimen Typ e: PLASMA [place] METABOLIC [MOLES/VOLU /2020 No comment entered. IS [facility] PANEL+MG ME] IN Ordering Provi michael: DERRICK GEORGE SERUM OR Report Release d Date/Time: Dec 24, 2019 02:11 PM PLASMA Reporting Lab: [facility] [address] [place] [address] Performing Lab: [facility] [address] [place] [address] BASIC CHLORIDE 107 98 - 107 01/03 Specimen Type: PLASMA [place] METABOLIC [MOLES/VOLU /2020 No comment entered. IS [facility] PANEL+MG ME] IN Ordering Provi michael: DERRICK GEORGE SERUM OR Report Release d Date/Time: Dec 24, 2019 02:11 PM PLASMA Reporting Lab: [facility] [address] [place] [address] Performing Lab: [facility] [address] [place] [address] BASIC CARBON 26 22 - 29 01/03 Specimen Type: P LASMA [place] METABOLIC DIOXIDE, No comment en tered. IS [facility] PANEL+MG TOTAL Ordering Provi michael: DERRICK GEORGE [MOLES/VOLU Report Rele ased Date/Time: Dec 24, 2019 02:11 PM ME] IN Reporting Lab: [facility] SERUM OR [address] [place] [facility] [address] PLASMA Performing Lab: [facility] [place] [address] BASIC CALCIUM 9.4 8.4 - 10.2 01/03 Specimen Type : PLASMA [place] METABOLIC [MASS/VOLUM No comment entered. IS [facility] PANEL+MG E] IN SERUM Ordering P rovider: DERRICK GEORGE OR PLASMA Report Releas ed Date/Time: Dec 24, 2019 02:11 PM Reporting Lab: [facility] [place] [address] Performing Lab: [facility] [place] [address] BASIC MAGNESIUM 2.0 1.6 - 2.6 01/03 Specimen Typ e: PLASMA [place] METABOLIC [MASS/VOLUM No comment entered. IS [facility] PANEL+MG E] IN SERUM Ordering P rovider: DERRICK GEORGE OR PLASMA Report Releas ed Date/Time: Dec 24, 2019 02:11 PM Reporting Lab: [facility] [place] [address] Performing Lab: [facility] [address] [place] [address] BASIC ANION GAP 7 5 - 15 01/03 Specimen Type: PLASMA [place] METABOLIC IN SERUM OR No comment entered. IS [facility] PANEL+MG PLASMA Ordering Provi michael: TRAUT,DERRICK L Report Released Date/Time: Dec 24, 2019 02:11 PM Reporting Lab: [facility] [place] [address] Performing Lab: [facility] [address] [place] [address] BASIC GLOMERULAR 80 60 01/03 Specimen Type : PLASMA [place] METABOLIC FILTRATION /2020 No comment entered. IS [facility] PANEL+MG RATE/1.73 Ordering Pro vider: DERRICK GEORGE SQ Report Released Date/Time: Dec 24, 2019 02:11 PM M.PREDICTED Reporting L ab: [facility] H[facility] [VOLUME [place] [address] RATE/AREA] Performing L ab: [facility] HCS IN SERUM, [address] [facility] [address] PLASMA OR BLOOD BY CREATININE- BASED FORMULA (CKD-EPI) CBC LEUKOCYTES 8.11 4.0 - 11.0 01/03 Specimen T ype: BLOOD [place] [#/VOLUME] /2020 No comment en tered. IS [facility] IN BLOOD BY Ordering Pr ovider: DERRICK GEORGE AUTOMATED Report Releas ed Date/Time: Dec 24, 2019 02:11 PM COUNT Reporting Lab: [facility] [place] [address] Performing Lab: [facility] [place] [address] CBC ERYTHROCYTE 4.21 4.6 - 6.2 01/03 L Specimen T ype: BLOOD [place] S /2020 No comment enter ed. [place] [facility] [#/VOLUME] Ordering Pro vider: DERRICK GEORGE IN BLOOD BY Report Rele ased Date/Time: Dec 24, 2019 02:11 PM AUTOMATED Reporting Lab : [facility] [place] [address] Performing Lab: [facility] [place] [address] CBC HEMOGLOBIN 13.6 13.5 - 01/03 Specimen Type : BLOOD [place] [MASS/VOLUM 17.9 /2020 No comment e [place]tered. [place] [facility] E] IN BLOOD Ordering Pr ovider: DERRICK GEORGE Report Released Date/Time: Dec 24, 2019 02:11 PM Reporting Lab: [facility] [place] [address] Performing Lab: [facility] [address] [place] [facility] [address] CBC HEMATOCRIT 41.5 41 - 54 01/03 Specimen Type : BLOOD [place] [VOLUME /2020 No comment enter ed. [facility] F[facility]CTION] Ordering Prov ider: DERRICK GEORGE OF BLOOD BY Report Rele ased Date/Time: Dec 24, 2019 02:11 PM AUTOMATED Reporting Lab : [facility] [place] [address] Performing Lab: [facility] [place] [address] CBC MCV 98.6 80 - 100 01/03 Specimen Type: BLOOD [place] [ENTITIC /2020 No comment ente red. IS [facility] VOLUME] BY Ordering Pro vider: DERRICK GEORGE AUTOMATED Report Releas ed Date/Time: Dec 24, 2019 02:11 PM COUNT Reporting Lab: [facility] [place] [address] Performing Lab: [facility] [place] [address] CBC MCH 32.3 27 - 33 01/03 Specimen Type: B LOOD [place] [ENTITIC /2020 No comment ente red. IS [facility] MASS] BY Ordering Provi michael: DERRICK GEORGE AUTOMATED Report Releas ed Date/Time: Dec 24, 2019 02:11 PM COUNT Reporting Lab: [facility] [place] [address] Performing Lab: [facility] [place] [address] CBC MCHC 32.8 32.0 - 01/03 Specimen Type: B LOOD [place] [MASS/VOLUM 37.5 /2020 No comment e ntered. IS [facility] E] BY Ordering Provid er: DERRICK GEORGE AUTOMATED Report Releas ed Date/Time: Dec 24, 2019 02:11 PM COUNT Reporting Lab: [facility] [place] [address] Performing Lab: [facility] [address] [place] [facility] [address] CBC PLATELETS 204 150 - 400 01/03 Specimen Typ e: BLOOD [place] [#/VOLUME] /2020 No comment en [place]red. [place] [facility] IN [place]LOOD BY Ordering Pr ovider: DERRICK GEORGE AUTOMATED Report Releas ed Date/Time: Dec 24, 2019 02:11 PM COUNT Reporting Lab: [facility] [address] [facility] [address] Performing Lab: [facility] [place] [address] CBC PLATELET 9.3 7.4 - 10.4 01/03 Specimen Typ e: BLOOD [place] MEAN VOLUME /2020 No comment e ntered. IS [facility] [ENTITIC Ordering Provi michael: DERRICK GEORGE L VOLUME] IN Report Relea sed Date/Time: Dec 24, 2019 02:11 PM BLOOD BY Reporting Lab: [facility] AUTOMATED [address] [facility] [address] COUNT Performing Lab: [facility] [address] [place] [facility] [address] CBC ERYTHROCYTE 13.1 11.5 - 01/03 Specimen Typ e: BLOOD [place] DISTRIBUTIO 14.5 No comment e ntered. IS [facility] N WIDTH Ordering Provid er: DERRICK GEORGE L [RATIO] BY Report Relea sed Date/Time: Dec 24, 2019 02:11 PM AUTOMATED Reporting Lab : [facility] COUNT [address] [facility] [facility] [address] Performing Lab: [facility] [address] [place] [facility] [address] LIPID CHOLESTEROL 121 <199 - 199 01/03 Specimen Type: PLASMA [place] PANEL,NON [MASS/VOLUM /2020 No comment entered. IS [facility] E] IN SERUM Ordering P rovider: DORISDERRICK L OR PLASMA Report Releas ed Date/Time: Dec 24, 2019 02:11 PM Reporting Lab: [facility] [place] [address] Performing Lab: [facility] [place] [address] LIPID CHOLESTEROL 46 40 01/03 Specimen Typ e: PLASMA [place] PANEL,NON IN HDL /2020 No comment ent ered. IS [facility] [MASS/VOLUM Ordering P rovider: DOIRSDERRICK L E] IN SERUM Report Rele ased Date/Time: Dec 24, 2019 02:11 PM OR PLASMA Reporting Lab : [facility] [address] [facility] [facility] [address] Performing Lab: [facility] [address] [place] [address] LIPID CHOLESTEROL 58 <99 - 99 01/03 Specimen Ty pe: PLASMA [place] PANEL,NON IN LDL /2020 No comment ent ered. IS [facility] [MASS/VOLUM Ordering P rovider: TRAUTDERRICK L E] IN SERUM Report Rele ased Date/Time: Dec 24, 2019 02:11 PM OR PLASMA Reporting Lab : [facility] BY [address] [place] [address] CALCULATION Performing Lab: [facility] [address] [place] [address] LIPID CHOLESTEROL 17 <29 - 29 01/03 Specimen Ty pe: PLASMA [place] PANEL,NON IN VLDL /2020 No comment ent ered. IS [facility] [MASS/VOLUM Ordering P rovider: DERRICK GEORGE E] IN SERUM Report Rele ased Date/Time: Dec 24, 2019 02:11 PM OR PLASMA Reporting Lab : [facility] BY [address] [place] [address] CALCULATION Performing Lab: [facility] [address] [place] [address] LIPID CHOLESTEROL 75 <129 - 129 01/03 Specimen Type: PLASMA [place] PANEL,NON NON HDL /2020 No comment ent ered. IS [facility] [MASS/VOLUM Ordering P rovider: DERRICK GEORGE L E] IN SERUM Report Rele ased Date/Time: Dec 24, 2019 02:11 PM OR PLASMA Reporting Lab : [facility] [address] [place] [address] Performing Lab: [facility] [address] [place] [address] LIPID TRIGLYCERID 87 <149 - 149 01/03 Specimen Type: PLASMA [place] PANEL,NON E /2020 No comment ent ered. IS [facility] [MASS/VOLUM Ordering P rovider: DERRICK GEORGE L E] IN SERUM Report Rele ased Date/Time: Dec 24, 2019 02:11 PM OR PLASMA Reporting Lab : [facility] [address] [place] [address] Performing Lab: [facility] [address] [place] [address] Encounters Combined list of: 1) Encounters from Department of Veterans Affairs facilities going back up to the last 18 months. 2) Encounters from the Department of Defense facilities going back up to 280 months. Location Location Encounter Encounter Reason Attending ADM DC Stat us Disposition Source Details Type Number For Provider Date Date Visit Outpatient [id number] 07/23 [place] Encounter [id number] /2020 [facility] Outpatient 14205-208/18 [place] Encounter [id number] /2021 [place] [facility] Outpatient 08650-3.61 09/14 [place] Encounter [id number] /2021 [place] [facility] Outpatient 24743-9. 10/ [place] Encounter [id number] /2020 [place] [facility] Outpatient 51888-1 10/ [place] Encounter [id number] [place] [facility] OFFICE O/P 39201-2 W[place]ATT Blas 01/03 [place] EST MOD [id number] is: DEMETRIO L [place] [facility] 30-39 [facility] ICD-10- HCS CM I10 Essenti al (primar y) hyperte nsion<b r/>with Provide r Comment s: Hyperte nsion (SCT [id number] 3) [place] [address]-0 Diagnos SKROCH,ALLISON 01/24 [place] 30 MINUTES [id number] is: [place] ICD-10- HCS CM Z71.1 Person w feared hlth complai nt in whom no diagnos is is made
with Provide r Comment s: Person with Feared Health Complai nt in whom [place] [address]-4.61 Diagnos SKROCH,ALLISON 02/07 [place] 30 MINUTES [id number] is: [place] ICD-10- HCS CM Z60.0 Problem s of adjustm ent to life-cy radha transit ions
with Provide r Comment s: Problem s of Adjustm ent to Life-[place] [address]-8.61 Diagnos SKROCH,ALLISON 03/08 [place] 30 MINUTES [id number] is: ET [place] [facility] ICD-10- HCS CM Z63.79 Other stressf ul life events affecti ng family and househo ld
with Provide r Comment s: Other Stressf ul Life Events Affecti ng Family and Househo ld IMMUNIZATI 23535-7.61 Diagnos DALE MCCORMICK 03/09 [place] ADMIN [id number] is: RY ARTHUR L [place] [facility] [place] ICD-10- HCS CM Z23 Encount er for immuniz ation<b r/>with Provide r Comment s: Encount [place] [address]-1.61 Diagnos SKROCH,ALLISON 04/08 [place] 30 MINUTES [id number] is: ET A [facility] [place] ICD-10- HCS CM F51.01 Primary insomni a
w ith Provide r Comment s: Insomni a (SCT [id number] ) [place] [address]-0.61 Diagnos SKROCH,ALLISON 05/06 [place] 30 MINUTES [id number] is: ET A [facility] [place] ICD-10- HCS CM F43.21 Adjustm ent disorde r with depress ed mood
with Provide r Comment s: Adjustm ent Disorde r with depress ed mood Outpatient 30354-1.61 05/13 [place] Encounter [id number] /2021 [facility] 99953-4.61 05/16 [place] En[place] [id number] /2021 [facility] 20273-5.61 05/19 [place] En[place] [id number] /2021 [facility] Outpatient 33443-6.61 Diagnos GLAUSER,NO 06/06 [place] Encounter [id number] is: RA N [facility] [place] ICD-10- HCS CM I48.91 Unspeci fied atrial fibrill ation<b r/>with Provide r Comment s: Atrial fibrill ation (SCT [id number] 4) Outpatient 47264-5.61 06/06 [place] Encounter [id number] /2021 [place] [address]-0.61 Diagnos EVA, 06/06 [place] DIG [id number] is: SABINE K [place] ASSMT&MGMT ICD-10- HCS 5-10 CM I48.91 Unspeci fied atrial fibrill ation<b r/>with Provide r Comment s: Atrial fibrill ation (SCT [id number]) [place] [address]-6.61 Diagnos SKROCH,ALLISON 06/17 [place] 30 MINUTES [id number] is: ET A [facility] ICD-10- HCS CM F43.20 Adjustm ent disorde r, unspeci fied
with Provide r Comment s: Adjustm ent Disorde r, unspeci fied Outpatient [id number] 07/06 [place] Encounter [id number] [facility] Outpatient 54284-7.61 10/18 [place] Encounter [id number] [facility] Outpatient 55227-4.61 Diagnos GLAUSER,NO 12/05 [place] Encounter [id number] is: RA N [facility] ICD10- [facility] CM I48.91 Unspeci fied atrial fibrill ation<b r/>with Provide r Comment s: Atrial fibrill ation ([facility] [id number]) Social History Combined list of available smoking, tobacco, and other [facility] History Type Response Date Comment Source Tobacco smoking status VA-TOBACCO FORMER USER 01/03/2021 [facility] History of tobacco use [place]-TO[place]ACCO QUIT 15 YRS 01/03/2021 [facility] History of tobacco use [place]-TOBACCO QUIT 15 YRS 06/20/2018 [facility] History of tobacco use FORMER TOBACCO USER 7Y 07/09/2017 [facility] History of tobacco use FORMER TOBACCO USER 7Y 07/07/2016 [facility] History of tobacco use FORMER TOBACCO USER 7Y 06/21/2015 [facility] History of tobacco use FORMER TOBACCO USER 7Y 06/08/2014 [facility] History of tobacco use LIFETIME NON-TOBACCO 06/10/2013 [facility] History of tobacco use FORMER TOBACCO USER 7Y 08/03/2011 [facility] Plan of Care List of future care activities from [facility] facilities. Additional future care activities may be listed in the Assessment and Plan section. Date/Time Care Activity Care Activity Detail Facility 01/20/2022 AMBULATORY - MEDICINE AMBULATORY - MEDICINE [facility] Advance Directives List of completed, amended, or rescinded Advance Directives on record at [facility] facilities. An actual copy of the Directive is not included. Date Advance Directive Provider Source 06/19/2013 ADVANCE DIRECTIVE DISCUSSION KENDALL SERRANO [facility]
--- OUTSIDE RECORDS SUMMARY | 2022-01-17 12:47 | XMS_ITS | Clinical Summary ---
:1935 Author Organization [employer] [facility] [place] [address] Care Team Providers Name Role Phone Catrina [...] mouth at Coronary artery bedtime. disease involving bill moore's slough coronary artery without angina pectoris, unspecified whether bill moore's slough or transplanted heart, Mixed hyperlipidemia nitroglycerin Place [...] artery daily. en disease involving co mplete/Level bill moore's slough coronary artery of care without angina clark e) pectoris, unspecified whether bill moore's slough or transplanted heart metoprolol succinate Take 0.5 [...] By: JOHN YEE mment: Dr. 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 02/06/2011 Skin cancer 12/02/2009 02/04/2021 Overview: Left Lower Leg: managed by Dr Shields 12/02 Spondylosis, cervical 12/28/2008 01/08/2017 Gout 11/26/2007 01/06/2016 Overview: Doing well off medications 12/30/2012 SVT (supraventricular tachycardia) 05/30/200706/12 Overview: -Holter monitor 05/30/2007 Routine general medical examination at [facility] y 11/13/2006 01/08/2017 Overview: Colonoscopy [...] pineda F/U (Lace=70) 01/02/2022 - Hospital Encounter [facility] [place] Hospitalists Chest pain, unspecified type (Primary Dx); 01/05/2022 Of Cardiovascular symptoms; Crystal Rajput MD Coronary artery disease involving bill moore's slough coronary artery without angina pectoris, unspecified whether bill moore's slough or transplanted heart; Megan Sumner MBBS Mixed [...] included. HOSPITALIST DISCHARGE SUMMAR Y ? ? [facility] Admission Date: 01/02/2022 Discharge Date: [...] syndrome Symptoms decision made to transfer to [facility] for further work up. Troponin [...] s/p hospital discharge - F/U with [facility] in 4-6 weeks - Cardiac rehab [...] Take 1 Tablet (75 mg) by mo [facility] every morning. Take once daily for 1 year without interruption lidocaine 4 % topical patch For diagnoses: Acute pain of left shoulder Start taking on: December Apply topically to intact s kin to cover most painful area for max 12hr per 24hr period. CHANGE how you take these me dicines Instructions atorvastatin 10 mg tablet For diagnoses: Coronary michelle ry disease involving bill moore's slough coronary artery without angina pectoris, unspecified whether bill moore's slough or transplanted heart, Mixed hyperlipidemia What changed: ?? medication strength ?? when to take this Commonly known as: LIPITOR Take 1 Tablet (10 mg) by mo [facility] at bedtime. nitroglycerin 0.4 mg subling ual [...] Take 1 Tablet (20 mg) by mo [facility] every morning. gabapentin 300 mg capsule For [...] your medicines These medications were sent to [facility] [address] [facility] [address] [place] [address] [place] [address] Hours: Open 24 Hours ?? atorvastatin 10 [...] -- POTASSIUM 3.9 4.0 CHLORIDE 105 -- IC0LESGH 26 -- ANIONGAP 6 -- BUN 22 [...] Node Dysfunction Primary MD:??Helio moreno MD?? Primary Solar Designer/Installer:??Obere kikat, ROSELYN Flor Primary EP:??Yinka Briscoe MD?? Implanting MD:??Nathanael Briscoe MD?? DEVICE DATA Button Inspector??Medtronic:??[place] XT DR SRINIVAS Pierre [id number]??Implant Date 12/29/2021 LEAD DATA Atrial Lead: Button Inspector??M edtronic:??Model [id number]??cm Implant Date 12/29/2021 RV Lead: Button Inspector??Medtr onic:??Model [id number]??cm Implant Date 12/29/2021?? Visit location: [facility] -??[id number] Reason For Evaluation: Same day [...] Cardiac Rehab: C AD with PTCA/Stent Acute MS Patient Cardiology Follow U p Instructions Please follow up in 4-6 wee ks in cardiology clinic with first available provider, at [facility] (phone: [phone]). Please call to schedule an appoi ntment, otherwise an [facility] coordinator will call you in several [...] being disch arged?: Today Primary Care Provider nacrisao w up appointment(s) You have been scheduled to see ROSELYN Wright, because your primary provider is not available during the recommended time frame. You have an appointment with ROSELYN Wright on January 10 at 11:35 a.m. at [facility]. If you have questions or con cerns please call the clinic at [phone]. When to follow up: 1 to 5 [...] DIAL 911 [facility] were [facility] at [facility]? You were in the hospital fo r NSTEMI. Clinic Request for Cardiolo gy Follow Up Appointment Please call this patient to schedule a follow up appointment within 4-6 weeks of discharge with first available provider at [facility] (phone: [phone]). Type of cardiology follow u p needed: [...] seen and examined today. HERNANDO Bustos Hospitalist, [facility] ? ? [phone] OOR POWER EQUIPMENT MECHANIC 01/02/2022 Nurse/Clinic Staff Only Card iovascular Diagnostic [...] Bowling Dx) MD Blanca Yan Jean J, SIDE FRAMER Discharge Summary - Swati Hackett PA - 12/29/2021 4:01 PM CST [facility] Cardiology Discharge Summary DOA: 12/29/2021 DOD: [...] EKG (personally reviewed): 12/29/21: SB, VR 54, WI 194, QRS 122, QT/QTc 450 Echocardiogram 11/04/21 [...] 0939 SODIUM 136 POTASSIUM 3.6 CHLORIDE 102 [id number] 28 BUN 26 H CREATININE 1.04 CALCIUM [...] Take 1 Tablet (25 mg) by mo [facility] once daily. losartan 50 mg tablet For diagnoses: Essential hyp ertension Commonly known as: COZAAR Take 1 Tablet (50 mg) by mo [facility] two times daily. metoprolol succinate 25 mg [...] your medicines These medications were sent to [facility] [address] [place] [id number] [address] Hours: Open 24 Hours ?? 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 Persistent atrial fibrillati on - controlled on amiodarone f rom 05/2018-11/2021 - intolerance to dronedarone in 06/2021 with whole body swelling - [id number] VASC score 4 (HTN, age 86, CAD) on Eliquis Coronary artery disease - s/p PCI with WILVER to pRCA i n 2020 Hypertension Hyperlipidemia PLAN - Device interrogation/teach - Medications changes: - start sotalol 80 mg BID o n 12/31/21 - EKG on 01/02/22 - Continue all other prior t o admission medications - Eliquis 5 mg BID for cardi o-embolic prevention -[id number] VASC score 4 (HTN, age 86, CAD) - Follow up with primary car e provider on (or near) 01/05/22 for silverlon dressing removal and incision site check - Follow up with device clin ic in 3-4 months as scheduled. . [phone] - Follow up with general car diology in [place] in 3 months - Follow up with EP as direc panda by general cardiology ROSELYN Mcfadden [facility] Cardiac Electrophysiology Future Appointments Date Time Provider [facility] 01/05/2022 12:00 AM [facility] REM OTE TRANSMISSION [facility] 02/06/2022 7:00 AM Helio Hayden MD NFLD NF 04/04/2022 10:30 AM [facility] R [facility] OOR POWER EQUIPMENT MECHANIC 12/29/2021 Travel 12/23/2021 Orders Only Yinka Briscoe [...] 11/11/2021 Office Visit Helio Hayden, Follow Up ([facility] for dehydration ) 11/10/2021 Ancillary Procedure 11/10/2021 [...] Name Administration Dates Next Due COVID-19 vaccine ([employer] 12/02/2021 30mcg/0.3mL) 12YO+ BIVALENT BOOSTER PF, MDV COVID-19 vaccine ([employer] 07/11/2021 30mcg/0.3mL) 12YO+ XANDER-SUCROSE PF, MDV COVID-19 vaccine ([employer] 11/18/2020, 04/24/2020, 30mcg/0.3mL) PF, MDV Influenza A [...] contact No / Unsure 01/10/2022 11:21 AM OUTDOOR POWER EQUIPMENT MECHANIC with someone who was confirmed or suspected to have Coronavirus/COVID-19? Obstetrics History Last Filed Vital Signs Vital Sign Reading Time Taken Comments Blood Pressure 106/63 01/10/2022 11:31 AM OUTDOOR POWER EQUIPMENT MECHANIC Pulse 65 01/10/2022 11:31 AM OUTDOOR POWER EQUIPMENT MECHANIC Temperature 36.3 ??C (97.3 ??F) 01/05/2022 7:35 AM OUTDOOR POWER EQUIPMENT MECHANIC Respiratory Rate 16 01/05/2022 7:35 AM OUTDOOR POWER EQUIPMENT MECHANIC Oxygen Saturation 99% 01/10/2022 11:31 AM OUTDOOR POWER EQUIPMENT MECHANIC Inhaled Oxygen Concentration - - Weight 77.9 kg (171 lb 12.8 oz) 01/10/2022 11:31 AM OUTDOOR POWER EQUIPMENT MECHANIC Height 175.3 cm (5' 9) 01/03/2022 8:26 AM OUTDOOR POWER EQUIPMENT MECHANIC Body Mass Index 25.37 01/03/2022 8:26 AM OUTDOOR POWER EQUIPMENT MECHANIC Plan of Treatment Upcoming Encounters Date Type Specialty Care Team Description 01/19/2022 Appointment 02/06/2022 Office Visit Helio Hayden MD [address] [id number] (Wo rk) 04/04/2022 Cardiac Device [...] 01/13/2022 8:03 Results for this RESULTS AM OUTDOOR POWER EQUIPMENT MECHANIC procedure are i n the results section. BASIC METABOLIC PANEL Routine 01/10/2022 11:58 NSTEMI (non-ST Results for this AM OUTDOOR POWER EQUIPMENT MECHANIC elevated myocardial procedur e are in infarction) (HC) the results Hypertension section. ECHO LIMITED WO Routine 01/05/2022 3:26 Results f or this CONTRAST PM OUTDOOR POWER EQUIPMENT MECHANIC procedure are i n the results section. POTASSIUM Today 01/05/2022 1:39 Results for this PM OUTDOOR POWER EQUIPMENT MECHANIC procedure are i n the results section. SCAN-CARDIAC STRIP 01/05/2022 9:17 AM OUTDOOR POWER EQUIPMENT MECHANIC LIPID PANEL SHAY 01/05/2022 8:00 Results for this AM OUTDOOR POWER EQUIPMENT MECHANIC procedure are i n the results section. MAGNESIUM Early AM 01/05/2022 8:00 Results for this AM OUTDOOR POWER EQUIPMENT MECHANIC procedure are i n the results section. BASIC METABOLIC PANEL Early AM 01/05/2022 8:00 Res ults for this AM OUTDOOR POWER EQUIPMENT MECHANIC procedure are i n the results section. CBC W PLT NO DIFF Early AM 01/05/2022 8:00 Results for this AM OUTDOOR POWER EQUIPMENT MECHANIC procedure are i n the results section. SCAN-CARDIAC STRIP 01/05/2022 2:19 AM OUTDOOR POWER EQUIPMENT MECHANIC SCAN-CARDIAC STRIP 01/04/2022 5:23 PM OUTDOOR POWER EQUIPMENT MECHANIC EKG 12 LEAD SHAY 01/04/2022 5:20 Results for this PM OUTDOOR POWER EQUIPMENT MECHANIC procedure are i n the results section. HCHG ACTIVATED Timed 01/04/2022 3:53 Results fo r this CLOTTING TM CV PM OUTDOOR POWER EQUIPMENT MECHANIC procedure are in the results section. HCHG ACTIVATED Timed 01/04/2022 3:33 Results fo r this CLOTTING TM CV PM OUTDOOR POWER EQUIPMENT MECHANIC procedure are in the results section. HCHG ACTIVATED Timed 01/04/2022 3:15 Results fo r this CLOTTING TM CV PM OUTDOOR POWER EQUIPMENT MECHANIC procedure are in the results section. EKG 12 LEAD Routine 01/04/2022 2:52 Persistent atrial Results for this PM OUTDOOR POWER EQUIPMENT MECHANIC fibrillation (HC) procedure are in the results section. CVL CORONARY ANGIOGRAM Routine 01/04/2022 2:35 Cardiovascular Results for this POSS PCI PM OUTDOOR POWER EQUIPMENT MECHANIC symptoms procedure are i n the results section. PACER LICHA DUAL Routine 01/04/2022 11:00 Results for this CHAMBER WO REPROG AM OUTDOOR POWER EQUIPMENT MECHANIC procedure are in the results section. SCAN-CARDIAC STRIP 01/04/2022 9:59 AM OUTDOOR POWER EQUIPMENT MECHANIC SCAN-CARDIAC STRIP 01/04/2022 9:30 AM OUTDOOR POWER EQUIPMENT MECHANIC POTASSIUM Early AM 01/04/2022 7:43 Results for this AM OUTDOOR POWER EQUIPMENT MECHANIC procedure are i n the results section. SCAN-CARDIAC STRIP 01/04/2022 2:27 AM OUTDOOR POWER EQUIPMENT MECHANIC SCAN 01/04/2022 12:00 Results for this CORRESP-LABORATORY AM OUTDOOR POWER EQUIPMENT MECHANIC procedure are in RESULTS the results section. SCAN-OPERATIVE/PROCEDU 01/04/2022 12:00 R esults for this RE REPORT AM OUTDOOR POWER EQUIPMENT MECHANIC procedure are i n the results section. POTASSIUM Today 01/03/2022 6:37 Results for this PM OUTDOOR POWER EQUIPMENT MECHANIC procedure are i n the results section. SCAN-CARDIAC STRIP 01/03/2022 3:42 PM OUTDOOR POWER EQUIPMENT MECHANIC EKG 12 LEAD STAT 01/03/2022 11:08 Results for this AM OUTDOOR POWER EQUIPMENT MECHANIC procedure are i n the results section. BASIC METABOLIC PANEL Early AM 01/03/2022 7:59 Res ults for this AM OUTDOOR POWER EQUIPMENT MECHANIC procedure are i n the results section. SCAN-CARDIAC STRIP 01/03/2022 7:15 AM OUTDOOR POWER EQUIPMENT MECHANIC TROPONIN I Timed 01/03/2022 1:07 Results for this AM OUTDOOR POWER EQUIPMENT MECHANIC procedure are i n the results section. TROPONIN I Timed 01/03/2022 12:23 Results for this AM OUTDOOR POWER EQUIPMENT MECHANIC procedure are i n the results section. SCAN-CARDIAC STRIP 01/02/2022 11:47 PM OUTDOOR POWER EQUIPMENT MECHANIC SCAN-CARDIAC STRIP 01/02/2022 9:35 PM OUTDOOR POWER EQUIPMENT MECHANIC XR CHEST 2 VIEWS PA Routine 12/29/2021 3:31 Resul ts for this AND LATERAL PM OUTDOOR POWER EQUIPMENT MECHANIC procedure are i n the results section. PACER LICHA DUAL Routine 12/29/2021 3:19 Results for this CHAMBER WO REPROG PM OUTDOOR POWER EQUIPMENT MECHANIC procedure are in the results section. CV PROCEDURE TO BE Routine 12/29/2021 12:07 Resul ts for this PERFORMED PM OUTDOOR POWER EQUIPMENT MECHANIC procedure are i n the results section. EP PPM Routine 12/29/2021 11:04 Results for this AM OUTDOOR POWER EQUIPMENT MECHANIC procedure are i n the results section. EKG 12 LEAD Preop 12/29/2021 9:54 Results for this AM OUTDOOR POWER EQUIPMENT MECHANIC procedure are i n the results section. BASIC METABOLIC PANEL Preop 12/29/2021 9:39 Res ults for this AM OUTDOOR POWER EQUIPMENT MECHANIC procedure are i n the results section. CBC W PLT NO DIFF Preop 12/29/2021 9:39 Results for this AM OUTDOOR POWER EQUIPMENT MECHANIC procedure are i n the results section. [...] Results SCAN CORRESP-EKG RESULTS (01/13/2022 8:03 AM OUTDOOR POWER EQUIPMENT MECHANIC) Narrative 01/13/2022 8:03 AM OUTDOOR POWER EQUIPMENT MECHANIC This result has an attachment that is no t available. Ordered by an unspecified provider. Other Clinical Staff OTHER (ABNORMAL) BASIC METABOLIC PANEL (01/10/2022 11:58 AM OUTDOOR POWER EQUIPMENT MECHANIC)Only the most recent of4 resultswithin the time period is included. [facility] Method Time Signature SODIUM 140 135 - 145 01/12/2022 [facility] mmol/L 4:24 AM OUTDOOR POWER EQUIPMENT MECHANIC LABORATORY-[facility] TRAL LABORATORY POTASSIUM 4.5 3.5 - 5.0 01/12/2022 [facility] mmol/L 4:24 AM OUTDOOR POWER EQUIPMENT MECHANIC [facility] TRAL LABORATORY CHLORIDE 106 98 - 110 01/12/2022 [facility] mmol/L 4:24 AM OUTDOOR POWER EQUIPMENT MECHANIC [facility] TRAL LABORATORY CO2,TOTAL 26 21 - 31 01/12/2022 [facility] mmol/L 4:24 AM OUTDOOR POWER EQUIPMENT MECHANIC [facility] TRAL LABORATORY ANION GAP 8 5 - 18 01/12/2022 [facility] 4:24 AM OUTDOOR POWER EQUIPMENT MECHANIC [facility] TRAL LABORATORY GLUCOSE 91 65 - 100 01/12/2022 [facility] mg/dL 4:24 AM OUTDOOR POWER EQUIPMENT MECHANIC [facility] TRAL LABORATORY CALCIUM 9.3 8.5 - 10.5 01/12/2022 [facility] mg/dL 4:24 AM OUTDOOR POWER EQUIPMENT MECHANIC [facility] TRAL LABORATORY BUN 35 (H) 8 - 25 01/12/2022 [facility] mg/dL 4:24 AM OUTDOOR POWER EQUIPMENT MECHANIC [facility] TRAL LABORATORY CREATININE 1.28 (H) 0.72 - 01/12/2022 [facility] 1.25 mg/dL 4:24 AM OUTDOOR POWER EQUIPMENT MECHANIC [facility] TRAL LABORATORY BUN/CREAT RATIO 27 (H) 10 - 20 01/12/2022 [facility] 4:24 AM OUTDOOR POWER EQUIPMENT MECHANIC [facility] TRAL LABORATORY eGFR 55 (L) >90 01/12/2022 [facility] mL/min/1.7 4:24 AM OUTDOOR POWER EQUIPMENT MECHANIC LABORATORY-[facility] 3m2 TRAL LABORATORY Comment: As of [...] / 01/10/2022 11:58 01/10 Unknown Unknown AM OUTDOOR POWER EQUIPMENT MECHANIC 11:58 AM OUTDOOR POWER EQUIPMENT MECHANIC Melina DEMPSEY CHEMISTRY Performing Organization Address City/State/ZIP Code Phon e Number [facility] [address] [place] [address] LABORATORY-CENTRAL 2000 LABORATORY ECHO LIMITED WO CONTRAST (01/05/2022 3:26 PM OUTDOOR POWER EQUIPMENT MECHANIC) P athologist Signature AORTIC VALVE 3 mmHg MEAN PG EJECTION 61 % FRACTION PEAK TR 2.2 m/s VELOCITY LVEDD 4.2 cm Anatomical Region Laterality Modality HEART Ultrasound Specimen (Source) Anatomical Collection Method Collection Time Re ceived Time Location / / Volume Laterality 01/05/2022 2:39 PM OUTDOOR POWER EQUIPMENT MECHANIC Narrative 01/05/2022 4:08 PM OUTDOOR POWER EQUIPMENT MECHANIC ECHOCARDIOGRAM CRISTIAN STEVENS ? Accessi on#: ?? [id number] : ?1935 86 years Study Date: ?? 01/05/2022 2:39:16 PM Gender: M ?BP: ? 105/52 mmHg Height: 175.00 cm ?BSA: ?1.90 m? ?? Weight: 75.00 kg ? Tech: ? EF ? Referring MD: [facility] Site: ? [facility] Reading Location: [facility] IP Procedure: Color [...] 4. Compared with images of the prior [facility] of 11/04/2021, there has been no significant [...] . This study was interpreted by an [facility] red[facility] facility. ??Final ?? Procedure Note Ty Velasquez MD - 01/05/2022 ECHOCARDIOGRAM CRISTIAN STEVENS : 1935 86 years Study Date: 12/20 2:39:16 PM Gender: M BP: 105/52 mmHg Height: 175.00 cm BSA: 1.90 m? ?? Weight: 75.00 kg Tech: EF Referring MD: DONALD HERRING Site: [facility] Reading Location: [facility] IP Procedure: [...] . This study was interpreted by an [facility] red[facility] facility. Final Donald Herring PA ECHO ORD POTASSIUM (01/05/2022 1:39 PM OUTDOOR POWER EQUIPMENT MECHANIC)Only the most recent of3 resultswithin the time period is included. athologist Signature POTASSIUM 4.2 3.5 - 5.0 01/05/2022 [facility] mmol/L 2:28 PM OUTDOOR POWER EQUIPMENT MECHANIC LABORATORY-CENTR AL LABORATORY Specimen Anatomical Collection Method / Collection Time Recei burton Time (Source) Location / Volume Laterality Blood BLOOD SPECIMEN / Venipuncture / 01/05/2022 1:39 2021 1:58 Unknown Unknown PM OUTDOOR POWER EQUIPMENT MECHANIC PM OUTDOOR POWER EQUIPMENT MECHANIC Ruslan SOOD CHEMISTRY Performing Organization Address City/State/ZIP Code Phon e Number [facility] [address] [place] [address] LABORATORY-CENTRAL 1999 LABORATORY SCAN-CARDIAC STRIP (01/05/2022 9:17 AM OUTDOOR POWER EQUIPMENT MECHANIC) Narrative This result has an attachment that is no t available. Scanner OTHER (ABNORMAL) CBC W PLT NO DIFF (01/05/2022 8:00 AM OUTDOOR POWER EQUIPMENT MECHANIC)Only the most recent of2 resultswithin the time period is included. [facility] gist Method Time Signature WHITE BLOOD 9.9 4.5 - 11.0 01/05/2022 [facility] COUNT thou/cu mm 9:59 AM OUTDOOR POWER EQUIPMENT MECHANIC [facility] TRAL LABORATORY RED BLOOD COUNT 4.13 (L) 4.30 - 01/05/2022 [facility] 5.90 9:59 AM OUTDOOR POWER EQUIPMENT MECHANIC LABORATORY-[facility]EL mil/cu mm TRAL LABORATORY HEMOGLOBIN 13.7 13.5 - 01/05/2022 [facility] 17.5 g/dL 9:59 AM OUTDOOR POWER EQUIPMENT MECHANIC LAB[facility]ATORY[facility] TRAL LABORATORY HEMATOCRIT 39.0 37.0 - 01/05/2022 [facility] 53.0 % 9:59 AM OUTDOOR POWER EQUIPMENT MECHANIC [facility] TRAL LABORATORY MCV 94 80 - 100 01/05/2022 [facility] fL 9:59 AM OUTDOOR POWER EQUIPMENT MECHANIC [facility]ORY[facility] TRAL LABORATORY MCH 33.2 26.0 - 01/05/2022 [facility] 34.0 pg 9:59 AM OUTDOOR POWER EQUIPMENT MECHANIC LAB[facility]ORY[facility] TRAL LABORATORY MCHC 35.1 32.0 - 01/05/2022 [facility] 36.0 g/dL 9:59 AM OUTDOOR POWER EQUIPMENT MECHANIC LAB[facility]ORY[facility] TRAL LABORATORY RDW 13.0 11.5 - 01/05/2022 [facility] 15.5 % 9:59 AM OUTDOOR POWER EQUIPMENT MECHANIC [facility] TRAL LABORATORY PLATELET COUNT 168 140 - 440 01/05/2022 [facility] thou/cu mm 9:59 AM OUTDOOR POWER EQUIPMENT MECHANIC LAB[facility]ORY[facility] TRAL LABORATORY MPV 9.7 6.5 - 11.0 01/05/2022 [facility] fL 9:59 AM OUTDOOR POWER EQUIPMENT MECHANIC LAB[facility]ORY[facility] TRAL LABORATORY NRBC 0.0 % 01/05/2022 [facility] 9:59 AM OUTDOOR POWER EQUIPMENT MECHANIC LAB[facility]ORY[facility] TRAL LABORATORY ABS NRBC 0.0 thou /cu 01/05/2022 [facility] [place] mm 9:59 AM OUTDOOR POWER EQUIPMENT MECHANIC LAB[facility]ATORY[facility] TRAL LABORATORY Specimen Anatomical Collection Method / Collection Time Recei burton Time (Source) Location / Volume Laterality Blood BLOOD SPECIMEN / Venipuncture / 01/05/2022 8:00 2021 8:23 Unknown Unknown AM OUTDOOR POWER EQUIPMENT MECHANIC AM OUTDOOR POWER EQUIPMENT MECHANIC Donald DEMPSEY HEMATOLOGY Performing Organization Address City/State/ZIP Code Phon e Number [facility] [place] [address] [place] [address] LABORATORY-CENTRAL 2000 LABORATORY MAGNESIUM (01/05/2022 8:00 AM OUTDOOR POWER EQUIPMENT MECHANIC) P athologist Signature MAGNESIUM 1.9 1.6 - 2.6 01/05/2022 [facility] mg/dL 8:58 AM OUTDOOR POWER EQUIPMENT MECHANIC LABORATORY-CENTR AL LABORATORY Specimen Anatomical Collection Method / Collection Time Recei burton Time (Source) Location / Volume Laterality Blood BLOOD SPECIMEN / Venipuncture / 01/05/2022 8:00 2021 8:23 Unknown Unknown AM OUTDOOR POWER EQUIPMENT MECHANIC AM OUTDOOR POWER EQUIPMENT MECHANIC Ruslan SOODBS CHEMISTRY Performing Organization Address City/State/ZIP Code Phon e Number [facility] [address] [place] [address] LABORATORY-CENTRAL 1999 LABORATORY (ABNORMAL) LIPID PANEL (01/05/2022 8:00 AM OUTDOOR POWER EQUIPMENT MECHANIC) Patholo gist Method Time Signature CHOLESTEROL,TOTAL 116 100 - 199 01/05/2022 [facility] mg/dL 11:54 AM OUTDOOR POWER EQUIPMENT MECHANIC LAB[facility]ATORY[facility] TRAL LABORATORY TRIGLYCERIDES 80 <150 01/05/2022 [facility] mg/dL 11:54 AM OUTDOOR POWER EQUIPMENT MECHANIC LAB[facility]ATORY[facility] TRAL LABORATORY HDL CHOLESTEROL 31 (L) >40 mg/dL 01/05/2022 [facility] 11:54 AM OUTDOOR POWER EQUIPMENT MECHANIC LAB[facility]ORY[facility] TRAL LABORATORY NON-HDL 85 <145 01/05/2022 [facility] CHOLESTEROL mg/dl 11:54 AM OUTDOOR POWER EQUIPMENT MECHANIC LAB[facility] TRAL LABORATORY CHOL/HDL RATIO 3.74 <4.50 01/05/2022 [facility] 11:54 AM OUTDOOR POWER EQUIPMENT MECHANIC LAB[facility] TRAL LABORATORY LDL CHOLESTEROL 69 <=130 01/05/2022 [facility] mg/dL 11:54 AM OUTDOOR POWER EQUIPMENT MECHANIC LAB[facility] TRAL LABORATORY VLDL CHOLESTEROL 16 <=30 01/05/2022 [facility] mg/dL 11:54 AM OUTDOOR POWER EQUIPMENT MECHANIC LAB[facility]ATORY[facility] TRAL LABORATORY PROVIDER ORDERED RANDOM 01/05/2022 [facility] H STATUS 11:54 AM OUTDOOR POWER EQUIPMENT MECHANIC LAB[facility]ATORY[facility] TRAL LABORATORY Specimen Anatomical Collection Method / Collection Time Recei burton Time (Source) Location / Volume Laterality Blood BLOOD SPECIMEN / Venipuncture / 01/05/2022 8:00 2021 8:23 Unknown Unknown AM OUTDOOR POWER EQUIPMENT MECHANIC AM OUTDOOR POWER EQUIPMENT MECHANIC Alecia Pereira NP CHEMISTRY Performing Organization Address City/State/ZIP Code Phon e Number [facility] [id number] [address] LABORATORY-CENTRAL 2000 LABORATORY SCAN-CARDIAC STRIP (01/05/2022 2:19 AM OUTDOOR POWER EQUIPMENT MECHANIC) Narrative This result has an attachment that is no t available. Scanner OTHER SCAN-CARDIAC STRIP (01/04/2022 5:23 PM OUTDOOR POWER EQUIPMENT MECHANIC) Narrative This result has an attachment that is no t available. Scanner OTHER EKG - On Arrival to Floor (01/04/2022 5:20 PM OUTDOOR POWER EQUIPMENT MECHANIC)Only the most recent of6 resultswithin the time period is included. Component Value Ref Range Test Analysis Performed Pathologis t Method Time At Signature Interpretation Atrial-paced rhythm with prolonged AV conduction BEYOND NOW Left anterior fascicular block Minimal voltage criteria for LVH, may be normal variant ( Wayne product ) Abnormal ECG When compared with ECG of 03-JAN-2022 11:08, No significant change was found Ventricular Rate 60 BPM BEYOND NOW Atrial Rate 60 BPM BEYOND NOW P-R Interval 238 ms BEYOND NOW QRS Duration 118 ms BEYOND NOW QT 444 ms BEYOND NOW QTc 444 ms BEYOND NOW P [place] degrees BEYOND NOW R [place] -51 degrees BEYOND NOW T [place] 47 degrees BEYOND NOW Specimen Anatomical Collection Method Collection Time Receive d Time (Source) Location / / Volume Laterality 01/04/2022 5:20 PM 7:19 OUTDOOR POWER EQUIPMENT MECHANIC PM OUTDOOR POWER EQUIPMENT MECHANIC Stephanie Guillory MD EKG ORD Performing Organization Address City/State/ZIP Code Phon e Number BEYOND NOW [place], [place] (ABNORMAL) ACTIVATED CLOTTING TIME [id number] ACT (01/04/2022 3:53 PM OUTDOOR POWER EQUIPMENT MECHANIC)Only the most recent of3 resultswithin the time period is included. P athologist Signature ACTIVATED 250 (H) 74 - 125 01/04/2022 [facility] CLOTTING TIME, sec 4:26 PM OUTDOOR POWER EQUIPMENT MECHANIC LABORATORY-CE N POCT TRAL LABORATORY Specimen Anatomical Collection Method Collection Time Receive d Time (Source) Location / / Volume Laterality Blood BLOOD SPECIMEN / 01/04/2022 3:53 PM 01/04 4:26 Unknown OUTDOOR POWER EQUIPMENT MECHANIC PM OUTDOOR POWER EQUIPMENT MECHANIC Ruslan VILLAGOMEZ HEMATOLOGY Performing Organization Address City/State/ZIP Code Phon e Number [facility] [address] [place] [address] LABORATORY-CENTRAL 2000 LABORATORY CVL CORONARY ANGIOGRAM POSS PCI (01/04/2022 2:35 PM OUTDOOR POWER EQUIPMENT MECHANIC) Anatomical Region Laterality Modality Other Specimen (Source) Anatomical Collection Method Collection Time Re ceived Time Location / / Volume Laterality 01/04/2022 2:35 PM OUTDOOR POWER EQUIPMENT MECHANIC Narrative This result has an attachment that is no t available. Transcriptions Cassandra Seaman MD - 01/04/2022 4:35 PM CST [facility] Cardiac Catheterization Report Name: CRISTIAN STEVENS Event Date: 01/05/20 14:35 Excellian ID #: [id number] [place] #: [id number] Diagnostic Physician: CASSANDRA GUADARRAMA [facility] Interventional Physician: CASSANDRA SEAMAN [facility] Referring Physician: Primary Care Physician: HELIO [...] clinically. Discussed with Dr. Velasquez. Consent & Tebbetts Protocol The risks, benefits, and alternatives of the procedure were discussed with the patient and written informed consent was obtained. Tebbetts protocol was followed. TIME OU T conducted just prior to starting procedure confirmed patient identity, site/side, procedure, patient position, and availability of correct equipment and implants (if applicable). Staff Name Title CASSANDRA SEAMAN Diagnostic Solar Designer/Installer Stephanie Guillory Fellow Fouzai Medina RTR Scrub Jeremías Olivas RT(R) Typesetting Supervisor Yoni Jacobs RTR Monitor Ste, Yuridia RN [...] Eluting Stent WILVER KRYS Fr ontier RX [id number] 3 1st RPL Balloon BLLN EUPHORA RX 2.5mmx 12mm Procedure Details Estimated Blood Loss: < 30 ml Specimen Collected: None Level of Sedation Achieved: Moderate Procedure Start: 14:35 Procedure End: 16:12 Procedure Time: 97 min Fluoroscopy Time: 32.5 min Cumulative Air Kerma: 2260 mGy DAP: 41899 uGy/M2 Contrast: Omnipaque (low-osmolar), 120 ml Physiologic [...] and the physician or other qualified health summer child caregiver providing the sedation ends personal continuous byoc-va-witq time with the patient. The medications listed above were verbal ly ordered by me and read back to me as documented above. Refer to the procedure log report for ad ditional case details. electronically signed on 01/04/2022 4:3 5:12 PM with status of Final Cassandra Seaman MD [facility] [address] [address] (p) [phone](f) Provider Referring CV IMAGING PACER LICHA DUAL CHAMBER WO REPROG (01/04/2022 11:00 AM OUTDOOR POWER EQUIPMENT MECHANIC) Narrative Yinka Briscoe MD - 01/04/2022 11 :00 AM OUTDOOR POWER EQUIPMENT MECHANIC Kg Marcial RN ? 01/04/2022 11:07 AM PACEMAKER EVALUATION REPORT December 29, 2021 Indication for Pacemaker: Sinus Node Dys function Primary MD: Helio Hayden MD Primary Solar Designer/Installer: Gabriella Lopez PA Primary EP: Yinka Briscoe MD Implanting MD: Yinka Briscoe MD DEVICE DATA Button Inspector Medtronic: Model Tyrone XT D R MRI SureScan [id number] Implant Date 12/29/2021 LEAD DATA Atrial Lead: Button Inspector Medtronic: Mod el 5076-52 cm Implant Date 12/29/2021 RV Lead: Button Inspector Medtronic: Model 3 830-69 cm Implant Date 12/29/2021 Advisory: none Location of evaluation: [facility] H5[facility] Reason for evaluation: Request for ch est [...] table lead measurements. No arrhythmias. AP 87.7% WELDING PROCESS SPECIALIST 0.5%. Silver sarina dressing removed today. Incision is clean, dry, intact. N o s/s of infection. Follow up: [place] as previously sche duled for routine post implant interrogation on 04/04/22. Routine follow up: Q 3-4 month [facility] with annual clinic in [place] each Mar. Kg Marcial RN, CCDS Nurse Clinician II [facility] Pacemaker/ICD Clinic [phone] Yinka Briscoe MD CARDIAC SERVICES ORD SCAN-CARDIAC STRIP (01/04/2022 9:59 AM OUTDOOR POWER EQUIPMENT MECHANIC) Narrative This result has an attachment that is no t available. Scanner OTHER SCAN-CARDIAC STRIP (01/04/2022 9:30 AM OUTDOOR POWER EQUIPMENT MECHANIC) Narrative This result has an attachment that is no t available. Scanner OTHER SCAN-CARDIAC STRIP (01/04/2022 2:27 AM OUTDOOR POWER EQUIPMENT MECHANIC) Narrative This result has an attachment that is no t available. Scanner OTHER SCAN CORRESP-LABORATORY RESULTS (01/04/2022 12:00 AM OUTDOOR POWER EQUIPMENT MECHANIC) Narrative 01/04/2022 12:00 AM OUTDOOR POWER EQUIPMENT MECHANIC This result has an attachment that is no t available. Ordered by an unspecified provider. Other Clinical Staff OTHER SCAN-OPERATIVE/PROCEDURE REPORT (01/04/2022 12:00 AM OUTDOOR POWER EQUIPMENT MECHANIC) Narrative 01/04/2022 12:00 AM OUTDOOR POWER EQUIPMENT MECHANIC This result has an attachment that is no t available. Ordered by an unspecified provider. Other Clinical Staff OTHER SCAN-CARDIAC STRIP (01/03/2022 3:42 PM OUTDOOR POWER EQUIPMENT MECHANIC) Narrative This result has an attachment that is no t available. Scanner OTHER SCAN-CARDIAC STRIP (01/03/2022 7:15 AM OUTDOOR POWER EQUIPMENT MECHANIC) Narrative This result has an attachment that is no t available. Scanner OTHER Troponin I - Initial Draw was done in ED (01/03/2022 1:07 AM OUTDOOR POWER EQUIPMENT MECHANIC)Only the most recent of2 resultswithin the time period is included. P athologist Signature TROPONIN I 0.023 <0.034 01/03/2022 [facility] ng/mL 2:22 AM OUTDOOR POWER EQUIPMENT MECHANIC LAB[facility]ATORY-[facility] LABORATORY Specimen Anatomical Collection Method Collection Time Receive d Time (Source) Location / / Volume Laterality Blood BLOOD SPECIMEN / Diversion Device / 01/03/2022 1:07 AM 01/03/2022 1:18 Unknown Unknown OUTDOOR POWER EQUIPMENT MECHANIC AM OUTDOOR POWER EQUIPMENT MECHANIC Crystal Rajput MD CHEMISTRY Performing Organization Address City/State/ZIP Code Phon e Number [facility] [address] [place] [address] LABORATORY-CENTRAL 2000 LABORATORY SCAN-CARDIAC STRIP (01/02/2022 11:47 PM OUTDOOR POWER EQUIPMENT MECHANIC) Narrative This result has an attachment that is no t available. Scanner OTHER SCAN-CARDIAC STRIP (01/02/2022 9:35 PM OUTDOOR POWER EQUIPMENT MECHANIC) Narrative This result has an attachment that is no t available. Scanner OTHER XR Chest PA and lateral (12/29/2021 3:31 PM OUTDOOR POWER EQUIPMENT MECHANIC) Anatomical Region Laterality Modality CHEST, THORAX, Lung, HEART Digital Radio graphy Specimen (Source) Anatomical Collection Method Collection Time Re ceived Time Location / / Volume Laterality 12/29/2021 3:51 PM OUTDOOR POWER EQUIPMENT MECHANIC Impressions 12/29/2021 3:51 PM OUTDOOR POWER EQUIPMENT MECHANIC Left pacer body and right heart transvenous wires. No mediastinal widening or pneumothorax. Ectatic aorta. No acute cardiopulmonary disease. Left reversed shoulder arthroplasty. Dictated by Temo Gonzalez MD @ Dec 29 ??3:51PM (Electronically Signed) ?? Narrative 12/29/2021 3:51 PM OUTDOOR POWER EQUIPMENT MECHANIC For Patients: ??As a result of the Cures Act, medical imaging exams and procedure report s are released immediately into your [facility] medical record. ??You may view this [...] DUAL CHAMBER WO REPROG (12/29/2021 3:19 PM OUTDOOR POWER EQUIPMENT MECHANIC) Narrative Yinka Briscoe MD - 12/29/2021 3: 19 PM OUTDOOR POWER EQUIPMENT MECHANIC Evon Call RN ? 12/29/2021 ??4:22 PM PACEMAKER EVALUATION REPORT December 29, 2021 Indication for Pacemaker: Sinus Node Dys function Primary MD: Helio Hayden MD Primary Solar Designer/Installer: Gabriella Lopez PA Primary EP: Yinka Briscoe MD Implanting MD: Yinka Briscoe MD DEVICE DATA Button Inspector Medtronic: Model Libertad XT D R MRI SureScan [id number] Implant Date 12/29/2021 LEAD DATA Atrial Lead: Button Inspector Medtronic: Mod el 5076-52 cm Implant Date 12/29/2021 RV Lead: Button Inspector Medtronic: Model 3 830-69 cm Implant Date 12/29/2021 Visit location: [place] [address] Reason For Evaluation: Same day discharg e [...] of care as described. Patient was given [email or web address] busines s card and encouraged to call if he has any concerns or questions in the future. Enrolled in [facility] Monitor Paired. Follow up: 1 Week Post-Op [facility] ed for 01/05/2022 then 3 month post-op in [place] on 04/04/2022 Routine follow up: Q 3-4 month [facility] with annual clinic in [place] each Mar. Evon Call RN Nurse Clinician II [facility] Pacemaker/ICD Clinic ?? Yinka Briscoe MD CARDIAC SERVICES ORD EP Procedure to be Performed (12/29/2021 12:07 PM OUTDOOR POWER EQUIPMENT MECHANIC) Narrative Yinka Briscoe MD - 12/29/2021 12 :07 PM OUTDOOR POWER EQUIPMENT MECHANIC Yinka Briscoe MD ? 12/29/2021 12:08 PM [...] 2) Incision check in 1-2 weeks with [facility] physician. 3) Device clinic check in 3-4 months. 4) Medication changes: start sotalol 80 mg po bid on Sunday with an EKG on Sunday Surgeon: Yinka Briscoe MD Yinka Briscoe MD ARTIFICIAL MARBLE WORKER ORD EP PPM (12/29/2021 11:04 AM OUTDOOR POWER EQUIPMENT MECHANIC) Anatomical Region Laterality Modality X-Ray Angiography, X -Ray Angiography Specimen (Source) Anatomical Collection Method Collection Time Re ceived Time Location / / Volume Laterality 12/29/2021 11:04 AM OUTDOOR POWER EQUIPMENT MECHANIC Narrative This result has an attachment that is no t available. Transcriptions Yinka Briscoe MD - 12/30/2021 5: 03 AM CST [facility] Electrophysiology Implant Report Name: CRISTIAN Adams NATHALIA Event Date: 12/30/19 22 Excellian ID #: [id number] Date: Gender: Male Age: 86 [facility] #: [id number] Procedure Performed By: YINKA BRISCOE [facility] [place] Primary Digital Printer Operator: THIERRY BRISCOE Referring Physician: Primary Care Physician: HELIO HAYDEN Implant Procedure Type Dual Chamber Permanent Pacemaker EP Impl ant Summary / Conclusions PACEMAKER * Dual chamber pacemaker system successf ully implanted. * Procedure completed without incident. * Appropriate device functionality obser burton at end of case. Recommendations / Plan 1) CXR and device check later today 2) Incision check in 1-2 weeks with [facility] physician. 3) Device clinic check in 3-4 [...] for a dual-chamber pacemaker implant. Consent & Tebbetts Protocol Tebbetts protocol was followed. TIME OU T conducted [...] Serial Number 12/29/2021 Implanted Left Pectoral Medtr [employer] Libertad XT DR MRI [id number] Lead Detail Implanted Status [facility] Serial Number 12/29/2021 Implanted Right Ventricle Sep monica Medtronic[employer] Inc[employer] Secure Select 3830- 69 [id number] 12/29/2021 Implanted Right Atrium Right Appendage Medtronic[employer] Inc. CapSureFix Novus 5076-52 [id number] Measurement Cascara Bark Cutter P/R Wave (mV) Threshold (V) Pulse Width [...] Anesthes ia Note Total Fluoro Time: 10.9 FORMULA WEIGHER Total Fluoro Dose: 18 mGy Staff Name Role Yinka Briscoe Digital Printer Operator Janae Diaz RN Nurse Sophie Pino PINA [place] Tori Srivastava RCES Typesetting Supervisor BuitragoAlberto EPT Typesetting Supervisor Medications Ordered and Administered Start Time Stop [...] status of Final Yinka Briscoe MD Implanting Solar Designer/Installer [facility] [address] [place] [address] [place], [place] [id number] (p) [phone](f) Yinka Briscoe MD CV IMAGING (ABNORMAL) TSH (12/02/2021 12:17 PM CDT)Only the most recent of2 resultswithin the time period is included. P athologist Signature TSH 5.26 (H) 0.35 - 4.94 12/03/2021 [facility] uIU/mL 9:21 PM CDT [facility]AT[facility] LAB[facility] Specimen Anatomical Collection Method / Collection Time Recei burton Time (Source) Location / Volume Laterality Blood BLOOD SPECIMEN / Venipuncture / 12/02/2021 12:17 12/02 Unknown Unknown PM CDT 12:21 PM CDT Narrative [facility] - 12/03/2021 9:21 PM CDT In Adults, TSH values between 5.00 and 10.00 uIU/ml do not necessarily indicate the presence of Hyp othyroidism. Correlation with clinical findings such as presence of goiter and/or Thyroperoxidase (TPO) Antibody ma y be helpful. For more information please refer to CATHERINE 20 ; 291: [phone]. Yinka Briscoe MD CHEMISTRY Performing Organization Address City/State/ZIP Code Phon e Number [facility] [address] [place] [address] LABORATORY-CENTRAL 2000 LABORATORY T4,FREE (12/02/2021 12:17 PM CDT)Only the most recent of2 resultswithin the time period is included. P athologist Signature T4,FREE 0.93 0.70 - 1.80 12/03/2021 [facility] ng/dL 9:20 PM CDT LABORATORY-CENTR AL LABORATORY Specimen Anatomical Collection Method / Collection Time Recei burton Time (Source) Location / Volume Laterality Blood BLOOD SPECIMEN / Venipuncture / 12/02/2021 12:17 12/02 Unknown Unknown PM CDT 12:21 PM CDT Yinka Briscoe MD CHEMISTRY Performing Organization Address City/State/ZIP Code Phon e Number [facility] [address] [place] [address] LABORATORY-CENTRAL 2000 LABORATORY (ABNORMAL) AMIODARONE (CORDARONE) (11/24/2021 [...] City/State/ZIP Code Phon e Number [facility] [address] [place] [address] MR SHOULDER RIGHT WO (11/10/2021 10:06 AM [...] report s are released immediately into your [facility] medical record. ??You may view this [...] ECHOCARDIOGRAM CRISTIAN STEVENS ? Accessi on#: ?? [id number] : ?1935 86 years Study Date: ?? 11/04/2021 1:39:43 PM Gender: M ?BP: ? 129/64 mmHg Height: 175.00 cm ?BSA: ?1.94 m? ?? Weight: 78.00 kg ? Tech: ? MJJ ? Referring MD: MARY VILLARREAL Site: ? [facility] Reading Location: MOBILE=-[facility]AY Procedure: 2D, [...] . This study was interpreted by an [facility] redited facility. CC: [facility] [place], Med/ Surg - IP [facility]. ??Final ?? Procedure Note Drake Tucker MD - 11/04/2021Form atting of this note might be different from the original. ECHOCARDIOGRAM CRISTIAN STEVENS : 1935 86 years Study Date: 11/04 1:39:43 PM Gender: M BP: 129/64 mmHg Height: 175.00 cm BSA: 1.94 m? ?? Weight: 78.00 kg Tech: SOTO Referring MD: MARY VILLARREAL Site: [facility] Reading Location: [facility] Procedure: 2D, Color Doppler and [...] . This study was interpreted by an [facility] facility. CC: [facility] [place], Med/ Surg - IP [facility]. Final Mary Villarreal MD ECHO ORD SCAN-CT [...] ype Group Dates MEDICARE PART MEDICARE PART [id number] 2001-Prese ATT N: CLAIMS A - HB USE A HB ONLY nt [address] [place] [address] MEDICARE PART MEDICARE PART [id number] 2001-Prese ATT N: CLAIMS B - HB USE B HB ONLY nt [address] [place] [address] WC WORKERS WC WORKERS [id number] Effective for 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
== END 2022-01-17 12:45 | disposition home or self-care (01) ==
LOC: WOUND 12:45
PROVIDERS: PCP Surgery; Visit Provider Nurse Practitioner Family
DX: L59.8 Other specified disorders of the skin and subcutaneous tissue related to radiation (principal); L97.222 Non-pressure chronic ulcer of left calf with fat layer exposed; I89.0 Lymphedema, not elsewhere classified; I87.2 Venous insufficiency (chronic) (peripheral)
CPT/HCPCS: 97597

== ENCOUNTER 2022-01-31 14:16 | Outpatient (CLI) | payer MEDICARE, BC, SELFPAY ==
--- OUTSIDE RECORDS SUMMARY | 2022-01-31 14:19 | XMS_ITS | Encounter Summary ---
:1935 Author Organization [facility] Address [address] [place] [address] Support Name Relationship Address Phone LEEANN SLOAN Unavailable [address] [place], [place] Insurance Providers: All historical and current Section Date Range: From patient's date of to the date document was created.This section includes the names of all active insurance providers for the patient. Insurance Type of Plan Start of End of Group Member Insurance Policy P atchandrika's Provider Coverage Name Policy Policy Number ID Provider's Patel's Relationship Coverage Coverage Telephone Name to Policy Number Patel [facility] MEDICARE [facility] Feb 19, [id number] [place] [facility] (WNR) 2016 8 [id number] [phone] 1 Selected Encounter This section includes [...] TAMI ROBINS A 09:00 AM adjustment to [facility] life-cycle transitions Plan of Treatment: Future Appointments (+ 6 months) and Future Tests (+/- 45 days) The Plan of Treatment section includes future care activities for the patient from all NH treatmentfacilities. This section includes future appointments and future orders which are active, pending orscheduled.Future Appointments This section includes appointments that were scheduled to occur 6 months from the date of the Encounter, up to a maximum of 20 appointments. The data comes from all NH treatment facilities. Appointment Date/Time Appointment Type Appointment Facili ty Name Mar 08, 2021 11:00 AM AMBULATORY - PSYCHIATRY [facility] Mar 09, 2021 01:45 PM AMBULATORY - MEDICINE [facility] Apr 08, 2021 09:00 AM AMBULATORY - PSYCHIATRY [facility] May 06, 2021 09:00 AM AMBULATORY - PSYCHIATRY [facility] Jun 06, 2021 11:00 AM AMBULATORY - MEDICINE [facility] Jun 17, 2021 09:00 AM AMBULATORY - PSYCHIATRY [facility] July 13, 2021 11:00 AM AMBULATORY - NONE [facility] Social History: Smoking Status (Most current) and [...] 2021 11:30 AM VA-TOBACCO FORMER USER [facility] Tobacco Use History This section includes a history of the smoking, or tobacco- related health factors, that were collected on or before the date of the Encounter. The data comes from the NH facility where the Encounter took place. Date/Time Smoking Status/Tobacco Use Comment [facility] Jan 03, 2021 11:30 AM NH-TOBACCO QUIT 15 YRS OR MORE [facility] June 20, 2018 11:30 AM VA-TOBACCO FORMER USER [facility] June 20, 2018 11:30 AM VA-TOBACCO QUIT 15 YRS OR MORE [facility] July 09, 2017 10:39 AM FORMER TOBACCO USER 7Y OR GREATER [facility] July 07, 2016 01:14 PM FORMER TOBACCO USER 7Y OR GREATER [facility] June 21, 2015 02:23 PM FORMER TOBACCO USER 7Y OR GREATER [facility] Jun 08, 2014 01:51 PM FORMER TOBACCO USER 7Y OR GREATER [facility] Jun 10, 2013 01:11 PM LIFETIME NON-TOBACCO USER [facility] Aug 03, 2011 07:59 AM FORMER TOBACCO USER 7Y OR GREATER [facility] Advance Directives: All historical [...] 19, 2013 ADVANCE DIRECTIVE DISCUSSION KENDALL SERRANO [facility] June 19, 2013 ADVANCE DIRECTIVE KENDALL SERRANO [facility] Encounter Notes: All associated encounter notes This section contains the clinical notes associated to the Encounter. Date/Time Encounter Note(s) Provider Source Feb 07, 2021 09:00 AM MENTAL HEALTH E [facility] M INTERDISCIPLINARY NOTE: TAMI ROBINS [facility] LOCAL TITLE: PRIMARY CARE-[facility] INTEGRATION PROGRE SS [...] spouse, age (old age:65+) , race (Euro Afghan), gender (male), Protective factors: Strong social support system, No alcohol or substance abuse/ dependency issues, Compliance with treatment recommendations and m aking appointments, No history of suicide attempts or self-injurious b ehavior, No history of violence or aggression, No history of psychiatr ic hospitalizations, Goal oriented, Financially stable, /es/ BERET Anderson ROBINS Psy.D., CLINICAL PSYCHOLOGIST Signed: 02/07/2021 09:41
--- OUTSIDE RECORDS SUMMARY | 2022-01-31 14:19 | XMS_ITS | Continuity of Care Document ---
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 It does not include entries that were removed or entered in error. 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 Law Lawson, [facility] Jun 10, 2013 Entered By: FRANCOIS HAMPTON Comment: PCP Dr. Robbins Coronary Artery Active Condition [place] Disease [facility] Gastroesophageal Active Condition [place] reflux disease [facility] S (SNOMED CT 152586164) Hearing Loss, Active Condition [place] Partial * (ICD-9-CM [facility] 389.9) Hyperlipidemia Active Condition [place] (SNOMED CT [facility] [id number]) Hypertension Active Condition [place] (SNOMED CT [facility] [id number]) Insomnia Active [place] [facility] Tinnitus * Active Condition [place] (ICD-9-CM 388.30) [facility] Diagnosis: Active Diagnosis [place] ICD-10-CM I10 [facility] Essential (primary) hypertensionwith Provider Comments: Hypertension (SCT [id number]) Diagnosis: Active Diagnosis [place] ICD-10-CM I48.91 [facility] Unspecified atrial fibrillationwith Provider Comments: Atrial fibrillation (SCT [id number]) Diagnosis: Active Diagnosis [place] ICD-10-CM F43.20 [facility] Adjustment disorder, unspecifiedwith Provider Comments: Adjustment Disorder, unspecified Diagnosis: Active Diagnosis [place] ICD-10-CM F43.21 [facility] Adjustment disorder with depressed moodwith Provider Comments: Adjustment Disorder with depressed mood Diagnosis: Active Diagnosis [place] ICD-10-CM F51.01 [facility] Primary insomniawith Provider Comments: Insomnia ([facility] [id number]) Diagnosis: Active Diagnosis [place] IS ICD-10-CM Z23 [facility] Encounter for immunizationwith Provider Comments: Encounter for any immunization Diagnosis: Active Diagnosis [place] IS ICD-10-CM Z63.79 [facility] Other stressful life events affecting [...] Complaint in whom no Diagnosis is Made Medications Combined list of outpatient medications from Department of 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 Medications provided include 1) outpatient medications from the last 15 months, and 2) patient-reported medications. Medication Details Route Status Patient Prescription Prescription Last Ordering Order Source Instructions Expires Number Dispense Provider Date Date APIXABAN TAKE ONE ORALLY ACTIVE 05/07/2022 [id number] RID GEWELL 05/09/ [place] 5MG TAB TABLET 2 ,LEYDA L 2021 [facility] [facility] EVERY 12 HOURS TO PREVENT STROKE DUE TO ATRIAL FIBRILLA TION APIXABAN TAKE ONE ORALLY DISCONT 03/31/2021 [id number] RI DGEWELL 03/30/ [place] 5MG TAB TABLET INUED 1 ,LEYDA L 2020 [place] [facility] EVERY 12 HOURS TO PREVENT STROKE DUE TO ATRIAL FIBRILLA TION ATORVASTATI TAKE ORALLY ACTIVE MALIAN,FRANCOIS 06/08/ M [place] 20MG ONE-HALF [...] PRN DRONEDARONE TAKE ONE ORALLY DISCONT 06/07/2022 [id number] GLAUSER,N 06/08/ [place] 400MG TAB TABLET INUED [...] EVERY DAY HYDROCHLORO TAKE ONE ORALLY ACTIVE MALIAN,FRANCOIS 06/08 / [place] THIAZIDE TABLET C 2014 [...] TONGUE PRN OMEPRAZOLE TAKE 2 ORALLY ACTIVE MALIAN,FRANCOIS M [place] 20MG CAP,EC CAPSULES C 2017 [...] atus Comments Source Given By Number Code [employer] Rep COVID-19 1 complet [place] VIN[place] (nanoRETE), 2021 ed HEAL TH MRNA, LNP-S, BIVALENT BOOSTER, PF, 30 MCG/0.3 ML DOSE INFLUENZA, complet [place] UNSPECIFIED 2021 ed [facility] COVID-19 4 complet [place] (PFIZER), 2021 ed [place] [facility] MRNA, LNP-S, H CS PF, 30 MCG/0.3 ML DOSE, XANDER-SUCROSE (AGES 12+ YEARS) ZOSTER 2 complet [place] RECOMBINANT 2021 ed [facility] ZOSTER 1 complet [place] RECOMBINANT 2020 ed [facility] INFLUENZA, complet [place] UNSPECIFIED 2020 ed [facility] COVID-19 3 complet [place] VINAYAK (nanoRETE), 2020 ed HEAL TH MRNA, LNP-S, PF, 30 MCG/0.3 ML DOSE COVID-19 2 complet [place] (PFIZER), 2020 ed [place] [facility] MRNA, LNP-S, H CS PF, 30 MCG/0.3 ML DOSE COVID-19 1 complet [place] (PFIZER), 2020 ed [place] [facility] MRNA, LNP-S, H CS PF, 30 MCG/0.3 ML DOSE INFLUENZA, complet [place] SEASONAL, 2018 ed [place] [facility] INJECT[facility] INFLUENZA, complet [place] HIGH DOSE 2016 ed [place] [facility] SE[facility]ON[facility] INFLUENZA, complet [place] SEASONAL, 2015 ed [place] [facility] INJECT[facility] PNEUMOCOCCAL complet [facility] CON[facility] 2013 ed HEALTH 13 INFLUENZA, complet privat e [place] UNSPECIFIED 2012 ed [facility] TDAP complet ALLIN A 2012 ed HEALTH TDAP complet [place] 2012 ed [place] MD HCS PNEUMOCOCCAL, complet saenz ster [place] UNSPECIFIED 2011 ed [facility] INFLUENZA, complet [place] UNSPECIFIED 2011 ed [facility] ZOSTER LIVE complet [place] 2002 ed [place] [facility] Results Combined list of recent chemistry, hematology and other laboratory results from Department of Defense and Veterans Affairs, ranging from 15 months to all on record, depending upon the facility. Order Results Value Reference Date Interpretation Specimen Commen ts Source Name Range CBC LEUKOCYTES 7.76 4.0 - 11.0 01/20 Specimen T ype: BLOOD [place] [#/VOLUME] /2021 No comment en tered. IS [facility] IN BLOOD BY Ordering Pr ovider: DERRICK GEORGE AUTOMATED Report Releas ed Date/Time: Jan 06, 2021 11:31 AM COUNT Reporting Lab: [facility] [address] [place] [address] Performing Lab: [facility] [address] [place] [address] CBC ERYTHROCYTE 4.02 4.6 - 6.2 12/ L Specimen T ype: BLOOD [place] S /2021 No comment enter ed. IS [facility] [#/VOLUME] Ordering Pro vider: DERRICK GEORGE IN BLOOD BY Report Rele ased Date/Time: Jan 06, 2021 11:31 AM AUTOMATED Reporting Lab : [facility] [address] [place] [address] Performing Lab: [facility] [place] [address] CBC HEMOGLOBIN 13.6 13.5 - 12 Specimen Type : BLOOD [place] [MASS/VOLUM 17.9 No comment e ntered. IS [facility] E] IN BLOOD Ordering Pr ovider: DERRICK GEORGE Report Released Date/Time: Jan 06, 2021 11:31 AM Reporting Lab: [facility] [address] [place] [address] Performing Lab: [facility] [address] [place] [address] CBC HEMATOCRIT 38.9 41 - 54 01/20 L Specimen Type : BLOOD [place] [VOLUME /2021 No comment enter ed. IS [facility] FRACTION] Ordering Prov ider: DERRICK GEORGE OF BLOOD BY Report Rele ased Date/Time: Jan 06, 2021 11:31 AM AUTOMATED Reporting Lab : [facility] [address] [facility] [address] Performing Lab: [facility] [place] [address] CBC MCV 96.8 80 - 100 12 Specimen Type: BLOOD [place] [ENTITIC /2021 No comment ente red. IS [facility] VOLUME] BY Ordering Pro vider: DERRICK GEORGE AUTOMATED Report Releas ed Date/Time: Jan 06, 2021 11:31 AM COUNT Reporting Lab: [facility] [address] [facility] [address] Performing Lab: [facility] [address] [facility] [address] CBC MCH 33.8 27 - 33 12/ H Specimen Type: B LOOD [place] [ENTITIC /2021 No comment ente red. IS [facility] MASS] BY Ordering Provi michael: DERRCIK GEORGE AUTOMATED Report Releas ed Date/Time: Jan 06, 2021 11:31 AM COUNT Reporting Lab: [facility] [address] [facility] [address] Performing Lab: [facility] [address] [facility] [address] CBC MCHC 35.0 32.0 - 12 Specimen Type: B LOOD [place] [MASS/VOLUM 37.5 /2021 No comment e ntered. IS [facility] E] BY Ordering Provid er: DERRICK GEORGE AUTOMATED Report Releas ed Date/Time: Jan 06, 2021 11:31 AM COUNT Reporting Lab: [facility] [address] [facility] [address] Performing Lab: [facility] [address] [facility] [address] CBC PLATELETS 193 150 - 400 01/20 Specimen Typ e: BLOOD [place] [#/VOLUME] /2021 No comment en tered. IS [facility] IN BLOOD BY Ordering Pr ovider: DERRICK GEORGE AUTOMATED Report Releas ed Date/Time: Jan 06, 2021 11:31 AM COUNT Reporting Lab: [facility] [address] [facility] [address] Performing Lab: [facility] [address] [facility] [address] CBC PLATELET 9.0 7.4 - 10.4 01/20 Specimen Typ e: BLOOD [place] MEAN VOLUME /2021 No comment e ntered. IS [facility] [ENTITIC Ordering Provi michael: DORISDERRICK Solo VOLUME] IN Report Relea sed Date/Time: Jan 06, 2021 11:31 AM BLOOD BY Reporting Lab: [facility] AUTOMATED [address] [facility] [address] COUNT Performing Lab: [facility] [address] [place] [address] CBC ERYTHROCYTE 12.9 11.5 - 12/02 Specimen Typ e: BLOOD [place] DISTRIBUTIO 14.5 No comment e ntered. IS [facility] N WIDTH Ordering Provid er: DERRICK GEORGE [RATIO] BY Report Relea sed Date/Time: Jan 06, 2021 11:31 AM AUTOMATED Reporting Lab : [facility] [address] [place] [address] Performing Lab: [facility] [address] [place] [address] BASIC CREATININE 1.4 0.7 - 1.2 12/02 H Specimen Ty pe: PLASMA [place] METABOLIC [MASS/VOLUM /2021 Comment: Elevated triglyceride result from a non-fasting specimen should be interpreted with caution. A fasting panel is recommended for accurate triglycerides when trigs are >200 from a non-fasting specimen. IS [facility] PANEL+MG E] IN SERUM Ordering P rovider: DERRICK GEORGE OR PLASMA Report Releas ed Date/Time: Jan 06, 2021 11:31 AM Reporting Lab: [facility] [address] [place] [address] Performing Lab: [facility] [address] [place] [address] BASIC UREA 35 8 - 26 12/02 H Specimen Type: P LASMA [place] METABOLIC NITROGEN /2021 Comment: Joseline vated triglyceride result from a non- fasting specimen should be interpreted with caution. A fasting panel is recommended for accurate triglycerides when trigs are >200 from a non-fasting specimen. IS [facility] PANEL+MG [MASS/VOLUM Ordering P rovider: DERRICK GEORGE E] IN SERUM Report Rele ased Date/Time: Jan 06, 2021 11:31 AM OR PLASMA Reporting Lab : [facility] [address] [place] [address] Performing Lab: [facility] [address] [place] [address] BASIC GLUCOSE 102 70 - 100 12/02 H Specimen Type: PLASMA [place] METABOLIC [MASS/VOLUM /2021 Comment: Elevated triglyceride result from a non-fasting specimen should be interpreted with caution. A fasting panel is recommended for accurate triglycerides when trigs are >200 from a non-fasting specimen. IS [facility] [employer] PANEL+MG E] IN SERUM Ordering P rovider: DERRICK GEORGE OR PLASMA Report Releas ed Date/Time: Jan 06, 2021 11:31 AM Reporting Lab: [facility] [address] [place] [address] Performing Lab: [facility] [address] [place] [address] BASIC SODIUM 139 136 - 145 01/20 Specimen Type: PLASMA [place] METABOLIC [MOLES/VOLU /2021 Comment: Elevated triglyceride result from a non-fasting specimen should be interpreted with caution. A fasting panel is recommended for accurate triglycerides when trigs are >200 from a non-fasting specimen. IS [facility] [employer] PANEL+MG ME] IN Ordering Provi michael: DERRICK GEORGE SERUM OR Report Release d Date/Time: Jan 06, 2021 11:31 AM PLASMA Reporting Lab: [facility] [address] [place] [address] Performing Lab: [facility] [address] [place] [address] BASIC POTASSIUM 3.8 3.5 - 5.1 01/20 Specimen Typ e: PLASMA [place] METABOLIC [MOLES/VOLU /2021 Comment: Elevated triglyceride result from a non-fasting specimen should be interpreted with caution. A fasting panel is recommended for accurate triglycerides when trigs are >200 from a non-fasting specimen. IS [facility] [employer] PANEL+MG ME] IN Ordering Provi michael: DERRICK GEORGE SERUM OR Report Release d Date/Time: Jan 06, 2021 11:31 AM PLASMA Reporting Lab: [facility] [address] [place] [address] Performing Lab: [facility] [address] [place] [address] BASIC CHLORIDE 104 98 - 107 01/20 Specimen Type: PLASMA [place] METABOLIC [MOLES/VOLU /2021 Comment: Elevated triglyceride result from a non-fasting specimen should be interpreted with caution. A fasting panel is recommended for accurate triglycerides when trigs are >200 from a non-fasting specimen. IS [facility] [employer] PANEL+MG ME] IN Ordering Provi michael: DERRICK GEORGE SERUM OR Report Release d Date/Time: Jan 06, 2021 11:31 AM PLASMA Reporting Lab: [facility] [address] [place] [address] Performing Lab: [facility] [address] [place] [address] BASIC CARBON 26 22 - 29 12 Specimen Type: P LASMA [place] METABOLIC DIOXIDE, /2021 Comment: Joseline vated triglyceride result from a non- fasting specimen should be interpreted with caution. A fasting panel is recommended for accurate triglycerides when trigs are >200 from a non-fasting specimen. IS [facility] PANEL+MG TOTAL Ordering Provi michael: DERRICK GEORGE [MOLES/VOLU Report Rele ased Date/Time: Jan 06, 2021 11:31 AM ME] IN Reporting Lab: [facility] SERUM OR ONE [facility] [place] [address] PLASMA Performing Lab: [facility] [address] [place] [address] BASIC CALCIUM 9.5 8.4 - 10.2 01/20 Specimen Type : PLASMA [place] METABOLIC [MASS/VOLUM /2021 Comment: Elevated triglyceride result from a non-fasting specimen should be interpreted with caution. A fasting panel is recommended for accurate triglycerides when trigs are >200 from a non-fasting specimen. IS [facility] PANEL+MG E] IN SERUM Ordering P rovider: DERRICK GEORGE OR PLASMA Report Releas ed Date/Time: Jan 06, 2021 11:31 AM Reporting Lab: [facility] [address] [place] [address] Performing Lab: [facility] [address] [place] [address] BASIC MAGNESIUM 1.9 1.6 - 2.6 01/20 Specimen Typ e: PLASMA [place] METABOLIC [MASS/VOLUM /2021 Comment: Elevated triglyceride result from a non-fasting specimen should be interpreted with caution. A fasting panel is recommended for accurate triglycerides when trigs are >200 from a non-fasting specimen. IS [facility] PANEL+MG E] IN SERUM Ordering P rovider: DERRICK GEORGE OR PLASMA Report Releas ed Date/Time: Jan 06, 2021 11:31 AM Reporting Lab: [facility] [address] [place] [address] Performing Lab: [facility] [address] [place] [address] BASIC ANION GAP 9 5 - 15 01/20 Specimen Type: PLASMA [place] METABOLIC IN SERUM OR /2021 Comment: Elevated triglyceride result from a non-fasting specimen should be interpreted with caution. A fasting panel is recommended for accurate triglycerides when trigs are >200 from a non-fasting specimen. IS [facility] PANEL+MG PLASMA Ordering Provi michael: DERRICK GEORGE Report Released Date/Time: Jan 06, 2021 11:31 AM Reporting Lab: [facility] [address] [place] [address] Performing Lab: [facility] [address] [place] [address] BASIC GLOMERULAR 49 60 01/20 L Specimen Type : PLASMA [place] METABOLIC FILTRATION /2021 Comment: E levated triglyceride result from a non-fasting specimen should be interpreted with caution. A fasting panel is recommended for accurate triglycerides when trigs are >200 from a non-fasting specimen. IS [facility] PANEL+MG RATE/1.73 Ordering Pro vider: DERRICK GEORGE SQ Report Released Date/Time: Jan 06, 2021 11:31 AM M.PREDICTED Reporting L ab: [facility] [VOLUME [address] [place] [address] RATE/AREA] Performing L ab: [facility] IN SERUM, ONE [facility] [address] PLASMA OR BLOOD BY CREATININE- BASED FORMULA (CKD-EPI) LIPID CHOLESTEROL 127 <199 - 199 01/20 Specimen Type: PLASMA [place] PANEL,NON [MASS/VOLUM /2021 Comment: Elevated triglyceride result from a non-fasting specimen should be interpreted with caution. A fasting panel is recommended for accurate triglycerides when trigs are >200 from a non-fasting specimen. IS [facility] -FASTING E] IN SERUM Ordering P rovider: DERRICK GEORGE OR PLASMA Report Releas ed Date/Time: Jan 06, 2021 11:31 AM Reporting Lab: [facility] [address] [place] [address] Performing Lab: [facility] [address] [place] [address] LIPID CHOLESTEROL 33 40 01/20 L Specimen Typ e: PLASMA [place] PANEL,NON IN HDL /2021 Comment: Elev ated triglyceride result from a non- fasting specimen should be interpreted with caution. A fasting panel is recommended for accurate triglycerides when trigs are >200 from a non-fasting specimen. IS [facility] -FASTING [MASS/VOLUM Ordering P rovider: DERRICK GEORGE E] IN SERUM Report Rele ased Date/Time: Jan 06, 2021 11:31 AM OR PLASMA Reporting Lab : [facility] [address] [place] [address] Performing Lab: [facility] [address] [place] [address] LIPID CHOLESTEROL 43 <99 - 99 12/ Specimen Ty pe: PLASMA [place] PANEL,NON IN LDL /2021 Comment: Elev ated triglyceride result from a non- fasting specimen should be interpreted with caution. A fasting panel is recommended for accurate triglycerides when trigs are >200 from a non-fasting specimen. IS [facility] -FASTING [MASS/VOLUM Ordering P rovider: DERRICK GEORGE L E] IN SERUM Report Rele ased Date/Time: Jan 06, 2021 11:31 AM OR PLASMA Reporting Lab : [facility] [address] [place] [address] CALCULATION Performing Lab: [facility] [address] [place] [address] LIPID CHOLESTEROL 51 <29 - 29 12/02 H Specimen Ty pe: PLASMA [place] PANEL,NON IN VLDL /2021 Comment: Elev ated triglyceride result from a non- fasting specimen should be interpreted with caution. A fasting panel is recommended for accurate triglycerides when trigs are >200 from a non-fasting specimen. IS [facility] -FASTING [MASS/VOLUM Ordering P rovider: DERRICK GEORGE L E] IN SERUM Report Rele ased Date/Time: Jan 06, 2021 11:31 AM OR PLASMA Reporting Lab : [facility] [address] [place] [address] CALCULATION Performing Lab: [facility] [address] [place] [address] LIPID CHOLESTEROL 94 <129 - 129 12/ Specimen Type: PLASMA [place] PANEL,NON NON HDL /2021 Comment: Elev ated triglyceride result from a non- fasting specimen should be interpreted with caution. A fasting panel is recommended for accurate triglycerides when trigs are >200 from a non-fasting specimen. IS [facility] -FASTING [MASS/VOLUM Ordering P rovider: DORISDERRICK L E] IN SERUM Report Rele ased Date/Time: Jan 06, 2021 11:31 AM OR PLASMA Reporting Lab : [facility] [place] [address] Performing Lab: [facility] [address] [place] [address] LIPID TRIGLYCERID 256 <149 - 149 12/02 H Specimen Type: PLASMA [place] PANEL,NON E /2021 Comment: Elev ated triglyceride result from a non-fasting specimen should be interpreted with caution. A fasting panel is recommended for accurate triglycerides when trigs are >200 from a non-fasting specimen. IS [facility] -[facility] [MASS/VOLUM Ordering P rovider: DERRICK GEORGE E] IN SERUM Report Rele ased Date/Time: Jan 06, 2021 11:31 AM OR PLASMA Reporting Lab : [facility] [place] [address] Performing Lab: [facility] [place] [address] CBC LEUKOCYTES 6.21 4.0 - 11.0 05/25 Specimen T ype: BLOOD [place] [#/VOLUME] /2021 No comment en tered. IS [facility] IN BLOOD BY Ordering Pr ovider: LEYDA COHEN AUTOMATED Report Releas ed Date/Time: July 06, 2021 09:39 AM COUNT Reporting Lab: [facility] [place] [address] Performing Lab: [facility] [place] [address] CBC ERYTHROCYTE 4.06 4.6 - 6.2 05/25 L Specimen T ype: BLOOD [place] S /2021 No comment enter ed. IS [facility] [#/VOLUME] Ordering Pro vider: LEYDA COHEN IN BLOOD BY Report Rele ased Date/Time: July 06, 2021 09:39 AM AUTOMATED Reporting Lab : [facility] [place] [address] Performing Lab: [facility] [address] [facility] [address] CBC HEMOGLOBIN 12.9 13.5 - 05/25 L Specimen Type : BLOOD [place] [MASS/VOLUM 17.9 /2021 No comment e ntered. IS [facility] E] IN BLOOD Ordering Pr ovider: LEYDA COHEN Report Released Date/Time: July 06, 2021 09:39 AM Reporting Lab: [facility] [place] [address] Performing Lab: [facility] [address] [facility] [address] CBC HEMATOCRIT 39.0 41 - 54 05/25 L Specimen Type : BLOOD [place] [VOLUME /2021 No comment enter ed. IS [facility] FRACTION] Ordering Prov ider: LEYDA COHEN OF BLOOD BY Report Rele ased Date/Time: July 06, 2021 09:39 AM AUTOMATED Reporting Lab : [facility] [place] [address] Performing Lab: [facility] [place] [address] CBC MCV 96.1 80 - 100 07/13 Specimen Type: BLOOD [place] [ENTITIC /2021 No comment ente red. IS [facility] VOLUME] BY Ordering Pro vider: LEYDA COHEN AUTOMATED Report Releas ed Date/Time: July 06, 2021 09:39 AM COUNT Reporting Lab: [facility] [address] [facility] [address] Performing Lab: [facility] [address] [facility] [address] CBC MCH 31.8 27 - 33 07/13 Specimen Type: B LOOD [place] [ENTITIC /2021 No comment ente red. IS [facility] MASS] BY Ordering Provi michael: LEYDA COHEN AUTOMATED Report Releas ed Date/Time: July 06, 2021 09:39 AM COUNT Reporting Lab: [facility] [address] [facility] [address] Performing Lab: [facility] [address] [facility] [address] CBC MCHC 33.1 32.0 - 07/13 Specimen Type: B LOOD [place] [MASS/VOLUM 37.5 /2021 No comment e ntered. IS [facility] E] BY Ordering Provid er: LEYDA COHEN AUTOMATED Report Releas ed Date/Time: July 06, 2021 09:39 AM COUNT Reporting Lab: [facility] [address] [facility] [address] Performing Lab: [facility] [address] [facility] [address] CBC PLATELETS 238 150 - 400 07/13 Specimen Typ e: BLOOD [place] [#/VOLUME] /2021 No comment en tered. [facility] IN BLOOD BY Ordering Pr ovider: LEYDA COHEN AUTOMATED Report Releas ed Date/Time: July 06, 2021 09:39 AM COUNT Reporting Lab: [facility] [address] [facility] [address] Performing Lab: [facility] [address] [place] [address] CBC PLATELET 9.2 7.4 - 10.4 07/13 Specimen Typ e: BLOOD [place] MEAN VOLUME /2021 No comment e ntered. IS [facility] [ENTITIC Ordering Provi michael: LEYDA COHEN VOLUME] IN Report Relea sed Date/Time: July 06, 2021 09:39 AM BLOOD BY Reporting Lab: [facility] AUTOMATED [address] [facility] [address] COUNT Performing Lab: [facility] [address] [facility] [address] CBC ERYTHROCYTE 12.9 11.5 - 07/13 Specimen Typ e: BLOOD [place] DISTRIBUTIO 14.5 No comment e ntered. IS [facility] N WIDTH Ordering Provid er: LEYDA COHEN [RATIO] BY Report Relea sed Date/Time: July 06, 2021 09:39 AM AUTOMATED Reporting Lab : [facility] [place] [address] Performing Lab: [facility] [address] [facility] [address] CREATININ CREATININE 0.9 0.7 - 1.2 07/13 Specimen Type: PLASMA [place] E(INCLUDE [MASS/VOLUM /2021 No comment entered. IS [facility] S EGFR) E] IN SERUM Ordering Pr ovider: LEYDA COHEN OR PLASMA Report Releas ed Date/Time: July 06, 2021 09:39 AM Reporting Lab: [facility] [place] [address] Performing Lab: [facility] [place] [address] CREATININ CREAT 84 60 07/13 Specimen Type: PLASMA [place] E(INCLUDE EGFR(CKD-EP /2021 No comment entered. IS [facility] S EGFR) I) Ordering Provid er: LEYDA COHEN Report Released Date/Time: July 06, 2021 09:39 AM Reporting Lab: [facility] [address] [facility] [address] Performing Lab: [facility] [address] [facility] [address] ALT/SGPT ALANINE 12 <55 - 55 07/13 Specimen Type: PLASMA [place] AMINOTRANSF /2021 No comment e ntered. IS [facility] ERASE Ordering Provid er: LEYDA COHEN [ENZYMATIC Report Relea sed Date/Time: July 06, 2021 09:39 AM ACTIVITY/VO Reporting L ab: [facility] LUME] IN [address] [address] SERUM OR Performing Lab : [facility] PLASMA [place] [address] AST/SGOT ASPARTATE 16 <34 - 34 05 Specimen Typ e: PLASMA [place] AMINOTRANSF /2021 No comment e ntered. IS [facility] ERASE Ordering Provid er: LEYDA COHEN [ENZYMATIC Report Relea sed Date/Time: July 06, 2021 09:39 AM ACTIVITY/VO Reporting L ab: [facility] LU[place]] IN [address] [address] SERUM OR Performing Lab : [facility] [place]MA [place] [address] BASIC CREATININE 0.9 0.7 - 1.2 01/03 Specimen Ty pe: PLASMA [place] METABOLIC [MASS/VOLUM /2020 No comment entered. IS [facility] PANEL+MG E] IN SERUM Ordering P rovider: DERRICK GEORGE OR PLASMA Report Releas ed Date/Time: Dec 24, 2019 02:11 PM Reporting Lab: [facility] [place] [address] Performing Lab: [facility] [place] [address] BASIC UREA 21 8 - 26 01/03 Specimen Type: P LASMA [place] METABOLIC NITROGEN /2020 No comment en tered. IS [facility] PANEL+MG [MASS/VOLUM Ordering P rovider: DERRICK GEORGE E] IN SERUM Report Rele ased Date/Time: Dec 24, 2019 02:11 PM OR PLASMA Reporting Lab : [facility] [place] [address] Performing Lab: [facility] [place] [address] BASIC GLUCOSE 101 74 - 100 01/03 H Specimen Type: PLASMA [place] METABOLIC [MASS/VOLUM /2020 No comment entered. IS [facility] PANEL+MG E] IN SERUM Ordering P rovider: DERRICK GEORGE OR PLASMA Report Releas ed Date/Time: Dec 24, 2019 02:11 PM Reporting Lab: [facility] [place] [address] Performing Lab: [facility] [place] [address] BASIC SODIUM 140 136 - 145 01/03 Specimen Type: PLASMA [place] METABOLIC [MOLES/VOLU /2020 No comment entered. IS [facility] PANEL+MG ME] IN Ordering Provi michael: DERRICK GEORGE SERUM OR Report Release d Date/Time: Dec 24, 2019 02:11 PM PLASMA Reporting Lab: [facility] [place] [address] Performing Lab: [facility] [address] BASIC POTASSIUM 3.7 3.5 - 5.1 01/03 Specimen Typ e: PLASMA [place] METABOLIC [MOLES/VOLU No comment entered. IS [facility] PANEL+MG ME] IN Ordering Provi michael: DERRICK GEORGE SERUM OR Report Release d Date/Time: Dec 24, 2019 02:11 PM PLASMA Reporting Lab: [facility] [place] [place] [address] Performing Lab: [facility] [place] [address] BASIC CHLORIDE 107 98 - 107 01/03 Specimen Type: PLASMA [place] METABOLIC [MOLES/VOLU No comment entered. IS [facility] PANEL+MG ME] IN Ordering Provi michael: DERRICK GEORGE SERUM OR Report Release d Date/Time: Dec 24, 2019 02:11 PM PLASMA Reporting Lab: [facility] [place] [address] Performing Lab: [facility] [place] [address] BASIC CARBON 26 22 - 29 01/03 Specimen Type: P LASMA [place] METABOLIC DIOXIDE, No comment en tered. IS [facility] PANEL+MG TOTAL Ordering Provi michael: DERRICK GEORGE [MOLES/VOLU Report Rele ased Date/Time: Dec 24, 2019 02:11 PM ME] IN Reporting Lab: [facility] SERUM OR [facility] [address] PLASMA Performing Lab: [facility] [address] [facility] [address] BASIC CALCIUM 9.4 8.4 - 10.2 01/03 Specimen Type : PLASMA [place] METABOLIC [MASS/VOLUM No comment entered. IS [facility] PANEL+MG E] IN SERUM Ordering P rovider: DERRICK GEORGE OR PLASMA Report Releas ed Date/Time: Dec 24, 2019 02:11 PM Reporting Lab: [facility] [place] [address] Performing Lab: [facility] [address] [place] [address] BASIC MAGNESIUM 2.0 1.6 - 2.6 01/03 Specimen Typ e: PLASMA [place] METABOLIC [MASS/VOLUM /2020 No comment entered. IS [facility] PANEL+MG E] IN SERUM Ordering P rovider: DERRICK GEORGE OR PLASMA Report [facility] ed Date/Time: Dec 24, 2019 02:11 PM Reporting Lab: [facility] [place] [address] Performing Lab: [facility] [place] [address] BASIC ANION GAP 7 5 - 15 01/03 Specimen Type: PLASMA [place] METABOLIC IN SERUM OR /2020 No comment entered. IS [facility] PANEL+MG PLASMA Ordering Provi michael: DERRICK GEORGE Report Released Date/Time: Dec 24, 2019 02:11 PM Reporting Lab: [facility] [place] [address] Performing Lab: [facility] [place] [address] BASIC GLOMERULAR 80 60 01/03 Specimen Type : PLASMA [place] METABOLIC FILTRATION /2020 No comment entered. IS [facility] PANEL+MG RATE/1.73 Ordering Pro vider: DERRICK GEORGE SQ Report Released Date/Time: Dec 24, 2019 02:11 PM M.PREDICTED Reporting L ab: [facility] [VOLUME [place] [address] RATE/AREA] Performing L ab: [facility] IN SERUM, [address] [facility] [address] PLASMA OR BLOOD BY CREATININE- BASED FORMULA (CKD-EPI) CBC LEUKOCYTES 8.11 4.0 - 11.0 01/03 Specimen T ype: BLOOD [place] [#/VOLUME] /2020 No comment en tered. IS [facility] IN BLOOD BY Ordering Pr ovider: DERRICK GEORGE AUTOMATED Report [facility] ed Date/Time: Dec 24, 2019 02:11 PM COUNT Reporting Lab: [facility] [place] [address] Performing Lab: [facility] [place] [address] CBC ERYTHROCYTE 4.21 4.6 - 6.2 01/03 L Specimen T ype: BLOOD [place] S /2020 No comment enter ed. IS [facility] [#/VOLUME] Ordering Pro vider: DERRICK GEORGE IN BLOOD BY Report Rele ased Date/Time: Dec 24, 2019 02:11 PM AUTOMATED Reporting Lab : [facility] COUNT [address] [place] [address] Performing Lab: [facility] [address] [place] [address] CBC HEMOGLOBIN 13.6 13.5 - 01/03 Specimen Type : BLOOD [place] [MASS/VOLUM 17.9 No comment e ntered. IS [facility] E] IN BLOOD Ordering Pr ovider: DERRICK GEORGE Report Released Date/Time: Dec 24, 2019 02:11 PM Reporting Lab: [facility] [place] [address] Performing Lab: [facility] [address] [place] [address] CBC HEMATOCRIT 41.5 41 - 54 01/03 Specimen Type : BLOOD [place] [VOLUME /2020 No comment enter ed. IS [facility] FRACTION] Ordering Prov ider: DERRICK GEORGE OF BLOOD BY Report Rele ased Date/Time: Dec 24, 2019 02:11 PM AUTOMATED Reporting Lab : [facility] [place] [address] Performing Lab: [facility] [place] [address] CBC MCV 98.6 80 - 100 01/03 Specimen Type: BLOOD [place] [ENTITIC /2020 No comment ente red. IS [facility] VOLUME] BY Ordering Pro vider: DERRICK GEORGE AUTOMATED Report Releas ed Date/Time: Dec 24, 2019 02:11 PM COUNT Reporting Lab: [facility] [place] [address] Performing Lab: [facility] [place] [address] CBC MCH 32.3 27 - 33 01/03 Specimen Type: B LOOD [place] [ENTITIC /2020 No comment ente red. IS [facility] MASS] BY Ordering Provi michael: DERRICK GEORGE AUTOMATED Report Releas ed Date/Time: Dec 24, 2019 02:11 PM COUNT Reporting Lab: [facility] [place] [address] Performing Lab: [facility] [address] [place] [address] CBC MCHC 32.8 32.0 - 01/03 Specimen Type: B LOOD [place] [MASS/VOLUM 37.5 /2020 No comment e ntered. IS [facility] E] BY Ordering Provid er: DERRICK GEORGE AUTOMATED Report Releas ed Date/Time: Dec 24, 2019 02:11 PM COUNT Reporting Lab: [facility] [place] [address] Performing Lab: [facility] [place] [address] CBC PLATELETS 204 150 - 400 01/03 Specimen Typ e: BLOOD [place] [#/VOLUME] /2020 No comment en tered. IS [facility] IN BLOOD BY Ordering Pr ovider: DERRICK GEORGE AUTOMATED Report Releas ed Date/Time: Dec 24, 2019 02:11 PM COUNT Reporting Lab: [facility] [place] [address] Performing Lab: [facility] [place] [address] CBC PLATELET 9.3 7.4 - 10.4 01/03 Specimen Typ e: BLOOD [place] MEAN VOLUME /2020 No comment e ntered. IS [facility] [ENTITIC Ordering Provi michael: DERRICK GEORGE VOLUME] IN Report Relea sed Date/Time: Dec 24, 2019 02:11 PM BLOOD BY Reporting Lab: [facility] AUTOMATED [address] [facility] [address] COUNT Performing Lab: [facility] [place] [address] CBC ERYTHROCYTE 13.1 11.5 - 01/03 Specimen Typ e: BLOOD [place] DISTRIBUTIO 14.5 /2020 No comment e ntered. IS [facility] N WIDTH Ordering Provid er: DERRICK GEORGE [RATIO] BY Report Relea sed Date/Time: Dec 24, 2019 02:11 PM AUTOMATED Reporting Lab : [facility] COUNT [address] [facility] [address] Performing Lab: [facility] [address] [facility] [address] LIPID CHOLESTEROL 121 <199 - 199 01/03 Specimen Type: PLASMA [place] PANEL,NON [MASS/VOLUM /2020 No comment entered. IS [facility] E] IN SERUM Ordering P rovider: DERRICK GEORGE OR PLASMA Report Releas ed Date/Time: Dec 24, 2019 02:11 PM Reporting Lab: [facility] [place] [address] Performing Lab: [facility] [address] [place] [address] LIPID CHOLESTEROL 46 40 01/03 Specimen Typ e: PLASMA [place] PANEL,NON IN HDL /2020 No comment ent ered. IS [facility] [MASS/VOLUM Ordering P rovider: DERRICK GEORGE E] IN SERUM Report Rele ased Date/Time: Dec 24, 2019 02:11 PM OR PLASMA Reporting Lab : [facility] [place] [address] Performing Lab: [facility] [address] [place] [address] LIPID CHOLESTEROL 58 <99 - 99 01/03 Specimen Ty pe: PLASMA [place] PANEL,NON IN LDL /2020 No comment ent ered. IS [facility] [MASS/VOLUM Ordering P rovider: DERRICK GEORGE] IN SERUM Report Rele ased Date/Time: Dec 24, 2019 02:11 PM OR PLASMA Reporting Lab : [facility] [place] [address] CALCULATION Performing Lab: [facility] [place] [address] LIPID CHOLESTEROL 17 <29 - 29 01/03 Specimen Ty pe: PLASMA [place] PANEL,NON IN VLDL /2020 No comment ent ered. IS [facility] [MASS/VOLUM Ordering P rovider: DERRICK GEORGE L E] IN SERUM Report Rele ased Date/Time: Dec 24, 2019 02:11 PM OR PLASMA Reporting Lab : [facility] BY [facility] [place] [address] CALCULATION Performing Lab: [facility] [place] [address] LIPID CHOLESTEROL 75 <129 - 129 01/03 Specimen Type: PLASMA [place] PANEL,NON NON HDL /2020 No comment ent ered. IS [facility] [MASS/VOLUM Ordering P rovider: DERRICK GEORGE E] IN SERUM Report Rele ased Date/Time: Dec 24, 2019 02:11 PM OR PLASMA Reporting Lab : [facility] [place] [address] Performing Lab: [facility] [place] [address] LIPID TRIGLYCERID 87 <149 - 149 01/03 Specimen Type: PLASMA [place] PANEL,NON E No comment ent ered. IS [facility] [MASS/VOLUM Ordering P gigi: DERRICK GEORGE] IN SERUM Report Rele ased Date/Time: Dec 24, 2019 02:11 PM OR PLASMA Reporting Lab : [facility] [place] [address] Performing Lab: [facility] [place] [address] Vital Signs Combined list of inpatient and outpatient Vital Signs from Department of Defense and Veterans Affairs, ranging from 12 months to all on record, depending upon the facility. Vital Sign Value Date Comments Source SYSTOLIC BLOOD PRESSURE 120 01/20/2022 12:51:29 [facility] DIASTOLIC BLOOD PRESSURE 70 01/20/2022 12:51:29 [facility] PULSE OXIMETRY 99% 01/20/2022 12:51:29 [place] [facility] WEIGHT 170 01/20/2022 12:51:29 [place] [facility] BMI 26kg/m2 01/20/2022 12:51:29 [place] [facility] PAIN 1 01/20/2022 12:51:29 [place] [facility] HEIGHT 68.5 01/20/2022 12:51:29 [place] [facility] TEMPERATURE 97.2 01/20/2022 12:51:29 [place] [facility] PULSE 93 01/20/2022 12:51:29 [place] [facility] RESPIRATION 18 01/20/2022 12:51:29 [place] [facility] Encounters Combined list of: 1) Encounters from Department of Veterans Affairs facilities going back up to the last 18 months. 2) Encounters from the Department of Defense facilities going back up to 280 months. Location Location Encounter Encounter Reason Attending ADM DC Stat us Disposition Source Details Type Number For Provider Date Date Visit Outpatient 28924-908/18 [place] Encounter [id number] [facility] Outpatient 86693-909/14 [place] Encounter [id number] /2021 [facility] Outpatient 19579-0.11/18 [place]AN[place] NA Encounter [id number] /2020 [facility] Outpatient 13140-711/23 [place] Encounter [id number] [facility] Outpatient 44593-111/25 [place] Encounter [id number] /2021 [facility] OFFICE O/P 47539-6 WYATT Blas 01/03 [place] EST MOD [id number] is: DEMETRIO L OLIS MD 30-39 MIN ICD-10- HCS CM I10 Essenti al (primar y) hyperte nsion<b r/>with Provide r Comment s: Hyperte nsion (SCT 1407741 3) [place] [address]-3 Diagnos SKROCH,ALLISON 01/24 [place] 30 MINUTES [id number] is: ET [facility] ICD-10- HCS CM Z71.1 Person w feared hlth complai nt in whom no diagnos is is made
with Provide r Comment s: Person with Feared Health Complai nt [place] whom [place] [address]-9.61 Diagnos SKROCH,ALLISON 02/07 [place] 30 MINUTES [id number] is: ET [facility] MD ICD-10- HCS CM Z60.0 Problem s of adjustm ent to life-cy radha transit ions
with Provide r Comment s: Problem s of Adjustm ent to Life-[place] [address]-7 Diagnos [facility] 03/08 [place] 30 MINUTES [id number] is: ET [facility] ICD-10- HCS CM Z63.79 Other stressf ul life events affecti ng family and househo ld
with Provide r Comment s: Other Stressf ul Life Events Affecti ng Family and Househo ld IMMUNIZATI 33938-5 Diagnos DALE MCCORMICK 03/09 [place] ON ADMIN [id number] is: [facility] ICD-10- HCS CM Z23 Encount er for immuniz ation<b r/>with Provide r Comment s: Encount [place] [address]-0 Diagnos [facility] 04/08 [place] 30 MINUTES [id number] is: ET [facility] MD ICD-10- HCS CM F51.01 Primary insomni a
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
with Provide r Comment s: Adjustm ent Disorde r with depress ed mood Outpatient 08136-4.61 05/13 [place] Encounter [id number] /2021 [facility] Outpatient 76319-0.61 05/16 [place] Encounter [id number] /2022 [facility] Outpatient 65885-961 05/19 [place] Encounter [id number] /2022 [facility] Outpatient 08302-0 Diagnos GLAUSER,NO 06/06 [place] Encounter [id number] is: RA N [facility] ICD-10- HCS CM I48.91 Unspeci fied atrial fibrill ation<b r/>with Provide r Comment s: Atrial fibrill ation ([facility] 6079599 4) Outpatient 46253-061 06/06 [place] Encounter [id number] /2021 [facility] [place] [address] Diagnos EVA, 06/06 [place] DIG [id number] is: SABINE K [facility] ASSMT&MGMT ICD-10- HCS 5-10 CM I48.91 Unspeci fied atrial fibrill ation<b r/>with Provide r Comment s: Atrial fibrill ation (SCT 6221615 4) [place] [address]-6.61 Diagnos SKROCH,ALLISON 06/17 [place] 30 MINUTES [id number] is: ET A [facility] ICD-10- HCS CM F43.20 Adjustm ent disorde r, unspeci fied
with Provide r Comment s: Adjustm ent Disorde r, unspeci fied Outpatient 21225-8.61 07/06 [place] Encounter [id number] /2021 [facility] Outpatient 08609-7.61 07/11 [place] Encounter [id number] [facility] Outpatient 95787-4.61 10/18 [place] Encounter [id number] /2021 [facility] Outpatient 73559-6.61 11/19 [place] Encounter [id number] /2021 [facility] Outpatient 92241-5.20 12/02 LEANDR[place] NA Encounter [id number] [facility] Outpatient 43695-3.61 Diagnos GLAUSER,NO 12/05 [place] Encounter [id number] is: RA N [facility] ICD-10- HCS CM I48.91 Unspeci fied atrial fibrill ation<b r/>with Provide r Comment s: Atrial fibrill ation ([facility] 7784874 4) OFFICE O/P 70799-861 Diagnos OSTENSO,TU 01/20 [place] EST MOD [id number] is: UKKA A /2021 [facility] V A 30-39 MIN ICD-10- HCS CM I10 Essenti al (primar y) hyperte nsion<b r/>with Provide r Comment s: Hyperte nsion (SCT 6644827 3) Social History Combined list of available smoking, tobacco, and other social history from Department of 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 Social History Type Response Date Comment Source Tobacco smoking status VA-TOBACCO FORMER USER 01/20/2022 [facility] NHIS History of tobacco use VA-TOBACCO QUIT 15 YRS 01/20/2022 [facility] OR MORE History of tobacco use VA-TOBACCO FORMER USER 01/03/2021 [facility] History of tobacco use VA-TOBACCO QUIT 15 YRS 06/20/2018 [facility] OR MORE History of tobacco use FORMER TOBACCO USER 7Y 07/09/2017 [facility] OR GREATER History of tobacco use FORMER TOBACCO USER 7Y 07/07/2016 [facility] OR GREATER History of tobacco use FORMER TOBACCO USER 7Y 06/21/2015 [facility] OR GREATER History of tobacco use FORMER TOBACCO USER 7Y 06/08/2014 [facility] OR GREATER History of tobacco use LIFETIME NON-TOBACCO 06/10/2013 [facility] USER History of tobacco use FORMER TOBACCO USER 7Y 08/03/2011 [facility] OR GREATER Advance Directives List of completed, amended, or rescinded Advance Directives on record at Department of Veterans Affairs facilities. An actual copy of the Directive is not included. Date Advance Directive Provider Source 06/19/2013 ADVANCE DIRECTIVE DISCUSSION KENDALL SERRANO [facility]
--- OUTSIDE RECORDS SUMMARY | 2022-01-31 14:21 | XMS_ITS | Encounter Summary ---
:1935 Author Organization Department [facility] Address [address] [place] [id number] Support Name Relationship Address Phone LEEANN SLOAN Unavailable [address] [place], [place] Insurance Providers: All historical and current Section Date Range: From patient's date of to the date document was created.This section includes the names of all active insurance providers for the patient. Insurance Type of Plan Start of End of Group Member Insurance Policy P morenaient's Provider Coverage Name Policy Policy Number ID Provider's Patel's Relationship Coverage Coverage Telephone Name to Policy Number Patel [facility] MEDICARE [facility] Feb 19, [id number] TATY SLOAN ATIENT MCR (WNR) ADVANTAGE (WNR) 2016 8 [id number] [phone] CE 1 Selected Encounter This section includes the information on record at [place] for the Encounter. Date/Time Encounter Type Encounter Reason Provider Source Description Mar 09, 2021 IMMUNIZATION PRIMARY ICD-10-CM Z23 CINDA MCCORMICK 01:45 PM ADMIN CARE/MEDICINE Encounter for ARTHUR L immunization with Provider Comments: Encounter for any immunization IHE Encounter Template Text not used by [place] Assessments - Encounter Diagnoses This section includes the primary and secondary diagnoses documented for the Encounter. Date/Time Primary/Secondary Diagnosis Name Provider Source Diagnosis Mar 09, 2021 PRIMARY Encounter for CINDA MCCORMICK [facility] 01:39 PM immunization ARTHUR L [facility] Plan of Treatment: Future Appointments (+ 6 months) and Future Tests (+/- 45 days) The Plan of Treatment section includes future care activities for the patient from all [place] treatmentfacilities. This section includes future appointments and future orders which are active, pending orscheduled.Future Appointments This section includes appointments that were scheduled to occur 6 months from the date of the Encounter, up to a maximum of 20 appointments. The data comes from all [place] treatment facilities. Appointment Date/Time Appointment Type Appointment Facili ty Name Apr 08, 2021 09:00 AM AMBULATORY - PSYCHIATRY [facility] May 06, 2021 09:00 AM AMBULATORY - PSYCHIATRY [facility] Jun 06, 2021 11:00 AM [facility] - [facility]ICINE [facility] Jun 17, 2021 09:00 AM AMBULATORY - PSYCHIATRY [facility] July 13, 2021 11:00 AM AMBULATORY - NONE [facility] Immunizations: All administered on the encounter date This section contains immunizations associated to the Encounter. Immunization Series Date Issued Reaction Comments ZOSTER RECOMBINANT 2 Mar 09, 2021 Social History: Smoking Status (Most current) and Tobacco Use (All prior to encounter date) This section includes the most current, and the historical, smoking and tobacco-related health factors from the [place] facility where the Encounter took place.Current Smoking Status This section includes the most current smoking, or tobacco-related health factor, from the [place] facility where the Encounter took place. Date/Time Current Smoking Status Comment Facility Jan 03, 2021 11:30 AM VA-TOBACCO FORMER USER [facility] Tobacco Use History This section includes a history of the smoking, or tobacco- related health factors, that were collected on or before the date of the Encounter. The data comes from the [place] facility where the Encounter took place. Date/Time Smoking Status/Tobacco Use Comment Facil it Jan 03, 2021 11:30 AM VA-TOBACCO QUIT 15 YRS OR MORE [facility] June 20, 2018 11:30 AM VA-TOBACCO FORMER USER [facility] June 20, 2018 11:30 AM [place]-TOBACCO QUIT 15 YRS OR MORE [facility] July 09, 2017 10:39 AM FORMER TOBACCO USER 7Y OR GREATER [facility] July 07, 2016 01:14 PM FORMER TOBACCO USER 7Y OR GREATER [facility] June 21, 2015 02:23 PM FORMER TOBACCO USER 7Y OR GREATER [facility] Jun 08, 2014 01:51 PM FORMER TOBACCO USER 7Y OR GREATER [facility] Jun 10, 2013 01:11 PM LIFETIME NON-TOBACCO USER [facility] Aug 03, 2011 07:59 AM FORMER TOBACCO USER 7Y OR GREATER [facility] Advance Directives: All historical and current Section Date Range: From patient's date of to the date document was created. This section includes ALL of a patient's completed or amended [place] Advance and Rescinded Directives. The entries below [...] June 19, 2013 ADVANCE DIRECTIVE KENDALL SERRANO [facility] Encounter Notes: All associated encounter notes This section contains the clinical notes associated to the Encounter. Date/Time Encounter Note(s) Provider Source Mar 09, 2021 01:35 PM INTERNAL MEDICINE OUTPATIENT NOTE: CINDA MCCORMICK [facility] LOCAL TITLE: MEDICINE CLINIC NURSING NOTE STANDARD TITLE: INTERNAL MEDICINE OUTPATIENT NOT E DATE OF NOTE: MAR 09, 2021@13:35 ENTRY DATE: MAR 09, 2021@13:35:35 AUTHOR: CINDA MCCORMICK EXP COSIGNER: URGENCY: STATUS: COMPLETED TYPE OF VISIT: Nurse Clinic REASON FOR VISIT: 2nd shingle shot ALLERGIES: FACILITY ALLERGY/ADR -------- No Remote Allergy/ADR Data available for this pa tient [facility] ATENOLOL [facility] LISINOPRIL Herpes Zoster (Shingles) Vaccine: The patient received recombinant zoster vaccine (RZV) 0.5 ml IM in Left deltoid. E Business Specialist: [employer] Lot#s and Expiration Date: [id number] 06/08/22, [id number] 06/08/22 Administered by protocol/policy Complications: None /es/ CINDA MCCORMICK LPN LICENSED PRACTICAL NURSE Signed: 03/09/2021 13:39
--- OUTSIDE RECORDS SUMMARY | 2022-01-31 14:21 | XMS_ITS | Encounter Summary ---
:1935 Author Organization Department [facility] Address [address] [place] [address] Support Name Relationship Address Phone LEEANN SLOAN Unavailable [address] [place], [place] Insurance Providers: All historical and current [...] Coverage Telephone Name to Policy Number Patel [facility] MEDICARE [facility] Feb 19, [id number] [facility] (WNR) 2016 8 [id number] [phone] CE 1 Selected Encounter This section includes the information on record at [place] for the Encounter. 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 This section includes future appointments and future orders which are active, pending orscheduled.Future Appointments This section includes appointments that were scheduled to occur 6 months from the date of the Encounter, up to a maximum of 20 appointments. The data comes from all [place] treatment facilities. Appointment Date/Time Appointment Type Appointment Facili ty Name May 06, 2021 09:00 AM AMBULATORY - PSYCHIATRY [facility] Jun 06, 2021 11:00 AM AMBULATORY - MEDICINE [facility] Jun 17, 2021 09:00 AM AMBULATORY - PSYCHIATRY [facility] July 13, 2021 11:00 AM AMBULATORY - NONE [facility] Social History: Smoking Status (Most current) and Tobacco Use (All prior to encounter date) This section includes the most current, and the historical, smoking and tobacco-related health factors from the [place] facility where the Encounter took place.Current Smoking Status This section includes the most current smoking, or tobacco-related health factor, from the [place] facility where the Encounter took place. Date/Time Current Smoking Status Comment Facility Jan 03, 2021 11:30 AM VA-TOBACCO FORMER USER MIN [facility] Tobacco Use History This section includes a history of the smoking, or tobacco- related health factors, that were collected on or before the date of the Encounter. The data comes from the [place] facility where the Encounter took place. Date/Time Smoking Status/Tobacco Use Comment Facil it Jan 03, 2021 11:30 AM [place]-TOBACCO QUIT 15 YRS OR MORE [facility] June 20, 2018 11:30 AM VA-TOBACCO FORMER USER [facility] June 20, 2018 11:30 AM [place]-TOBACCO QUIT 15 YRS OR MORE [facility] July 09, 2017 10:39 AM FORMER TOBACCO USER 7Y OR GREATER [facility] July 07, 2016 01:14 PM FORMER TOBACCO USER 7Y OR GREATER [facility] June 21, 2015 02:23 PM FORMER TOBACCO USER 7Y OR GREATER [facility] Jun 08, 2014 01:51 PM FORMER TOBACCO USER 7Y OR GREATER [facility] Jun 10, 2013 01:11 PM LIFETIME NON-TOBACCO USER [facility] Aug 03, 2011 07:59 AM FORMER TOBACCO USER 7Y OR GREATER [facility] Advance Directives: All historical and current Section Date Range: From patient's date of to the date document was created. This section includes ALL of a patient's completed or amended [place] Advance and Rescinded Directives. The entries below indicate that a directive exists for the patient, but an actual copy is not included with this document. The data comes from all [place] facilities. Date Advance Directives Provider Source June 19, 2013 ADVANCE DIRECTIVE DISCUSSION KENDALL SERRANO [facility] June 19, 2013 ADVANCE DIRECTIVE KENDALL SERRANO [facility] Encounter Notes: All associated encounter notes This section contains the clinical notes associated to the Encounter. Date/Time Encounter Note(s) Provider Source Apr 08, 2021 09:00 AM MENTAL HEALTH E & M INTERDISCIPLINARY NOTE: TAMI ROBINS [facility] LOCAL TITLE: PRIMARY CARE-MH INTEGRATION PROGRE SS NOTE STANDARD TITLE: MENTAL HEALTH E & M INTERDISCIPL INARY NOTE DATE OF NOTE: APR 08, 2021@09:00 ENTRY DATE: APR 08, 2021@09:03:40 AUTHOR: TAMI ROBINS EXP COSIGNER: URGENCY: STATUS: COMPLETED PRIMARY CARE-MENTAL HEALTH INTEGRATION (PCMHI) P PAYAL NOTE The patient is located in their home at the time of service as described at 410.78 (b)(3)(xiv); The distant site [facility] has the technical capability at the time [...] spouse, age (old age:65+) , race (Euro [place]ican), gender (male), Protective factors: Strong social support system, No alcohol or substance abuse/ dependency issues, Compliance with treatment recommendations and m akin appointments, No history of suicide attempts or self-injurious b ehavior, No history of violence or aggression, No history of psychiatr ic hospitalizations, Goal oriented, Financially stable, [facility] Treatment Plan Update: Patient had [facility] Treatment Plan updated at this encounter. /hari/ TAMI ROBINS Psy.D., CLINICAL PSYCHOLOGIST Signed: 04/08/2021 09:32
--- OUTSIDE RECORDS SUMMARY | 2022-01-31 14:25 | XMS_ITS | Encounter Summary ---
:1935 Author Organization [facility] Address [address] [place] [address] Support Name Relationship Address Phone LEEANN SLOAN Unavailable [address] [place], [place] Insurance Providers: All historical and current [...] Coverage Telephone Name to Policy Number Patel [facility] MEDICARE [facility] Feb 19, [id number] TATY SLOANIENT MCR (WNR) [facility] (WNR) 2016 8 [id number] [phone] CE 1 Selected Encounter This section includes the information on record at [place] for the Encounter. Date/Time Encounter Type Encounter Description Reason Provider Source May 19, 2021 11:33 Outpatient Encounter TELEPHONE TRIAGE AM IHE Encounter Template Text not used by [place] Plan of Treatment: Future Appointments (+ 6 [...] 2021 11:00 AM AMBULATORY - MEDICINE [facility] Jun 17, 2021 09:00 AM [...] Comment Facility Jan 03, 2021 11:30 AM [place]-TOBACCO QUIT 15 YRS OR MORE [facility] Tobacco Use History This section includes a history of the smoking, or tobacco- related health factors, that were collected on or before the date of the Encounter. The data comes from the [facility] where the Encounter took place. Date/Time Smoking Status/Tobacco Use Comment [facility] it Jan 03, 2021 11:30 AM [place]-TOBACCO QUIT 15 YRS OR MORE [facility] June 20, 2018 11:30 AM VA-TOBACCO FORMER USER [facility] June 20, 2018 11:30 AM [place]-TOBACCO QUIT 15 YRS OR MORE [facility] [...] this document. The data comes from all [facility]. Date Advance Directives Provider Source June 19, 2013 ADVANCE DIRECTIVE KENDALL SERRANO [facility] June 19, 2013 ADVANCE DIRECTIVE DISCUSSION KENDALL SERRANO [facility] Encounter Notes: All associated encounter notes This section contains the clinical notes associated to the Encounter. Date/Time Encounter Note(s) Provider Source May 19, 2021 11:34 AM REPORT OF CONTACT: RICARDO ALAN [facility] LOCAL TITLE: PATIENT CONTACT NOTE STANDARD TITLE: REPORT OF CONTACT DATE OF NOTE: MAY 19, 2021@11:34 ENTRY DATE: MAY 19, 2021@11:34:12 AUTHOR: RICARDO ALAN EXP COSIGNER: URGENCY: STATUS: COMPLETED PATIENT CONTACT NOTE Has ADDENDA Patient contact Name of [place]: ASIA SLOAN Name/Relationship of Contact if other [...] medi cation can a nurse call me. /hari/ RICARDO ALAN Advanced Medical Support Assistance Signed: 05/19/2021 11:36 Receipt Acknowledged By: 05/20/2021 15:27 /hari/ GEORGIE MERCEDES RN RN Pact Security Auditor 05/27/2021 16:35 /hari/ DERRICK GEORGE APRN, MANDY Nurse Practitioner 05/20/2021 ADDENDUM STATUS: COMPLETED Returned phone call to Dahiana sotelo, , and message was taken to pass on to [place] to fax requested information/orders to clinic fax [phone] identifying assigned Provider's name on cover sh eet. Provided auto service writer's direct phone number. /hari/ GEORGIE MERCEDES RN RN Pact Security Auditor Signed: 05/20/2021 15:32 05/27/2021 ADDENDUM STATUS: COMPLETED I placed an EP consult to help with this. /hari/ DERRICK GEORGE APRN, MANDY Nurse Practitioner Signed: 05/27/2021 16:36
--- OUTSIDE RECORDS SUMMARY | 2022-01-31 14:25 | XMS_ITS | Encounter Summary ---
:1935 Author Organization Department [facility] Address [address] [place] [address] Support Name Relationship Address Phone LAW SLOAN Unavailable [address] [place], [place] Insurance Providers: All historical and current Section Date Range: From patient's date of to the date document was created.This section includes the names of all active insurance providers for the patient. Insurance Type of Plan Start of End of Group Member Insurance Policy P morenachandrika's Provider Coverage Name Policy Policy Number ID Provider's Patel's Relationship Coverage Coverage Telephone Name to Policy Number Patel [facility] MEDICARE [facility] Feb 19, [id number] TATY SLOANIENT MCR (WNR) [facility] (WNR) 2016 09 [id number] [phone] CE 1 Selected Encounter This section includes the information on record at [place] for the Encounter. Date/Time Encounter Type Encounter Reason Provider Source Description Jun 06, 2021 Outpatient TELEPHONE/MEDICIN ICD-10-CM I48.91 GLAUSER,NO RA 11:00 AM Encounter E Unspecified N atrial fibrillation with Provider Comments: Atrial fibrillation ([facility] [id number]) IHE Encounter Template Text not used by [place] Assessments - Encounter Diagnoses This section includes the primary and secondary diagnoses documented for the Encounter. Date/Time Primary/Secondary Diagnosis Name Provider Source Diagnosis Jun 06, 2021 PRIMARY Unspecified atrial [facility] 11:00 AM fibrillation N [facility] Plan of Treatment: Future Appointments (+ 6 [...] 17, 2021 09:00 AM AMBULATORY - PSYCHIATRY [facility] July 13, 2021 11:00 AM AMBULATORY - NONE [facility] Dec 05, 2021 09:30 AM AMBULATORY - MEDICINE [facility] Social History: Smoking Status (Most current) [...] 2021 11:30 AM [place]-TOBACCO FORMER USER [facility] Tobacco Use History This section includes a history of the smoking, or tobacco- related health factors, that were collected on or before the date of the Encounter. The data comes from the [place] facility where the Encounter took place. Date/Time Smoking Status/Tobacco Use Comment Facil it Jan 03, 2021 11:30 AM OR-TOBACCO QUIT 15 YRS OR MORE [facility] June 20, 2018 11:30 AM VA-TOBACCO FORMER USER [facility] June 20, 2018 11:30 AM OR-TOBACCO QUIT 15 YRS OR MORE [facility] July 09, 2017 10:39 AM FORMER TOBACCO USER 7Y OR GREATER [facility] July 07, 2016 01:14 PM FORMER TOBACCO USER 7Y OR GREATER [facility] June 21, 2015 02:23 PM FORMER TOBACCO USER 7Y OR GREATER [facility] Jun 08, 2014 01:51 PM FORMER TOBACCO USER 7Y OR GREATER [facility] Jun 10, 2013 01:11 PM LIFETIME NON-TOBACCO USER [facility] Aug 03, 2011 07:59 AM FORMER TOBACCO USER 7Y OR GREATER [facility] Advance Directives: All historical and current Section Date Range: From patient's date of to the date document was created. This section includes ALL of a patient's completed or amended [place] Advance and Rescinded Directives. The entries below indicate that a directive exists for the patient, but an actual copy is not included with this document. The data comes from all [facility]. Date Advance Directives Provider Source June 19, 2013 ADVANCE DIRECTIVE DISCUSSION KENDALL SERRANO [facility] June 19, 2013 ADVANCE DIRECTIVE KENDALL SERRANO [facility] Encounter Notes: All associated encounter notes This section contains the clinical notes associated to the Encounter. Date/Time Encounter Note(s) Provider Source Jun 06, 2021 10:25 AM CARDIOLOGY DIAGNOSTIC STUDY CONSULT: COURTNEY DAWKINS [facility] LOCAL TITLE: CARDIAC ELECTROPHYSIOLOGY CONSULT STANDARD TITLE: [...] fibrillation. He sees an el ectrophysiologist through [facility] (Dr Briscoe) a nd they have discussed [...] source for the followin. Hypertension (SNOMED CT [id number]) 2. Gastroesophageal reflux disease (SNOMED CT 2 [id number]) 3. Hearing Loss, Partial * 4. Tinnitus * 5. 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 Personal History of Peptic Ulcer Disease 8. CO-MANAGE - Dr. Law Lawson, [facility] - PCP Dr. Robbins 9. Tobacco Use Disorder, Remission 10. Hyperlipidemia (SNOMED CT [id number]) 11. Atrial fibrillation 12. Insomnia PAST SOCIAL [...] right atrial pressure. -Latest EKG (2018): Sinus chre 58 with single PVC ALLERGIES ATENOLOL (Jan 03, 2021) LISINOPRIL (Jan 03, 2021) FACILITY ALLERGY/ADR -------- No Remote Allergy/ADR Data available for this pa anamika [facility] ATENOLOL [facility] LISINOPRIL MEDICATIONS Active and Recently Outpatient Medicatio [...] He follows with Dr. Briscoe, JACK at [facility] , and has been recommended to make a switch from amiodaron e to dronedarone for better side effect profile. He has previously had concerns about this given lower efficacy of dronedarone, but is now interested in proceed ing after a discussion with his animal sticker. We will be happy to prescribe this for h im through the [place] for cost reasons. He is working with Dr. Briscoe's office and she has instructed him to stop amiodarone for several days, then begin dronedarone and get an EKG a few days later, and monitor LFTs q 6 months. I h ave given him our fax number to fax [...] 60 minutes /hari/ COURTNEY JAMIL PA-C PHYSICIAN ENGRAVING OPERATOR Signed: 06/06/2021 15:55
--- OUTSIDE RECORDS SUMMARY | 2022-01-31 14:31 | XMS_ITS | Encounter Summary ---
:1935 Author Organization [facility] of [facility] rs Address [address] [place] [id number] Support Name Relationship Address Phone LEEANN SLOAN Unavailable [address] [place], [place] Insurance Providers: All historical and current [...] Patel [place] MEDICARE MCR Feb 19, [id number] TATY SLOAN [facility] (WNR) [facility] (WNR) 2016 09 [id number] [phone] Selected Encounter This section includes the information on record at AL for the Encounter. Date/Time Encounter Type Encounter Reason Provider Source Description Jan 20, 2022 OFFICE O/P EST PRIMARY ICD-10-CM I10 [id number] Zheng 02:00 PM MOD 30-39 MIN CARE/MEDICINE Essential A A (primary) hypertension with Provider Comments: Hypertension ([facility] [id number]) IHE Encounter Template Text not used by AL Assessments - Encounter Diagnoses This section includes the primary and secondary diagnoses documented for the Encounter. Date/Time Primary/Secondary Diagnosis Name Provider Source Diagnosis Jan 20, 2022 PRIMARY Essential DAVID FARNSWORTH [facility] 02:08 PM (primary) A A [facility] hypertension Jan 20, 2022 SECONDARY [facility] reflux disease A A [facility] without esophagitis Jan 20, 2022 SECONDARY Unspecified atrial CELIARICHARDCarmen [facility] 02:08 PM fibrillation A A [facility] Lab Results: +/- 30 days of the encounter This section includes the Chemistry and Hematology Lab Results on record with AL for the patient. Radiology Reports and Pathology Reports are provided separately, in subsequent sections.Lab Results This section contains the Chemistry/Hematology Results that were resulted 30 days before or 30 daysafter the date of the Encounter. Date/Time Source Result Type Result - Unit Interpretation Reference Range Comment Jan 20, 2022 12:48 [facility] BASIC METABOLIC Specimen Type: PLASMA PM PANEL+MG Comment: Elevat ed triglyceride result from a non-fasting specimen should be interpreted with caution. A fasting panel is recommended for accurate triglycerides when trigs are >200 from a non-fasting specimen. Ordering Provid er: DERRICK GEORGE Report Released Date/Time: Jan 06, 2021 11:31 AM Reporting Lab: [facility] [id number] Performing Lab: [facility] [id number] CREATININE 1.4 H 0.7-1.2 UREA NITROGEN 35 H 8-26 GLUCOSE 102 H 70-100 SODIUM 139 136-145 POTASSIUM 3.8 3.5-5.1 CHLORIDE 104 98-107 CO2 26 22-29 CALCIUM 9.5 8.4-10.2 MAGNESIUM 1.9 1.6-2.6 ANION GAP 9 5-15 CREAT EGFR(CKD-EPI) 49 L >60 Jan 20, 2022 12:48 PM [facility] CBC Specim en Type: BLOOD No comment enter ed. Ordering Provid er: DERRICK GEORGE Report Released Date/Time: Jan 06, 2021 11:31 AM Reporting Lab: [facility] [id number] Performing Lab: [facility] [id number] WBC 7.76 4.0-11.0 RBC 4.02 L 4.6-6.2 HGB 13.6 13.5-17.9 HCT 38.9 L 41-54 MCV 96.8 80-100 MCH 33.8 H 27-33 MCHC 35.0 32.0-37.5 PLT 193 150-400 MPV 9.0 7.4-10.4 RDW 12.9 11.5-14.5 Jan 20, 2022 [facility] LIPID PANEL,NON-FASTING Spec imen Type: PLASMA 12:48 PM Comment: Elevat ed triglyceride result from a non-fasting specimen should be interpreted with caution. A fasting panel is recommended for accurate triglycerides when trigs are >200 from a non-fasting specimen. Ordering Provid er: DERRICK GEORGE Report Released Date/Time: Jan 06, 2021 11:31 AM Reporting Lab: [facility] [address] [facility] [id number] Performing Lab: [facility] [address] [facility] [id number] CHOLESTEROL 127 <199 .HDL 33 L >40 LDL CALCULATION 43 <99 VLDL CALCULATION 51 H <29 NON HDL CHOLESTEROL 94 <129 TRIG(NON FASTING) 256 H <149 Vital Signs: All taken on the encounter date This section contains inpatient and outpatient Vital Signs collected on the date of the Encounter. Date/Time Temperature Pulse Blood Respiratory SP02 Pain Height Weight Keegan dy Source Pressure Rate Mass Index Jan 20, 97.2 F 93 120/70 18 /min 99 % 1 68.5 in 170 lb 26 MINNE AP 2021 12:51 /min mm[Hg] IS [facility] Social History: Smoking Status (Most current) and Tobacco Use (All prior to encounter date) This section includes the most current, and the historical, smoking and tobacco-related health factors from the AL facility where the Encounter took place.Current Smoking Status This section includes the most current smoking, or tobacco-related health factor, from the AL facility where the Encounter took place. Date/Time Current Smoking Status Comment Facility Jan 20, 2022 02:00 PM VA-TOBACCO FORMER USER [facility] Tobacco Use History This section includes a history of the smoking, or tobacco- related health factors, that were collected on or before the date of the Encounter. The data comes from the AL facility where the Encounter took place. Date/Time Smoking Status/Tobacco Use Comment [facility] Jan 20, 2022 02:00 PM VA-TOBACCO QUIT 15 YRS OR MORE [facility] Jan 03, 2021 11:30 AM VA-TOBACCO FORMER USER [facility] Jan 03, 2021 11:30 AM VA-TOBACCO QUIT 15 YRS OR MORE [facility] June 20, 2018 11:30 AM VA-TOBACCO FORMER USER [facility] June 20, 2018 11:30 AM VA-TOBACCO QUIT 15 YRS OR MORE [facility] July 09, 2017 10:39 AM FORMER TOBACCO USER 7Y OR GREATER [facility] July 07, 2016 01:14 PM FORMER TOBACCO USER 7Y OR GREATER [facility] June 21, 2015 02:23 PM FORMER TOBACCO USER 7Y OR GREATER [facility] Jun 08, 2014 01:51 PM FORMER TOBACCO USER 7Y OR GREATER [facility] Jun 10, 2013 01:11 PM LIFETIME NON-TOBACCO USER [facility] Aug 03, 2011 07:59 AM FORMER TOBACCO USER 7Y OR GREATER [facility] Advance Directives: All historical and current Section Date Range: From patient's date of to the date document was created. This section includes ALL of a patient's completed or amended AL Advance and Rescinded Directives. The entries below indicate that a directive exists for the patient, but an actual copy is not included with this document. The data comes from all AL facilities. Date Advance Directives Provider Source June 19, 2013 ADVANCE DIRECTIVE DISCUSSION KENDALL SERRANO [facility] June 19, 2013 ADVANCE DIRECTIVE KENDALL SERRANO [facility] Encounter Notes: All associated encounter notes This section contains the clinical notes associated to the Encounter. Date/Time Encounter Note(s) Provider Source Jan 20, 2022 01:44 INTERNAL MEDICINE NOTE: OSCAR FARNSWORTH [facility] PM LOCAL TITLE: MEDICINE CLINIC NOTE STANDARD TITLE: INTERNAL MEDICINE NOTE DATE OF NOTE: JAN 20, 2022@13:44 ENTRY DATE: JAN 20, 2022@13:45:09 AUTHOR: OSCAR FARNSWORTH EXP COSIGNER: URGENCY: STATUS: COMPLETED SUBJECTIVE: Patient comes in for rhm. comanaged. 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 no tobacco, scant etoh ros -gen: feeling well enough, overall. feeling reas onably rested -heent: no anne's, no vision/hearing concerns -resp: no concerns -cv; as above. stamina is decent. no cp's. -gi: no concerns -msk: no concerns...right shoulder can be proble matic. -integ: no concerns. Active Outpatient Medications (excluding Supplie s): Outpatient Medications Status 1) APIXABAN 5MG TAB TAKE ONE TABLET BY MOUTH DESTINEE RY 12 ACTIVE HOURS TO PREVENT STROKE DUE TO ATRIAL FIBRILLAT ION Non-VA Medications Status 1) Non-VA ATORVASTATIN CALCIUM 20MG TAB 10MG OLINDA TH AT ACTIVE BEDTIME 2) Non-VA CHONDROITIN/GLUCOSAMINE CAP/TAB MOUTH EVERY ACTIVE DAY 3) Non-VA CLOPIDOGREL BISULFATE 75MG TAB 75MG MO UTH ACTIVE 4) Non-VA DICLOFENAC NA 1% TOP GEL 2 GRAMS TOPIC ALLY ACTIVE NEEDED 5) Non-VA FUROSEMIDE 20MG TAB 20MG MOUTH EVERY D AY ACTIVE 6) Non-VA GABAPENTIN 300MG CAP 300MG MOUTH EVERY DAY ACTIVE 7) Non-VA HYDROCHLOROTHIAZIDE 25MG TAB 25MG MOUT H EVERY ACTIVE DAY 8) Non-VA IBUPROFEN 400MG TAB 400MG MOUTH THREE TIMES A ACTIVE DAY NEEDED 9) Non-VA LOSARTAN 50MG TAB 50MG MOUTH TWICE A D AY ACTIVE 10) Non-VA METOPROLOL SUCCINATE 25MG SA TAB 12.5 MG MOUTH ACTIVE EVERY DAY 11) Non-VA MULTIVITAMIN CAP/TAB 1 TABLET MOUTH E VERY DAY ACTIVE 12) Non-VA NITROGLYCERIN 0.4MG SL TAB 0.4 MG UND ER THE ACTIVE TONGUE NEEDED 13) Non-VA OMEPRAZOLE 20MG EC CAP 40MG MOUTH DESTINEE RY DAY ACTIVE 14) Non-VA TRIAMCINOLONE 0.5% CREAM,TOP TOPICALL Y ACTIVE 15 Total Medications Objective: BLOOD PRESSURE: High: 120/70 (JAN 20, 2022@12:51:29) Low: 120/7 0 (JAN 20, 2022@:51:29) HEIGHT: High: 68.5 (JAN 20, 2022@:51:29) Low: 68.5 (D 2021@:51:29) PAIN: High: 1 (JAN 20, 2022@12:51:29) Low: 1 (JAN 20, 2022@12:51:29) PULSE: High: 93 (JAN 20, 2022@:51:29) Low: 93 (Jan@:51:) RESPIRATION: High: 18 (JAN 20, 2022@:51:29) Low: 18 (Jan@:51:29) TEMPERATURE: High: 97.2 (JAN 20, 2022@:51:29) Low: 97.2 (2021@:51:29) WEIGHT: High: 170 (JAN 20, 2022@:51:29) Low: 170 (JAN 20, 2022@:51:) -General: no acute distress, healthy appearing m amy -HEENT: supple, no masses -Resp: clear to auscultation throughout on the left, decreased bs in right base. 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 -cad: s/p another reinier on 01/11/22. has been rest arted on plavix for a year. toerlating this well. is in cardiac rehab. -right hsoulder pain: has been told he has rc in jury and seems to have gotten tx'd locally for this. -decreased bs on right base: has been evaluated by lmd and pt makes allusion to past asbestos exposure. -afib: regulary today as is now paced. continue apixaban. discussed risks of plavix and apixaban. #HTN: tood today. -creatinine is up a bit from last year. review of chart shows that it was ~1.3 on 01/12/22 at local MD. won michael if there might have been some damage associated with pci. f/u at [facility]. #HLD: using statin given hx of cad, continue -f/u 1 year for this comanaged pt. All the above issues, labs and imaging studies w ere discussed and Patient indicated readiness to learn, verbalized understanding, agreeme nt and satisfaction with the treatment plan. All patient concerns and questions were addressed by the end of the visit. MEDICATION RECONCILIATION: () I have reviewed the medication list with the patient/surrogate and no changes are indicated. (X) I have reviewed the medication list with the patient/surrogate and have made the appropriate changes to the [facility] medica tion list. /hari/ Juni Farnsworth MD STAFF PHYSICIAN Signed: 01/20/2022 14:08 Jan 20, 2022 12:53 INTERNAL MEDICINE OUTPATIENT NOTE: CORNELIA MUÑOZ [facility] LOCAL TITLE: MEDICINE CLINIC NURSING NOTE STANDARD TITLE: INTERNAL MEDICINE OUTPATIENT NOT E DATE OF NOTE: JAN 20, 2022@12:53 ENTRY DATE: JAN 20, 2022@12:53:26 AUTHOR: ISAIAS MUÑOZ EXP COSIGNER: URGENCY: STATUS: COMPLETED TYPE OF VISIT: Appointment Check In Type of appointment: In-person appointment REASON FOR VISIT: annual ALLERGIES: ATENOLOL (Jan 03, 2021) LISINOPRIL (Jan 03, 2021) VITAL SIGNS: Blood Pressure: 120/70 (01/20/2022 12:51) Pulse: 93 (01/20/2022 12:51) Respiration: 18 (01/20/2022 12:51) Temperature: 97.2 F [36.2 C] (01/20/2022 12:51) Weight: 170 lb [77.11 kg] (01/20/2022 12:51) Height: 68.5 in [174.0 cm] (01/20/2022 12:51) BMI: 25.5 O2 Sat: 99% (01/20/2022 12:51) Pain: 1 (01/20/2022 12:51) PAIN SCREEN: Patient is not having significant pain that the y wish to discuss with their provider today. MEDICATION Over the Counter/Herbal Medications: The patient denies taking any outside medicatio ns or herbals. Suicide Screen: C-SSRS Screening [place] Suicide Severity Rating Scale (C-SSRS) screener 1. [...] required due to responses to other questions. Toxic Exposure Screening: The /caregiver was asked if they believe the [place] experienced any toxic exposure(s), such as Open Burn Pits/Airbo rne Hazards, [place] related exposures, Agent [place], Radiation, con taminated water at [place] or other such exposures, while serving in the [employer]. 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 The [place]/caregiver was informed that we will continue to ask this screening question every 5 years. They can cont act their provider/healthcare team if they have concerns about exposures and would like to be screened sooner. Printed information was offered and provided if desired. PTSD Screening: PC-PTSD-5 A PTSD screening test (PC-PTSD-5) was negative (score=0). Have you ever had any experience that was so fr ightening, horrible or upsetting that, IN THE PAST MONTH, you: Have you ever experienced this kind of event? NO 1. Had nightmares about the event(s) or thought about the event(s) when you did not want to? Response not required due to responses to other questions. 2. Tried hard not to think about the event(s) o r went out of your way to avoid situations that reminded you of the ev ent(s)? Response not required due to responses to other questions. 3. Been constantly on guard, watchful, or easil y startled? Response not required due to responses to other questions. 4. [place] numb or detached from people, activitie s, or your surroundings? Response not required due to responses to other questions. 5. [place] guilty or unable to stop blaming yourse lf or others for the event(s) or any problems the event(s) may have caused? Response not required due to responses to other questions. Tobacco Use Screening: The patient is a former tobacco user. The patient quit fifteen or more years ago. Alcohol Use Screen (AUDIT-C): Alcohol Screen: SCREEN [...] required due to responses to other questions. Influenza Immunization: The patient has received the seasonal influenza vaccine for the current season at another location. Date: November, Exact date is unknown Location: [facility] Annual Screening: Fall History Screen During the [...] Home reviewed and given to patient and/or adonisan t other. Script Talk Screen Are you able to read your prescription bottles with your glasses, magnifiers or other aids? Yes or patient not taking any prescriptions. Skin Screen Patient reports any current pressure ulcers, a history of pressure ulcers, or a wound from a medical surgical tech or Patient is bed-confined or a wheelchair-user or Patient requires assistance to transfer/change position No, Skin Screen is Negative Home Abuse/Violence Screen Is your home free of abuse and violence? Yes MOVE! Program Screen Body Mass Index (BMI)= 25.5 [place]: Collection DT Specimen Test Name Result Units R ef Range 06/04/2012 18:09 BLOOD HEMOGLOBIN A1C 5.3 % 4.0 - 6.0 [place] Hgb A1C: No data available [place] Hgb A1C: No data available Point of Care Hgb A1C: POC HGB A1C____ Outpatient Nutrition Screen Body Mass Index (BMI)= 25.5 [place]: Collection DT Specimen Test Name Result Units R ef Range 06/04/2012 18:09 BLOOD HEMOGLOBIN A1C 5.3 % 4.0 - 6.0 [place] Hgb A1C: No data available [place] Hgb A1C: No data available Point of [...] No Patient Health Education Screen BARRIERS/SPECIAL NEEDS: Hearing limitations Visual limitations PREFERRED STYLE OF LEARNING: Listening Client Assistive Service (SLIM) Screen Does the patient require assistance with outpat ient visit? No COVID-19 Immunization Booster: Pfizer monovalent Patient received a prior dose of the Pfizer COV ID-19 Vaccine. Date: November 18, 2020 Series: Series 3 Location: [facility] COVID-19 Immunization Booster: Pfizer Faizan-Sucrose - After January 2021 Patient received a prior dose of the Pfizer COV ID-19 Vaccine. Date: July 11, 2021 Series: Series 4 Location: [facility] COVID-19 Immunization Booster: Pfizer BIVALENT - After 10/19/2021 Date: December 02, 2021 Location: [facility] Td / Tdap Immunization: Prior Td vaccination The patient has previously received the Tetanus , Diphtheria, Pertussis vaccine (Tdap). Date: May 07, 2012 Location: [facility] // ISAIAS MUÑOZ LPN Signed: 01/20/2022 13:07
--- OUTSIDE RECORDS SUMMARY | 2022-01-31 14:36 | XMS_ITS | Clinical Summary ---
:1935 Author Organization [facility] [place] [address] Care Team Providers Name Role Phone Catrina [...] mouth at Coronary artery bedtime. disease involving hamilton coronary artery without angina pectoris, unspecified whether hamilton or transplanted heart, Mixed hyperlipidemia nitroglycerin Place [...] D iscontinued (NITROSTAT) 0.4 mg UNDER THE 22 022 ( *IP sublingual TONGUE EVERY 5 Disc ontinued) tabletIndications: MINUTES IF Chest pain in adult NEEDED FOR UP TO 3 TIMES, IF NO RELIEF CALL 911 atorvastatin (LIPITOR) Take 0.5 45 Tablet 3 11/01/19 Discontinued 20 mg Tablets (10 mg) 22 022 (*IP tabletIndications: by mouth once Discontinued) Mixed hyperlipidemia daily. metoprolol succinate Take 0.5 90 Tablet 3 11/12/19 Discontinued (Toprol XL) 25 mg Tablets (12.5 22 022 (*IP Sustained-Release mg) by mouth Discontinued) tabletIndications: once daily. Paroxysmal atrial fibrillation (HC) sotaloL (BETAPACE) 80 Take 1 Tablet 60 Tablet 0 12/31/1912/20 Discontinued mg tabletIndications: (80 mg) by 22 022 (*IP Persistent atrial mouth two times [...] JOHN YEE [facility]ment[facility] Entered By: FRANCOIS HAMPTON Comment: [...] RPLB. ?? No significant interval change in [place] to 2011. INTERVENTION ?? 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 02/06/2011 Skin cancer 12/02/2009 02/04/2021 Overview: Left Lower Leg: managed by Dr Shields 12/02 Spondylosis, cervical 12/28/2008 01/08/2017 Gout 11/26/2007 01/06/2016 Overview: Doing well off medications 12/30/2012 SVT (supraventricular tachycardia) 05/30/200706/12 Overview: -Holter monitor 05/30/2007 Routine general medical examination at [facility] y 11/13/2006 01/08/2017 Overview: Colonoscopy 12/2006: polyps Recheck in 5 yrs Lumbago 07/19/2006 01/06/2016 Overview: Improved with daily exercises. 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 Chest pain, uns pecified type; Coronary artery disease involving hamilton coronary artery without angina pectoris, unspecified whether hamilton or transplanted heart; Mixed hyperlipi demia; Atrial fibrilla tion, unspecified type (HC); S/P drug elutin g coronary stent placement; Hypertension; NSTEMI (non-ST elevated myocardial infarction) (HC) 01/19/2022 Travel 01/13/2022 Telephone Yinka Bryson Chest Pain 01/10/2022 Office Visit Melina Maza, Post-o p (Discharged PA 01/05- still anne ving shortness of br eath) 01/10/2022 Travel 01/06/2022 Patient Outreach Vicki Rob Prim ary RN Care RN Management; Hos pital F/U (Lace=70) 01/02/2022 - Hospital Encounter [facility], [facility] Hospitalists Chest pain, unspecified type (Primary Dx); 01/05/2022 Of Cardiovascular symptoms; Crystal Rajput MD Coronary artery disease involving hamilton coronary artery without angina pectoris, unspecified whether hamilton or transplanted heart; Megan Sumner MBBS Mixed [...] HOSPITALIST DISCHARGE SUMMAR Y ? ? [facility] Admission Date: 01/02/2022 Discharge Date: [...] elevated mary cardial infarction) (HC) ADDITIONAL COMMENTS CLARAIN G DIAGNOSIS SPECIFICITY Additional Diagnosis Informa tion [...] syndrome Symptoms decision made to transfer to [facility] for further work up. Troponin trend negative. [...] hospital discharge - F/U with CV I [place] in 4-6 weeks - Cardiac rehab in OP [facility] Medication regimen changes: see Hospital Course above. [...] Take 1 Tablet (75 mg) by mo [facility] every morning. Take once daily for 1 year without interruption lidocaine 4 % topical patch For diagnoses: Acute pain of left shoulder Start taking on: December Apply topically to intact s kin to cover most painful area for max 12hr per 24hr period. CHANGE how you take these me dicines Instructions atorvastatin 10 mg tablet For diagnoses: Coronary michelle ry disease involving hamilton coronary artery without angina pectoris, unspecified whether hamilton or transplanted heart, Mixed hyperlipidemia What changed: [...] Take 1 Tablet (20 mg) by mo [facility] every morning. gabapentin 300 mg capsule For diagnoses: Wound of left lower extremity, subsequent encounter Commonly known as: NEURONTIN Take 1 Capsule (300 mg) by mouth at bedtime. glucosamine-chondroitin (250 -200 mg) 250-200 mg capsule 1 tab by mouth once daily hydroCHLOROthiazide 25 mg ta blet For diagnoses: Essential hyp ertension Commonly known as: HCTZ Take 1 Tablet (25 mg) by mo [facility] once daily. losartan 50 mg tablet For diagnoses: Essential hyp ertension Commonly known as: COZAAR Take 1 Tablet (50 mg) by mo [facility] two times daily. metoprolol succinate 25 mg [...] Take 1 Capsule (40 mg) by m [facility] once daily before a meal. sotaloL 80 mg tablet For diagnoses: Atrial fibril lation, unspecified type (HC) Commonly known as: BETAPACE Take 1 Tablet (80 mg) by mo [facility] two times daily before meals. STOP taking these medicines aspirin chewable 81 mg chewa ble tablet Where to get your medicines These medications were sent to [facility] [address] [address] Hours: Open 24 Hours ?? atorvastatin 10 [...] -- POTASSIUM 3.9 4.0 CHLORIDE 105 -- [id number] 26 -- ANIONGAP 6 -- BUN 22 [...] Node Dysfunction Primary MD:??Helio moreno MD?? Primary Transcribing Machine Mechanic:??Obere mbt, ROSELYN Flor Primary EP:??Yinka Bryson MD?? Implanting MD:??Nathanael Bryson MD?? DEVICE DATA Sap Portal Architect??[employer]tr[employer]:??[place] XT DR SRINIVAS Pierre [id number]??Implant Date 12/29/2021 LEAD DATA Atrial Lead: Sap Portal Architect??M edtronic:??Model [id number]??cm Implant Date 12/29/2021 RV Lead: Sap Portal Architect??Medtr onic:??Model 3830-69??cm Implant Date 12/29/2021?? Visit location: [facility] -??[id number] Reason For Evaluation: Same day [...] Cardiac Rehab: C AD with PTCA/Stent Acute [place] Patient Cardiology Follow U p Instructions Please follow up in 4-6 wee ks in cardiology clinic with first available provider, at [facility] (phone: [phone]). Please call to schedule an appoi ntment, otherwise an [facility] coordinator will call you in several [...] on January 10 at 11:35 a.m. at [facility]. If you have questions or con cerns please call the clinic at [phone]. When to follow up: 1 to 5 [...] DIAL 911 Why [facility] you at the [facility]? You were in the hospital fo r NSTEMI. Clinic Request for Cardiolo gy Follow Up Appointment Please call this patient to schedule a follow up appointment within 4-6 weeks of discharge with first available provider at [facility] (phone: [phone]). Type of cardiology follow u p needed: [...] seen and examined today. HERNANDO Bustos Hospitalist, [facility] ? ? [phone] TRICAL ENGINEERING TECHNICIAN 01/02/2022 Nurse/Clinic Staff Only Card iovascular Diagnostic Testing (EKG s/ p dual chamber pacemak er placement 12/29/21/) 01/02/2022 Orders Only Staff, Other Clinical 1 scan : (1-Ord) 01/02/2022 01/02/2022 Telephone Yinka Bryson, Device Check (Pacemaker MD Remote ) 01/02/2022 Travel 12/30/2021 Telephone Yinka Bryson, Medica tion Management MD 12/29/2021 Anesthesia Event Zoraida Bowling, Max Clark, SHARITA 12/29/2021 Hospital Encounter Yinka Bryson, Persistent atrial MD fibrillation (HC) (Primary Zoraida Bowling Dx) MD Blanca Yan Jean J, HIGH SCHOOL BAND TEACHER Discharge Summary - Swati Hackett PA - 12/29/2021 4:01 PM CST [facility] Cardiology Discharge Summary DOA: 12/29/2021 DOD: 12/29/2021 [...] EKG (personally reviewed): 12/29/21: SB, VR 54, WY 194, QRS 122, QT/QTc 450 Echocardiogram 11/04/21 [...] 0939 SODIUM 136 POTASSIUM 3.6 CHLORIDE 102 [id number] 28 BUN 26 H CREATININE 1.04 CALCIUM 9.4 GLUCOSE 99 Recent Labs 12/29/21 0939 PLT 204 DISCHARGE MEDICATIONS Your Home Medicines START taking these medicines Instructions sotaloL 80 mg tablet For diagnoses: Persistent at rial fibrillation (HC) Start taking on: December Commonly known as: BETAPACE Take 1 Tablet (80 mg) by [facility] two times daily before meals. CONTINUE taking [...] Take 1 Tablet (20 mg) by mo [facility] every morning. gabapentin 300 mg capsule For diagnoses: Wound of left lower extremity, subsequent encounter Commonly known as: NEURONTIN Take 1 Capsule (300 mg) by mouth at bedtime. glucosamine-chondroitin (250 -200 mg) 250-200 mg capsule 1 tab by mouth once daily hydroCHLOROthiazide 25 mg ta blet For diagnoses: Essential hyp ertension Commonly known as: HCTZ Take 1 Tablet (25 mg) by mo [facility] once daily. losartan 50 mg tablet For diagnoses: Essential hyp ertension Commonly known as: COZAAR Take 1 Tablet (50 mg) by [facility] two times daily. metoprolol succinate 25 [...] Take 1 Capsule (40 mg) by m [facility] once daily before a meal. Where to get your medicines These medications were sent to [facility] [address] [address] Hours: Open 24 Hours ?? 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 Persistent atrial fibrillati on - controlled on amiodarone f rom 05/2018-11/2021 - intolerance to dronedarone in 06/2021 with whole body swelling - [id number] VASC score 4 (HTN, age 86, CAD) on Eliquis Coronary artery disease - s/p PCI with WILVER to pRCA i n 2020 Hypertension Hyperlipidemia PLAN - Device interrogation/teach - Medications changes: - start sotalol 80 mg BID o n 12/31/21 - EKG on 01/02/22 - Continue all other prior t o admission medications - Eliquis 5 mg BID for cardi o-embolic prevention -[id number] VASC score 4 (HTN, age 86, CAD) - Follow up with primary car e provider on (or near) 01/05/22 for silverlon dressing removal and incision site check - Follow up with device clin ic in 3-4 months as scheduled. . [phone] - Follow up with general car diology in [place] in 3 months - Follow up with EP as direc panda by general cardiology ROSELYN Mcfadden [facility] Cardiac Electrophysiology Future Appointments Date Time Provider [facility] 01/05/2022 12:00 AM [facility] REM OTE TRANSMISSION [facility] 02/06/2022 7:00 AM Helio Hayden MD NFLD NFLD 04/04/2022 10:30 AM [facility] TRICAL ENGINEERING TECHNICIAN 12/29/2021 Travel 12/23/2021 Orders Only Yinka Bryson [...] 12/02/2021 Travel 11/25/2021 Orders Only Yinka Bryson 1 scan: (1-Or d) MD Shanique NFLD-EKG- 2 11/24/2021 Nurse/Clinic Staff Testing ( EKG PER DR. BRYSON ) Only 11/24/2021 Orders Only Lab, [facility] 11/24/2021 Telephone Yinka Bryson Results (EKG) MD Shanique 11/24/2021 Travel 11/11/2021 Office Visit Helio Hayden, Follow Up ([facility] for dehydration ) 11/10/2021 Ancillary Procedure 11/10/2021 Travel 11/04/2021 Orders Only 2 scans: (2-Ord ) ECHO COMPLETE WO CONTRAST (ON [id number]) 11/04/2021 Orders Only Scanner 1 scan: (1-Ord) [place], HEAD/BRAIN, from Last 3 Months Immunizations Name Administration Dates Next Due COVID-19 vaccine ([employer] 12/02/2021 30mcg/0.3mL) 12YO+ BIVALENT BOOSTER PF, MDV COVID-19 vaccine ([employer] 07/11/2021 30mcg/0.3mL) 12YO+ XANDER-SUCROSE PF, MDV COVID-19 vaccine ([employer] 11/18/2020, 04/24/2020, 30mcg/0.3mL) PF, MDV Influenza A [...] Tobacco Use Types Packs/Day Years Used Date Smoking Tobacco: Former Cigarettes 0.5 15 Quit : 02/20/1960 Smokeless Tobacco: Never Tobacco Cessation: Counseling Given: Yes Alcohol Use [...] more drinks on one Never 05/27/2018 occasion? Sex Assigned at Date Recorded Not on file COVID-19 Exposure Response Date Recorded In the last 10 days, have you been in contact with No / Unsu re 01/30/2022 8:11 AM ELECTRICAL ENGINEERING TECHNICIAN someone who was confirmed or suspected to have Coronavirus/COVID-19? Obstetrics History Last Filed Vital Signs Vital Sign Reading Time Taken Comments Blood Pressure 130/74 01/19/2022 12:00 PM ELECTRICAL ENGINEERING TECHNICIAN Pulse 100 01/19/2022 12:00 PM ELECTRICAL ENGINEERING TECHNICIAN Temperature 36.3 ??C (97.3 ??F) 01/05/2022 7:35 AM ELECTRICAL ENGINEERING TECHNICIAN Respiratory Rate 18 01/19/2022 12:00 PM ELECTRICAL ENGINEERING TECHNICIAN Oxygen Saturation 99% 01/19/2022 12:00 PM ELECTRICAL ENGINEERING TECHNICIAN Inhaled Oxygen Concentration - - Weight 77.6 kg (171 lb) 01/19/2022 12:00 PM ELECTRICAL ENGINEERING TECHNICIAN Height 175.3 cm (5' 9) 01/19/2022 12:00 PM ELECTRICAL ENGINEERING TECHNICIAN Body Mass Index 25.25 01/19/2022 12:00 PM ELECTRICAL ENGINEERING TECHNICIAN Plan of Treatment Upcoming Encounters Date Type Specialty Care Team Description 02/01/2022 Appointment 02/03/2022 Appointment 02/06/2022 Office Visit Helio Hayden MD [address] [phone] (wo rk) 02/06/2022 Appointment 02/08/2022 Appointment 02/10/2022 Appointment 02/13/2022 Appointment 02/15/2022 Appointment 02/17/2022 Appointment 02/20/2022 Appointment 02/22/2022 Appointment 02/24/2022 Appointment 02/27/2022 Appointment 03/01/2022 Appointment 03/03/2022 Appointment 03/06/2022 Appointment 03/08/2022 Appointment 03/10/2022 Appointment 03/13/2022 Appointment 03/15/2022 Appointment 03/17/2022 Appointment 03/20/2022 Appointment 03/22/2022 Appointment 03/24/2022 Appointment 03/27/2022 Appointment 03/29/2022 Appointment 03/31/2022 Appointment 04/03/2022 Appointment 04/04/2022 Cardiac Device Check 04/05/2022 Appointment 04/07/2022 Appointment 04/10/2022 Appointment 04/12/2022 Appointment 04/14/2022 Appointment 04/17/2022 Appointment 04/19/2022 Appointment 04/21/2022 Appointment 04/24/2022 Appointment 04/26/2022 Appointment 04/28/2022 Appointment 05/01/2022 Appointment 05/03/2022 Appointment 05/05/2022 Appointment 05/08/2022 Appointment 05/10/2022 Appointment 05/12/2022 Appointment 05/15/2022 Appointment 05/17/2022 Appointment 05/19/2022 Appointment 05/22/2022 Appointment 05/24/2022 Appointment Health Maintenance Due Date Last Done Comments Medicare Wellness for age 65+ 02/04/2022 02/04/2021, 2019, 01/21/2019, Additional history exists Tetanus booster 05/07/2022 05/07/2012, 10/20/2004, 10/20/2004, Additional history exists BMI (ht and wt on same day) for 12/22/2022 12/22/2021, 10/2021, age 18+ 06/22/2021, Additional history exists Depression screening for age 12+ 01/19/2023 01/19/2022, , 11/29/2020, Additional history exists Tdap Completed 05/07/2012 Pneumococcal series for age 65+ Completed 01/04/2015, 02/2011, 02/06/2011, Additional history exists Zoster (shingles) series for age Completed 03/09/2021, , 50+ 05/02/2018, Additional history exists Influenza for age 65+ Completed 10/31/2021, 11/23/2020, 12/03/2019, Additional history exists COVID-19 vaccine series Completed 12/02/2021, 07/11/2021, 11/18/2020, Additional history exists Procedures Procedure Name Priority Date/Time Associated Diagnosis Comme nts SCAN-CARDIAC 01/27/2022 12:00 Results for this REHABILITATION AM ELECTRICAL ENGINEERING TECHNICIAN procedure are in the results section. SCAN-CARDIAC 01/25/2022 12:00 Results for this REHABILITATION AM ELECTRICAL ENGINEERING TECHNICIAN procedure are in the results section. SCAN 01/25/2022 12:00 Results for this CORRESP-LABORATORY AM ELECTRICAL ENGINEERING TECHNICIAN procedure are in RESULTS the results section. SCAN-CARDIAC 01/19/2022 12:00 Results for this REHABILITATION AM ELECTRICAL ENGINEERING TECHNICIAN procedure are in the results section. SCAN CORRESP-EKG 01/13/2022 8:03 Results for this RESULTS AM ELECTRICAL ENGINEERING TECHNICIAN procedure are i n the results section. BASIC METABOLIC PANEL Routine 01/10/2022 11:58 NSTEMI (non-ST Results for this AM ELECTRICAL ENGINEERING TECHNICIAN elevated myocardial procedur e are in infarction) (HC) the results Hypertension section. ECHO LIMITED WO Routine 01/05/2022 3:26 Results f or this CONTRAST PM ELECTRICAL ENGINEERING TECHNICIAN procedure are i n the results section. POTASSIUM Today 01/05/2022 1:39 Results for this PM ELECTRICAL ENGINEERING TECHNICIAN procedure are i n the results section. SCAN-CARDIAC STRIP 01/05/2022 9:17 AM ELECTRICAL ENGINEERING TECHNICIAN LIPID PANEL SHAY 01/05/2022 8:00 Results for this AM ELECTRICAL ENGINEERING TECHNICIAN procedure are i n the results section. MAGNESIUM Early AM 01/05/2022 8:00 Results for this AM ELECTRICAL ENGINEERING TECHNICIAN procedure are i n the results section. BASIC METABOLIC PANEL Early AM 01/05/2022 8:00 Res ults for this AM ELECTRICAL ENGINEERING TECHNICIAN procedure are i n the results section. CBC W PLT NO DIFF Early AM 01/05/2022 8:00 Results for this AM ELECTRICAL ENGINEERING TECHNICIAN procedure are i n the results section. SCAN-CARDIAC STRIP 01/05/2022 2:19 AM ELECTRICAL ENGINEERING TECHNICIAN SCAN-CARDIAC STRIP 01/04/2022 5:23 PM ELECTRICAL ENGINEERING TECHNICIAN EKG 12 LEAD SHAY 01/04/2022 5:20 Results for this PM ELECTRICAL ENGINEERING TECHNICIAN procedure are i n the results section. HCHG ACTIVATED Timed 01/04/2022 3:53 Results fo r this CLOTTING TM CV PM ELECTRICAL ENGINEERING TECHNICIAN procedure are in the results section. HCHG ACTIVATED Timed 01/04/2022 3:33 Results fo r this CLOTTING TM CV PM ELECTRICAL ENGINEERING TECHNICIAN procedure are in the results section. HCHG ACTIVATED Timed 01/04/2022 3:15 Results fo r this CLOTTING TM CV PM ELECTRICAL ENGINEERING TECHNICIAN procedure are in the results section. EKG 12 LEAD Routine 01/04/2022 2:52 Persistent atrial Results for this PM ELECTRICAL ENGINEERING TECHNICIAN fibrillation (HC) procedure are in the results section. CVL CORONARY ANGIOGRAM Routine 01/04/2022 2:35 Cardiovascular Results for this POSS PCI PM ELECTRICAL ENGINEERING TECHNICIAN symptoms procedure are i n the results section. PACER LICHA DUAL Routine 01/04/2022 11:00 Results for this CHAMBER WO REPROG AM ELECTRICAL ENGINEERING TECHNICIAN procedure are in the results section. SCAN-CARDIAC STRIP 01/04/2022 9:59 AM ELECTRICAL ENGINEERING TECHNICIAN SCAN-CARDIAC STRIP 01/04/2022 9:30 AM ELECTRICAL ENGINEERING TECHNICIAN POTASSIUM Early AM 01/04/2022 7:43 Results for this AM ELECTRICAL ENGINEERING TECHNICIAN procedure are i n the results section. SCAN-CARDIAC STRIP 01/04/2022 2:27 AM ELECTRICAL ENGINEERING TECHNICIAN SCAN 01/04/2022 12:00 Results for this CORRESP-LABORATORY AM ELECTRICAL ENGINEERING TECHNICIAN procedure are in RESULTS the results section. SCAN-OPERATIVE/PROCEDU 01/04/2022 12:00 R esults for this RE REPORT AM ELECTRICAL ENGINEERING TECHNICIAN procedure are i n the results section. POTASSIUM Today 01/03/2022 6:37 Results for this PM ELECTRICAL ENGINEERING TECHNICIAN procedure are i n the results section. SCAN-CARDIAC STRIP 01/03/2022 3:42 PM ELECTRICAL ENGINEERING TECHNICIAN EKG 12 LEAD STAT 01/03/2022 11:08 Results for this AM ELECTRICAL ENGINEERING TECHNICIAN procedure are i n the results section. BASIC METABOLIC PANEL Early AM 01/03/2022 7:59 Res ults for this AM ELECTRICAL ENGINEERING TECHNICIAN procedure are i n the results section. SCAN-CARDIAC STRIP 01/03/2022 7:15 AM ELECTRICAL ENGINEERING TECHNICIAN TROPONIN I Timed 01/03/2022 1:07 Results for this AM ELECTRICAL ENGINEERING TECHNICIAN procedure are i n the results section. TROPONIN I Timed 01/03/2022 12:23 Results for this AM ELECTRICAL ENGINEERING TECHNICIAN procedure are i n the results section. SCAN-CARDIAC STRIP 01/02/2022 11:47 PM ELECTRICAL ENGINEERING TECHNICIAN SCAN-CARDIAC STRIP 01/02/2022 9:35 PM ELECTRICAL ENGINEERING TECHNICIAN XR CHEST 2 VIEWS PA Routine 12/29/2021 3:31 Resul ts for this AND LATERAL PM ELECTRICAL ENGINEERING TECHNICIAN procedure are i n the results section. PACER LICHA DUAL Routine 12/29/2021 3:19 Results for this CHAMBER WO REPROG PM ELECTRICAL ENGINEERING TECHNICIAN procedure are in the results section. CV PROCEDURE TO BE Routine 12/29/2021 12:07 Resul ts for this PERFORMED PM ELECTRICAL ENGINEERING TECHNICIAN procedure are i n the results section. EP PPM Routine 12/29/2021 11:04 Results for this AM ELECTRICAL ENGINEERING TECHNICIAN procedure are i n the results section. EKG 12 LEAD Preop 12/29/2021 9:54 Results for this AM ELECTRICAL ENGINEERING TECHNICIAN procedure are i n the results section. BASIC METABOLIC PANEL Preop 12/29/2021 9:39 Res ults for this AM ELECTRICAL ENGINEERING TECHNICIAN procedure are i n the results section. CBC W PLT NO DIFF Preop 12/29/2021 9:39 Results for this AM ELECTRICAL ENGINEERING TECHNICIAN procedure are i n the results [...] section. SCAN-CT INTERPRETATION 11/04/2021 12:00 AM CDT from Last 3 Months Results SCAN-CARDIAC REHABILITATION (01/27/2022 12:00 AM ELECTRICAL ENGINEERING TECHNICIAN)Only the most recent of3 resultswithin the time period is included. Narrative 01/27/2022 12:00 AM ELECTRICAL ENGINEERING TECHNICIAN This result has an attachment that is no t available. Ordered by an unspecified provider. Other Clinical Staff OTHER SCAN CORRESP-LABORATORY RESULTS (01/25/2022 12:00 AM ELECTRICAL ENGINEERING TECHNICIAN)Only the most recent of 2 resultswithin the time period is included. Narrative 01/25/2022 12:00 AM ELECTRICAL ENGINEERING TECHNICIAN This result has an attachment that is no t available. Ordered by an unspecified provider. Other Clinical Staff OTHER SCAN CORRESP-EKG RESULTS (01/13/2022 8:03 AM ELECTRICAL ENGINEERING TECHNICIAN) Narrative 01/13/2022 8:03 AM ELECTRICAL ENGINEERING TECHNICIAN This result has an attachment that is no t available. Ordered by an unspecified provider. Other Clinical Staff OTHER (ABNORMAL) BASIC METABOLIC PANEL (01/10/2022 11:58 AM ELECTRICAL ENGINEERING TECHNICIAN)Only the most recent of4 resultswithin the time period is included. [facility] Method Time Signature SODIUM 140 135 - 145 01/12/2022 [facility] mmol/L 4:24 AM ELECTRICAL ENGINEERING TECHNICIAN LABORATORY-[facility] POTASSIUM 4.5 3.5 - 5.0 01/12/2022 [facility] mmol/L 4:24 AM ELECTRICAL ENGINEERING TECHNICIAN [facility]ATORY[facility] CHLORIDE 106 98 - 110 01/12/2022 [facility] mmol/L 4:24 AM ELECTRICAL ENGINEERING TECHNICIAN [facility] CO2,TOTAL 26 21 - 31 01/12/2022 [facility] mmol/L 4:24 AM ELECTRICAL ENGINEERING TECHNICIAN [facility] ANION GAP 8 5 - 18 01/12/2022 [facility] 4:24 AM ELECTRICAL ENGINEERING TECHNICIAN [facility] GLUCOSE 91 65 - 100 01/12/2022 [facility] mg/dL 4:24 AM ELECTRICAL ENGINEERING TECHNICIAN [facility] CALCIUM 9.3 8.5 - 10.5 01/12/2022 [facility] mg/dL 4:24 AM ELECTRICAL ENGINEERING TECHNICIAN [facility] BUN 35 (H) 8 - 25 01/12/2022 [facility] mg/dL 4:24 AM ELECTRICAL ENGINEERING TECHNICIAN [facility] CREATININE 1.28 (H) 0.72 - 01/12/2022 [facility] 1.25 mg/dL 4:24 AM ELECTRICAL ENGINEERING TECHNICIAN LAB[facility]ATORY[facility] BUN/CREAT RATIO 27 (H) 10 - 20 01/12/2022 [facility] 4:24 AM ELECTRICAL ENGINEERING TECHNICIAN [facility] eGFR 55 (L) >90 01/12/2022 [facility] mL/min/1.7 4:24 AM ELECTRICAL ENGINEERING TECHNICIAN LABORATORY-[facility] 3m2 TRAL LABORATORY Comment: As [...] / 01/10/2022 11:58 01/10 Unknown Unknown AM ELECTRICAL ENGINEERING TECHNICIAN 11:58 AM ELECTRICAL ENGINEERING TECHNICIAN Melina DEMPSEY CHEMISTRY Performing Organization Address City/State/ZIP Code Phon e Number [facility] [address] [place] [address] LABORATORY-CENTRAL 2000 LABORATORY ECHO LIMITED WO CONTRAST (01/05/2022 3:26 PM ELECTRICAL ENGINEERING TECHNICIAN) P athologist Signature AORTIC VALVE 3 mmHg MEAN PG EJECTION 61 % FRACTION PEAK TR 2.2 m/s VELOCITY LVEDD 4.2 cm Anatomical Region Laterality Modality HEART Ultrasound Specimen (Source) Anatomical Collection Method Collection Time Re ceived Time Location / / Volume Laterality 01/05/2022 2:39 PM ELECTRICAL ENGINEERING TECHNICIAN Narrative 01/05/2022 4:08 PM ELECTRICAL ENGINEERING TECHNICIAN ECHOCARDIOGRAM CRISTIAN Adams CORRIETahmina ? Accessi on#: ?? [id number] : ?1935 86 years Study Date: ?? 01/05/2022 2:39:16 PM Gender: M ?BP: ? 105/52 mmHg Height: 175.00 cm ?BSA: ?1.90 m? ?? Weight: 75.00 kg ? Tech: ? EF ? Referring MD: DONALD HUNTER [facility] Site: ? [facility] Reading Location: [facility] IP Procedure: Color Doppler, [...] 4. [facility] there has been no [...] . This study was interpreted by an [facility] redited facility. ??Final ?? Procedure Note Ty Velasquez MD - 01/05/2022 ECHOCARDIOGRAM CRISTIAN STEVENS : 1935 86 years Study Date: 12/20 2:39:16 PM Gender: M BP: 105/52 mmHg Height: 175.00 cm BSA: 1.90 m? ?? Weight: 75.00 kg Tech: EF Referring MD: DONALD HERRING Site: [facility] Reading Location: [facility] Procedure: Color Doppler, Spectral Doppl er [...] . This study was interpreted by an [facility] facility. Final Donald Herring PA ECHO ORD POTASSIUM (01/05/2022 1:39 PM ELECTRICAL ENGINEERING TECHNICIAN)Only the most recent of3 resultswithin the time period is included. athologist Signature POTASSIUM 4.2 3.5 - 5.0 01/05/2022 [facility] mmol/L 2:28 PM ELECTRICAL ENGINEERING TECHNICIAN LABORATORY-CENTR AL LABORATORY Specimen Anatomical Collection Method / Collection Time Recei burton Time (Source) Location / Volume Laterality Blood BLOOD SPECIMEN / Venipuncture / 01/05/2022 1:39 2021 1:58 Unknown Unknown PM ELECTRICAL ENGINEERING TECHNICIAN PM ELECTRICAL ENGINEERING TECHNICIAN Ruslan SOOD CHEMISTRY Performing Organization Address City/State/ZIP Code Phon e Number [facility] [address] [place] [id number] LABORATORY-CENTRAL 2000 LABORATORY SCAN-CARDIAC STRIP (01/05/2022 9:17 AM ELECTRICAL ENGINEERING TECHNICIAN) Narrative This result has an attachment that is no t available. Scanner OTHER (ABNORMAL) CBC W PLT NO DIFF (01/05/2022 8:00 AM ELECTRICAL ENGINEERING TECHNICIAN)Only the most recent of2 resultswithin the time period is included. Patholo gist Method Time Signature WHITE BLOOD 9.9 4.5 - 11.0 01/05/2022 [facility] COUNT thou/cu mm 9:59 AM ELECTRICAL ENGINEERING TECHNICIAN LABORATORY-ITZEL TRAL LABORATORY RED BLOOD COUNT 4.13 (L) 4.30 - 01/05/2022 [email or web address] 5.90 9:59 AM ELECTRICAL ENGINEERING TECHNICIAN LABORATORY-ITZEL mil/cu mm TRAL LABORATORY HEMOGLOBIN 13.7 13.5 - 01/05/2022 [email or web address] 17.5 g/dL 9:59 AM ELECTRICAL ENGINEERING TECHNICIAN LABORATORY-[facility] TRAL LABORATORY HEMATOCRIT 39.0 37.0 - 01/05/2022 [facility] 53.0 % 9:59 AM ELECTRICAL ENGINEERING TECHNICIAN LABORATORY-[facility] TRAL LABORATORY MCV 94 80 - 100 01/05/2022 [facility] fL 9:59 AM ELECTRICAL ENGINEERING TECHNICIAN LABORATORY-[facility] TRAL LABORATORY MCH 33.2 26.0 - 01/05/2022 [facility] 34.0 pg 9:59 AM ELECTRICAL ENGINEERING TECHNICIAN LABORATORY-[facility] TRAL LABORATORY MCHC 35.1 32.0 - 01/05/2022 [facility] 36.0 g/dL 9:59 AM ELECTRICAL ENGINEERING TECHNICIAN LABORATORY-[facility] TRAL LABORATORY RDW 13.0 11.5 - 01/05/2022 [facility] 15.5 % 9:59 AM ELECTRICAL ENGINEERING TECHNICIAN LABORATORY-[facility] TRAL LABORATORY PLATELET COUNT 168 140 - 440 01/05/2022 [facility] thou/cu mm 9:59 AM ELECTRICAL ENGINEERING TECHNICIAN LABORATORY-[facility]ZEL TRAL LABORATORY MPV 9.7 6.5 - 11.0 01/05/2022 [facility] fL 9:59 AM ELECTRICAL ENGINEERING TECHNICIAN LABORATORY-[facility] TRAL LABORATORY NRBC 0.0 % 01/05/2022 [facility] 9:59 AM ELECTRICAL ENGINEERING TECHNICIAN LABORATORY-[facility] TRAL LABORATORY ABS NRBC 0.0 thou /cu 01/05/2022 [facility] mm 9:59 AM ELECTRICAL ENGINEERING TECHNICIAN LABORATORY-[facility] TRAL LABORATORY Specimen Anatomical Collection Method / Collection Time Recei burton Time (Source) Location / Volume Laterality Blood BLOOD SPECIMEN / Venipuncture / 01/05/2022 8:00 2021 8:23 Unknown Unknown AM ELECTRICAL ENGINEERING TECHNICIAN AM ELECTRICAL ENGINEERING TECHNICIAN Donald DEMPSEY HEMATOLOGY Performing Organization Address City/State/ZIP Code Phon e Number [facility] [address] [place] [address] LABORATORY-CENTRAL 2000 LABORATORY MAGNESIUM (01/05/2022 8:00 AM ELECTRICAL ENGINEERING TECHNICIAN) P athologist Signature MAGNESIUM 1.9 1.6 - 2.6 01/05/2022 [facility] mg/dL 8:58 AM ELECTRICAL ENGINEERING TECHNICIAN LABORATORY-CENTR AL LABORATORY Specimen Anatomical Collection Method / Collection Time Recei burton Time (Source) Location / Volume Laterality Blood BLOOD SPECIMEN / Venipuncture / 01/05/2022 8:00 2021 8:23 Unknown Unknown AM ELECTRICAL ENGINEERING TECHNICIAN AM ELECTRICAL ENGINEERING TECHNICIAN Ruslan VILLAGOMEZ CHEMISTRY Performing Organization Address City/[facility]/ZIP [facility] Phon e Number [email or web address] [address] [place] [address] LABORATORY-CENTRAL 1999 LABORATORY (ABNORMAL) LIPID PANEL (01/05/2022 8:00 AM ELECTRICAL ENGINEERING TECHNICIAN) [facility] Method Time Signature CHOLESTEROL,TOTAL 116 100 - 199 01/05/2022 [facility] mg/dL 11:54 AM ELECTRICAL ENGINEERING TECHNICIAN LABORATORY-[facility]ZEL TRAL LABORATORY TRIGLYCERIDES 80 <150 01/05/2022 [facility] mg/dL 11:54 AM ELECTRICAL ENGINEERING TECHNICIAN LABORATORY-[facility] TRAL LABORATORY HDL CHOLESTEROL 31 (L) >40 mg/dL 01/05/2022 [facility] 11:54 AM ELECTRICAL ENGINEERING TECHNICIAN LABORATORY-[facility] TRAL LABORATORY NON-HDL 85 <145 01/05/2022 [facility] CHOLESTEROL mg/dl 11:54 AM ELECTRICAL ENGINEERING TECHNICIAN LABORATORY-[facility] TRAL LABORATORY CHOL/HDL RATIO 3.74 <4.50 01/05/2022 [facility] 11:54 AM ELECTRICAL ENGINEERING TECHNICIAN LABORATORY-[facility]ZEL TRAL LABORATORY LDL CHOLESTEROL 69 <=130 01/05/2022 [facility] mg/dL 11:54 AM ELECTRICAL ENGINEERING TECHNICIAN LABORATORY-[facility] TRAL LABORATORY VLDL CHOLESTEROL 16 <=30 01/05/2022 [facility] mg/dL 11:54 AM ELECTRICAL ENGINEERING TECHNICIAN LABORATORY-ITZ[facility] TRAL LABORATORY PROVIDER ORDERED RANDOM 01/05/2022 [facility] STATUS 11:54 AM ELECTRICAL ENGINEERING TECHNICIAN LABORATORY-[facility] TRAL LABORATORY Specimen Anatomical Collection Method / Collection Time Recei burton Time (Source) Location / Volume Laterality Blood BLOOD SPECIMEN / Venipuncture / 01/05/2022 8:00 2021 8:23 Unknown Unknown AM ELECTRICAL ENGINEERING TECHNICIAN AM ELECTRICAL ENGINEERING TECHNICIAN Alecia Pereira NP CHEMISTRY Performing Organization Address City/State/ZIP Code Phon e Number [facility] [address] [place] [address] LABORATORY-CENTRAL 1999 LABORATORY SCAN-CARDIAC STRIP (01/05/2022 2:19 AM ELECTRICAL ENGINEERING TECHNICIAN) Narrative This result has an attachment that is no t available. Scanner OTHER SCAN-CARDIAC STRIP (01/04/2022 5:23 PM ELECTRICAL ENGINEERING TECHNICIAN) Narrative This result has an attachment that is no t available. Scanner OTHER EKG - On Arrival to Floor (01/04/2022 5:20 PM ELECTRICAL ENGINEERING TECHNICIAN)Only the most recent of6 resultswithin the time period is included. Component Value Ref Range Test Analysis Performed Pathologis t Method Time At Signature Interpretation Atrial-paced rhythm with prolonged AV conduction BEYOND NOW Left anterior fascicular block Minimal voltage criteria for LVH, may be normal variant ( Lamona product ) Abnormal ECG When compared with ECG of 03-JAN-2022 11:08, No significant change was found Ventricular Rate 60 BPM BEYOND NOW Atrial Rate 60 BPM BEYOND NOW P-R Interval 238 ms BEYOND NOW QRS Duration 118 ms BEYOND NOW QT 444 ms BEYOND NOW QTc 444 ms BEYOND NOW P Kinney degrees BEYOND NOW R Kinney -51 degrees BEYOND NOW T Kinney 47 degrees BEYOND NOW Specimen Anatomical Collection Method Collection Time Receive d Time (Source) Location / / Volume Laterality 01/04/2022 5:20 PM 7:19 ELECTRICAL ENGINEERING TECHNICIAN PM ELECTRICAL ENGINEERING TECHNICIAN Stephanie Guillory MD EKG ORD Performing Organization Address City/State/ZIP Code Phon e Number BEYOND NOW [place] (ABNORMAL) ACTIVATED CLOTTING TIME [id number] ACT (01/04/2022 3:53 PM ELECTRICAL ENGINEERING TECHNICIAN)Only the most recent of3 resultswithin the time period is included. P athologist Signature ACTIVATED 250 (H) 74 - 125 01/04/2022 [facility] CLOTTING TIME, sec 4:26 PM ELECTRICAL ENGINEERING TECHNICIAN LABORATORY-CE N POCT TRAL LABORATORY Specimen Anatomical Collection Method Collection Time Receive d Time (Source) Location / / Volume Laterality Blood BLOOD SPECIMEN / 01/04/2022 3:53 PM 01/04 4:26 Unknown ELECTRICAL ENGINEERING TECHNICIAN PM ELECTRICAL ENGINEERING TECHNICIAN Ruslan VILLAGOMEZ HEMATOLOGY Performing Organization Address City/State/ZIP Code Phon e Number [facility] [address] [place] [address] LABORATORY-CENTRAL 2000 LABORATORY CVL CORONARY ANGIOGRAM POSS PCI (01/04/2022 2:35 PM ELECTRICAL ENGINEERING TECHNICIAN) Anatomical Region Laterality Modality Other Specimen (Source) Anatomical Collection Method Collection Time Re ceived Time Location / / Volume Laterality 01/04/2022 2:35 PM ELECTRICAL ENGINEERING TECHNICIAN Narrative This result has an attachment that is no t available. Transcriptions Cassandra Seaman MD - 01/04/2022 4:35 PM CST [facility] Cardiac Catheterization Report Name: CRISTIAN STEVENS Event Date: 01/05/20 14:35 [facility] ID #: [id number] [facility] #: [id number] Diagnostic Physician: CASSANDRA GUADARRAMA [facility] Interventional Physician: CASSANDRA SEAMAN [facility] Referring Physician: Primary Care Physician: HELIO HAYDEN [...] clinically. Discussed with Dr. Velasquez. Consent & [place] Protocol The risks, benefits, and alternatives of the procedure were discussed with the patient and written informed consent was obtained. [place] protocol was followed. TIME OU T conducted just prior to starting procedure confirmed patient identity, site/side, procedure, patient position, and availability of correct equipment and implants (if applicable). Staff Name Title CASSANDRA SEAMAN Diagnostic Transcribing Machine Mechanic Stephanie Guillory Fellow Fouzia Medina RTR Scrub Jeremías Olivas(R) Dental Equipment Installer And Servicer Yoni Jacobs RTR 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 The shanae nelson has a DAGO flow of 3. Lesion [...] Eluting Stent WILVER KRYS Fr ontier RX 2.97olE32wr 3 1st RPL Balloon BLLN EUPHORA RX 2.5mmx 12mm Procedure Details Estimated Blood Loss: < 30 ml Specimen Collected: None Level of Sedation Achieved: Moderate Procedure Start: 14:35 Procedure End: 16:12 Procedure Time: 97 min Fluoroscopy Time: 32.5 min Cumulative Air Kerma: 2260 mGy DAP: 45425 uGy/M2 Contrast: Omnipaque (low-osmolar), 120 ml Physiologic Data Weight: 78.5 kg Vascular Access Time Access Sheath Size 14:35 Right Femoral Artery, sheath inser panda Complications ? No Complications Medications Ordered and Administered Start Time Stop Time Medication Dose Uni ts Route Ordered By Given By 14:27 Versed 1 mg IV Poulose Cassandra Yuridia Lara RN 14:27 Fentanyl 50 mcg IV Poulose Cassandra Yuridia Foster RN 14:35 1% Lidocaine 7 ml Subcut [...] and the physician or other qualified health skin care instructor providing the sedation ends personal continuous [id number] time with the patient. The medications listed above were verbal ly ordered by me and read back to me as documented above. Refer to the procedure log report for ad ditional case details. electronically signed on 01/04/2022 4:3 5:12 PM with status of Final Cassandra Seaman MD [facility] [address] [place] [address] [phone] (p) [phone](f) Provider Referring CV IMAGING PACER LICHA DUAL CHAMBER WO REPROG (01/04/2022 11:00 AM ELECTRICAL ENGINEERING TECHNICIAN) Narrative Yinka Bryson MD - 01/04/2022 11 :00 AM ELECTRICAL ENGINEERING TECHNICIAN Kg Marcial RN ? 01/04/2022 11:07 AM PACEMAKER EVALUATION REPORT December 29, 2021 Indication for Pacemaker: Sinus Node Dys function Primary MD: Helio Hayden MD Primary Transcribing Machine Mechanic: Gabriella Lopez PA Primary EP: Yinka Bryson MD Implanting MD: Yinka Bryson MD DEVICE DATA Sap Portal Architect Medtronic: Model Libertad XT D R MRI SureScan [id number] Implant Date 12/29/2021 LEAD DATA Atrial Lead: Sap Portal Architect Medtronic: Mod el 5076-52 cm Implant Date 12/29/2021 RV Lead: Sap Portal Architect Medtronic: Model 3 830-69 cm Implant Date 12/29/2021 Advisory: none Location of evaluation: [facility] [id number] Reason for evaluation: MD Request for ch est pain MEASUREMENTS Atrial [...] table lead measurements. No arrhythmias. AP 87.7% INSURANCE COUNSELOR 0.5%. Silver sarina dressing removed today. Incision is clean, dry, intact. N o s/s of infection. Follow up: [place] as previously sche duled for routine post implant interrogation on 04/04/22. Routine follow up: Q 3-4 month [facility] with annual clinic in [place] each Mar. Kg Marcial, RN, CCDS Nurse Clinician II [facility] Pacemaker/ICD Clinic [phone] Yinka Bryson MD CARDIAC SERVICES ORD SCAN-CARDIAC STRIP (01/04/2022 9:59 AM ELECTRICAL ENGINEERING TECHNICIAN) Narrative This result has an attachment that is no t available. Scanner OTHER SCAN-CARDIAC STRIP (01/04/2022 9:30 AM ELECTRICAL ENGINEERING TECHNICIAN) Narrative This result has an attachment that is no t available. Scanner OTHER SCAN-CARDIAC STRIP (01/04/2022 2:27 AM ELECTRICAL ENGINEERING TECHNICIAN) Narrative This result has an attachment that is no t available. Scanner OTHER SCAN-OPERATIVE/PROCEDURE REPORT (01/04/2022 12:00 AM ELECTRICAL ENGINEERING TECHNICIAN) Narrative 01/04/2022 12:00 AM ELECTRICAL ENGINEERING TECHNICIAN This result has an attachment that is no t available. Ordered by an unspecified provider. Other Clinical Staff OTHER SCAN-CARDIAC STRIP (01/03/2022 3:42 PM ELECTRICAL ENGINEERING TECHNICIAN) Narrative This result has an attachment that is no t available. Scanner OTHER SCAN-CARDIAC STRIP (01/03/2022 7:15 AM ELECTRICAL ENGINEERING TECHNICIAN) Narrative This result has an attachment that is no t available. Scanner OTHER Troponin I - Initial Draw was done in ED (01/03/2022 1:07 AM ELECTRICAL ENGINEERING TECHNICIAN)Only the most recent of2 resultswithin the time period is included. P athologist Signature TROPONIN I 0.023 <0.034 01/03/2022 [facility] ng/mL 2:22 AM ELECTRICAL ENGINEERING TECHNICIAN LABORATORY-CENT [facility] LABORATORY Specimen Anatomical Collection Method Collection Time Receive d Time (Source) Location / / Volume Laterality Blood BLOOD SPECIMEN / Diversion Device / 01/03/2022 1:07 AM 01/03/2022 1:18 Unknown Unknown ELECTRICAL ENGINEERING TECHNICIAN AM ELECTRICAL ENGINEERING TECHNICIAN Crystal Rajput MD CHEMISTRY Performing Organization Address City/State/ZIP Code Phon e Number [facility] [address] [place] [address] LABORATORY-CENTRAL 1999 LABORATORY SCAN-CARDIAC STRIP (01/02/2022 11:47 PM ELECTRICAL ENGINEERING TECHNICIAN) Narrative This result has an attachment that is no t available. Scanner OTHER SCAN-CARDIAC STRIP (01/02/2022 9:35 PM ELECTRICAL ENGINEERING TECHNICIAN) Narrative This result has an attachment that is no t available. Scanner OTHER XR Chest PA and lateral (12/29/2021 3:31 PM ELECTRICAL ENGINEERING TECHNICIAN) Anatomical Region Laterality Modality CHEST, THORAX, Lung, HEART Digital Radio graphy Specimen (Source) Anatomical Collection Method Collection Time Re ceived Time Location / / Volume Laterality 12/29/2021 3:51 PM ELECTRICAL ENGINEERING TECHNICIAN Impressions 12/29/2021 3:51 PM ELECTRICAL ENGINEERING TECHNICIAN Left pacer body and right heart transvenous wires. No mediastinal widening or pneumothorax. Ectatic aorta. No acute cardiopulmonary disease. Left reversed shoulder arthroplasty. Dictated by Temo Gonzalez MD @ Dec 29 ??3:51PM (Electronically Signed) ?? Narrative 12/29/2021 3:51 PM ELECTRICAL ENGINEERING TECHNICIAN For Patients: ??As a result of the Cures Act, medical imaging exams and procedure report s are released immediately into your [facility] medical record. ??You may view this report [...] provider. If you have questions, please contact [facility] health care provider. INDICATION: Follow up pacer placement. TECHNIQUE: Two views. IMPRESSION: Left pacer body and right heart transven ous wires. No mediastinal widening or pneumothorax. Ectatic aorta. No acute cardiopulmonary disease. Left reversed shoulder arthroplasty. Dictated by Temo Gonzalez MD @ Dec 29 3:51PM (Electronically Signed) Yinka Bryson MD GENERAL IMAGING PACER LICHA DUAL CHAMBER WO REPROG (12/29/2021 3:19 PM ELECTRICAL ENGINEERING TECHNICIAN) Yinka Mcfarland MD - 12/29/2021 3: 19 PM ELECTRICAL ENGINEERING TECHNICIAN Evon Call RN ? 12/29/2021 ??4:22 PM PACEMAKER EVALUATION REPORT December 29, 2021 Indication for Pacemaker: Sinus Node Dys function Primary MD: Helio Hayden MD Primary Transcribing Machine Mechanic: Gabriella Lopez PA Primary EP: Yinka Bryson MD Implanting MD: Yinka Bryson MD DEVICE DATA Sap Portal Architect Medtronic: Model [place] XT D R MRI SureScan [id number] Implant Date 12/29/2021 LEAD DATA Atrial Lead: Sap Portal Architect Medtronic: Mod el 5076-52 cm Implant Date 12/29/2021 RV Lead: Sap Portal Architect Medtronic: Model 3 830-69 cm Implant Date 12/29/2021 Visit location: [place] [address] Reason For Evaluation: Same day discharg e [...] of care as described. Patient was given [employer] s card and encouraged to call if he has any concerns or questions in the future. Enrolled in [facility] Paired. Follow up: 1 Week Post-Op [facility] ed for 01/05/2022 then 3 month post-op in [place] on 04/04/2022 Routine follow up: Q 3-4 month [facility] with annual clinic in [place] each Mar. Evon Call RN Nurse Clinician II [facility] Pacemaker/ICD Clinic ?? Yinka Bryson MD CARDIAC SERVICES ORD EP Procedure to be Performed (12/29/2021 12:07 PM ELECTRICAL ENGINEERING TECHNICIAN) Narrative Yinka Bryson MD - 12/29/2021 12 :07 PM ELECTRICAL ENGINEERING TECHNICIAN Yinka Bryson MD ? 12/29/2021 12:08 PM [...] 2) Incision check in 1-2 weeks with [facility] physician. 3) Device clinic check in 3-4 months. 4) Medication changes: start sotalol 80 mg po bid on Sunday with an EKG on Sunday Surgeon: Yinka Bryson MD Yinka Bryson MD ORACLE HRMS DEVELOPER ORD EP PPM (12/29/2021 11:04 AM ELECTRICAL ENGINEERING TECHNICIAN) Anatomical Region Laterality Modality X-Ray Angiography, X -Ray Angiography Specimen (Source) Anatomical Collection Method Collection Time Re ceived Time Location / / Volume Laterality 12/29/2021 11:04 AM ELECTRICAL ENGINEERING TECHNICIAN Narrative This result has an attachment that is no t available. Transcriptions Yinka Bryson MD - 12/30/2021 5: 03 AM CST [facility] [place] [facility] Electrophysiology Implant Report Name: CRISTIAN Adams SKAAR Event Date: 12/30/19 [facility] ID #: [id number] Date: Gender: Male Age: 86 [place] #: [id number] Procedure Performed By: YINKA BRYSON [facility] Primary Wood Craftsman: THIERRY BRYSON Referring Physician: Primary Care Physician: HELIO HAYDEN Implant Procedure Type Dual Chamber Permanent Pacemaker EP Impl ant Summary / Conclusions PACEMAKER * Dual chamber pacemaker system successf ully implanted. * Procedure completed without incident. * Appropriate device functionality obser burton at end of case. Recommendations / Plan 1) CXR and device check later today 2) Incision check in 1-2 weeks with [facility] physician. 3) Device clinic check in [...] for a dual-chamber pacemaker implant. Consent & [place] Protocol [place] protocol was followed. TIME OU T conducted [...] Pulse Generator Detail [facility]ed [facility] Serial Number 12/29/2021 Implanted Left Pectoral Medtr on[employer]. [place] XT MRI [id number] Lead Detail Implanted Status Chamber Location Lyly hunter Model Serial Number 12/29/2021 Implanted Right Ventricle Sep monica Medtronic, Inc. Secure Select 3830- 69 [id number] 12/29/2021 Implanted Right Atrium Right Appendage Medtronic, Inc. CapSureFix Novus 5076-52 [id number] Measurement Carpenter Supervisor Wooden Ship P/R Wave (mV) Threshold (V) Pulse Width [...] Anesthes ia Note Total Fluoro Time: 10.9 MANAGER ENERGY Total Fluoro Dose: 18 mGy Staff Name Role Yinka Bryson Wood Craftsman Janae Diaz RN Nurse Sophie Pino PINA Scrub Tori Srivastava RCES Dental Equipment Installer And Servicer BuitragoAlberto EPT Dental Equipment Installer And Servicer Medications Ordered and Administered Start Time Stop [...] status of Final Yinka Bryson MD Implanting Transcribing Machine Mechanic FORMERLY NAMED [facility] [address] [place] [address] [place] [address] (p) [phone](f) Yinka Bryson MD CV IMAGING (ABNORMAL) TSH (12/02/2021 12:17 PM CDT) athologist Signature TSH 5.26 (H) 0.35 - 4.94 12/03/2021 [facility] uIU/mL 9:21 PM CDT LABORATORY-CENT RAL LABORATORY Specimen Anatomical Collection Method / Collection Time Recei burton Time (Source) Location / Volume Laterality Blood BLOOD SPECIMEN / Venipuncture / 12/02/2021 12:17 12/02 Unknown Unknown PM CDT 12:21 PM CDT Narrative [facility] LABORATORY-CENTRAL LABORAT ORY - 12/03/2021 9:21 PM [...] Organization Address City/State/ZIP Code Phon e Number [email or web address] [address] [place] [address] LABORATORY-CENTRAL 1999 LABORATORY T4,FREE (12/02/2021 12:17 PM CDT) athologist Signature T4,FREE 0.93 0.70 - 1.80 12/03/2021 [facility] ng/dL 9:20 PM CDT LABORATORY-CENTR AL LABORATORY Specimen Anatomical Collection Method / Collection Time Recei burton Time (Source) Location / Volume Laterality Blood BLOOD SPECIMEN / Venipuncture / 12/02/2021 12:17 12/02 Unknown Unknown PM CDT 12:21 PM CDT Yinka Bryson MD CHEMISTRY Performing Organization Address City/State/ZIP Code Phon e Number [email or web address] [address] [place] [address] LABORATORY-CENTRAL 2000 LABORATORY (ABNORMAL) AMIODARONE (CORDARONE) (11/24/2021 1:09 PM CDT) [facility] Method Time Signature AMIODARONE 414 (L) 1000 [...] City/State/ZIP Code Phon e Number [facility] [address] [place] [address] MR SHOULDER RIGHT WO (11/10/2021 10:06 AM [...] report s are released immediately into your [facility] medical record. ??You may view this report [...] provider. If you have questions, please contact [facility] health care provider. HISTORY: Right shoulder pain. [...] full-thickness rotator cuff tendon tearing. Dictated by Lbirado Macias MD @ 022 1:44:47 PM (Electronically [...] ECHOCARDIOGRAM CRISTIAN STEVENS ? Accessi on#: ?? [id number] : ?1935 86 years Study Date: ?? 11/04/2021 1:39:43 PM Gender: M ?BP: ? 129/64 mmHg Height: 175.00 cm ?BSA: ?1.94 m? ?? Weight: 78.00 kg ? Tech: ? MJJ ? Referring MD: MARY VILLARREAL Site: ? [facility] Reading Location: MOBILE=[facility] Procedure: 2D, Color Doppler and Spectra l [...] . This study was interpreted by an [facility] redited facility. CC: [facility] [place], Med/ Surg - IP [facility]. ??Final ?? Procedure Note Drake Tucker MD - 11/04/2021Form atting of this note might be different from the original. ECHOCARDIOGRAM CRISTIAN STEVENS : 1935 86 years Study Date: 11/04 1:39:43 PM Gender: M BP: 129/64 mmHg Height: 175.00 cm BSA: 1.94 m? ?? Weight: 78.00 kg Tech: SOTO Referring MD: MARY VILLARREAL Site: [facility] Reading Location: [facility]BILE=[facility] Procedure: 2D, Color Doppler and Spectra l [...] . This study was interpreted by an [facility]. CC: [facility] [place], Med/ Surg - IP [facility]. Final Mary Villarreal MD ECHO ORD SCAN-CT INTERPRETATION (11/04/2021 12:00 AM CDT) Anatomical Region Laterality Modality Other Narrative This result has an attachment that is no t available. Scanner OTHER from Last 3 Months Insurance Payer Benefit Plan / Subscriber ID Effective Phone Address T ype Group Dates WC WORKERS WC WORKERS [id number] Effective for [phone] COMP all dates 00 [id number] [place] [address] MEDICARE PART MEDICARE PART [id number] 2001-Prese ATT N: CLAIMS A - HB USE A HB ONLY nt [address] [place] [address] MEDICARE PART MEDICARE PART [id number] 2001-Prese ATT N: CLAIMS B - HB USE B HB ONLY nt [address] [place] [address] BLUE CROSS BLUE CROSS [id number] 2016-Prese [address] [place], [place] ONLY [id number] BLUE CROSS MR BLUE CROSS [id number] 2016-Prese [address] [address] [place], [place] ONLY [phone] (Home) [place] [address] Cristian Stevens Workers Comp Self [address] [facility] [facility] (Home) [facility] [phone] [place], [place] (Work) [phone] Advance Directives Documents on File Type Date Recorded Patient Aromatherapist Explanati on Healthcare Directive 02/04/2021 INCOMPLETE AND RECEIVED, 02/04/2021 Healthcare Directive 11/12/2009 HEALTH CARE DIRECTIVE, 11/12/2009 Latest Code Status on File Code Status Date Activated Date Inactivated Comments Full Code 01/02/2022 10:07 PM 01/05/2022 10:30 PM Question Answer Comments Code Status Discussion: Reviewed Preferences Code Status History Code Status Date Activated Date Inactivated Comments Full Code 12/29/2021 12:10 PM 12/29/2021 6:52 PM Question Answer Comments Code Status Discussion: Reviewed Preferences Full Code 08/17/2020 11:17 AM 08/18/2020 5:17 PM Question Answer Comments Code Status Discussion: Discussed Full Code 05/24/2018 4:26 PM 05/25/2018 6:39 PM Question Answer Comments Code Status Discussion: Discussed Full Code 06/27/2017 7:48 AM 06/27/2017 5:34 PM Question Answer Comments Code Status Discussion: Discussed Care Teams Director Cloud Transformation Relationship Specialty Start Date End Date Helio Hayden MD PCP - General Family Practice 09/06/13 [address] [place] [address] Catrina Ramos MD Ophthalmology Surgery 12/25/11 Gail Jenkins MD Cardiovascular Disease 12/30/12 [address] [address] [place] [facility] 12/30/12
== END 2022-01-31 14:17 | disposition home or self-care (01) ==
LOC: WOUND 14:16
PROVIDERS: PCP Surgery; Visit Provider Nurse Practitioner Family
DX: L59.8 Other specified disorders of the skin and subcutaneous tissue related to radiation (principal); I89.0 Lymphedema, not elsewhere classified
CPT/HCPCS: 97597

== ENCOUNTER 2022-02-14 14:18 | Outpatient (CLI) | payer MEDICARE, BC, SELFPAY | END 2022-02-14 14:19 | disposition home or self-care (01) | LOC: WOUND 14:18 | PROVIDERS: PCP Surgery; Visit Provider Nurse Practitioner Family | DX: L59.8 Other specified disorders of the skin and subcutaneous tissue related to radiation (principal); I89.0 Lymphedema, not elsewhere classified; I87.2 Venous insufficiency (chronic) (peripheral) | CPT/HCPCS: 97597 ==

== ENCOUNTER 2022-02-21 08:51 | Outpatient (CLI) | payer MEDICARE, BC, SELFPAY | END 2022-02-21 08:52 | disposition home or self-care (01) | LOC: WOUND 08:52 | PROVIDERS: PCP Surgery; Visit Provider Nurse Practitioner Family | DX: L59.8 Other specified disorders of the skin and subcutaneous tissue related to radiation (principal) | CPT/HCPCS: 11042 ==

== ENCOUNTER 2022-02-28 14:19 | Outpatient (CLI) | payer MEDICARE, BC, SELFPAY | END 2022-02-28 14:20 | disposition home or self-care (01) | LOC: WOUND 14:19 | PROVIDERS: PCP Surgery; Visit Provider Nurse Practitioner Family | DX: L59.8 Other specified disorders of the skin and subcutaneous tissue related to radiation (principal); I89.0 Lymphedema, not elsewhere classified | CPT/HCPCS: 11042 ==

== ENCOUNTER 2022-03-14 14:06 | Outpatient (CLI) | payer MEDICARE, BC, SELFPAY | END 2022-03-14 14:07 | disposition home or self-care (01) | LOC: WOUND 14:06 | PROVIDERS: PCP Surgery; Visit Provider Nurse Practitioner Family | DX: L59.8 Other specified disorders of the skin and subcutaneous tissue related to radiation (principal); I89.0 Lymphedema, not elsewhere classified; I87.2 Venous insufficiency (chronic) (peripheral) | CPT/HCPCS: 97597 ==

== ENCOUNTER 2022-03-21 14:15 | Outpatient (CLI) | payer MEDICARE, BC, SELFPAY | END 2022-03-21 14:16 | disposition home or self-care (01) | LOC: WOUND 14:15 | PROVIDERS: PCP Surgery; Visit Provider Nurse Practitioner Family | DX: I87.2 Venous insufficiency (chronic) (peripheral) (principal); L59.8 Other specified disorders of the skin and subcutaneous tissue related to radiation; L97.222 Non-pressure chronic ulcer of left calf with fat layer exposed | CPT/HCPCS: 97597 ==

== ENCOUNTER 2022-04-04 14:14 | Outpatient (CLI) | payer MEDICARE, BC, SELFPAY | END 2022-04-04 14:15 | disposition home or self-care (01) | LOC: WOUND 14:14 | PROVIDERS: PCP Surgery; Visit Provider Nurse Practitioner Family | DX: L59.8 Other specified disorders of the skin and subcutaneous tissue related to radiation (principal); I89.0 Lymphedema, not elsewhere classified; I87.2 Venous insufficiency (chronic) (peripheral) | CPT/HCPCS: 99212 ==

== ENCOUNTER 2022-04-18 14:22 | Outpatient (CLI) | payer MEDICARE, BC, SELFPAY | END 2022-04-18 14:23 | disposition home or self-care (01) | LOC: WOUND 14:22 | PROVIDERS: PCP Surgery; Visit Provider Nurse Practitioner Family | DX: L59.8 Other specified disorders of the skin and subcutaneous tissue related to radiation (principal); L97.222 Non-pressure chronic ulcer of left calf with fat layer exposed; I89.0 Lymphedema, not elsewhere classified | CPT/HCPCS: 99212 ==

== ENCOUNTER 2022-05-18 15:57 | Emergency (ER) | payer MEDICARE, BC, SELFPAY ==
[2022-05-18] VITALS (22 sets, daily range): BP systolic 136–171; BP diastolic 70–106; PULSE 59–74; RESP 22; TEMP 36.8; O2SAT 96–100; BMI 25.8
--- NOTE | 2022-05-18 16:20 | CRLHL7_ITS ---
For Patients: As a result of the Cures Act, medical imaging exams and procedure reports are released immediately into your electronic medical record. You may view this report before your referring provider. If you have questions, please contact your health care provider. INDICATION: Chest pain. TECHNIQUE: Chest 2 views. COMPARISON: None. FINDINGS: Cardiovascular and mediastinum: Heart size and vasculature are normal in caliber and appearance. Left chest wall pacemaking device. Lungs and pleural spaces: Bibasilar atelectasis. No sign of infiltrate or mass. No sign of pleural effusion. No pneumothorax. Bones and soft tissues: No significant findings. IMPRESSION: No acute or significant findings. Dictated by Madan Segovia MD @ 05/18/2022 4:59:49 PM (Electronically Signed)
--- NOTE | 2022-05-18 16:25 | ED.CHESTPAIN ---
HPI - Chest Pain General Date Seen: 05/18/22 Chief Complaint: Chest Pain Stated Complaint: Chest pains, gas Time Seen by Provider: 05/18/22 15:58 Source: patient and family Mode of arrival: ambulatory Limitations: no limitations History of Present Illness HPI narrative: Patient is an 86-year-old gentleman who presents ambulatory to the emergency room for evaluation of chest pain, he recently got [facility] 5 days ago, where he was admitted because of ongoing chest pain, in cardiac rehab but [address], was admitted there, apparently had an elevation of his troponins and was transferred to [facility]. He was discharged on Sunday, they told him that he did not need any further testing. Since then he has been having continued chest pain whenever he walks around or moves, he tells me has no chest pain at rest, but makes face is in the room whenever he moves around and tells me that he fits more relief when he sits up as opposed to lays back. Has a history of 7 previous coronary artery stents with the most recent in February of 2022. Denies any shortness of breath with this, there is no his in nausea vomiting, says he also has reflux and there may be a component of reflux with this. He is brought in today I believe by his daughter. Denies any leg swelling, is taking his normal medications has not missed dosages. 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: Yes Onset: during exertion Pain location: substernal and left chest Pain radiation: none Severity: moderate Quality: tightness Relieving factors: leaning forward, remaining still and sitting upright Exacerbating factors: exertion and movement Treatment prior to arrival: none Risk Factors Thoracic aortic dissection risk factors: none Related Data Home Medications Medication Instructions Recorded Confirmed acetaminophen 500 mg tablet 500 mg PO Q6H PRN 09/28/21 04/28/22 (Tylenol Extra Strength) apixaban 5 mg tablet 5 mg PO BID 09/28/21 04/28/22 atorvastatin 20 mg tablet 10 mg PO HS 09/28/21 04/28/22 clopidogrel 75 mg tablet 75 mg PO DAILY 09/28/21 04/28/22 furosemide 20 mg tablet 20 mg PO DAILY 09/28/21 04/28/22 gabapentin 300 mg capsule 300 mg PO HS 09/28/21 04/28/22 losartan 50 mg tablet (Cozaar) 50 mg PO BID 09/28/21 04/28/22 omeprazole 40 mg capsule,delayed 40 mg PO DAILY 09/28/21 04/28/22 release multivitamin with minerals-ferrous 1 tab PO DAILY 11/04/21 04/28/22 sulfate 4.5 mg iron tablet (One Daily Multivitamins with Minerals) nitroglycerin 0.4 mg sublingual 0.4 mg sublingual Q5M PRN 11/04/21 04/28/22 tablet sotalol .Route 01/02/22 04/28/22 Previous Rx's Medication Instructions Recorded metoprolol succinate 25 mg capsule 25 mg PO DAILY #30 ea 11/05/21 sprinkle, ext. release 24 hr isosorbide mononitrate 30 mg 30 mg PO DAILY #30 tabs 05/18/22 tablet,extended release 24 hr Allergies Allergy/AdvReac Type Severity Reaction Status Date / Time atenolol AdvReac Verified 05/18/22 16:19 lisinopril AdvReac anemia Verified 05/18/22 16:19 Review of Systems Status of ROS Reports: 10 or more systems reviewed and unremarkable except as noted in History and below PFSH PFSH Medical History Adjustment disorder with depressed mood ?F43.21 - Adjustment disorder with depressed mood (ICD-10) Atrial fibrillation ?I48.91 - Unspecified atrial fibrillation (ICD-10) Sanchez's cyst of knee ?M71.20 - Synovial cyst of popliteal space [Sanchez], unspecified knee (ICD-10) CAD (coronary artery disease) ?I25.10 - Atherosclerotic heart disease of [place] coronary artery without angina pectoris (ICD-10) Coronary artery disease ?I25.10 - Atherosclerotic heart disease of [place] coronary artery without angina pectoris (ICD-10) GERD (gastroesophageal reflux disease) ?K21.9 - Gastro-esophageal reflux disease without esophagitis (ICD-10) GERD (gastroesophageal reflux disease) ?K21.9 - Gastro-esophageal reflux disease without esophagitis (ICD-10) Hearing loss ?H91.90 - Unspecified hearing loss, unspecified ear (ICD-10) Hypertension ?I10 - Essential (primary) hypertension (ICD-10) Hypertension ?I10 - Essential (primary) hypertension (ICD-10) Hypokalemia ?E87.6 - Hypokalemia (ICD-10) Insomnia, unspecified ?G47.00 - Insomnia, unspecified (ICD-10) Mixed hyperlipidemia ?E78.2 - Mixed hyperlipidemia (ICD-10) DANIAL (obstructive sleep apnea) ?G47.33 - Obstructive sleep apnea (adult) (pediatric) (ICD-10) DANIAL (obstructive sleep apnea) ?G47.33 - Obstructive sleep apnea (adult) (pediatric) (ICD-10) Paroxysmal A-fib ?I48.0 - Paroxysmal atrial fibrillation (ICD-10) Personal history of peptic ulcer disease ?Z87.11 - Personal history of peptic ulcer disease (ICD-10) Rosacea ?L71.9 - Rosacea, unspecified (ICD-10) Tinnitus ?H93.19 - Tinnitus, unspecified ear (ICD-10) Tobacco user ?Z72.0 - Tobacco use (ICD-10) Surgical History 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) ?Z98.890 - Other specified postprocedural states (ICD-10) Hx of appendectomy ?Z90.49 - Acquired absence of other specified parts of digestive tract (ICD-10) Hx of colonoscopy ?Z98.890 - Other specified postprocedural states (ICD-10) Hx of hernia repair ?Z98.890 - Other specified postprocedural states (ICD-10) ?Z87.19 - Personal history of other diseases of the digestive system (ICD-10) Hx of inguinal hernia repair ?Z98.890 - Other specified postprocedural states (ICD-10) ?Z87.19 - Personal history of other diseases of the digestive system (ICD-10) S/P right knee arthroscopy (06/12/13) ?Z98.890 - Other specified postprocedural states (ICD-10) Social History Smoking Status: Former smoker What tobacco products do you use: cigarettes Smoking quit date/years: >15 years ago Do you use any of these nicotine containing products: None Second hand tobacco smoke exposure: No How often do you have a drink containing alcohol: never How often do you have six or more drinks on one occasion: Never AUDIT-C Alcohol total score: 0 Non-prescribed substance use: denies use Caffeine: No service: Yes Exam Narrative Exam Narrative: Patient is seen in room 8, he is in some [id number] distress, with the pain whenever he moves around, localizes pain over his chest, his vital signs are reviewed. Pupils are equal round reactive to light there is no scleral icterus or redness TMs are normal oropharynx is normal there is no adenopathy anterior posterior chains, chest is clear bilaterally with no wheezing crackles noted his heart sounds are normal no clicks murmurs or gallops, good air entry is noted bilaterally, but he seems to splint a little bit when he takes a deep breath in. Abdomen is soft there is no guarding, no organomegaly, no tenderness, he moves all extremities independently and well. No edema of his lower extremities, no tenderness noted of his thoracic or lumbar spine. Neurologically intact cranial nerves 3-12 are normal moves all extremities independently well proximal distal muscle strength is normal. Const Vital Signs, click to edit/add: Vital Signs - 24 hr 05/18/22 16:13 05/18/22 16:20 05/18/22 16:28 Temperature 98.3 F Pulse Rate 59 L Pulse Rate [Pulse Oximeter] 74 Respiratory Rate 22 Blood Pressure Blood Pressure [Right Upper Arm] 171/106 H Pulse Oximetry 100 99 100 Oxygen Delivery Method Room Air Room Air 05/18/22 16:30 05/18/22 16:43 05/18/22 16:45 Temperature Pulse Rate 69 70 62 Pulse Rate [Pulse Oximeter] Respiratory Rate Blood Pressure 154/80 H Blood Pressure [Right Upper Arm] Pulse Oximetry 100 98 99 Oxygen Delivery Method 05/18/22 17:00 05/18/22 17:02 05/18/22 17:15 Temperature Pulse Rate 65 65 64 Pulse Rate [Pulse Oximeter] Respiratory Rate Blood Pressure 142/70 H Blood Pressure [Right Upper Arm] Pulse Oximetry 98 98 96 Oxygen Delivery Method 05/18/22 17:30 05/18/22 17:32 05/18/22 17:45 Temperature Pulse Rate 65 64 61 Pulse Rate [Pulse Oximeter] Respiratory Rate Blood Pressure 136/70 Blood Pressure [Right Upper Arm] Pulse Oximetry 97 96 98 Oxygen Delivery Method 05/18/22 18:00 05/18/22 18:02 05/18/22 18:03 Temperature Pulse Rate 60 60 60 Pulse Rate [Pulse Oximeter] Respiratory Rate Blood Pressure 140/74 H Blood Pressure [Right Upper Arm] Pulse Oximetry 100 99 99 Oxygen Delivery Method 05/18/22 18:15 05/18/22 18:30 05/18/22 18:32 Temperature Pulse Rate 60 60 60 Pulse Rate [Pulse Oximeter] Respiratory Rate Blood Pressure 137/73 Blood Pressure [Right Upper Arm] Pulse Oximetry 98 98 98 Oxygen Delivery Method Documenting provider has reviewed patient's vital signs: yes Course Course Hospital Course: I spoke to the supervisor securities vault I am in [facility], I explained the day troponins that we got here, his recent hospitalization, he reviewed the notes from [facility], and thought that the patient as his troponins are negative he does not have current chest pain could go home, he would however suggest a Lexiscan as an outpatient, explained we could get this only as early as Sunday any thought that was fine. He would also suggesting increasing his Imdur to 30 mg once a day, I will give him some narcotic medication he can take 1st chest also, and ask him to split dose his omeprazole to maybe get a better result for his GE reflux. I explained to him that he does have a history of coronary disease in if the pain gets worse becomes more typical of this, does not go way, then he needs to come back and be seen. He was comfortable this as was his family. Vital Signs Vital signs: Initial Vital Signs Temperature 98.3 F 05/18/22 16:13 Temperature Source Temporal Artery Scan 05/18/22 16:13 Pulse Rate 74 05/18/22 16:13 Pulse Rhythm Irregular 05/18/22 16:13 Pulse Strength 3+ Normal 05/18/22 16:13 Respiratory Rate 22 05/18/22 16:13 Blood Pressure 171/106 H 05/18/22 16:13 Blood Pressure Mean 127 05/18/22 16:13 Blood Pressure Position Sitting 05/18/22 16:13 Pulse Oximetry 100 05/18/22 16:13 Oxygen Delivery Method Room Air 05/18/22 16:13 Vital Signs Temperature 98.3 F 05/18/22 16:13 Pulse Rate 74 05/18/22 16:13 Respiratory Rate 22 05/18/22 16:13 Blood Pressure 171/106 H 05/18/22 16:13 Pulse Oximetry 100 05/18/22 16:13 Oxygen Delivery Method Room Air 05/18/22 16:13 Temperature 98.3 F 05/18/22 16:13 Pulse Rate 60 05/18/22 18:32 Respiratory Rate 22 05/18/22 16:13 Blood Pressure 137/73 05/18/22 18:32 Pulse Oximetry 98 05/18/22 18:32 Oxygen Delivery Method Room Air 05/18/22 16:20 MDM - Chest Pain MDM Narrative Medical decision making narrative: During the evaluation of this patient I considered multiple differential diagnosis is. The life-threatening differential diagnosis include coronary disease/MT, pulmonary embolism, pneumothorax, pneumonia, and aortic dissection. Other differential diagnosis included but were not limited to pericarditis, myocarditis, chest wall pain, GERD, esophageal rupture, rib fracture contusion, pleurisy, as well as other etiologies. Medical Records Data Attestation: I reviewed the patient's medical records. Medical records narrative: I reviewed our records from [facility], when he was recently admitted his PTCA showed no changes, his troponins peaked at 0.076, he is atrial paced on his EKG. Lab Data Attestation: I reviewed the patient's lab results. Labs: Lab Results 05/18/22 05/18/22 05/18/22 Range/Units 16:15 16:21 16:45 WBC 5.78 (4.50-11.00) K/uL RBC 3.79 L (4.30-5.90) m/uL Hgb 12.6 L (13.5-17.5) gm/dL Hct 36.3 L (37.0-53.0) % MCV 96 (80-100) fL MCH 33 (26-34) pg MCHC 35 (32-36) gm/dL RDW Coeff of Corine 14.0 (11.5-15.5) % Plt Count 71 L (140-440) K/uL Neut % (Auto) 32.2 L (42.0-72.0) % Lymph % (Auto) 31.7 (20-44) % [place] % (Auto) 14.0 H (0.0-11.0) % Eos % (Auto) 0.5 (0.0-7.0) % Baso % (Auto) 21.6 H (0.0-3.0) % Neut # (Auto) 1.90 (1.7-7.0) K/uL Lymph # (Auto) 1.83 (0.90-2.90) K/uL [place] # (Auto) 0.80 (0.00-0.90) K/UL Eos # (Auto) 0.03 (0.00-0.50) K/uL Baso # (Auto) 1.20 H (0.00-0.30) K/uL Diff Slide Review Acceptable Review (Acceptable) INR 1.21 H (0.91-1.10) APTT 35 H (23-33) Seconds D-Dimer Quant (PE/DVT) 0.54 H (0.00-0.50) ug/ml Sodium 136 (135-149) mmol/L Potassium 4.3 (3.6-5.1) mmol/L Chloride 104 (96-114) mmol/L Carbon Dioxide 23 (20-32) mmol/L BUN 30 (7-30) mg/dL Creatinine 1.0 (0.5-1.5) mg/dL Estimated Creat Clear 55.76 Estimated GFR 74 ml/min Glucose 101 (60-115) mg/dL Calcium 9.7 (8.4-10.6) mg/dL Troponin I < 0.01 L (0.01-0.04) ng/mL NT-Pro-B Natriuret Pep 401 pg/mL SARS-CoV-2 (PCR) Negative SARS-CoV-2 (Negative) Influenza Type A (PCR) Negative PCR FLU A (Negative) Influenza Type B (PCR) Negative PCR FLU B (Negative) RSV (PCR) Negative PCR RSV (Negative) POC Troponin I 0.01 (0.01-0.04) ng/ml 05/18/22 Range/Units 18:25 WBC (4.50-11.00) K/uL RBC (4.30-5.90) m/uL Hgb (13.5-17.5) gm/dL Hct (37.0-53.0) % MCV (80-100) fL MCH (26-34) pg MCHC (32-36) gm/dL RDW Coeff of Corine (11.5-15.5) % Plt Count (140-440) K/uL Neut % (Auto) (42.0-72.0) % Lymph % (Auto) (20-44) % [place] % (Auto) (0.0-11.0) % Eos % (Auto) (0.0-7.0) % Baso % (Auto) (0.0-3.0) % Neut # (Auto) (1.7-7.0) K/uL Lymph # (Auto) (0.90-2.90) K/uL [place] # (Auto) (0.00-0.90) K/UL Eos # (Auto) (0.00-0.50) K/uL Baso # (Auto) (0.00-0.30) K/uL Diff Slide Review (Acceptable) INR (0.91-1.10) APTT (23-33) Seconds D-Dimer Quant (PE/DVT) (0.00-0.50) ug/ml Sodium (135-149) mmol/L Potassium (3.6-5.1) mmol/L Chloride (96-114) mmol/L Carbon Dioxide (20-32) mmol/L BUN (7-30) mg/dL Creatinine (0.5-1.5) mg/dL Estimated Creat Clear Estimated GFR ml/min Glucose (60-115) mg/dL Calcium (8.4-10.6) mg/dL Troponin I (0.01-0.04) ng/mL NT-Pro-B Natriuret Pep pg/mL SARS-CoV-2 (PCR) (Negative) Influenza Type A (PCR) (Negative) Influenza Type B (PCR) (Negative) RSV (PCR) (Negative) POC Troponin I 0.02 (0.01-0.04) ng/ml Delta of his tropes is 0.01/2 hours which is reassuring Imaging Data Chest x-ray: Attestation: I have reviewed the pertinent imaging results. Radiologist's impression: Patient: ASIA SLOAN Facility:?[facility] Patient ID:?[id number] Site Patient ID:?[id number]. Site :?[id number] Study:?XRay Chest 2 views-05/18/2022 4:47:02 PM Ordering Physician:Jackie Marrero Final Report: INDICATION: Chest pain. TECHNIQUE: Chest 2 views. COMPARISON: None. FINDINGS: Cardiovascular and mediastinum: Heart size and vasculature are normal in caliber and appearance. Left chest wall pacemaking device. Lungs and pleural spaces: Bibasilar atelectasis. No sign of infiltrate or mass. No sign of pleural effusion. No pneumothorax. Bones and soft tissues: No significant findings. IMPRESSION: No acute or significant findings. Dictated by Madan Segovia MD @ 05/18/2022 4:59:49 PM (Electronic Signature) ECG Data Attestation: I personally reviewed and interpreted this ECG as follows: ECG interpretation date: 05/18/22 Prior ECG tracings: available for review Interpretation: EKG shows atrial fibrillation, some junctional pacemaker, with abdomen Ali conducted complexes, no acute ST wave changes. Unchanged from previous Discharge Plan Discharge Clinical Impression: Atypical chest pain, Chest pain Patient Disposition: Home w/ Parent or Adult Condition: Improved Additional Instructions: Home rest we will try to schedule you for a Lexiscan on Sunday, per the recommendation from Cardiology, increase your Imdur to 30mg once daily, from the once daily dosage. Take the Percocet for pain as needed, return if increasing chest pain shortness of breath or other worrisome signs and symptoms such as sweating, pain that does not lorraine, or other issues. We might want to try splitting her dose of omeprazole to 20 mg twice daily from the 40 mg daily. This will help the reflux also. Prescriptions: New isosorbide mononitrate 30 mg tablet extended release 24 hr 30 mg PO DAILY Qty: 30 2RF No Action acetaminophen [Tylenol Extra Strength] 500 mg tablet 500 mg PO Q6H PRN apixaban 5 mg tablet 5 mg PO BID atorvastatin 20 mg tablet 10 mg PO HS clopidogrel 75 mg tablet 75 mg PO DAILY furosemide 20 mg tablet 20 mg PO DAILY gabapentin 300 mg capsule 300 mg PO HS losartan [Cozaar] 50 mg tablet 50 mg PO BID omeprazole 40 mg capsule,delayed release(DR/EC) 40 mg PO DAILY nitroglycerin 0.4 mg tablet, sublingual 0.4 mg sublingual Q5M PRN Rx Instructions: PRN CHEST PAIN One Daily Multi-Vit w-Mineral 4.5 mg iron tablet 1 tab PO DAILY metoprolol succinate 25 mg capsule,sprinkle,ER 24hr 25 mg PO DAILY Qty: 30 0RF Rx Instructions: Take half a tablet (12.5mg) daily with breakfast sotalol .Route Follow Up/Referrals: Art Robbins MD [Primary Care Provider] - Stand Alone Forms: [employer] Info Instructions
[2022-05-18 16:33] LABS: Basophils Percent Auto 21.6 % (0.0-3.0); Eosinophils Absolute Auto 0.03 K/uL (0.00-0.50); Eosinophils Percent Auto 0.5 % (0.0-7.0); Hematocrit 36.3 % (37.0-53.0); Hemoglobin* 12.6 gm/dL (13.5-17.5); Lymphocytes Absolute Auto 1.83 K/uL (0.90-2.90); Lymphocytes Percent Auto 31.7 % (20-44); Mean Corpuscular HGB Conc 35 gm/dL (32-36); Mean Corpuscular Hemoglobin 33 pg (26-34); Mean Corpuscular Volume 96 fL (80-100); Neutrophils Percent Auto 32.2 % (42.0-72.0); Red Blood Count 3.79 m/uL (4.30-5.90); White Blood Count* 5.78 K/uL (4.50-11.00)
[2022-05-18 16:38] LABS: Slide Review Reflex Yes
[2022-05-18] MEDS: ASPIRIN 81 MG TAB.CHEW 324 MG PO (16:40)
[2022-05-18] MEDS: MORPHINE 2 MG/ML inj IVP (16:40)
[2022-05-18] MEDS: 0.9 % SODIUM CHLORIDE 1000 ml 1,000 ML IV (16:41)
[2022-05-18 16:48] LABS: Chloride* 104 mmol/L (96-114); INR 1.21 (0.91-1.10); Potassium* 4.3 mmol/L (3.6-5.1); Sodium* 136 mmol/L (135-149)
[2022-05-18 16:49] LABS: Partial Thromboplastin Time* 35 Seconds (23-33)
[2022-05-18 16:49] LABS: Troponin, Point-of-Care* 0.01 ng/ml (0.01-0.04)
[2022-05-18 16:51] LABS: Blood Urea Nitrogen* 30 mg/dL (7-30); Carbon Dioxide* 23 mmol/L (20-32); D Dimer Quantitative* 0.54 ug/ml (0.00-0.50); Est. Creatinine Clearance* 55.76; Estimated Glomerular Filt Rate 74 ml/min; Glucose* 101 mg/dL (60-115)
[2022-05-18 16:52] LABS: Calcium* 9.7 mg/dL (8.4-10.6)
[2022-05-18 17:04] LABS: NT Pro B Type NatriureticPept* 401 pg/mL; Troponin I* < 0.01 ng/mL (0.01-0.04)
[2022-05-18 17:26] LABS: PCR FLU A Negative PCR FLU A (Negative); PCR FLU B Negative PCR FLU B (Negative); PCR RSV Negative PCR RSV (Negative)
[2022-05-18 17:27] LABS: SARS PCR* Negative SARS-CoV-2 (Negative)
[2022-05-18 17:29] LABS: Platelet Count* 71 K/uL (140-440)
[2022-05-18 17:33] LABS: Slide Review Acceptable Review (Acceptable)
[2022-05-18] MEDS: PANTOPRAZOLE SODIUM 40 MG INJ IVP (18:07)
[2022-05-18 18:38] LABS: Troponin, Point-of-Care* 0.02 ng/ml (0.01-0.04)
== END 2022-05-18 19:51 | disposition home or self-care (01) ==
PROVIDERS: Emergency Provider Family Medicine; PCP Surgery
DX: R07.89 Other chest pain (principal)
CPT/HCPCS: 36415; 71046; 80048; 83880; 84484; 85025; 85379; 85610; 85730; 87502; 87634; 87635; 93005; 96374; 96375; 99285; A9270; C9113; J2270; J7030

== ENCOUNTER 2022-05-23 07:40 | Outpatient (CLI) | payer MEDICARE, BC, SELFPAY ==
--- NOTE | 2022-05-23 08:00 | CRLHL7_ITS ---
For Patients: As a result of the Century Cures Act, medical imaging exams and procedure reports are released immediately into your electronic medical record. You may view this report before your referring provider. If you have questions, please contact your health care provider. MYOCARDIAL PERFUSION SCAN - [facility] CLINICAL HISTORY: 86-year-old male. Chest pain. Coronary artery disease. Myocardial infarction in 12/2021. Previous coronary artery stenting x 7. Hypertension. Pacemaker. 180 pounds. TECHNIQUE: (Resting SPECT and stress gated SPECT with wall motion and ejection fraction) Stress: Pharmacologic - Lexiscan (0.4 mg) (IV) Dose (Stress/Rest): 32.8 mCi/8.43 mCi Tc-99m Sestamibi (IV) Comparison: 06/30/2020 (report) FINDINGS: There is good uptake of activity by the left ventricle. No left ventricular enlargement is noted. There is mild soft tissue attenuation. There is a small area of mild to moderately decreased activity in the base and mid inferolateral wall. This is predominantly fixed on the resting images, consistent with nontransmural infarction. There is minimal peripheral reversibility surrounding this area, consistent with minimal ron-infarction ischemia. No other significant fixed or reversible defects are identified. The gated images demonstrate a normal left ventricular ejection fraction of approximately 65 percent. No regional wall motion abnormalities are identified. Compared to the report of the 06/30/2020 study, the current small nontransmural infarction with minimal ron-infarction ischemia in the base and mid inferolateral wall is new. IMPRESSION: 1. There is a small nontransmural infarction with minimal ron-infarction ischemia in the base and mid inferolateral wall. 2. Normal left ventricular ejection fraction of approximately 65 percent. VANI SALDANA M.D. [email or web address] WEN/tuan / be/Dictated by: Vani Saldana MD @ 05/23/2022 12:13:00 PM (Electronically Signed)
[2022-05-23] MEDS: REGADENOSON 0.4 MG/5 ML SYRINGE IVP (08:32)
[2022-05-23] MEDS: SODIUM CHLORIDE 0.9 % (FLUSH) 10 ML SYRINGE IVF (08:32)
[2022-05-23 09:00] VITALS: BP 117/63; PULSE 64
--- NOTE | 2022-05-23 10:21 | W.PM.STED ---
Stress Test Note Date Date Seen: 05/23/22 Providers Primary care provider: Art Robbins Stress test physician: Janes Howard Stress Test Note Stress test ordered: Lexiscan Indication for test: Chest pain Stress test medicine: Lexiscan Results discussion: Patient is a very nice gentleman presents for the above test after discussion the risks benefits side effects he would like to proceed pretest EKG shows atrially paced rhythm, ventricular rate of 65 and blood pressure 135 on 73. No significant the change from baseline, there is nonspecific ST wave abnormalities noted. Lexiscan protocol followed with infusion time of 5 minutes, patient tolerated this very well, he had some mild dizziness notable. Appropriate the heart rate and blood pressure response was noted to the Lexiscan. Review of his tracings, showed no evidence of a ST wave changes suggestive of ischemia, there was no dysrhythmias, Impression: Negative electrographic portion of Lexiscan Follow up suggested: Await nuclear images these will be jointly read by Cardiology and nuclear Medicine, clinical correlation with these will be needed, patient recovered normally and left this testing facility in excellent condition and back at baseline.
== END 2022-05-23 07:41 | disposition home or self-care (01) ==
PROVIDERS: PCP Surgery; Visit Provider Family Medicine
DX: R07.9 Chest pain, unspecified (principal)
CPT/HCPCS: 78452; 93016; 93017; A9500; J2785

== ENCOUNTER 2022-05-24 06:15 | Day surgery (SDC) | payer MEDICARE, BC, SELFPAY ==
[2022-05-24] VITALS (7 sets, daily range): BP systolic 121–160; BP diastolic 59–70; PULSE 63–72; RESP 14–18; TEMP 36.6–36.7; O2SAT 98–100; BMI 25.1
--- NOTE | 2022-05-24 06:51 | SUR.PREOP ---
SAME DAY SURGERY LOCAL INJECTION SITE VERIFICATION WAS PERFORMED BY SURGEON/PA AND PATIENT PRIOR TO LOCAL ANESTHETIC BEING INJECTED TO OPERATIVE SITE.
[2022-05-24] MEDS: BUPIVACAINE 0.5% 30 ML INJECTION (07:00)
[2022-05-24] MEDS: ETHYL CHLORIDE 1 APPLICATION 1 APPLIC TOPICAL (07:00)
--- NOTE | 2022-05-24 07:24 | PM.ORPRC ---
Procedure Note Date of procedure: 05/24/22 Procedure: PREOPERATIVE DIAGNOSIS: 1. Right carpal tunnel syndrome POSTOPERATIVE DIAGNOSIS: 1. Right carpal tunnel syndrome PROCEDURE: 1. Right open carpal tunnel release SURGEON: Osvaldo Dave MD. INTERPRETER FOR THE DEAF: SERENA Rader ANESTHESIA: Local anesthetic (50:50 mixture of 1% lidocaine with epi and 0.5% marcaine plain) - 8ml total IMPLANTS: None EBL: 2 mL TOURNIQUET: None COMPLICATIONS: None evident INDICATIONS: The patient is a pleasant 86-year-old male who has experienced right hand numbess/tingling affecting the radial 3.5 digits for multiple months. It has progressively gotten worse. Nonoperative management has been tried and failed, and therefore surgery was recommended. DESCRIPTION OF PROCEDURE: Following a thorough discussion of risks, benefits, and alternatives consent was obtained and the operative extremity was marked. The patient was brought to the operating room and placed supine on the operating table. Local anesthesia induction was undertaken in preop holding. No antibiotics were administered as this was planned to be a local case only. Proper time-out was performed identifying proper patient, site, and procedure. The operative extremity was prepped and draped in the appropriate sterile fashion using ChloraPrep. An incision was made in line with the radial border of the ring finger beginning 1 cm distal to the distal wrist crease and progressing for another 2.5cm distal. Caution was taken to stay proximal to Anguiano's cardinal line. Sharp incision through the skin, subcutaneous tissue, and palmar fascia was performed. The thenar musculature was bluntly elevated off the transverse carpal ligament. The ligament was directly visualized, and divided sharply with a 15 blade. This was released from its most proximal to the most distal extent. Metzenbaum scissor was also utilized to release the fascia extension proximally. We confirmed complete release of the transverse carpal ligament. Closure was performed with 4-O nylon in interrupted fashion. Soft dressings were applied, and the patient was transferred to the recovery room in stable condition. PLAN: 1. Encourage elevation of the operative extremity. 2. Range of motion of the fingers and hand/wrist as tolerated. 3. Ibuprofen/acetaminophen and/or Percocet as needed for pain control. 4. Follow up with PA visit or nurse visit in 12-16 days for wound check and suture removal.
== END 2022-05-24 08:00 | disposition home or self-care (01) ==
PROVIDERS: PCP Surgery; Visit Provider Orthopaedic Surgery Sports Medicine
PROC: (CPT 64721; principal; 2022-05-24 07:30)
DX: G56.01 Carpal tunnel syndrome, right upper limb (principal)
CPT/HCPCS: 64721; J3490

== ENCOUNTER 2022-05-28 08:37 | Outpatient (CLI) | payer MEDICARE, BC, SELFPAY | END 2022-05-28 08:38 | disposition home or self-care (01) | LOC: AMB 20:21 | PROVIDERS: PCP Surgery; Visit Provider Emergency Medicine Emergency Medical Services | DX: R07.89 Other chest pain (principal) | CPT/HCPCS: A0425; A0427 ==

== ENCOUNTER 2022-05-28 09:05 | Emergency (ER) | payer MEDICARE, BC, SELFPAY ==
[2022-05-28 09:16] VITALS: BP 149/75; PULSE 66; RESP 22; TEMP 36.4; O2SAT 99; BMI 25.1
--- NOTE | 2022-05-28 09:31 | ED_ITS ---
HPI - Chest Pain General Chief Complaint: Chest Pain Stated Complaint: Chest pain Time Seen by Provider: 05/28/22 09:14 History of Present Illness HPI narrative: This 86-year-old male comes in reporting chest pain. He arrives by ambulance and did receive nitroglycerin EN route which brought relief to his symptoms. He did have 4 stents placed about 2 and half months ago. He states that he has been having chest pain like this since then. He reports that the stents were placed and sufficiently attended to his coronary artery disease. He did have a subsequent CT angiogram which showed patent vessels. He does have dyspepsia and heartburn symptoms and is taking Pepcid and omeprazole. He states that the chest pain seems to happen with exertion. He does not report any nausea, vomiting, shortness of breath, diaphoresis. He had a recent carpal tunnel surgery in his right wrist. He also has an appointment in 2 days for workup of low platelets. Related Data Home Medications Medication Instructions Recorded Confirmed acetaminophen 500 mg tablet 500 mg PO Q6H PRN 09/28/21 04/28/22 (Tylenol Extra Strength) apixaban 5 mg tablet 5 mg PO BID 09/28/21 04/28/22 atorvastatin 20 mg tablet 10 mg PO HS 09/28/21 04/28/22 clopidogrel 75 mg tablet 75 mg PO DAILY 09/28/21 04/28/22 furosemide 20 mg tablet 20 mg PO DAILY 09/28/21 04/28/22 gabapentin 300 mg capsule 300 mg PO HS 09/28/21 04/28/22 losartan 50 mg tablet (Cozaar) 50 mg PO BID 09/28/21 04/28/22 omeprazole 40 mg capsule,delayed 40 mg PO DAILY 09/28/21 04/28/22 release multivitamin with minerals-ferrous 1 tab PO DAILY 11/04/21 04/28/22 sulfate 4.5 mg iron tablet (One Daily Multivitamins with Minerals) nitroglycerin 0.4 mg sublingual 0.4 mg sublingual Q5M PRN 11/04/21 04/28/22 tablet sotalol .Route 01/02/22 04/28/22 Previous Rx's Medication Instructions Recorded metoprolol succinate 25 mg capsule 25 mg PO DAILY #30 ea 11/05/21 sprinkjessy, ext. release 24 hr isosorbide mononitrate 30 mg 30 mg PO DAILY #30 tabs 05/18/22 tablet,extended release 24 hr Allergies Allergy/AdvReac Type Severity Reaction Status Date / Time atenolol AdvReac Verified 05/18/22 16:19 lisinopril AdvReac anemia Verified 05/18/22 16:19 Review of Systems Status of ROS Reports: 10 or more systems reviewed and unremarkable except as noted in History and below Narrative Constitutional: No fevers, no weight gain or loss. Eyes: No discharge. No vision changes. HENT: No congestion, no sore throat, no ear pain. Cardiovascular: No palpitations. Chest pain as described above. Respiratory: No shortness of breath, no wheezes, no cough. Gastrointestinal: No abdominal pain, no vomiting, no diarrhea. Genitourinary: No dysuria, no hematuria. Musculoskeletal: Recent right carpal tunnel release. Skin: No rashes, no pruritis. Neurological: No dizziness, weakness, sensory change, speech change. Endo/Heme/Allergies: No bruising or bleeding. No polydipsia. Pysch: no suicidality, no anxiety, no insomnia. All other systems reviewed and are negative. PFSH PFSH Medical History Adjustment disorder with depressed mood ?F43.21 - Adjustment disorder with depressed mood (ICD-10) Atrial fibrillation ?I48.91 - Unspecified atrial fibrillation (ICD-10) Sanchez's cyst of knee ?M71.20 - Synovial cyst of popliteal space [Sanchez], unspecified knee (ICD-10) CAD (coronary artery disease) ?I25.10 - Atherosclerotic heart disease of viejas coronary artery without angina pectoris (ICD-10) Coronary artery disease ?I25.10 - Atherosclerotic heart disease of viejas coronary artery without angina pectoris (ICD-10) GERD (gastroesophageal reflux disease) ?K21.9 - Gastro-esophageal reflux disease without esophagitis (ICD-10) GERD (gastroesophageal reflux disease) ?K21.9 - Gastro-esophageal reflux disease without esophagitis (ICD-10) Hearing loss ?H91.90 - Unspecified hearing loss, unspecified ear (ICD-10) Hypertension ?I10 - Essential (primary) hypertension (ICD-10) Hypertension ?I10 - Essential (primary) hypertension (ICD-10) Hypokalemia ?E87.6 - Hypokalemia (ICD-10) Insomnia, unspecified ?G47.00 - Insomnia, unspecified (ICD-10) Mixed hyperlipidemia ?E78.2 - Mixed hyperlipidemia (ICD-10) DANIAL (obstructive sleep apnea) ?G47.33 - Obstructive sleep apnea (adult) (pediatric) (ICD-10) DANIAL (obstructive sleep apnea) ?G47.33 - Obstructive sleep apnea (adult) (pediatric) (ICD-10) Paroxysmal A-fib ?I48.0 - Paroxysmal atrial fibrillation (ICD-10) Personal history of peptic ulcer disease ?Z87.11 - Personal history of peptic ulcer disease (ICD-10) Rosacea ?L71.9 - Rosacea, unspecified (ICD-10) Tinnitus ?H93.19 - Tinnitus, unspecified ear (ICD-10) Tobacco user ?Z72.0 - Tobacco use (ICD-10) Surgical History (Updated 05/24/22 @ 12:05 by Dayana Campuzano) History of carpal tunnel surgery of right wrist (05/24/22) ?Z98.890 - Other specified postprocedural states (ICD-10) 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890 - Other specified postprocedural states (ICD-10) Social History Smoking Status: Former smoker What tobacco products do you use: cigarettes Smoking quit date/years: >15 years ago Do you use any of these nicotine containing products: None Second hand tobacco smoke exposure: No How often do you have a drink containing alcohol: never How often do you have six or more drinks on one occasion: Never AUDIT-C Alcohol total score: 0 Non-prescribed substance use: denies use Caffeine: No service: Yes Exam Narrative Exam Narrative: Constitutional: Well-developed, well-nourished, no acute distress. HEENT: Normocephalic, atraumatic. Neck: Normal range of motion. Nontender. Supple. Heart: Regular. No murmurs. Normal rate. Intact distal pulses. Lungs: Clear to auscultation. No wheezes, rhonchi, or rales. Abdomen: Normal bowel sounds. Nontender. No rebound tenderness. Genitalia: Deferred. Back: No midline tenderness. Normal range of motion. Extremities: Right wrist and hand is swollen with ecchymosis due to recent carpal tunnel release surgery. Skin: Intact. No rash. Warm. No erythema or pallor. Neurologic: No altered sensation. No weakness. Alert and oriented. Psychiatric: No suicidality. No anxiety or depression. No insomnia. Nursing notes and vitals signs are reviewed. Const Vital Signs, click to edit/add: Vital Signs - 24 hr 05/28/22 09:16 Temperature 97.5 F L Pulse Rate [Right Pulse Oximeter] 66 Respiratory Rate 22 Blood Pressure [Left Upper Arm] 149/75 H Pulse Oximetry 99 Oxygen Delivery Method Room Air Course Vital Signs Vital signs: Initial Vital Signs Respiratory Effort Normal, Spontaneous 05/28/22 09:10 Respiratory Depth Normal 05/28/22 09:10 Respiratory Pattern Normal 05/28/22 09:10 Vital Signs Temperature 97.5 F L 05/28/22 09:16 Pulse Rate 66 05/28/22 09:16 Respiratory Rate 22 05/28/22 09:16 Blood Pressure 149/75 H 05/28/22 09:16 Pulse Oximetry 99 05/28/22 09:16 Oxygen Delivery Method Room Air 05/28/22 09:16 Temperature 97.5 F L 05/28/22 09:16 Pulse Rate 66 05/28/22 09:16 Respiratory Rate 22 05/28/22 09:16 Blood Pressure 149/75 H 05/28/22 09:16 Pulse Oximetry 99 05/28/22 09:16 Oxygen Delivery Method Room Air 05/28/22 09:16 MDM - Chest Pain MDM Narrative Medical decision making narrative: This patient comes in reporting chest pain which has been present for the past 2 or 3 months. He did have 4 stents placed about 2 and half months ago and states that he has been having chest discomfort since then. He did have a further workup including a CT angiogram of his heart which showed no sign of abnormality. He states that he is taking Pepcid and omeprazole because he does have upset stomach and heartburn symptoms. Today his EKG and labs returned with normal results. His platelets are low but not critically low. He does have a follow-up appointment in a couple days to workup his low platelet status. He is okay to be discharged to continue current plans. I advised him to increase his omeprazole from 20 mg to 40 mg daily as this may give relief to his symptoms. Lab Data Labs: Lab Results 05/28/22 05/28/22 Range/Units 09:20 09:31 WBC 6.25 (4.50-11.00) K/uL RBC 3.13 L (4.30-5.90) m/uL Hgb 10.4 L (13.5-17.5) gm/dL Hct 30.3 L (37.0-53.0) % MCV 97 (80-100) fL MCH 33 (26-34) pg MCHC 34 (32-36) gm/dL RDW Coeff of Corine 14.8 (11.5-15.5) % Plt Count 61 L (140-440) K/uL Neut % (Auto) 30.4 L (42.0-72.0) % Lymph % (Auto) 21.4 (20-44) % Reagan % (Auto) 22.1 H (0.0-11.0) % Eos % (Auto) 0.2 (0.0-7.0) % Baso % (Auto) 25.9 H (0.0-3.0) % Neut # (Auto) 1.90 (1.7-7.0) K/uL Lymph # (Auto) 1.34 (0.90-2.90) K/uL Reagan # (Auto) 1.40 H (0.00-0.90) K/UL Eos # (Auto) 0.01 (0.00-0.50) K/uL Baso # (Auto) 1.60 H (0.00-0.30) K/uL Sodium 137 (135-149) mmol/L Potassium 3.5 L (3.6-5.1) mmol/L Chloride 107 (96-114) mmol/L Carbon Dioxide 22 (20-32) mmol/L BUN 26 (7-30) mg/dL Creatinine 0.9 (0.5-1.5) mg/dL Estimated Creat Clear 54.01 Estimated GFR 84 ml/min Glucose 118 H (60-115) mg/dL Calcium 9.3 (8.4-10.6) mg/dL POC Troponin I 0.03 (0.01-0.04) ng/ml ECG Data Attestation: I personally reviewed and interpreted this ECG as follows: Interpretation: Normal sinus rhythm. Rate is 64 beats per minute. There are no ST or T-wave abnormalities. Discharge Plan Discharge Clinical Impression: Atypical chest pain, GERD (gastroesophageal reflux disease) Patient Disposition: Home, Self-Care Condition: Stable Additional Instructions: Continue current plans. Consider increasing omeprazole from 20 mg to 40 mg daily. Follow up with primary MD or return if worsening. Prescriptions: No Action acetaminophen [Tylenol Extra Strength] 500 mg tablet 500 mg PO Q6H PRN apixaban 5 mg tablet 5 mg PO BID atorvastatin 20 mg tablet 10 mg PO HS clopidogrel 75 mg tablet 75 mg PO DAILY furosemide 20 mg tablet 20 mg PO DAILY gabapentin 300 mg capsule 300 mg PO HS losartan [Cozaar] 50 mg tablet 50 mg PO BID omeprazole 40 mg capsule,delayed release(DR/EC) 40 mg PO DAILY nitroglycerin 0.4 mg tablet, sublingual 0.4 mg sublingual Q5M PRN Rx Instructions: PRN CHEST PAIN One Daily Multi-Vit w-Mineral 4.5 mg iron tablet 1 tab PO DAILY metoprolol succinate 25 mg capsule,sprinkle,ER 24hr 25 mg PO DAILY Qty: 30 0RF Rx Instructions: Take half a tablet (12.5mg) daily with breakfast sotalol .Route isosorbide mononitrate 30 mg tablet extended release 24 hr 30 mg PO DAILY Qty: 30 2RF Follow Up/Referrals: Art Robbins MD [Primary Care Provider] - Stand Alone Forms: [employer] Info Instructions
[2022-05-28 09:35] LABS: Troponin, Point-of-Care* 0.03 ng/ml (0.01-0.04)
[2022-05-28 09:37] LABS: Basophils Percent Auto 25.9 % (0.0-3.0); Eosinophils Absolute Auto 0.01 K/uL (0.00-0.50); Eosinophils Percent Auto 0.2 % (0.0-7.0); Hematocrit 30.3 % (37.0-53.0); Hemoglobin* 10.4 gm/dL (13.5-17.5); Lymphocytes Absolute Auto 1.34 K/uL (0.90-2.90); Lymphocytes Percent Auto 21.4 % (20-44); Mean Corpuscular HGB Conc 34 gm/dL (32-36); Mean Corpuscular Hemoglobin 33 pg (26-34); Mean Corpuscular Volume 97 fL (80-100); Monocytes Percent Auto 22.1 % (0.0-11.0); Neutrophils Percent Auto 30.4 % (42.0-72.0); Platelet Count* 61 K/uL (140-440); RDW Coefficient of Variation % 14.8 % (11.5-15.5); Red Blood Count 3.13 m/uL (4.30-5.90); White Blood Count* 6.25 K/uL (4.50-11.00)
[2022-05-28 09:40] LABS: Slide Review Reflex Yes
[2022-05-28 10:02] VITALS: BP 122/63; PULSE 60; RESP 14; O2SAT 96
[2022-05-28 10:02] LABS: Chloride* 107 mmol/L (96-114)
[2022-05-28 10:03] LABS: Potassium* 3.5 mmol/L (3.6-5.1); Sodium* 137 mmol/L (135-149)
[2022-05-28 10:05] LABS: Creatinine* 0.9 mg/dL (0.5-1.5); Est. Creatinine Clearance* 54.01; Estimated Glomerular Filt Rate 84 ml/min
[2022-05-28 10:06] LABS: Blood Urea Nitrogen* 26 mg/dL (7-30); Calcium* 9.3 mg/dL (8.4-10.6); Carbon Dioxide* 22 mmol/L (20-32); Glucose* 118 mg/dL (60-115)
[2022-05-28 10:32] VITALS: BP 129/63; PULSE 61; RESP 14; O2SAT 95
[2022-05-28 10:40] LABS: Slide Review Acceptable Review (Acceptable)
[2022-05-28 10:55] VITALS: BP 149/75; PULSE 66; RESP 14; TEMP 36.4
--- NOTE | 2022-05-28 10:58 | ED.NURSE ---
Daughter at bedside. MD aware she is requesting to speak to MD.
== END 2022-05-28 11:10 | disposition home or self-care (01) ==
PROVIDERS: Emergency Provider Emergency Medicine Emergency Medical Services; PCP Surgery
DX: R07.9 Chest pain, unspecified (principal); K21.9 Gastro-esophageal reflux disease without esophagitis
CPT/HCPCS: 36415; 80048; 84484; 85025; 93005; 99284

== ENCOUNTER 2022-06-08 10:40 | Outpatient (CLI) | payer OTHER, MEDICARE, BC, SELFPAY | END 2022-06-08 10:41 | disposition home or self-care (01) | LOC: AMB 06-11 00:06 | PROVIDERS: PCP Surgery; Visit Provider Family Medicine | DX: S39.92XA Unspecified injury of lower back, initial encounter (principal); V49.9XXA Car occupant (driver) (passenger) injured in unspecified traffic accident, initial encounter; Y92.413 State road as the place of occurrence of the external cause | CPT/HCPCS: A0425; A0427 ==

== ENCOUNTER 2022-06-08 11:13 | Emergency (ER) | payer OTHER, MEDICARE, BC, SELFPAY ==
[2022-06-08] VITALS (8 sets, daily range): BP systolic 93–106; BP diastolic 53–62; PULSE 67–75; RESP 21–39; TEMP 36.9; O2SAT 98–100; BMI 25.8
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
[2022-06-08 11:27] LABS: Basophils Percent Auto 22.9 % (0.0-3.0); Eosinophils Absolute Auto 0.01 K/uL (0.00-0.50); Eosinophils Percent Auto 0.1 % (0.0-7.0); Hematocrit 27.5 % (37.0-53.0); Lymphocytes Absolute Auto 2.08 K/uL (0.90-2.90); Lymphocytes Percent Auto 29.5 % (20-44); Mean Corpuscular HGB Conc 33 gm/dL (32-36); Mean Corpuscular Hemoglobin 33 pg (26-34); Mean Corpuscular Volume 102 fL (80-100); Monocytes Percent Auto 20.3 % (0.0-11.0); Neutrophils Percent Auto 27.2 % (42.0-72.0); RDW Coefficient of Variation % 15.4 % (11.5-15.5); Red Blood Count 2.71 m/uL (4.30-5.90); White Blood Count* 7.06 K/uL (4.50-11.00)
[2022-06-08 11:32] LABS: Platelet Count* 49 K/uL (140-440)
[2022-06-08 11:33] LABS: Slide Review Reflex Yes
[2022-06-08 11:40] LABS: Chloride* 108 mmol/L (96-114)
[2022-06-08 11:41] LABS: Albumin* 3.5 g/dL (3.3-5.0); Potassium* 4.3 mmol/L (3.6-5.1); Sodium* 136 mmol/L (135-149)
[2022-06-08 11:44] LABS: Alanine Aminotransferase* 22 U/L (4-50); Alkaline Phosphatase* 96 U/L (40-150); Aspartate Amino Transferase* 37 U/L (12-35); Bilirubin Total* 1.2 mg/dL (0.1-1.5); Blood Urea Nitrogen* 25 mg/dL (7-30); Carbon Dioxide* 23 mmol/L (20-32); Creatinine* 0.9 mg/dL (0.5-1.5); Estimated Glomerular Filt Rate 84 ml/min; Glucose* 148 mg/dL (60-115); Total Protein* 6.4 g/dL (6.0-8.3)
[2022-06-08 11:45] LABS: Calcium* 8.5 mg/dL (8.4-10.6)
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
[2022-06-08 11:55] LABS: Slide Review Acceptable Review (Acceptable)
[2022-06-08 11:58] LABS: Troponin I* 0.07 ng/mL (0.01-0.04)
--- NOTE | 2022-06-08 11:59 | ED.NURSE ---
Critical received from lab: Troponin 0.07, patient already transferred critically
[2022-06-08 12:03] LABS: INR 1.53 (0.91-1.10); Prothrombin Time 19.2 Seconds
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
--- NOTE | 2022-06-08 13:16 | ED.NURSE ---
One unit, O negative blood given and hanging, still infusing when pt left.
== END 2022-06-08 11:45 | disposition short-term general hospital (02) ==
PROVIDERS: Emergency Provider Family Medicine; PCP Surgery
DX: S22.42XA Multiple fractures of ribs, left side, initial encounter for closed fracture (principal); V43.52XA Car driver injured in collision with other type car in traffic accident, initial encounter; M25.512 Pain in left shoulder; S01.512A Laceration without foreign body of oral cavity, initial encounter
CPT/HCPCS: 36415; 36430; 71045; 72170; 76604; 76705; 80053; 84484; 85025; 85610; 86850; 86900; 86901; 86922; 93308; 99284; 99291; G0390; P9016

== ENCOUNTER 2022-06-08 11:41 | Outpatient (CLI) | payer OTHER, MEDICARE, BC, SELFPAY | END 2022-06-08 11:42 | disposition home or self-care (01) | PROVIDERS: PCP Surgery; Visit Provider Family Medicine | DX: S29.9XXA Unspecified injury of thorax, initial encounter (principal); V49.9XXA Car occupant (driver) (passenger) injured in unspecified traffic accident, initial encounter | CPT/HCPCS: A0425; A0426; A0434 ==